=== PATIENT | male | born 1950 | race Caucasian/White ===

== ENCOUNTER → 2018-11-08 14:08 | Outpatient (CLI) | payer MEDICARE, SELFPAY ==
--- NOTE | 2018-11-08 14:14 | XR_ITS ---
XR foot wt bearing LT 3V HISTORY: The dorsal foot pain ITS.REASON: pain ORDERING PHYSICIAN: Sarah López DPM PATIENT AGE: 67 years COMPARISON: None FINDINGS: No fracture or dislocation. No lytic or blastic change. There is normal mineralization.. Minimal osteoarthritic changes are present at the first metatarsophalangeal joint. There is a small calcaneal spur. The distal phalanx of the great toe has a somewhat pointed appearance. This is of questionable clinical significance. IMPRESSION: Mild osteoarthritis of the first metatarsophalangeal joint
--- NOTE | 2018-11-08 14:14 | XR_ITS ---
XR foot wt bearing RT 3V HISTORY: Dorsal foot pain ITS.REASON: pain ORDERING PHYSICIAN: Sarah López DPM PATIENT AGE: 67 years COMPARISON: None FINDINGS: No fracture or dislocation. No lytic or blastic change. There is normal mineralization.. Minimal osteoarthritic changes involving the first metatarsophalangeal joint. There is some minimal hypertrophy along the dorsal aspect of the cuneiforms. IMPRESSION: Minimal osteoarthritis of the first metatarsal phalangeal joint
== END ==
PROVIDERS: PCP Family Medicine; Visit Provider Podiatrist
DX: M79.671 Pain in right foot (principal); M79.672 Pain in left foot
CPT/HCPCS: 73630

== ENCOUNTER → 2021-03-29 10:30 | Outpatient (CLI) | payer MEDICARE, SELFPAY ==
[2021-03-29 12:36] LABS: Coronavirus 19 IgG Antibody Positive (Negative); Coronavirus 19 IgM Antibody Negative (Negative)
== END ==
PROVIDERS: Visit Provider Internal Medicine Gastroenterology
DX: Z01.812 Encounter for preprocedural laboratory examination (principal); Z20.822 Contact with and (suspected) exposure to COVID-19; Z12.11 Encounter for screening for malignant neoplasm of colon
CPT/HCPCS: 36415; 86328

== ENCOUNTER 2021-04-01 06:50 | Day surgery (SDC) | payer MEDICARE, SELFPAY ==
[2021-03-28 10:24] VITALS: BMI 35.2
[2021-04-01 07:17] VITALS: BP 142/81; PULSE 84; RESP 18; TEMP 36.3; O2SAT 98
[2021-04-01 07:19] LABS: POC Glucose,Bedside 102 (70-110)
--- NOTE | 2021-04-01 09:27 | P.PCN_ITS ---
[facility] Procedure Note Procedure Note:: Colonoscopy Procedure Report: Colonoscopy with cold snare polypectomy and Endo Clip placement Endoscopist: Sebastian Rivero II, MD Referring physician: Akira Fajardo MD Date of Procedure: April 01, 2021 Equipment: Olympus 190 variable stiffness pediatric colonoscope Sedation: MAC sedation Indication: Mr. Rodriguez is a 70-year-old gentleman who is here for screening/surveillance colonoscopy. The patient did have a colonoscopy 15 years ago (Dr. Alfonzo Rivera) because of some bleeding. The patient reports no abdominal pain, weight loss, change in his bowel habits or rectal bleeding. He reports no family history of colon cancer. Procedure: Prior to the procedure, a history and physical exam was performed, and patient's medications and allergies were reviewed. The risks, benefits and alternatives of the sedation and procedure were discussed with the patient. All questions were answered and informed consent was obtained. The patient was brought to the procedure room. Patient identification and proposed procedure were verified by the physician and the nurse. The patient was placed in a left lateral decubitus position and the scope was passed under direct vision. Throughout the procedure, the patient's blood pressure, pulse, and oxygen saturations were monitored continuously. The colonoscopy was accomplished without difficulty. The patient tolerated the procedure well. Findings: On digital rectal examination there was normal rectal tone. There were no external hemorrhoids. The prostate was 2-3+, smooth, soft, symmetric without nodules. The colonoscope was introduced through the anal canal to the rectum and advanced to the cecum. The ileocecal valve and appendiceal orifice were identified. The scope was advanced a short distance into the ileum which appeared grossly normal. The scope was then withdrawn into the colon. There were a total of 8 colon polyps (ascending x2 (5 and 12 mm), transverse x1 (7 mm), descending x1 (9 mm), sigmoid x1 (10 mm), rectosigmoid x2 (3 and 5 mm) and rectal x1 (11 mm)) that were identified (despite poor prep) and removed via cold snare polypectomy. The 2 largest polyps had some minor heme so 2 endoclips were placed (1 on each polypectomy site) with complete hemostasis. There were scattered diverticuli throughout the colon but more predominantly in the descending and sigmoid colon (LEFT colon). The rectum itself was normal. Upon retroflexion within the rectum there were grade 2-3 internal hemorrhoids. The preparation was fair to poor throughout with [place] Preparation Score of 5-6 out of 9. The cecal time was 15 minutes. Impression: 1. Colonic polyps x8 2. Extensive pandiverticulosis 3. Grade 2-3 internal hemorrhoids Plan: I will follow up the polyp pathology and recommend repeat colonoscopy again in 1-2 years based upon the polyp histology. I would encourage bulking fiber supplementation on a long-term daily maintenance basis.
[2021-04-01 09:31] VITALS: BP 127/85; PULSE 75; RESP 12; TEMP 36.3; O2SAT 92
[2021-04-01 09:41] VITALS: BP 123/84; PULSE 73; RESP 16; O2SAT 92
[2021-04-01 09:51] VITALS: BP 151/97; PULSE 81; RESP 16; O2SAT 96
[2021-04-01 10:01] VITALS: BP 141/96; PULSE 78; RESP 16; TEMP 36.3; O2SAT 98
[2021-04-01 10:19] VITALS: O2SAT 98
--- NOTE | 2021-04-01 17:02 | HMH.ANESCL ---
[facility] Anesthesia Checklist - Patient Identification Patient Identification: Arm Band - Structural Data Admitted From: Home Planned Operative Procedure/s: Colonoscopy Consent for Planned Operative Procedure(s) Verified: Yes Verified Documents: Surgical Consent, History and Physical - NPO Status Verified Time NPO: 00:00 - Airway Assessment C-Spine Mobility Assessed: Yes TMJ Mobility Assessed: Yes Dentition: Good Dentition - Neurological Assessment Level of Consciousness: Awake, Alert - Anesthesia Plan Anesthesia Risk discussed: Yes Anesthesia Plan: Verified ASA Class: III Anesthesia Type: MAC [facility] History Medical History: Reports:: Cancer (skin ca), Diabetes Mellitus Type 2, Gastroesophageal Reflux Disease(GERD), Hyperlipidemia, Hypertension Denies:: Diabetes Mellitus Type 1, Internal Pacemaker, MRSA, Seizures *Have you ever received a pneumonia vaccine?: Yes (2009) *Have you received a flu vaccine this season?: No Other Medical History: Reports: Arthritis Anesthesia experience/problems:: None Laterality Cases: Left: Arthroscopy Knee, Total Hip Replacement Other Surgeries: Yes: No Previous Surgery, Cancer Surgery, Cardiac Catheterization, Colonoscopy, Coronary Stent, Hernia Repair. No: Pacemaker Amputation: No Fractures: No - *Social History Last grade of school completed: GED Smoking Status: Never smoker Alcohol Intake: current Alcohol Intake Frequency:: a few times a month Substance Use Type: denies use *Occupational Status:: retired Housing: house Household Members: family *Travel in the last 8 weeks: None Family Hx:: Diabetes, Stroke, Hyperlipidemia, Hypertension
== END 2021-04-01 10:08 | disposition home or self-care (01) ==
LOC: OUTP 06:53
PROVIDERS: PCP Family Medicine; Visit Provider Internal Medicine Gastroenterology
PROC: 0DJD8ZZ Inspection of Lower Intestinal Tract, Via Natural or Artificial Opening Endoscopic (ICD-10-PCS; CPT 45378; principal; 2021-04-01 09:00)
DX: Z12.11 Encounter for screening for malignant neoplasm of colon (principal); K63.5 Polyp of colon; K62.1 Rectal polyp; K57.30 Diverticulosis of large intestine without perforation or abscess without bleeding; K64.1 Second degree hemorrhoids; Z85.828 Personal history of other malignant neoplasm of skin; E11.9 Type 2 diabetes mellitus without complications; K21.9 Gastro-esophageal reflux disease without esophagitis; E78.5 Hyperlipidemia, unspecified; I10 Essential (primary) hypertension; M19.90 Unspecified osteoarthritis, unspecified site; Z82.3 Family history of stroke
CPT/HCPCS: 45385; 82962; 88305

== ENCOUNTER → 2021-06-08 17:11 | Outpatient (CLI) | payer MEDICARE, SELFPAY | PROVIDERS: PCP Family Medicine; Visit Provider Ophthalmology | DX: Z01.812 Encounter for preprocedural laboratory examination (principal); Z20.822 Contact with and (suspected) exposure to COVID-19 | CPT/HCPCS: U0003 ==

== ENCOUNTER 2021-06-11 07:06 | Day surgery (SDC) | payer MEDICARE, MEDICAID, SELFPAY ==
[2021-06-04 15:38] VITALS: BMI 34.8
[2021-06-11 07:20] VITALS: BP 113/75; PULSE 76; RESP 18; TEMP 36.3; O2SAT 94
[2021-06-11 08:38] VITALS: BP 131/78; PULSE 69; RESP 18; O2SAT 96
[2021-06-11 08:43] VITALS: BP 130/75; PULSE 66; RESP 18; O2SAT 98
[2021-06-11 08:48] VITALS: BP 127/75; PULSE 67; RESP 16; O2SAT 99
[2021-06-11 08:53] VITALS: BP 131/80; PULSE 65; RESP 16; O2SAT 99
[2021-06-11 08:58] VITALS: BP 123/76; PULSE 73; RESP 16; TEMP 36.6; O2SAT 97
[2021-06-12 08:50] LABS: POC Glucose,Bedside 81 (70-110)
== END 2021-06-11 09:10 | disposition home or self-care (01) ==
LOC: OR 07:07
PROVIDERS: PCP Family Medicine; Visit Provider Ophthalmology
DX: H25.811 Combined forms of age-related cataract, right eye (principal); E11.9 Type 2 diabetes mellitus without complications; Z79.4 Long term (current) use of insulin; Z79.899 Other long term (current) drug therapy
CPT/HCPCS: 66984; 82962; V2632

== ENCOUNTER → 2021-06-24 08:46 | Outpatient (CLI) | payer MEDICARE, MEDICAID, SELFPAY | PROVIDERS: Visit Provider Ophthalmology | DX: Z01.812 Encounter for preprocedural laboratory examination (principal); Z11.52 Encounter for screening for COVID-19 | CPT/HCPCS: U0003 ==

== ENCOUNTER 2021-06-25 07:28 | Day surgery (SDC) | payer MEDICARE, MEDICAID, SELFPAY ==
[2021-06-18 13:24] VITALS: BMI 35.4
[2021-06-25 08:10] VITALS: BP 140/75; PULSE 73; RESP 18; TEMP 36.1; O2SAT 96
[2021-06-25 09:09] VITALS: BP 137/91; PULSE 70; RESP 18; O2SAT 97
[2021-06-25 09:14] VITALS: BP 151/90; PULSE 72; RESP 18; O2SAT 96
[2021-06-25 09:19] VITALS: BP 148/87; PULSE 68; RESP 18; O2SAT 98
[2021-06-25 09:24] VITALS: BP 152/86; PULSE 69; RESP 18; O2SAT 98
[2021-06-25 09:25] VITALS: BP 127/80; PULSE 72; RESP 16; TEMP 36.1; O2SAT 98
[2021-06-26 07:10] LABS: POC Glucose,Bedside 122 (70-110)
== END 2021-06-25 09:37 | disposition home or self-care (01) ==
LOC: OR 07:31
PROVIDERS: PCP Family Medicine; Visit Provider Ophthalmology
DX: H25.813 Combined forms of age-related cataract, bilateral (principal); H02.834 Dermatochalasis of left upper eyelid; H02.831 Dermatochalasis of right upper eyelid; E11.9 Type 2 diabetes mellitus without complications; M19.90 Unspecified osteoarthritis, unspecified site
CPT/HCPCS: 66984; 82962; V2632

== ENCOUNTER → 2021-09-03 08:55 | Outpatient (CLI) | payer MEDICARE, MEDICAID, SELFPAY ==
--- NOTE | 2021-09-03 08:59 | XR_ITS ---
PROCEDURE: XR KNEE RT 4V CLINICAL INDICATION: right knee pain COMPARISON: No exams were available for comparison FINDINGS: No fracture or dislocation. No lytic or blastic change. There is normal mineralization. Severe osteoarthritic changes are present involving all 3 compartments worse at the medial compartment with prominent subchondral cystic changes. Osteophytes are noted. There is approximately 7 mm lateral translation of the tibia. Generalized vascular calcification noted. Other findings:None. IMPRESSION: Severe osteoarthritis worse at the medial compartment with prominent subchondral cystic changes at the medial compartment Dictated by: Tl Alexis MD 09/03/2021 17:22 Tl Alexis MD in [place] 09/03/2021 17:22
== END ==
PROVIDERS: PCP Family Medicine; Visit Provider Orthopaedic Surgery
DX: M25.561 Pain in right knee (principal)
CPT/HCPCS: 73564

== ENCOUNTER 2021-10-03 08:27 | Day surgery (SDC) | payer MEDICARE, MEDICAID, SELFPAY ==
[2021-10-03] VITALS (12 sets, daily range): BP systolic 94–129; BP diastolic 63–80; PULSE 58–85; RESP 19–20; TEMP 36.6–36.8; O2SAT 91–100; BMI 237.8
--- NOTE | 2021-10-03 07:02 | IR_ITS ---
APPROVED REPORT Patient Location: Outpatient [facility] Firefighter: LUPE Obrien RT (R) PROCEDURES Left heart catheterization Left ventriculogram Selective coronary angiogram Stent deployment to the mid LAD INDICATION Abnormal Myoview, Coronary artery disease, Preoperative evaluation SCAI INDICATION Clinical history: This is a gentleman being evaluated preoperatively for total knee replacement. There was an unusual lesion in the mid LAD which effectively acted as if it were a proximal LAD lesion simply based on the size of the LAD itself. Initially I felt this was probably a thrombus producing at least an 80% stenosis. With this gentleman going for knee replacement he would have to be off anticoagulation which would increase the likelihood of this thrombus expanding and possibly creating a serious ischemic event perioperatively. Because patient would have to be off anticoagulation I felt this should be revascularized. Of interest when the stent was delivered there was actual significant difficulty in getting the stent past this lesion thereby making me think it was probably a calcified old ruptured plaque or possible dissection. Nevertheless I believe it was the appropriate therapeutic to revascularize this large caliber LAD. Excellent angiographic results were obtained and I feel the patient will have better short and long-term perioperative chances of being off anticoagulation in the future. Informed consent was obtained prior to the procedure. COMPLICATIONS None Estimated Blood Loss: less than 10ml TECHNIQUE One percent lidocaine was used to anesthetize the right groin. The right femoral artery was accessed via the Seldinger technique. A 4-[place] sheath was placed in the right femoral artery. The JL-4 and JR-4 catheter was also used to perform left heart catheterization left ventriculogram and selective coronary angiogram. At the end the diagnostic angiogram therapeutic heparin was administered giving a therapeutic ACT and the 4 [place] sheath was exchanged for a 6 [place] sheath. An EBU 3.75 guide catheter was placed in the left main artery and a Choice PT extra support wire was placed in the distal LAD. 3.5 x 15 mm resolute Rincon stent was deployed at 20 joslyn producing excellent angiographic results. At the end of the procedure MIRZA-3 flow was present before and after the procedure. At the end of the procedure the apparatus was removed the groin was reprepped gloves were changed sheath was removed and hemostasis was achieved using Perclose device patient was transferred to the postop putting in stable condition total contrast was 25 cc ANGIOGRAPHIC RESULTS The left main artery Normal The left anterior descending artery Has proximal 10 to 20% stenoses followed by a mid vessel stenosis/thrombus creating at least an 80% intraluminal stenosis. The distal LAD then has 80 and distal 90% stenoses. The circumflex artery Is a nondominant vessel with proximal 20 and 30% stenosis followed by mid vessel stent which is widely patent with minimal in-stent restenosis supplying 2 moderate-sized obtuse marginal arteries The right coronary artery Is a dominant vessel and has proximal and mid vessel 30% stenoses. There appears to be a vascular ectatic area in the distal segment creating angela current accompanied by MIRZA III flow. Unlike the LAD, this distasl RCA lucency does change depending on the flow dynamics thereby further suggesting this is most likely an angela current The RUIZ ventriculogram reveals Preserved at 60% The left ventricular end-diastolic pressure 10 mmHg IMPRESSION Dual antiplatelet therapy for at least 6 months coronary disease as described above with successful stenting of
[2021-10-03 09:20] LABS: Coronavirus 19, PCR Not Detected (NotDetected); Influenza A, PCR Not Detected (NotDetected); Influenza B, PCR Not Detected (NotDetected)
[2021-10-03 09:25] LABS: Basophils % 0.3 % (0.1-2.0); Eosinophils # 0.2 K/mm3 (0.0-0.4); Eosinophils % 3.1 % (0.1-12.0); Hematocrit 40.5 % (42.0-52.0); Hemoglobin 12.7 g/dL (14.1-18.0); Lymphocytes # 1.4 K/mm3 (0.7-4.5); Lymphocytes % 21.4 % (10-50); Mean Corpuscular HGB Conc 31.4 g/dL (31.8-35.4); Mean Corpuscular Hemoglobin 31.1 pg (27.0-31.2); Mean Corpuscular Volume 99.2 fl (80-94); Mean Platelet Volume 8.2 fl (7.4-10.4); Monocytes # 0.4 K/mm3 (0.1-1.0); Monocytes % 6.3 % (1.7-9.3); Neutrophils # 4.6 K/mm3 (1.8-7.8); Platelet Count 151 K/mm3 (142-424); Red Blood Count 4.08 M/mm3 (4.60-6.20); Red Cell Distribution Width 14.7 % (11.5-17.5); White Blood Count 6.6 K/mm3 (4.8-10.8)
[2021-10-03 09:41] LABS: Anion Gap 18.2 mEq/L (5-15); Blood Urea Nitrogen 51 mg/dl (9-20); Carbon Dioxide 23 mmol/L (22.0-30.0); Chloride 105 mmol/L (98-107); Creatinine Clearance Estimated -11 mL/min (50-200); Estimated Glomerular Filt Rate 28 ml/min (>60); GFR (African American) 34 ML/MIN (>60); Glucose 67 mg/dl (74-100); Potassium 4.2 mmoL/L (3.5-5.1); Sodium 142 mmol/L (136-145)
[2021-10-03 12:15] LABS: CATHL Activated Clotting Time 359 SEC (74-125)
--- NOTE | 2021-10-03 14:57 | HMH.PHACLD ---
Sterling Rodriguez has received discharge medication counseling on the following medications: PATIENT IS BEING STARTED ON BRILINTA 90 MG BID AND ASPIRIN 81 MG DAILY. PATIENT IS CURRENTLY TAKING LISINOPRIL 20 MG DAILY AND ROSUVASTATIN 10 MG HS. NOT WANTING TO START BETA MAKENZIE AT THIS TIME.
== END 2021-10-03 15:02 | disposition home or self-care (01) ==
LOC: CATHLAB 08:28
PROVIDERS: PCP Family Medicine; Visit Provider Internal Medicine
DX: I25.10 Atherosclerotic heart disease of native coronary artery without angina pectoris (principal); E11.22 Type 2 diabetes mellitus with diabetic chronic kidney disease; I12.9 Hypertensive chronic kidney disease with stage 1 through stage 4 chronic kidney disease, or unspecified chronic kidney disease; N18.9 Chronic kidney disease, unspecified; E78.5 Hyperlipidemia, unspecified; T82.855A Stenosis of coronary artery stent, initial encounter; Y83.1 Surgical operation with implant of artificial internal device as the cause of abnormal reaction of the patient, or of later complication, without mention of misadventure at the time of the procedure
CPT/HCPCS: 80048; 85025; 85347; 92928; 93458; 99152; C1725; C1760; C1769; C1874; C1894; C9600; C9803; J1644; Q9967; U0003; U0005

== ENCOUNTER 2021-10-14 13:56 | Outpatient (RCR) | payer MEDICARE, MEDICAID, SELFPAY | END 2021-10-14 23:59 | disposition home or self-care (01) | LOC: PT 13:56 | PROVIDERS: Visit Provider Internal Medicine | DX: I25.10 Atherosclerotic heart disease of native coronary artery without angina pectoris (principal); Z95.5 Presence of coronary angioplasty implant and graft ==

== ENCOUNTER → 2022-05-06 11:25 | Outpatient (CLI) | payer MEDICARE, MEDICAID, SELFPAY ==
--- NOTE | 2022-05-06 11:31 | XR_ITS ---
FINAL REPORT CLINICAL HISTORY: Pt stated that his right knee has been going out and having lack of mobility since September 2021. Pt is having surgery May 2022 on the right knee. COMPARISON: September 03, 2021 FINDINGS: RIGHT KNEE: 4 views of the right knee obtained. There is no acute fracture or dislocation. There is severe degenerative change, worst in the medial compartment. There is a subchondral cyst. There is a small joint effusion. There are moderate vascular calcifications noted. There is no soft tissue abnormality. IMPRESSION: Overall stable from the prior exam with no acute abnormality. Reviewed, Interpreted and Dictated by Dandre Mahajan III, MD Transcribed by Linda Davis Authenticated and [facility]
== END ==
PROVIDERS: PCP Family Medicine; Visit Provider Orthopaedic Surgery
DX: M25.561 Pain in right knee (principal)
CPT/HCPCS: 73564

== ENCOUNTER → 2022-05-28 08:40 | Outpatient (CLI) | payer MEDICARE, MEDICAID, SELFPAY ==
--- NOTE | 2022-05-28 08:46 | XR_ITS ---
FINAL REPORT CLINICAL HISTORY: pre op for knee surgery smoker, controlled htn FINDINGS: Two views of the chest were obtained. The heart size and pulmonary vascularity are within normal limits. The mediastinum is normal. No acute pulmonary abnormality is identified. There is no pneumothorax. There are postoperative changes in the lower cervical spine. IMPRESSION: No active cardiopulmonary disease. Reviewed, Interpreted and Dictated by Dandre Mahajan III, MD Transcribed by Akilah Irby Authenticated and [facility]
--- NOTE | 2022-05-28 09:23 | ECG_ITS ---
APPROVED REPORT Exam: Resting ECG HR:75 bpm ECG Measurements Heart Rate 75 AXES MO 165 P 35 QRSd 104 QRS -3 QT 402 T 14 QTc 430 Conclusion SINUS RHYTHM LOW QRS VOLTAGE IN PRECORDIAL LEADS [QRS DEFLECTION < 1.0 mV IN CHEST LEADS] POSSIBLE ANTERIOR MYOCARDIAL INFARCTION , PROBABLY OLD [30 ms Q WAVE IN V3/V4, OR R < 0.2 mV IN V4] BORDERLINE ECG UNCONFIRMED REPORT Electronically signed by : Arthur Whitt MD 05/28/2022 17:27:00
[2022-05-28 09:36] LABS: Basophils % 0.5 % (0.1-2.0); Eosinophils # 0.2 K/mm3 (0.0-0.4); Eosinophils % 4.4 % (0.1-12.0); Hematocrit 38.7 % (42.0-52.0); Hemoglobin 12.4 g/dL (14.1-18.0); Lymphocytes # 1.1 K/mm3 (0.7-4.5); Mean Corpuscular HGB Conc 32.1 g/dL (31.8-35.4); Mean Corpuscular Hemoglobin 30.7 pg (27.0-31.2); Mean Corpuscular Volume 95.8 fl (80-94); Mean Platelet Volume 8.3 fl (7.4-10.4); Monocytes # 0.3 K/mm3 (0.1-1.0); Monocytes % 6.8 % (1.7-9.3); Neutrophils # 3.4 K/mm3 (1.8-7.8); Neutrophils % 67.3 % (37.0-80.0); Platelet Count 150 K/mm3 (142-424); Red Blood Count 4.04 M/mm3 (4.60-6.20); Red Cell Distribution Width 14.6 % (11.5-17.5)
[2022-05-28 09:51] LABS: Alanine Aminotransferase 24 U/L (12-78); Albumin/Globulin Ratio 1.9 (1.1-1.8); Alkaline Phosphatase 87 U/L (38-126); Anion Gap 15.2 mEq/L (5-15); Aspartate Amino Transferase 34 U/L (17-59); Blood Urea Nitrogen 58 mg/dl (9-20); Carbon Dioxide 27 mmol/L (22.0-30.0); Chloride 100 mmol/L (98-107); Estimated Glomerular Filt Rate 30 ml/min (>60); GFR (African American) 36 ML/MIN (>60); Globulin 2.1 g/dL (1.3-3.2); Glucose 178 mg/dl (74-100); Potassium 4.2 mmoL/L (3.5-5.1); Sodium 138 mmol/L (136-145); Total Protein,Serum 6.1 g/dl (6.3-8.2)
[2022-05-28 09:53] LABS: Bilirubin,Total < 0.1 mg/dl (0.2-1.3)
== END ==
PROVIDERS: PCP Family Medicine; Visit Provider Orthopaedic Surgery
DX: M25.562 Pain in left knee (principal); M10.9 Gout, unspecified
CPT/HCPCS: 36415; 71046; 80053; 85025; 93005

== ENCOUNTER → 2022-06-02 08:58 | Outpatient (CLI) | payer MEDICARE, MEDICAID, SELFPAY | PROVIDERS: PCP Family Medicine; Visit Provider Orthopaedic Surgery | DX: M25.562 Pain in left knee (principal); Z01.812 Encounter for preprocedural laboratory examination; Z20.822 Contact with and (suspected) exposure to COVID-19 | CPT/HCPCS: 36415; 86850; C9803; U0003; U0005 ==

== ENCOUNTER 2022-06-04 13:47 | Observation (INO) | payer MEDICARE, MEDICAID, SELFPAY ==
--- NOTE | 2022-05-22 12:02 | SW/DCPLANNER ---
Addendum entered by Amber Hyde 05/27/22 12:14: This patient did return my phone call today 05/27/22. Patient stated that he does have some assistance at home but stated he is unsure of a safe discharge plan. I informed this patient that PT/OT will evaluate this patient after surgery and then I will visit patient. I explained to patient that recommendation could be: home with home health or placement. I also discussed facilities with patient that are in network with his insurance: [facility], [facility], [facility] or [facility]. I will follow up with this patient the day of his procedure. Original Note: I have attempted to contact this patient regarding discharge plans after upcoming TKR on 06/04/22. Patient did not answer/VM left to return phone call.
[2022-05-29 10:53] VITALS: BMI 34.0
[2022-06-04] VITALS (24 sets, daily range): BP systolic 94–127; BP diastolic 52–72; PULSE 64–85; RESP 14–20; TEMP 33.9–43; O2SAT 91–97
[2022-06-04 07:06] LABS: POC Glucose,Bedside 76 (70-110)
--- NOTE | 2022-06-04 07:27 | P.PN_ITS ---
[facility] Anesthesia Checklist - Patient Identification Patient Identification: Arm Band - Structural Data Admitted From: Home Planned Operative Procedure/s: Right Total Knee Arthroplasty Consent for Planned Operative Procedure(s) Verified: Yes Verified Documents: Surgical Consent, History and Physical - NPO Status Verified Time NPO: 00:00 - Additional verifications Anesthesia Reactions: No Hx Blood Transfusions: No Blood Transfusion Reaction: No - Airway Assessment C-Spine Mobility Assessed: Yes (mp2) TMJ Mobility Assessed: Yes Dentition: Edentulous - Neurological Assessment Level of Consciousness: Awake, Alert - Anesthesia Plan Anesthesia Risk discussed: Yes Anesthesia Plan: Verified ASA Class: III Anesthesia Type: MAC w/Spinal [facility] History I have reviewed the patient's past medical history: Yes Medical History: Reports:: Cancer (SKIN CANCER), Coronary Artery Disease, Diabetes Mellitus Type 2, Gastroesophageal Reflux Disease(GERD), Hyperlipidemia, Hypertension Denies:: Diabetes Mellitus Type 1, Internal Pacemaker, MRSA, Seizures *Have you ever received a pneumonia vaccine?: No *Have you received a flu vaccine this season?: No Other Medical History: Reports: Arthritis. Denies: Blood Transfusion Reaction Anesthesia experience/problems:: nac Laterality Cases: Left: Arthroscopy Knee, Total Hip Replacement, Bilateral: Cataract Other Surgeries: Yes: Cancer Surgery, Cardiac Catheterization, Colonoscopy, Coronary Stent, Hernia Repair. No: Pacemaker Amputation: No Fractures: No - *Social History Last grade of school completed: GED Smoking Status: Former smoker Tobacco Type: cigars #Yrs smoked (if former smoker): 4 Smoking End Date: 2004 Alcohol Intake: former Alcohol Intake Frequency:: a few times a week Substance Use Type: denies use *Occupational Status:: retired, disabled Housing: house Household Members: family *Travel in the last 8 weeks: None Family Hx:: Diabetes
[2022-06-04 07:37] LABS: Hemoglobin A1C 6.4 % (4.0-6.0)
--- NOTE | 2022-06-04 12:47 | XR_ITS ---
FINAL REPORT CLINICAL HISTORY: surgery COMPARISON: 05/06/2022 FINDINGS: RIGHT KNEE Three views were obtained. There is no acute fracture or dislocation. There are postoperative changes from arthroplasty without evidence of complication. Soft tissue air is identified. Note is made of vascular calcification. IMPRESSION: Postsurgical changes without evidence of complication. Reviewed, Interpreted and Dictated by Dandre Mahajan III, MD Transcribed by Pricilla Gonzales Authenticated and . [facility]
--- NOTE | 2022-06-04 12:51 | P.PN_ITS ---
[facility] Anesthesia Record Part I Intake, IV Amount: 1,400 Estimated blood loss (mL): 50 Urine output (mL): 400 Blood Pressure: 94/55 SaO2: 95 Pulse Rate: 75 Respiratory Rate: 14 Temperature: 97.6 F Patient is:: Drowsy Stable to PACU at:: 12:43
[2022-06-04 12:53] LABS: Coronavirus 19, PCR Not Detected (NotDetected); Influenza A, PCR Not Detected (NotDetected); Influenza B, PCR Not Detected (NotDetected)
--- NOTE | 2022-06-04 13:05 | HMH.OPNOTE ---
Date of procedure: 06/04/22 Pre-op Diagnosis:: Advanced degenerative arthritis, right knee Post-op Diagnosis:: Same Procedure performed:: Uncemented total knee arthroplasty, right knee Surgeon:: Cruz Lopez MD Molasses Coloring Operator(s):: Xena Vee PA-C MOP MAKER:: Other (Bradley Chakraborty) Anesthesia: spinal Estimated blood loss (mL): 50 Clinical Note:: Patient is a 71-year-old male with end-stage tricompartmental osteoarthritis and severe [id number] changes over the medial compartment with a progressive varus deformity and flexion contracture of the right knee presented with unremitting severe pain not relieved by conservative management. The arthritic process and pain are advanced to the point that it is becoming a hazard for the patient with risk of falling and injuring himself.? A total knee arthroplasty is indicated to relieve the pain, improve function, reduce the risk of falls and improve quality of life.? He has history of hypertension, hyperlipidemia, gout, diabetes mellitus, GERD and arthritis.? Please refer to my office note for full details. Operative findings:: As noted on the preoperative evaluation, the knee joint was stiff and has a fixed flexion of 10? with 10 degrees of fixed varus deformity.? As seen on the x-rays, there is advanced tricompartmental degenerative arthritis with the medial compartment showing marked degenerative changes with osteophyte formation, subchondral cysts and sclerosis. Multiple subchondral cysts noted over the medial tibial plateau and medial femoral condyle. The menisci and cruciate ligaments are markedly degenerate.? There is extensive osteophyte formation over all 3 compartments.? Bone quality is good. Operative note:: On the day of the surgery the patient and his daughter were met in the preoperative area. I have again reviewed the clinical and x-ray findings and discussed the diagnosis, natural history and management options including both nonsurgical and surgical.? Patient has end-stage degenerative arthritis of the right knee and has failed to respond satisfactorily to appropriate conservative management in the past and has opted for a total knee arthroplasty.? The right knee joint is stiff and painful, and is limiting his mobility, ADLs and quality of life.? Also, the knee gives out and patient is at risk of falls resulting in fractures.? I have again discussed the details of the procedure, risks and benefits and alternatives in detail. The complications discussed include but are not limited to infection, injury to nerves and blood vessels including injury to popliteal artery, injury to tendons and ligaments, DVT and PE, fat embolism, intraoperative fracture, limb length inequality, patella fracture, patellofemoral instability, patellar clunk syndrome, quadriceps and patellar tendon rupture, implant failure, component loosening, periprosthetic femur and tibia fractures, stiffness/arthrofibrosis, limp, incomplete relief of pain, incomplete functional recovery, likely need for further surgery in future including revision and anesthetic complications including heart attack, stroke and even .? We also discussed about the likely need for blood transfusion and transfusion reactions. We discussed how any of these events can be devastating. We have discussed nonsurgical alternatives as well. Patient understands and wishes to proceed with a right total knee arthroplasty as planned and I believe that he is fully informed as to the risks, benefits, and alternatives including nonsurgical alternatives. We also discussed the postoperative course including the rehab and physical therapy required.? A physical examination was performed and documented.? Patient understood the risks, agreed to proceed with surgery and no guarantees or assurances were given or implied. The limb was appropriately marked and initialed by me. The patient was then brought to the operating room and a spinal anesthesia was administered by the control operator.?
[2022-06-04 13:13] LABS: POC Glucose,Bedside 97 (70-110)
--- NOTE | 2022-06-04 13:56 | HMH.PHAINT ---
MEDICATION RECONCILIATION COMPLETED ON PATIENT USING EXTERNAL FILL HISTORY FROM PHARMACY. -RUFINO VEGA, SANCHEZD
--- NOTE | 2022-06-04 14:00 | PC.NURSE ---
Addendum entered by Keaton Zamora RN 06/04/22 16:02: LATE ENTRY ON PREVIOUS NOTE FOR 1400 Original Note: PT HYPOTHERMIC UPON ARRIVAL TO FLOOR. ERIC OCHOA APPLIED
--- NOTE | 2022-06-04 14:20 | HMH.PHAVTE ---
[facility] Pharmacy VTE Monitoring - Patient Demographics Admission date: 06/04/22 Report Date: 06/04/22 Time: 14:20 Allergies/Adverse Reactions: Patient Allergies No Known Allergies Allergy (Verified 06/04/22 06:39) Height: 1.75 m Weight: 104.326 kg - Prophylaxis VTE Prophylaxis Ordered?: Yes Types of VTE Prophylaxis: IPCS Thigh High, Pharmacological Location of Applied Device: Bilateral Lower Extremeties Pharmacologic Type: Other (XARELTO)
[2022-06-04 15:14] LABS: Microscopic,Cath URINE MICROSCOPIC (MICROSCOPIC)
[2022-06-04 15:28] LABS: Appearance,Urine/Cath CLEAR (Clear); Bilirubin,Cath Negative (Negative); Blood, Urine/Cath Negative (Negative); Color,Urine/Cath YELLOW (Yellow); Glucose,Urine/Cath (UA) Negative (Negative); Ketones,Urine/Cath Negative (Negative); Leukocyte Esterase,Cath Negative (Negative); Nitrate,Cath Negative (Negative); Protein,Urine/Cath Negative (Negative); Specific Gravity, Urine/Cath 1.015 (1.005-1.030); Urobilinogen,Cath 0.2 EU/dl (0.2)
--- NOTE | 2022-06-04 15:28 | HMH.ORTHPN ---
Subjective Date: 06/04/22 Time: 15:15 Principal diagnosis: Status post uncemented total knee arthroplasty, right knee Interval history: Patient is status post right total knee arthroplasty earlier today. Patient is lying down on the bed. He says the spinal anesthesia/adductor canal block is wearing off and reporting some knee pain. Not complaining of any nausea or vomiting. No history of any cough, chest pain, shortness of breath or palpitations. PN: Obj Ex Vital signs: Temp Pulse Resp BP Pulse Ox 93.2 F L 64 16 100/58 L 94 L 06/04/22 15:24 06/04/22 14:00 06/04/22 14:00 06/04/22 14:00 06/04/22 14:00 Narrative: Laboratory Results - last 24 hr 06/04/22 06:55: POC Glucose 76 06/04/22 06:56: Hemoglobin A1c 6.4 H 06/04/22 08:40: Urine Color Yellow, Urine Appearance Clear, Urine pH 6.0, Ur Specific [place] 1.015, Urine Protein Negative, Urine Glucose (UA) Negative, Urine Ketones Negative, Urine Blood Negative, Urine Nitrate Negative, Urine Bilirubin Negative, Urine Urobilinogen 0.2, Ur Leukocyte Esterase Negative 06/04/22 12:46: SARS-CoV-2 (PCR) Not detected, Influenza A Untype (PCR) Not detected, Influenza Type B (PCR) Not detected 06/04/22 13:06: POC Glucose 97 Exam: General appearance: Drowsy but arousable and speaks in full sentences Cardiovascular: regular rate & rhythm, normal peripheral pulses Respiratory: No respiratory distress noted, speaks in full sentences ABD: soft and non tender On examination of the lower extremities the limb lengths are equal. On examination of the right knee the dressings are clean, dry and intact. Leg compartments are soft. Distal pulses are 1+. Capillary refill is brisk. There is numbness over her right foot and ankle. He is actively moving the ankle, foot and the toes. Postoperative check x-ray reviewed along with radiologist report. The x-rays show right total knee arthroplasty in satisfactory alignment. No complications noted. - Urinary Catheter Management Condom Cath placed during this visit: no Urethral indwelling: Yes Progress Note: A&P Assessment and Plan for All Diagnoses:: I have reviewed the clinical and operative findings and procedure performed with the patient and his daughter. We have given a copy of the postoperative check x-ray to the patient. Advised him to avoid placing pillow behind the knee; use knee immobilizer when weightbearing and walking until he regains full quadriceps control and is able to actively straight leg raise. Continue DVT prophylaxis and as needed pain medication. Care management consult regarding discharge planning. Patient is keen to go to a [facility] facility.
--- NOTE | 2022-06-04 15:57 | CARE MANAGER ---
Addendum entered by Amber Hyde 06/05/22 13:35: This patient has been approved for [facility] today per Lynette. [facility] does require a COVID swab prior to admission. Addendum entered by Amber Hyde 06/05/22 11:26: Lynette ramirez/ [facility] stated that she can accept this patient pending precert. I have updated patient's family and HCF. Addendum entered by Amber Hyde 06/05/22 09:31: Patient information has also [facility] to [facility] Original Note: Met with patient and daughter at bedside to discuss discharge planning. Patient lives with his daughter, but she works and feels he may need a SNF at discharge. Patient has been to [place] in the past, but is agreeable to any facility in [place]. Zaira at was notified of referral, and referral has been faxed. We will need to fax PT/OT evals in the AM.
--- NOTE | 2022-06-04 16:02 | PC.NURSE ---
1530- SECOND MISBAH OCHOA APPLIED FOR HYPOTHERMIA
--- NOTE | 2022-06-04 16:15 | PC.NURSE ---
1615-WARMED FLUIDS PROVIDED BY SCROLL MACHINE OPERATOR PER MD GONZALEZ.
[2022-06-04 16:43] LABS: Squamous Epithelial Ur./Cath Occasional #/hpf (0-5)
--- NOTE | 2022-06-04 17:45 | PC.NURSE ---
SHIFT SUMMARY. PT IS AOX4, ANSWERS QUESTIONS APPROPRIATELY. WAS ABLE TO EAT SUPPER TRAY AND TOLERATED WELL. LUNA CATH TO BEDSIDE DRAIN. HE HAS BEEN HYPOTHERMIC SINCE ARRIVING TO FLOOR. POLAR PACK REMOVED, BEAR HUGGER AND WARM FLUIDS IN PLACE PER DR GONZALEZ. PT DENIES N/V/D. HE IS NOT SHIVERING OR COMPLAINING OF BEING COLD. CAP REFILL BRISK <3 SECONDS X4 ECTREMITIES. SENSATION AND MOVEMENT INTACT TO DISTAL EXTREMITIES X4.
--- NOTE | 2022-06-04 18:22 | PC.NURSE ---
UPDATED DR GONZALEZ ON PATIENT STATUS. RECTAL TEMPERATURES HAVE IMPROVED TO 96.9. DR GONZALEZ RECOMMENDED TO CONTINUE WARM FLUIDS AND ACTIVE PT WARMING WITH MISBAH OCHOA
--- NOTE | 2022-06-04 19:10 | PC.NURSE ---
98.9 RECTAL TEMP AT THIS TIME. BEAR PAWS REMOVED. WARMED FLUIDS STOPPED.
[2022-06-05] VITALS: BP 115/71; PULSE 94; RESP 16; TEMP 36.6; O2SAT 93
[2022-06-05 00:58] LABS: POC Glucose,Bedside 135 (70-110)
--- NOTE | 2022-06-05 03:40 | PC.NURSE ---
pt rounded on throughout the night. Pt was just rounded on and said he was in pain and requested pain medication. The nurse was notified. The pt expressed no other needs at this time.
--- NOTE | 2022-06-05 04:00 | PC.NURSE ---
pt restless through the night, medicated for pain x 4; pt rates pain 8-9 at operative site, dressing left knee op site CDI; cryo cuff in use, + pedal pulses and cap refill <3 sec; pt a+o x4; post op vitals stable, no acute distress noted, pt has leg up on pillow for comfort; lungs CTA; no other issues or concerns noted at this time.
[2022-06-05 04:25] VITALS: BP 149/78; PULSE 101; RESP 16; TEMP 37.1; O2SAT 88
[2022-06-05 04:38] VITALS: BMI 35.4
[2022-06-05 06:58] LABS: Basophils % 0.2 % (0.1-2.0); Eosinophils % 0.3 % (0.1-12.0); Hematocrit 32.9 % (42.0-52.0); Hemoglobin 11.2 g/dL (14.1-18.0); Lymphocytes # 0.7 K/mm3 (0.7-4.5); Lymphocytes % 8.1 % (10-50); Mean Corpuscular HGB Conc 34.1 g/dL (31.8-35.4); Mean Corpuscular Volume 93.8 fl (80-94); Mean Platelet Volume 8.5 fl (7.4-10.4); Monocytes # 0.6 K/mm3 (0.1-1.0); Monocytes % 7.7 % (1.7-9.3); Neutrophils # 6.9 K/mm3 (1.8-7.8); Neutrophils % 83.7 % (37.0-80.0); Platelet Count 117 K/mm3 (142-424); Red Blood Count 3.51 M/mm3 (4.60-6.20); Red Cell Distribution Width 14.7 % (11.5-17.5); White Blood Count 8.3 K/mm3 (4.8-10.8)
[2022-06-05 07:29] LABS: Anion Gap 13.7 mEq/L (5-15); Blood Urea Nitrogen 53 mg/dl (9-20); Calcium 8.4 mg/dl (8.4-10.2); Carbon Dioxide 27 mmol/L (22.0-30.0); Chloride 101 mmol/L (98-107); Creatinine Clearance Estimated 46 mL/min (50-200); Estimated Glomerular Filt Rate 28 ml/min (>60); GFR (African American) 34 ML/MIN (>60); Glucose 139 mg/dl (74-100); Potassium 4.7 mmoL/L (3.5-5.1); Sodium 137 mmol/L (136-145)
[2022-06-05 08:00] VITALS: BP 120/96; PULSE 103; RESP 16; TEMP 36.7; O2SAT 95; O2SAT 97
--- NOTE | 2022-06-05 11:00 | HMH.OTEV ---
OT Inpatient Evaluation Rehab OT IP Evaluation Start: 06/04/22 13:53 Freq: ONCE Status: Complete Protocol: Document 06/05/22 10:17 JEREMIAH (Rec: 06/05/22 10:23 JEREMIAH [id number]) Rehab OT IP Assessment Subjective History 71 year old male referred to skilled IP OT services for Uncemented total knee arthroplasty, right knee Patient is a 71-year-old male with end-stage tricompartmental osteoarthritis and severe bone -on-bone changes over the medial compartment with a progressive varus deformity and flexion contracture of the right knee presented with unremitting severe pain not relieved by conservative management. The arthritic process and pain are advanced to the point that it is becoming a hazard for the patient with risk of falling and injuring himself.? A total knee arthroplasty is indicated to relieve the pain, improve function, reduce the risk of falls and improve quality of life.? He has history of hypertension, hyperlipidemia, gout, diabetes mellitus, GERD and arthritis. ? Please refer to my office note for full details. Patient lives in [facility] with daughter in 2 story home with no ANNA. Patient has all living aspects on the 1st floor and does not need to use the stairs. Patient used a cane to ambulate within home and outside of home prior to surgery. Patient was independent with ADLs and fx'l mobility prior to surgery. Patient has been instructed to wear brace during OOB tasks at this time. Subjective I can try to get up. Instructed Patient on prop
--- NOTE | 2022-06-05 11:17 | HMH.PTEV ---
Physical Therapy Evaluation Rehab PT IP Evaluation Start: 06/04/22 13:53 Freq: ONCE Status: Active Protocol: Document 06/05/22 11:15 PHORNE (Rec: 06/05/22 11:17 PHORNE [id number]) Subjective/History History History 71 yowm adm to [facility] for R TKA. He reports no difficulty with mobility prior to adm. Subjective Subjective He reports increased pain in his R LE, but did not rate at this time. Rehab PT IP Eval Objective Appearance Patient Behavior Appropriate Patient Orientation Person,Place,Time Difficulty following instructions none Speech Pattern Clear Ambulation Patient Able to Ambulate Yes Ambulation Observation IP General Gait Pattern Observation Antalgic Gait Ambulation Distance (feet) 5 Ambulation Assistive Device Rolling Walker Ambulation Ability Minimal x 1 (25% assist) Balance Ability to Arise Able, uses arms to help Sitting Balance Steady, safe Standing Balance Steady, wide stance Dynamic Sitting Balance Ability Good Dynamic Standing Balance Ability Fair Transfers Bed Transfer Ability Minimal x 1 (25% assist) Chair Transfer Ability Minimal x 1 (25% assist) Sit to Stand Bed Transfer Ability Minimal x 1 (25% assist) Sit to Stand Chair Transfer Ability Minimal x 1 (25% assist) Rehab PT IP prob,goals,plan Problems Date of Evaluation: 06/05/22 PT IP Problems Bed Mobility,Transfers,Gait Rehab Potential Rehab Potential Good Equipment Needs Assistive Devices Rolling / Wheeled Walker Plan PT Intervention Plan Bed Mobility,Transfers,Gait, Self care,Therapeutic Exercise PT Plan Frequency BID Duration LOS Discharge Goals Bed Transfer Ability Contact Guard/Hand Hold Sit to Stand Chair Transfer Ability Contact Guard/Hand Hold Ambulation Assistive Device Rolling Walker Ambulation Distance (feet) 25 Discharge Plan PT Discharge Plan Pt is currently most appropriate for rehab placement once medically stable. G -code Required No Eval Complexity Eval Charge Codes 95056 - Moderate Complexity PHYSICIAN CERTIFICATION: I certify the specified therapy services for Sterling Rodriguez are required, authorized, and reviewed every 30 days.
[2022-06-05 11:52] VITALS: BMI 35.4
[2022-06-05 12:00] VITALS: BP 121/56; PULSE 93; RESP 16; TEMP 36.5; O2SAT 93
--- NOTE | 2022-06-05 12:32 | P.PN_ITS ---
[facility] Anesthesia Record Part II Discharge Time: 13:43 Destination: Surgical Day Care (OP Surgery) PACU nurse assessment reviewed?: Yes Patient Condition:: Good Anesthesia Complications:: None Swallowing reflex intact?: Yes Cyanosis?: No Blood Pressure: 96/56 Pulse Rate: 70 Temperature: 97.7 F Mental Status: Alert & Oriented Pain level:: 0 Nausea and/or vomitting:: None Intake, IV Amount: 0
[2022-06-05 12:33] VITALS: BP 96/56; PULSE 70; TEMP 36.5
[2022-06-05 13:57] LABS: Coronavirus 19, PCR Not Detected (NotDetected); Influenza A, PCR Not Detected (NotDetected); Influenza B, PCR Not Detected (NotDetected)
--- NOTE | 2022-06-05 14:11 | HMH.HPDC ---
General - General Admission date:: 06/04/22 Discharge date: 06/05/22 *Admission Date: 06/04/22 *Chief complaint: s/p right total knee arthroplasty *History of present illness: Patient is a 71-year-old male admitted to the inpatient service for observation following an uncomplicated right primary total knee arthroplasty. He has had chronic right knee pain for many years and is known to have advanced degenerative arthritis of the right knee. He reports that his right knee pain has gradually worsened over the last few years, no history of any injury. At rest he rates his pain a 7 out of 10 and with activity, and a 10 out of 10 at its worst. He localizes pain to all around the knee with more severe pain over the medial aspect. He reports that walking, standing for prolonged periods, and bending his knee aggravates his pain. He also reports occasional radiation of the pain from his right knee down to his foot/ankle. He is has tried extensive conservative management including rest, ice, activity modification, elevation, and prior intra-articular steroid injections with no significant benefit. More recently he also underwent a series of 5 Supartz injections to his right knee in August 2020 with some symptomatic improvement that lasted only 4-5 months. He complains of marked stiffness in his right knee and states that his main concern is gradual limitation of his range of motion. He reports frequent feelings of crepitation in his right knee and associated swelling. He reports he cannot walk more than a couple 100 yards without stopping to rest. He also reports occasional sensation of the knee giving out on him, but has not had any falls. He states that his knee pain, stiffness, and instability are limiting his activities, mobility, and adversely impacting his activities of daily living. He denies any history of hip pain, back pain, or distal tingling/numbness. He had a left total hip arthroplasty performed by Dr. Ibanez about 8 years ago with a revision procedure approximately 2 years later and states that he has been doing well in regards to his left hip since that time. He also reports an open meniscus surgery on his left knee approximately 40 years ago. He denies any history of surgery or significant injuries to the right knee. At baseline he ambulates with the use of a cane. He is a non-smoker and is retired. His past medical history is significant for hypertension, gout, and diabetes. [facility] History Medical History: Reports:: Cancer (SKIN CANCER), Coronary Artery Disease, Diabetes Mellitus Type 2, Gastroesophageal Reflux Disease(GERD), Hyperlipidemia, Hypertension Denies:: Diabetes Mellitus Type 1, Internal Pacemaker, MRSA, Seizures *Have you ever received a pneumonia vaccine?: Yes *Have you received a flu vaccine this season?: Yes Other Medical History: Reports: Arthritis. Denies: Blood Transfusion Reaction Anesthesia experience/problems:: nac Laterality Cases: Left: Arthroscopy Knee, Total Hip Replacement, Bilateral: Cataract Other Surgeries: Yes: No Previous Surgery, Cancer Surgery, Cardiac Catheterization, Colonoscopy, Coronary Stent, Hernia Repair. No: Pacemaker Amputation: No Fractures: No - *Social History Last grade of school completed: GED Smoking Status: Former smoker Tobacco Type: cigars #Yrs smoked (if former smoker): 4 Smoking End Date: 2004 Alcohol Intake: former Alcohol Intake Frequency:: a few times a week Substance Use Type: denies use *Occupational Status:: retired, disabled Housing: house Household Members: family *Travel in the last 8 weeks: None Family Hx:: Diabetes Review of Systems - Review of Systems Review of systems:: pertinent systems reviewed and negative unless documented below - Constitutional Denies anorexia, Denies body ache(s), Denies chills, Denies fatigue, Denies fever(s), Denies headache(s) - Eyes Denies change in vision - ENT Denies poor balance, Denies difficulty swallowing, Denies nasal
--- NOTE | 2022-06-06 14:03 | CARE MANAGER ---
Contacted patient related to hospital discharge. Patient states he is doing ok and he has done therapy today. He is taking pain medication as needed and denies any questions or concerns at this time. MELISSA Gallardo
== END 2022-06-05 16:21 ==
LOC: 2ND 06-05 01:17
PROVIDERS: Physician Assistant Surgical; Admitting Provider Orthopaedic Surgery; PCP Family Medicine; Visit Provider Orthopaedic Surgery
PROC: (CPT 27447; principal; 2022-06-04 07:30)
DX: M17.11 Unilateral primary osteoarthritis, right knee (principal); I25.10 Atherosclerotic heart disease of native coronary artery without angina pectoris; I10 Essential (primary) hypertension; Z95.5 Presence of coronary angioplasty implant and graft; E78.5 Hyperlipidemia, unspecified; Z79.4 Long term (current) use of insulin; Z79.01 Long term (current) use of anticoagulants; Z79.899 Other long term (current) drug therapy; Z20.822 Contact with and (suspected) exposure to COVID-19
CPT/HCPCS: 27447; G0378; 73562; 80048; 81001; 82962; 83036; 85025; 96374; 97116; 97162; 97165; 97530; C1776; C9803; J2405; J2704; U0003; U0005

== ENCOUNTER → 2022-06-11 10:28 | Outpatient (CLI) | payer MEDICARE, MEDICAID, SELFPAY ==
[2022-06-11 10:48] LABS: Basophils % 0.2 % (0.1-2.0); Eosinophils # 0.2 K/mm3 (0.0-0.4); Eosinophils % 2.8 % (0.1-12.0); Hematocrit 31.9 % (42.0-52.0); Hemoglobin 9.8 g/dL (14.1-18.0); Lymphocytes # 0.7 K/mm3 (0.7-4.5); Lymphocytes % 10.1 % (10-50); Mean Corpuscular HGB Conc 30.7 g/dL (31.8-35.4); Mean Corpuscular Hemoglobin 30.6 pg (27.0-31.2); Mean Corpuscular Volume 99.8 fl (80-94); Mean Platelet Volume 9.9 fl (7.4-10.4); Monocytes # 0.5 K/mm3 (0.1-1.0); Monocytes % 7.3 % (1.7-9.3); Neutrophils # 5.2 K/mm3 (1.8-7.8); Neutrophils % 79.6 % (37.0-80.0); Platelet Count 266 K/mm3 (142-424); Red Cell Distribution Width 15.3 % (11.5-17.5); White Blood Count 6.5 K/mm3 (4.8-10.8)
[2022-06-11 10:52] LABS: Chloride 99 mmol/L (98-107); Sodium 136 mmol/L (136-145)
[2022-06-11 10:53] LABS: Potassium 4.4 mmoL/L (3.5-5.1)
[2022-06-11 10:55] LABS: Alanine Aminotransferase 55 U/L (12-78); Albumin Level 3.8 g/dl (3.5-5.0); Albumin/Globulin Ratio 1.2 (1.1-1.8); Alkaline Phosphatase 123 U/L (38-126); Anion Gap 12.4 mEq/L (5-15); Aspartate Amino Transferase 60 U/L (17-59); Bilirubin,Total 0.8 mg/dl (0.2-1.3); Blood Urea Nitrogen 59 mg/dl (9-20); Calcium 9.2 mg/dl (8.4-10.2); Carbon Dioxide 29 mmol/L (22.0-30.0); Estimated Glomerular Filt Rate 26 ml/min (>60); GFR (African American) 31 ML/MIN (>60); Globulin 3.1 g/dL (1.3-3.2); Glucose 169 mg/dl (74-100); Lactic Acid 0.8 mmol/L (0.7-2.1); Total Protein,Serum 6.9 g/dl (6.3-8.2)
[2022-06-11 11:01] LABS: C-Reactive Protein 226.6 mg/L (0-4)
[2022-06-11 11:15] LABS: Erythrocyte Sedimentation Rate > 140 mm/hr (0-20)
== END ==
PROVIDERS: PCP Family Medicine; Visit Provider Orthopaedic Surgery
DX: M10.9 Gout, unspecified (principal); Z96.651 Presence of right artificial knee joint; M25.561 Pain in right knee
CPT/HCPCS: 36415; 80053; 83605; 85025; 85651; 86140

== ENCOUNTER → 2022-06-19 10:00 | Outpatient (CLI) | payer MEDICARE, MEDICAID, SELFPAY ==
--- NOTE | 2022-06-19 10:04 | XR_ITS ---
FINAL REPORT CLINICAL HISTORY: s/p Rt TKA F/U COMPARISON: 06/04/2022 FINDINGS: RIGHT KNEE Four views of the right knee reveal postoperative changes from knee arthroplasty. There is no evidence of fracture or dislocation. Alignment is normal. There is a large joint effusion, worse. There are vascular calcifications. IMPRESSION: Postoperative change as described. Large joint effusion, worse Reviewed, Interpreted and Dictated by Dandre Mahajan III, MD Transcribed by Akilah Irby Authenticated and [facility]
[2022-06-19 10:46] LABS: Basophils % 0.5 % (0.1-2.0); Eosinophils # 0.2 K/mm3 (0.0-0.4); Eosinophils % 2.8 % (0.1-12.0); Hematocrit 28.9 % (42.0-52.0); Hemoglobin 9.3 g/dL (14.1-18.0); Lymphocytes # 0.9 K/mm3 (0.7-4.5); Lymphocytes % 11.1 % (10-50); Mean Corpuscular HGB Conc 32.1 g/dL (31.8-35.4); Mean Corpuscular Hemoglobin 30.6 pg (27.0-31.2); Mean Corpuscular Volume 95.3 fl (80-94); Mean Platelet Volume 8.5 fl (7.4-10.4); Monocytes # 0.5 K/mm3 (0.1-1.0); Monocytes % 5.5 % (1.7-9.3); Neutrophils # 6.8 K/mm3 (1.8-7.8); Neutrophils % 80.1 % (37.0-80.0); Platelet Count 472 K/mm3 (142-424); Red Blood Count 3.03 M/mm3 (4.60-6.20); Red Cell Distribution Width 14.4 % (11.5-17.5); White Blood Count 8.4 K/mm3 (4.8-10.8)
[2022-06-19 11:14] LABS: C-Reactive Protein 83.8 mg/L (0-4)
[2022-06-19 11:23] LABS: Erythrocyte Sedimentation Rate > 140 mm/hr (0-20)
== END ==
PROVIDERS: PCP Family Medicine; Visit Provider Orthopaedic Surgery
DX: Z96.651 Presence of right artificial knee joint (principal); M10.9 Gout, unspecified; M25.561 Pain in right knee
CPT/HCPCS: 36415; 73562; 85025; 85651; 86140

== ENCOUNTER → 2022-06-24 09:37 | Outpatient (CLI) | payer MEDICARE, MEDICAID, SELFPAY ==
[2022-06-24 10:15] LABS: Basophils % 0.4 % (0.1-2.0); Eosinophils # 0.2 K/mm3 (0.0-0.4); Hematocrit 31.6 % (42.0-52.0); Hemoglobin 10.1 g/dL (14.1-18.0); Lymphocytes # 1.1 K/mm3 (0.7-4.5); Lymphocytes % 14.3 % (10-50); Mean Corpuscular HGB Conc 31.9 g/dL (31.8-35.4); Mean Corpuscular Hemoglobin 30.4 pg (27.0-31.2); Mean Corpuscular Volume 95.5 fl (80-94); Mean Platelet Volume 8.4 fl (7.4-10.4); Monocytes # 0.4 K/mm3 (0.1-1.0); Neutrophils # 5.6 K/mm3 (1.8-7.8); Neutrophils % 76.3 % (37.0-80.0); Platelet Count 373 K/mm3 (142-424); Red Blood Count 3.31 M/mm3 (4.60-6.20); Red Cell Distribution Width 14.1 % (11.5-17.5); White Blood Count 7.3 K/mm3 (4.8-10.8)
[2022-06-24 10:40] LABS: Erythrocyte Sedimentation Rate 92 mm/hr (0-20)
[2022-06-24 11:21] LABS: C-Reactive Protein 44.4 mg/L (0-4)
[2022-06-26 01:07] LABS: Anti-Cyclic Citrullinated Pept 7 units (0-19)
== END ==
PROVIDERS: PCP Family Medicine; Visit Provider Orthopaedic Surgery
DX: Z96.651 Presence of right artificial knee joint (principal); M10.9 Gout, unspecified
CPT/HCPCS: 36415; 85025; 85651; 86140; 86200

== ENCOUNTER → 2022-07-15 09:25 | Outpatient (CLI) | payer MEDICARE, MEDICAID, SELFPAY ==
--- NOTE | 2022-07-15 09:38 | XR_ITS ---
FINAL REPORT CLINICAL HISTORY: s/p rt TKA COMPARISON: 06/19/2022 FINDINGS: Right knee Three views were obtained. There is no acute fracture or dislocation. There are postoperative changes from knee arthroplasty. Vascular calcification is identified. Moderate joint effusion is significantly improved. IMPRESSION: Postsurgical changes from knee arthroplasty with significantly improved joint effusion. Reviewed, Interpreted and Dictated by Dandre Mahajan III, MD Transcribed by Pricilla Gonzales Authenticated and [facility]
[2022-07-15 09:56] LABS: Basophils % 0.4 % (0.1-2.0); Eosinophils # 0.3 K/mm3 (0.0-0.4); Eosinophils % 3.5 % (0.1-12.0); Hemoglobin 11.2 g/dL (14.1-18.0); Lymphocytes # 1.3 K/mm3 (0.7-4.5); Lymphocytes % 16.9 % (10-50); Mean Corpuscular HGB Conc 29.4 g/dL (31.8-35.4); Mean Corpuscular Hemoglobin 30.4 pg (27.0-31.2); Mean Corpuscular Volume 103.4 fl (80-94); Monocytes # 0.4 K/mm3 (0.1-1.0); Neutrophils # 5.8 K/mm3 (1.8-7.8); Neutrophils % 74.3 % (37.0-80.0); Platelet Count 230 K/mm3 (142-424); Red Blood Count 3.67 M/mm3 (4.60-6.20); Red Cell Distribution Width 16.1 % (11.5-17.5); White Blood Count 7.8 K/mm3 (4.8-10.8)
[2022-07-15 10:25] LABS: C-Reactive Protein 9.2 mg/L (0-4)
[2022-07-15 10:39] LABS: Erythrocyte Sedimentation Rate 37 mm/hr (0-20)
== END ==
PROVIDERS: PCP Family Medicine; Visit Provider Orthopaedic Surgery
DX: Z96.651 Presence of right artificial knee joint (principal); M10.9 Gout, unspecified; M25.561 Pain in right knee
CPT/HCPCS: 36415; 73562; 85025; 85651; 86140

== ENCOUNTER → 2022-08-19 09:07 | Outpatient (CLI) | payer MEDICARE, MEDICAID, SELFPAY ==
--- NOTE | 2022-08-19 09:11 | XR_ITS ---
FINAL REPORT CLINICAL HISTORY: R TKA COMPARISON: 07/15/2022 FINDINGS: Right knee Three views were obtained. There is no acute fracture or dislocation. The patient is status post total knee arthroplasty. There is cystic degenerative change in the medial tibial plateau, similar previous. There is a moderate joint effusion. There is soft tissue swelling anterior to the patella. IMPRESSION: Postsurgical changes. Moderate joint effusion and soft tissue swelling. Reviewed, Interpreted and Dictated by Chuckie Zepeda MD Transcribed by Pricilla Gonzales Authenticated and [facility]
[2022-08-19 09:40] LABS: Basophils # 0.1 K/mm3 (0-0.2); Basophils % 0.8 % (0.1-2.0); Eosinophils # 0.4 K/mm3 (0.0-0.4); Eosinophils % 5.5 % (0.1-12.0); Hematocrit 38.5 % (42.0-52.0); Hemoglobin 12.4 g/dL (14.1-18.0); Lymphocytes # 1.2 K/mm3 (0.7-4.5); Lymphocytes % 17.9 % (10-50); Mean Corpuscular HGB Conc 32.1 g/dL (31.8-35.4); Mean Corpuscular Hemoglobin 31.1 pg (27.0-31.2); Mean Corpuscular Volume 96.8 fl (80-94); Mean Platelet Volume 9.6 fl (7.4-10.4); Monocytes # 0.4 K/mm3 (0.1-1.0); Monocytes % 5.4 % (1.7-9.3); Neutrophils # 4.9 K/mm3 (1.8-7.8); Neutrophils % 70.5 % (37.0-80.0); Platelet Count 184 K/mm3 (142-424); Red Blood Count 3.98 M/mm3 (4.60-6.20); Red Cell Distribution Width 16.2 % (11.5-17.5); White Blood Count 6.9 K/mm3 (4.8-10.8)
[2022-08-19 10:11] LABS: Erythrocyte Sedimentation Rate 22 mm/hr (0-20)
[2022-08-19 11:30] LABS: C-Reactive Protein 7.4 mg/L (0-4)
== END ==
PROVIDERS: PCP Family Medicine; Visit Provider Physician Assistant Surgical
DX: Z96.651 Presence of right artificial knee joint (principal); M25.561 Pain in right knee
CPT/HCPCS: 36415; 73562; 85025; 85651; 86140

== ENCOUNTER → 2022-09-30 07:58 | Outpatient (CLI) | payer MEDICARE, MEDICAID, SELFPAY ==
--- NOTE | 2022-09-30 08:02 | XR_ITS ---
FINAL REPORT CLINICAL HISTORY: rt total knee COMPARISON: 08/19/2022 FINDINGS: Right knee Three views were obtained. There is no acute fracture or dislocation. There are postoperative changes from knee arthroplasty. There is no evidence of complication. Large joint effusion is identified, similar to previous. There is anterior soft tissue swelling. There is moderate vascular calcification. IMPRESSION: No significant change. Reviewed, Interpreted and Dictated by Dandre Mahajan III, MD Transcribed by Pricilla Gonzales Authenticated and [facility]
[2022-09-30 08:56] LABS: Basophils % 0.7 % (0.1-2.0); Eosinophils # 0.3 K/mm3 (0.0-0.4); Eosinophils % 4.5 % (0.1-12.0); Hematocrit 39.2 % (42.0-52.0); Hemoglobin 12.6 g/dL (14.1-18.0); Lymphocytes # 1.2 K/mm3 (0.7-4.5); Mean Corpuscular Hemoglobin 30.3 pg (27.0-31.2); Mean Corpuscular Volume 94.5 fl (80-94); Mean Platelet Volume 10.1 fl (7.4-10.4); Monocytes # 0.3 K/mm3 (0.1-1.0); Monocytes % 4.8 % (1.7-9.3); Neutrophils # 4.6 K/mm3 (1.8-7.8); Neutrophils % 71.1 % (37.0-80.0); Platelet Count 177 K/mm3 (142-424); Red Blood Count 4.15 M/mm3 (4.60-6.20); Red Cell Distribution Width 15.6 % (11.5-17.5); White Blood Count 6.4 K/mm3 (4.8-10.8)
[2022-09-30 11:00] LABS: Erythrocyte Sedimentation Rate 17 mm/hr (0-20)
[2022-09-30 11:07] LABS: C-Reactive Protein 6.4 mg/L (0-4)
== END ==
PROVIDERS: PCP Family Medicine; Visit Provider Physician Assistant Surgical
DX: Z96.651 Presence of right artificial knee joint (principal); L60.3 Nail dystrophy; M25.561 Pain in right knee
CPT/HCPCS: 36415; 73562; 85025; 85651; 86140

== ENCOUNTER → 2022-11-13 08:06 | Outpatient (CLI) | payer MEDICARE, MEDICAID, SELFPAY ==
--- NOTE | 2022-11-13 08:10 | XR_ITS ---
FINAL REPORT CLINICAL HISTORY: s/p rt TKA COMPARISON: 09/30/2022 FINDINGS: RIGHT KNEE 3 views of the right knee were obtained. There are postoperative changes from knee arthroplasty. There is no acute fracture or dislocation. There is a moderate joint effusion. There is soft tissue swelling. There are moderate vascular calcifications. IMPRESSION: Postoperative change from knee arthroplasty. Soft tissue swelling and a moderate joint effusion. Reviewed, Interpreted and Dictated by Dandre Mahajan III, MD Transcribed by Akilah Irby Authenticated and [facility]
[2022-11-13 09:31] LABS: Basophils % 0.6 % (0.1-2.0); Eosinophils # 0.3 K/mm3 (0.0-0.4); Eosinophils % 5.3 % (0.1-12.0); Hematocrit 37.9 % (42.0-52.0); Hemoglobin 12.1 g/dL (14.1-18.0); Lymphocytes # 1.3 K/mm3 (0.7-4.5); Lymphocytes % 24.2 % (10-50); Mean Corpuscular HGB Conc 31.9 g/dL (31.8-35.4); Mean Corpuscular Hemoglobin 30.1 pg (27.0-31.2); Mean Corpuscular Volume 94.2 fl (80-94); Mean Platelet Volume 9.2 fl (7.4-10.4); Monocytes # 0.4 K/mm3 (0.1-1.0); Monocytes % 6.7 % (1.7-9.3); Neutrophils # 3.3 K/mm3 (1.8-7.8); Neutrophils % 63.3 % (37.0-80.0); Platelet Count 162 K/mm3 (142-424); Red Blood Count 4.02 M/mm3 (4.60-6.20); Red Cell Distribution Width 15.9 % (11.5-17.5); White Blood Count 5.2 K/mm3 (4.8-10.8)
[2022-11-13 10:18] LABS: C-Reactive Protein 2.4 mg/L (0-4)
[2022-11-13 11:13] LABS: Erythrocyte Sedimentation Rate 17 mm/hr (0-20)
== END ==
PROVIDERS: PCP Family Medicine; Visit Provider Physician Assistant Surgical
DX: Z96.651 Presence of right artificial knee joint (principal); L60.3 Nail dystrophy; M25.561 Pain in right knee
CPT/HCPCS: 36415; 73562; 85025; 85651; 86140

== ENCOUNTER → 2023-01-08 08:32 | Outpatient (CLI) | payer MEDICARE, MEDICAID, SELFPAY ==
--- NOTE | 2023-01-08 08:39 | XR_ITS ---
FINAL REPORT CLINICAL HISTORY: s/p rt knee replacement COMPARISON: 11/13/2022 FINDINGS: Right knee Three views were obtained. There is no acute fracture or dislocation. The patient is status post total knee arthroplasty. There is mild to moderate vascular calcification. IMPRESSION: Status post total knee arthroplasty. Reviewed, Interpreted and Dictated by Chuckie Zepeda MD Transcribed by Pricilla Gonzales Authenticated and [facility]
[2023-01-08 09:51] LABS: Basophils # 0.1 K/mm3 (0-0.2); Basophils % 0.9 % (0.1-2.0); Eosinophils # 0.2 K/mm3 (0.0-0.4); Eosinophils % 4.2 % (0.1-12.0); Hematocrit 39.7 % (42.0-52.0); Hemoglobin 12.6 g/dL (14.1-18.0); Lymphocytes # 1.3 K/mm3 (0.7-4.5); Lymphocytes % 21.7 % (10-50); Mean Corpuscular HGB Conc 31.6 g/dL (31.8-35.4); Mean Corpuscular Hemoglobin 30.2 pg (27.0-31.2); Mean Corpuscular Volume 95.5 fl (80-94); Mean Platelet Volume 8.6 fl (7.4-10.4); Monocytes # 0.3 K/mm3 (0.1-1.0); Monocytes % 5.1 % (1.7-9.3); Neutrophils # 3.9 K/mm3 (1.8-7.8); Neutrophils % 68.2 % (37.0-80.0); Platelet Count 158 K/mm3 (142-424); Red Blood Count 4.16 M/mm3 (4.60-6.20); Red Cell Distribution Width 16.1 % (11.5-17.5); White Blood Count 5.8 K/mm3 (4.8-10.8)
[2023-01-08 10:31] LABS: Erythrocyte Sedimentation Rate 16 mm/hr (0-20)
[2023-01-08 10:56] LABS: C-Reactive Protein 1.6 mg/L (0-4)
== END ==
LOC: LAB 08:34
PROVIDERS: PCP Family Medicine; Visit Provider Physician Assistant Surgical
DX: Z96.651 Presence of right artificial knee joint (principal); L60.3 Nail dystrophy; M25.561 Pain in right knee
CPT/HCPCS: 36415; 73562; 85025; 85651; 86140

== ENCOUNTER → 2023-03-12 12:49 | Outpatient (CLI) | payer MEDICARE, MEDICAID, SELFPAY ==
--- NOTE | 2023-03-12 12:54 | XR_ITS ---
FINAL REPORT CLINICAL HISTORY: s/p knee replacement COMPARISON: 01/08/2023 FINDINGS: RIGHT KNEE Three views of the right knee reveal no evidence of fracture or dislocation. There are postoperative changes from knee arthroplasty. The bony alignment is normal. There is no evidence of joint effusion. No localized soft tissue abnormality is identified. There are vascular calcifications. IMPRESSION: Postoperative changes with no acute bony abnormality. Reviewed, Interpreted and Dictated by Dandre Mahajan III, MD Transcribed by Akilah Irby Authenticated and [facility]
== END ==
PROVIDERS: PCP Family Medicine; Visit Provider Physician Assistant Surgical
DX: Z96.651 Presence of right artificial knee joint (principal); M25.561 Pain in right knee
CPT/HCPCS: 73562

== ENCOUNTER 2023-03-27 17:19 | Inpatient (IN) | payer MEDICARE, MEDICAID, SELFPAY ==
[2023-03-27] VITALS (29 sets, daily range): BP systolic 118–212; BP diastolic 71–111; PULSE 62–88; RESP 11–20; TEMP 36.8–36.9; O2SAT 94–98; BMI 330.8; BMI 34.6
--- NOTE | 2023-03-27 17:19 | ECG_ITS ---
APPROVED REPORT Exam: Resting ECG HR:62 bpm ECG Measurements Heart Rate 62 AXES MI 169 P 33 QRSd 113 QRS -19 QT 428 T 51 QTc 433 Conclusion SINUS RHYTHM MODERATE INTRAVENTRICULAR CONDUCTION DELAY [110+ ms QRS DURATION] BORDERLINE ECG UNCONFIRMED REPORT Electronically signed by : Arthur Whitt MD 03/28/2023 15:30:37
--- NOTE | 2023-03-27 17:28 | CT_ITS ---
PROCEDURE INFORMATION: Exam: CTA Chest With Contrast Exam date and time: 03/27/2023 6:14 PM Age: 72 years old Clinical indication: Pain; Chest pressure; Additional info: Chest pain radiating to back TECHNIQUE: Imaging protocol: Computed tomographic angiography of the chest with contrast. 3D rendering (Not supervised by radiologist): MIP and/or 3D reconstructed images were created by the technologist. Radiation optimization: All CT scans at this facility use at least one of these dose optimization techniques: automated exposure control; mA and/or kV adjustment per patient size (includes targeted exams where dose is matched to clinical indication); or iterative reconstruction. Contrast material: ISOVUE; Contrast volume: 100 ml; Contrast route: INTRAVENOUS (IV); REPORTING DATA: Count of CT and Cardiac NM exams in prior 12 months: This patient has received 0 known CTs and 0 known cardiac nuclear medicine studies in the 12 months prior to the current study. COMPARISON: CR XR CHEST 2V 05/28/2022 8:48 AM FINDINGS: Pulmonary arteries: No findings of pulmonary emboli. Aorta: Tortuous aorta, multiple calcified atherosclerotic plaques. No thoracic aortic aneurysm. No findings of aortic dissection in the chest. Lungs: Calcified left pulmonary granulomas. Slight dependent atelectasis in the posterior lower lungs. No focal consolidation. No suspicious mass. Pleural spaces: Fatty thickening of the pleura. No pleural effusion. No pneumothorax. Heart: Mild cardiomegaly. Small pericardial effusion. Extensive coronary artery calcifications. Heart RV/LV ratio: RV/LV ratio approximate 0.8, within normal limits. There is no reflux of contrast into the IVC and hepatic veins to suggest acute right heart strain. Lymph nodes: No significantly enlarged lymph nodes by short axis criteria. There are small calcified left hilar and mediastinal nodes. Bones/joints: Mild chronic appearing wedge compression deformities of T5, and T8 through T11 vertebral bodies. No acute appearing fracture or high-grade listhesis, as visualized. Multilevel degenerative disc disease and spondylosis. Nayy-oh-qzrhhyjg spinal stenosis at T10-T11. No severe spinal stenosis, as visualized. Multilevel lower thoracic foraminal stenoses. There are no soft tissue masses or fluid collections. Soft tissues: Minimal gynecomastia. IMPRESSION: 1. Tortuous aorta with mild atherosclerotic plaques; no aortic aneurysm or findings of dissection. 2. No pulmonary emboli. 3. Cardiomegaly, prominent coronary artery calcifications, small pericardial effusion. 4. Chronic granulomatous changes, mild pulmonary atelectasis. No consolidation or acute findings. 5. Spinal degenerative changes with chronic compression deformities, prominent multilevel degenerative disc disease and spondylosis as detailed above. 6. Additional nonemergency and chronic findings as above.
--- NOTE | 2023-03-27 17:30 | HMH.EDGENADL ---
Discharge Plan Disposition Patient Disposition: Admitted As Inpatient Condition: Serious Chief Complaint: Chest Pain Prescriptions Prescriptions: No Action allopurinol 300 mg tablet 300 mg PO DAILY Label Comments: TAKE 1 TABLET BY MOUTH ONCE DAILY gabapentin 300 mg capsule 300 mg PO TID 30 Days rosuvastatin 10 mg tablet 10 mg PO HS 60 Days lisinopril 20 mg tablet 20 mg PO BID 90 Days Qty: 180 doxazosin 2 mg tablet 2 mg PO DAILY 90 Days Qty: 90 diltiazem HCl 90 mg capsule,extended release 12 hr 90 mg PO DAILY pioglitazone 45 mg tablet 45 mg PO DAILY (DME) pen needle, diabetic [Droplet Pen Needle] 32 gauge x /32 needle See Rx Instructions .ROUTE .MEDSUPPLY Qty: 50 Rx Instructions: As directed pantoprazole 40 MG tablet,delayed release (DR/EC) 40 mg PO HS furosemide 20 MG tablet 20 mg PO BID repaglinide 1 mg tablet 1 mg PO TID clopidogrel 75 MG tablet 75 mg PO DAILY ketorolac 5 ML drops 1 drp OP BID prednisolone acetate 5 ML bottle 1 drp OP BID cholecalciferol (vitamin D3) 1,000 UNIT capsule 1,000 unit PO DAILY sqjldnjg-tsj-LH-lycopen-lutein 1 EACH tablet 1 each PO DAILY insulin glargine 100 UNIT/ML insulin pen 15 units SQ HS glipizide 10 MG tablet 10 mg PO BID hydrocodone-acetaminophen 1 TAB tablet 1 - 2 tab PO Q4HP PRN (Reason: Moderate To Severe Pain) Qty: 60 0RF docusate sodium 100 MG capsule 100 mg PO BIDP PRN (Reason: Constipation) Qty: 20 0RF rivaroxaban 10 MG tablet 10 mg PO QPMWITHMEAL Qty: 14 0RF Discharge ED Provider: José Miguel Larios General Adult HPI General Chief complaint: Chest Pain Stated complaint: chest pain Time Seen by Provider: 03/27/23 17:30 Mode of Arrival: Ambulatory Source of Information: Patient Limitations: No Limitations Description of Symptoms (Recalled from ER Triage Doc. by RN): Presents via POV d/t midsternal chest pain described as a heaviness with intermittent radiation to back. Hx of cardiac stent x 2; declines Asa daily, HTN. Denies alleviating/worsening factors. States the pain started while sitting at home in a chair approx. 1 hr eyeletter. History of Present Illness HPI narrative: Patient is a 72-year-old male with past medical history of coronary artery disease status post stenting, hypertension, insulin-dependent diabetes who presents emergency department for evaluation of chest pain. Onset was acute, 1 hour prior to arrival, severe in intensity radiating through to his back with associated shortness of breath. Patient denies fever, cough, worsening swelling of his lower extremities. No other acute complaints at this time. Patient has been compliant with his medications. Related Data Home Medications Medication Instructions Recorded Confirmed gabapentin 300 mg capsule 300 mg PO TID Pain 30 days 11/08/18 03/17/23 rosuvastatin 10 mg tablet 10 mg PO HS Cholesterol 60 days 11/08/18 03/17/23 doxazosin 2 mg tablet 2 mg PO DAILY PROSTATE 90 days #90 02/01/19 03/17/23 tabs lisinopril 20 mg tablet 20 mg PO BID Hypertension 90 days 02/01/19 03/17/23 #180 tabs allopurinol 300 mg tablet 300 mg PO DAILY gout 02/08/20 03/17/23 furosemide 20 mg tablet 20 mg PO BID Fluid 03/28/21 03/17/23 pantoprazole 40 mg tablet,delayed 40 mg PO HS GERD 03/28/21 03/17/23 release diltiazem HCl 90 mg 90 mg PO DAILY heart rate 08/07/21 03/17/23 capsule,extended release 12 hr pioglitazone 45 mg tablet 45 mg PO DAILY Diabetes 02/13/22 03/17/23 repaglinide 1 mg tablet 1 mg PO TID Diabetes 02/13/22 03/17/23 cholecalciferol (vitamin D3) 25 1,000 unit PO DAILY Supplement 06/04/22 03/17/23 mcg (1,000 unit) capsule clopidogrel 75 mg tablet 75 mg PO DAILY Blood thinner 06/04/22 03/17/23 glipizide 10 mg tablet 10 mg PO BID Diabetes 06/04/22 03/17/23 insulin glargine 100 unit/mL (3 15 units SQ HS Diabetes 06/04/22 03/17/23 mL) subcutaneous pen ket
--- NOTE | 2023-03-27 17:31 | XR_ITS ---
PROCEDURE INFORMATION: Exam: XR Chest Exam date and time: 03/27/2023 6:22 PM Age: 72 years old Clinical indication: Pain; Chest pressure; Additional info: Chest pain TECHNIQUE: Imaging protocol: Radiologic exam of the chest. Views: 1 view. Portable AP exam 6:22 p.m. COMPARISON: CT ANGIO CHEST 03/27/2023 6:14 PM FINDINGS: Tubes, catheters and devices: Overlying vehicle monitor technician electrodes. Lungs: Hypoventilation, slightly low lung volumes. Slight infrahilar bronchovascular crowding/interstitial prominence. No focal consolidation. Pulmonary vessels do not appear congested. No acute pulmonary findings. Pleural spaces: Unremarkable. No significant pleural effusion. No pneumothorax. Heart/Mediastinum: Cardiac silhouette appears mildly enlarged. Bones/joints: Metallic fusion hardware in the lower cervical spine.There are spinal degenerative changes, with multilevel disc narrrowing and spondylosis. IMPRESSION: No acute findings or significant change compared with 03/27/2023.
[2023-03-27 17:39] LABS: Chloride 99 mmol/L (98-107); Potassium 3.8 mmoL/L (3.5-5.1); Sodium 136 mmol/L (136-145)
[2023-03-27 17:42] LABS: Anion Gap 8.8 mEq/L (5-15); Blood Urea Nitrogen 30 mg/dl (9-20); Calcium 8.7 mg/dl (8.4-10.2); Carbon Dioxide 32 mmol/L (22.0-30.0); Creatinine Clearance Estimated 38 mL/min (50-200); Estimated Glomerular Filt Rate 37 ml/min (>60); GFR (African American) 45 ML/MIN (>60); Glucose 186 mg/dl (74-100)
[2023-03-27 17:43] LABS: Basophils % 0.5 % (0.1-2.0); Eosinophils # 0.3 K/mm3 (0.0-0.4); Eosinophils % 4.4 % (0.1-12.0); Hematocrit 39.2 % (42.0-52.0); Hemoglobin 12.4 g/dL (14.1-18.0); Lymphocytes # 1.5 K/mm3 (0.7-4.5); Lymphocytes % 27.6 % (10-50); Mean Corpuscular HGB Conc 31.8 g/dL (31.8-35.4); Mean Corpuscular Hemoglobin 30.5 pg (27.0-31.2); Mean Platelet Volume 8.6 fl (7.4-10.4); Monocytes # 0.3 K/mm3 (0.1-1.0); Monocytes % 5.9 % (1.7-9.3); Neutrophils # 3.4 K/mm3 (1.8-7.8); Neutrophils % 61.6 % (37.0-80.0); Platelet Count 156 K/mm3 (142-424); Red Blood Count 4.08 M/mm3 (4.60-6.20); Red Cell Distribution Width 14.4 % (11.5-17.5); White Blood Count 5.6 K/mm3 (4.8-10.8)
[2023-03-27 17:56] LABS: Troponin I < 0.01 ng/ml (0.00-0.034)
--- NOTE | 2023-03-27 17:58 | PC.NURSE ---
Nitro x 2 administered; 01/09 with BP 118/72. Labetalol MD jonathan notified.
[2023-03-27 18:07] LABS: VBG Base Excess 1.2 mmol/L (-2.4-2.3); VBG HCO3 26.9 mmol/L (23-30); VBG Oxygen Saturation 80.9 % (50-70); VBG PCO2 50.6 mmol/L (35-51); VBG PH 7.34 mmol/L (7.31-7.41); VBG PO2 46.4 mmol/L (28-40); VBG Total CO2 28.5 mmol/L (23-27)
--- NOTE | 2023-03-27 18:07 | PC.NURSE ---
Per Dr. Larios, aware of current GFR and okay to go to CTA without pre-bolus.
[2023-03-27 18:40] LABS: Coronavirus 19, PCR Not Detected (NotDetected); Influenza A, PCR Not Detected (NotDetected); Influenza B, PCR Not Detected (NotDetected)
--- NOTE | 2023-03-27 19:20 | PC.NURSE ---
Rounded on pt. No needs or complaints voiced. Call light within reach.
--- NOTE | 2023-03-27 19:30 | PC.NURSE ---
Placed new PIV to R forearm (18g). Began nitro gtt @ 5mcg/min (1.5ml) per new IV site. Pt tolerated well.
--- NOTE | 2023-03-27 19:36 | PC.NURSE ---
on phone with hospitalist
--- NOTE | 2023-03-27 19:38 | PC.NURSE ---
Patient admitted to [address] Step down to service of Dr. Holman with dx of chest pain.
--- NOTE | 2023-03-27 19:45 | PC.NURSE ---
Increased Nitro gtt to 10 mcg/min (3ml/hr). d/t SBP > 160. @1945
--- NOTE | 2023-03-27 20:22 | PC.NURSE ---
@ 2018 attempted to call report, no answer. Will call again
--- NOTE | 2023-03-27 20:26 | PC.NURSE ---
Gave report to Amrita TORRES
[2023-03-27 20:27] LABS: NT Pro Brain Natriuretic Pep. 117 pg/mL (0-125)
--- NOTE | 2023-03-27 20:33 | PC.NURSE ---
Pt used called light to ask for urinal. Urinal provided. No other needs voiced. Call light remains within reach.
--- NOTE | 2023-03-27 20:35 | PC.NURSE ---
MD @ bedside to review ct scan results with daughter and pt
--- NOTE | 2023-03-27 21:04 | EXP.HP ---
History of Present Illness *Admission Date: 03/27/23 *Reason for visit:: chest pain *History of present illness: This is a 72-year-old male with a past medical history of CAD status post coronary artery stent, DM who presents emergency department today with complaints of chest pain. He reports he was sitting in a chair and developed sudden onset of jaw pain that radiated into his left arm and into his chest. He does have a history of cardiac stenting approximately [address] Santos. He reports his pain was severe in nature, 9 out of 10 on the pain scale. He reports at the time of the onset of his pain he took his blood pressure and had systolic in the 190s. He reports controlled blood pressure with his medications with systolic typically in the 120s. He denies any diaphoresis, syncope, palpitations with the chest pain. Emergency department work-up significant for hypertensive emergency with systolic in the 200s upon arrival to the emergency department. Laboratory evaluation unremarkable, EKG without ischemia. He received 2 doses of sublingual nitro in the emergency department with subsequent reduction in blood pressure and pain. Given patient's continued hypertension in the emergency department, was placed on a nitro drip for blood pressure control. Cardiology was consulted and recommends observation overnight. He is admitted to hospital service for further evaluation and management. [facility] Disclaimer: The information contained in this section may have been updated after the patient was seen, as this information can be updated by other users. Medical History (Updated 03/27/23 @ 23:25 by Alivia Cameron RN) Arthritis CAD (coronary artery disease) Diabetes mellitus Gout Hypertension Neuropathy Surgical History (Updated 03/27/23 @ 23:25 by Alivia Cameron RN) History of knee replacement, total Stented coronary artery Family History (Updated 03/27/23 @ 22:29 by Alivia Cameron RN) Leukemia Stroke Social History (Updated 03/27/23 @ 22:30 by Alivia Cameron RN) Smoking Status: Never smoker second hand exposure: No alcohol intake: former substance use type: denies use current occupational status: retired and disabled Travel in the last 8 weeks: None household members: family housing: house current occupational exposures/hazards: No caffeine: No Review of Systems Review of Systems Review of systems:: pertinent systems reviewed and negative unless documented below *Cardiovascular Cardiovascular: Reports as per HPI Meds Home Medications and Allergies Home Medications Medication Instructions Recorded Confirmed Type gabapentin 300 mg capsule 300 mg PO TID Pain 30 days 11/08/18 03/17/23 History rosuvastatin 10 mg tablet 10 mg PO HS Cholesterol 60 days 11/08/18 03/17/23 History doxazosin 2 mg tablet 2 mg PO DAILY PROSTATE 90 days #90 02/01/19 03/17/23 History tabs lisinopril 20 mg tablet 20 mg PO BID Hypertension 90 days 02/01/19 03/17/23 History #180 tabs allopurinol 300 mg tablet 300 mg PO DAILY gout 02/08/20 03/17/23 History furosemide 20 mg tablet 20 mg PO BID Fluid 03/28/21 03/17/23 History pantoprazole 40 mg tablet,delayed 40 mg PO HS GERD 03/28/21 03/17/23 History release diltiazem HCl 90 mg 90 mg PO DAILY heart rate 08/07/21 03/17/23 History capsule,extended release 12 hr pioglitazone 45 mg tablet 45 mg PO DAILY Diabetes 02/13/22 03/17/23 History repaglinide 1 mg tablet 1 mg PO TID Diabetes 02/13/22 03/17/23 History cholecalciferol (vitamin D3) 25 1,000 unit PO DAILY Supplement 06/04/22 03/17/23 History mcg (1,000 unit) capsule clopidogrel 75 mg tablet 75 mg PO DAILY Blood thinner 06/04/22 03/17/23 History glipizide 10 mg tablet 10 mg PO BID Diabetes 06/04/22 03/17/23 History insulin glargine 100 unit/mL (3 15 units SQ HS Diabetes 06/04/22 03/17/23 History mL) subcutaneous pen ketorolac 0.5 % eye drops 1 drp ophthalmic (eye) BID 06/04/22 04
--- NOTE | 2023-03-27 21:17 | PC.NURSE ---
pt admitted to 218 from ER, pt on nitro drip at 10mcg/min, daughter left for night but gave this RN phone number ([phone])
[2023-03-27 21:30] LABS: Troponin I < 0.01 ng/ml (0.00-0.034)
--- NOTE | 2023-03-27 22:00 | PC.NURSE ---
2200-bp 133/71, decreased nitro drip to 5mcg/min, pt rated chest pain 4/10 at this time
--- NOTE | 2023-03-27 22:08 | PC.NURSE ---
Patient arrived to floor via stretcher at 2047
[2023-03-28] VITALS (29 sets, daily range): BP systolic 100–153; BP diastolic 57–90; PULSE 72–97; RESP 16–24; TEMP 36.3–37.9; O2SAT 91–97; BMI 34.6
[2023-03-28 00:02] LABS: Troponin I < 0.01 ng/ml (0.00-0.034)
[2023-03-28 06:44] LABS: POC Glucose,Bedside 124 (70-110)
[2023-03-28 06:44] LABS: POC Glucose,Bedside 152 (70-110)
[2023-03-28 08:39] LABS: Basophils % 0.1 % (0.1-2.0); Eosinophils # 0.1 K/mm3 (0.0-0.4); Eosinophils % 1.6 % (0.1-12.0); Hematocrit 36.6 % (42.0-52.0); Hemoglobin 11.6 g/dL (14.1-18.0); Lymphocytes # 1.1 K/mm3 (0.7-4.5); Lymphocytes % 14.8 % (10-50); Mean Corpuscular HGB Conc 31.7 g/dL (31.8-35.4); Mean Corpuscular Hemoglobin 30.5 pg (27.0-31.2); Mean Corpuscular Volume 96.4 fl (80-94); Mean Platelet Volume 8.5 fl (7.4-10.4); Monocytes # 0.7 K/mm3 (0.1-1.0); Monocytes % 8.7 % (1.7-9.3); Neutrophils # 5.6 K/mm3 (1.8-7.8); Neutrophils % 74.9 % (37.0-80.0); Platelet Count 154 K/mm3 (142-424); Red Cell Distribution Width 14.5 % (11.5-17.5); White Blood Count 7.5 K/mm3 (4.8-10.8)
[2023-03-28 08:41] LABS: Cholesterol 91 mg/dl (140-200); Triglycerides 102 mg/dl (30-150); VLDL Cholesterol 20 mg/dL (0-40)
--- NOTE | 2023-03-28 08:41 | PC.NURSE ---
0836- BP 138/82. PT RATING CHEST PAIN 5/10 INCREASED NITRO GTT TO 10 MCG.
[2023-03-28 08:42] LABS: Chol/HDL Ratio 2.5 (1-3.5); HDL Cholesterol 36 mg/dl (40-60)
--- NOTE | 2023-03-28 08:42 | EXP.ACUTE.PN ---
Subjective *Date: 03/28/23 *Time: 09:41 Interval history: Still having chest pain this morning. Blood pressure improved on nitro drip. Stable on room air. No nausea or vomiting. Remains NPO. Medical Exam Vital signs and Labs for Last 24 Hours: Vital Signs Temp Pulse Pulse Resp BP BP Pulse Ox 03/28/23 08:00 76 18 122/83 92 L 03/28/23 08:00 98.9 F 03/28/23 07:45 95 03/28/23 06:00 86 19 123/64 94 L 03/28/23 04:00 97 H 03/28/23 04:00 97.3 F L 83 20 120/66 93 L 03/28/23 02:59 93 L 03/28/23 02:00 95 H 23 137/81 93 L 03/27/23 21:30 94 L 03/28/23 00:00 93 H 03/28/23 00:00 98.7 F 95 H 24 141/90 H 92 L 03/27/23 22:00 88 17 133/71 95 03/27/23 21:32 87 03/27/23 21:00 84 18 141/85 H 96 03/27/23 20:40 80 20 175/107 H 96 03/27/23 20:35 76 18 178/100 H 96 03/27/23 20:30 82 14 160/111 H 97 03/27/23 20:35 98.5 F 85 19 170/100 H 03/27/23 20:20 80 17 159/98 H 96 03/27/23 20:15 77 18 154/94 H 97 03/27/23 20:10 79 19 139/92 H 03/27/23 20:05 76 19 150/92 H 95 03/27/23 20:00 77 20 145/94 H 95 03/27/23 19:56 76 18 140/91 H 95 03/27/23 19:48 78 13 151/98 H 96 03/27/23 19:30 72 18 171/100 H 96 03/27/23 19:15 74 18 159/97 H 96 03/27/23 19:00 64 18 163/95 H 95 03/27/23 18:27 73 16 159/93 H 95 03/27/23 18:22 76 159/103 H 96 03/27/23 18:01 70 138/87 94 L 03/27/23 17:51 72 118/72 95 03/27/23 17:47 118/72 03/27/23 17:42 159/97 H 03/27/23 17:41 160/103 H 03/27/23 17:36 181/107 H 03/27/23 17:45 68 18 159/97 H 96 03/27/23 17:44 76 18 160/103 H 95 03/27/23 17:40 191/107 H 03/27/23 17:22 98.2 F 62 11 L 212/108 H 97 Intake and Output 03/27/23 03/28/23 03/28/23 23:59 07:59 15:59 Intake Total 1.750 / 81.750 80 / 80 Output Total 750 / 750 Balance 1.750 / 81.750 -670 / -670 Intake: Intake, Oral Amount 80 / 80 Intake, Total IV Amount 1.750 / 1.750 Output: Output, Urine Amount 750 / 750 Other: Weight 106.095 kg 106.1 kg Patient Weight 03/28/23 23:59 Weight 106.1 kg Laboratory Results - last 24 hr 03/27/23 17:28: WBC 5.6, RBC 4.08 L, Hgb 12.4 L, Hct 39.2 L, MCV 96.0 H, MCH 30.5, MCHC 31.8, RDW 14.4, Plt Count 156, MPV 8.6, Neut % (Auto) 61.6, Lymph % (Auto) 27.6, [place] % (Auto) 5.9, Eos % (Auto) 4.4, Baso % (Auto) 0.5, Neut # (Auto) 3.4, Lymph # (Auto) 1.5, [place] # (Auto) 0.3, Eos # (Auto) 0.3, Baso # (Auto) 0.0 03/27/23 17:28: Sodium 136, Potassium 3.8, Chloride 99, Carbon Dioxide 32 H, Anion Gap 8.8, BUN 30 H, Creatinine 1.80 H, Estimated Creat Clear 38, Estimated GFR 37 L, Est GFR ( Amer) 45 L, Glucose 186 H, Calcium 8.7, Troponin I < 0.01 03/27/23 17:28: NT-Pro-B Natriuret Pep 117 03/27/23 17:57: VBG pH 7.34, VBG pCO2 50.6, VBG pO2 46.4 H, VBG HCO3 26.9, VBG Total CO2 28.5 H, VBG O2 Saturation 80.9 H, VBG Base Excess 1.2 03/27/23 18:32: SARS-CoV-2 (PCR) Not detected, Influenza A Untype (PCR) Not detected, Influenza Type B (PCR) Not detected 03/27/23 20:58: Troponin I < 0.01 03/27/23 22:02: POC Glucose 152 H 03/27/23 22:15: Troponin I < 0.01 03/28/23 06:35: POC Glucose 124 H I & O for Labs for Last 24 Hours: Intake & Output 03/25/23 03/26/23 03/27/23 03/28/23 23:59 23:59 23:59 23:59 Intake Total 1.750 / 81.750 80 / 80 Output Total 750 / 750 Balance 1.750 / 81.750 -670 / -670 Weight 106.095 kg 106.1 kg Constitutional: Present no acute distress, obese and chronically ill appearing Head: Present atraumatic and normocephalic ENT: Present normal exam Respiratory: Present CTA bilaterally and normal respiratory effort; Absent rhonchi, wheezes or crackles Cardiac: Present Reg Rate and Rhythm Comment:: Minimal tenderness to palpation of lower chest, not consistent with chest pain he is repo
[2023-03-28 08:52] LABS: Direct LDL Cholesterol 36.94 mg/dL (100-129)
[2023-03-28 08:59] LABS: Free T4 (Free Thyroxine) 1.12 ng/dl (0.78-2.19)
--- NOTE | 2023-03-28 09:22 | PC.NURSE ---
0915 Dr Brown called and requested the cath team for heart cath at 1030. 0917 Jesse Quarles returned call 09 Darrell Tan returned call 09 A Js returned call
[2023-03-28 09:40] LABS: Hemoglobin A1C 7.1 % (4.0-6.0)
--- NOTE | 2023-03-28 10:00 | IR_ITS ---
APPROVED REPORT Patient Location: Inpatient [facility] Insulation Board: [place] RT (R) PROCEDURES Right femoral artery cannulation Left heart catheterization with left ventriculogram Conscious sedation FFR to left circumflex artery INDICATION 72 years old patient with past medical history of hypertension, dyslipidemia, diabetes, coronary artery disease and coronary stent insertion presented to the ER with chest pain and hypertensive urgency., Being treated with a nitro drip., Negative troponin, Being treated for unstable angina, Recommend a left heart cath to check patency of stent and coronary anatomy. Informed consent was obtained prior to the procedure. COMPLICATIONS None Estimated Blood Loss: Less than 10 ML TECHNIQUE One percent lidocaine was used to anesthetize the right groin. The right femoral artery was accessed via the Seldinger technique. A 5-Ukrainian sheath was placed in the right femoral artery. The JL-4 and JR-4 catheter was also used to perform left heart catheterization and selective coronary angiogram. Pigtail catheter were used to perform left ventriculogram. Patient was found to have 40% stenosis in the proximal circumflex artery. I decided to perform FFR to proximal circumflex artery to assess physiologically significant lesion. 5 Ukrainian sheath was removed a 6 Ukrainian sheath was inserted. EBU 3.75 guide was advanced and left main artery was engaged Patient was given heparin as per standard protocol I advanced a run-through wire through the lesion and tip of the wire was then distal OM 3 branch. FFR was performed as per standard technique. FFR value was 0.98 which is normal. At the end of the procedure minx device was deployed in the right common femoral artery successfully. The patient was transferred to the post-op holding area in stable condition. ANGIOGRAPHIC RESULTS The left main artery Normal The left anterior descending artery Has proximal 10 to 20% stenosis followed by a mid vessel stent which is patent. The distal LAD then has 80 and distal 90%. No change from previous cath in 2020. The circumflex artery has proximal 40% stenosis. Mid vessel stent which is widely patent with minimal in-stent restenosis supplying 2 moderate-sized obtuse marginal arteries The right coronary artery Is a dominant vessel and has proximal and mid vessel 30% stenoses. The RUIZ ventriculogram reveals Preserved at 55-60% The left ventricular end-diastolic pressure 20 mmHg IMPRESSION Coronary disease as described above. FFR to circumflex artery is normal. LAD culprit lesion is not physiologically significant. Patent stents in LAD artery and circumflex artery. LAD has 80 to 90% stenosis. Diffuse disease. Distal LAD is a small vessel. No change from last cath in 2020. PLAN 1. Routine post cath care 2. Optimize antianginal medications 3. Continue aspirin, statin and P2Y12 inhibitor 4. Recommend strict sugar, cholesterol and blood pressure control 5. Recommend diet and lifestyle modification Electronically signed by : Leo Do, 03/28/2023 11:40:10
--- NOTE | 2023-03-28 10:18 | PC.NURSE ---
pt transported to [facility] via wheelchair.
--- NOTE | 2023-03-28 10:20 | PC.NURSE ---
PT TO [facility] AT THIS TIME.
--- NOTE | 2023-03-28 12:02 | EXP.CARD.CON ---
History of Present Illness History of Present Illness Consult date: 03/28/23 Requesting physician: Sterling Holman Consult reason: chest pain Chief complaint: Chest pain History of present illness: 72-year-old male with a past medical history of coronary artery disease, status post PCI to LAD artery and circumflex artery, diabetes, hypertension, dyslipidemia and tobacco user presented to emergency room with chest pain. He reports he was sitting in a chair and developed sudden onset of jaw pain that radiated into his left arm and into his chest.? 9/10 on severity He reports at the time of the onset of his pain he took his blood pressure and had systolic in the 190s.? In emergency room his blood pressure was in 200s. EKG did not show any ischemia and troponin was negative. CTA of the chest was done to rule out thoracic aortic dissection. Patient was started on nitro drip. I was consulted for possible unstable angina management. [facility] Disclaimer: The information contained in this section may have been updated after the patient was seen, as this information can be updated by other users. Medical History (Updated 03/28/23 @ 12:13 by Leo Do MD) Arthritis CAD (coronary artery disease) Coronary artery disease Diabetes mellitus Dyslipidemia Gout Hypertension Neuropathy Surgical History (Updated 03/28/23 @ 09:45 by Sterling Holman MD) History of knee replacement, total Stented coronary artery Family History (Updated 03/27/23 @ 22:29 by Alivia Cameron RN) Other Leukemia Stroke Social History (Updated 03/27/23 @ 22:30 by Alivia Cameron RN) Smoking Status: Never smoker second hand exposure: No alcohol intake: former substance use type: denies use current occupational status: retired and disabled Travel in the last 8 weeks: None household members: family housing: house current occupational exposures/hazards: No caffeine: No Review of Systems Review of Systems Review of systems:: pertinent systems reviewed and negative unless documented below *Cardiovascular Cardiovascular: Reports as per HPI Exam Data for Last 24 hours Vital signs and Labs for Last 24 Hours: Temp Pulse Resp BP Pulse Ox 98.9 F 78 16 120/71 96 03/28/23 08:00 03/28/23 11:57 03/28/23 11:57 03/28/23 11:57 03/28/23 11:57 Laboratory Results - last 24 hr 03/27/23 17:28: WBC 5.6, RBC 4.08 L, Hgb 12.4 L, Hct 39.2 L, MCV 96.0 H, MCH 30.5, MCHC 31.8, RDW 14.4, Plt Count 156, MPV 8.6, Neut % (Auto) 61.6, Lymph % (Auto) 27.6, [place] % (Auto) 5.9, Eos % (Auto) 4.4, Baso % (Auto) 0.5, Neut # (Auto) 3.4, Lymph # (Auto) 1.5, [place] # (Auto) 0.3, Eos # (Auto) 0.3, Baso # (Auto) 0.0 03/27/23 17:28: Sodium 136, Potassium 3.8, Chloride 99, Carbon Dioxide 32 H, Anion Gap 8.8, BUN 30 H, Creatinine 1.80 H, Estimated Creat Clear 38, Estimated GFR 37 L, Est GFR ( Amer) 45 L, Glucose 186 H, Calcium 8.7, Troponin I < 0.01 03/27/23 17:28: NT-Pro-B Natriuret Pep 117 03/27/23 17:57: VBG pH 7.34, VBG pCO2 50.6, VBG pO2 46.4 H, VBG HCO3 26.9, VBG Total CO2 28.5 H, VBG O2 Saturation 80.9 H, VBG Base Excess 1.2 03/27/23 18:32: SARS-CoV-2 (PCR) Not detected, Influenza A Untype (PCR) Not detected, Influenza Type B (PCR) Not detected 03/27/23 20:58: Troponin I < 0.01 03/27/23 22:02: POC Glucose 152 H 03/27/23 22:15: Troponin I < 0.01 03/28/23 06:35: POC Glucose 124 H 03/28/23 07:51: WBC 7.5 D, RBC 3.80 L, Hgb 11.6 L, Hct 36.6 L, MCV 96.4 H, MCH 30.5, MCHC 31.7 L, RDW 14.5, Plt Count 154, MPV 8.5, Neut % (Auto) 74.9, Lymph % (Auto) 14.8, [place] % (Auto) 8.7, Eos % (Auto) 1.6, Baso % (Auto) 0.1, Neut # (Auto) 5.6, Lymph # (Auto) 1.1, [place] # (Auto) 0.7, Eos # (Auto) 0.1, Baso # (Auto) 0.0 03/28/23 07:51: Hemoglobin A1c 7.1 H 03/28/23 07:51: Triglycerides 102, Cholesterol 91 L, LDL Cholesterol Direct 36.94 L, VLDL Cholesterol 20, HDL Cholesterol 36 L, Cholesterol/HDL Ratio 2.5 03/28/23 07:51: Free T4 1.12 I & O for Last 24 hours:
[2023-03-28 13:03] LABS: CATHL Activated Clotting Time 222 SEC (74-125)
--- NOTE | 2023-03-28 13:48 | PC.NURSE ---
ATTEMPTED TO UPDATE PT MED REC. HE IS NOT SURE WHAT MEDICATIONS HE TAKES. FAMILY IS LOOKING FOR MED LIST FROM HOME
--- NOTE | 2023-03-28 17:21 | PC.NURSE ---
courtesy tech round: pt islying in bed with call light in reach.
[2023-03-28 20:42] LABS: POC Glucose,Bedside 229 (70-110)
[2023-03-29] VITALS (11 sets, daily range): BP systolic 93–130; BP diastolic 38–80; PULSE 62–106; RESP 18–24; TEMP 36.7–37.3; O2SAT 91–96; BMI 35.6
[2023-03-29 01:25] LABS: POC Glucose,Bedside 117 (70-110)
[2023-03-29 01:25] LABS: POC Glucose,Bedside 121 (70-110)
--- NOTE | 2023-03-29 04:47 | XR_ITS ---
PROCEDURE INFORMATION: Exam: XR Chest Exam date and time: 03/29/2023 5:42 AM Age: 72 years old Clinical indication: Fever TECHNIQUE: Imaging protocol: Radiologic exam of the chest. Views: 1 view. COMPARISON: CR XR CHEST PORTABLE 03/27/2023 6:22 PM FINDINGS: Lungs: Unremarkable. No consolidation. Pleural spaces: Unremarkable. No pleural effusion. No pneumothorax. Heart/Mediastinum: Unremarkable. No cardiomegaly. Bones/joints: Unremarkable. IMPRESSION: No acute findings.
--- NOTE | 2023-03-29 04:55 | ECG_ITS ---
APPROVED REPORT Exam: Resting ECG HR:89 bpm ECG Measurements Heart Rate 89 AXES VT 165 P 28 QRSd 105 QRS -26 QT 372 T 53 QTc 419 Conclusion SINUS RHYTHM WITH FREQUENT SUPRAVENTRICULAR PREMATURE COMPLEXES BORDERLINE LEFT AXIS DEVIATION [QRS AXIS < -20] MINIMAL VOLTAGE CRITERIA FOR LVH, CONSIDER NORMAL VARIANT [MEETS CRITERIA IN ONE OF: R(aVL), S(V1), R(V5), R(V5/V6)+S(V1)] NONSPECIFIC T-WAVE ABNORMALITY ABNORMAL RHYTHM ECG UNCONFIRMED REPORT Electronically signed by : Arthur Whitt MD 03/29/2023 13:31:30
[2023-03-29 05:23] LABS: POC Glucose,Bedside 129 (70-110)
--- NOTE | 2023-03-29 05:25 | PC.NURSE ---
Pt noted to have an irregular heart rhythm on tele with a HR 95-140, pt also had A 3 beat run of vtach. On assessment, pt is asymptomatic, sitting up in bed, only c/o a slight ZAMORA. Hospitalist notified. States she will order a STAT EKG, 2mg magnesium sulfate, a chest xray, and wants lab to come draw scheduled am labs early. Lab notified. States they will send someone up to collect. EKG performed- NSR with frequent PACs.
[2023-03-29 05:30] LABS: Chloride 100 mmol/L (98-107); Potassium 3.2 mmoL/L (3.5-5.1); Sodium 136 mmol/L (136-145)
[2023-03-29 05:32] LABS: Basophils % 0.1 % (0.1-2.0); Eosinophils # 0.2 K/mm3 (0.0-0.4); Eosinophils % 2.3 % (0.1-12.0); Hemoglobin 11.8 g/dL (14.1-18.0); Lymphocytes # 1.1 K/mm3 (0.7-4.5); Lymphocytes % 16.4 % (10-50); Mean Corpuscular HGB Conc 33.7 g/dL (31.8-35.4); Mean Corpuscular Hemoglobin 31.4 pg (27.0-31.2); Mean Corpuscular Volume 93.4 fl (80-94); Mean Platelet Volume 8.3 fl (7.4-10.4); Monocytes # 0.5 K/mm3 (0.1-1.0); Monocytes % 6.9 % (1.7-9.3); Neutrophils % 74.3 % (37.0-80.0); Platelet Count 119 K/mm3 (142-424); Red Blood Count 3.74 M/mm3 (4.60-6.20); Red Cell Distribution Width 14.7 % (11.5-17.5); White Blood Count 6.7 K/mm3 (4.8-10.8)
[2023-03-29 05:33] LABS: Alanine Aminotransferase 25 U/L (12-78); Albumin Level 3.8 g/dl (3.5-5.0); Albumin/Globulin Ratio 1.6 (1.1-1.8); Alkaline Phosphatase 99 U/L (38-126); Anion Gap 11.2 mEq/L (5-15); Aspartate Amino Transferase 31 U/L (17-59); Bilirubin,Total 0.9 mg/dl (0.2-1.3); Blood Urea Nitrogen 33 mg/dl (9-20); Calcium 8.6 mg/dl (8.4-10.2); Carbon Dioxide 28 mmol/L (22.0-30.0); Creatinine Clearance Estimated 55 mL/min (50-200); Estimated Glomerular Filt Rate 35 ml/min (>60); GFR (African American) 42 ML/MIN (>60); Globulin 2.4 g/dL (1.3-3.2); Glucose 137 mg/dl (74-100); Magnesium 1.7 mg/dl (1.6-2.3); Total Protein,Serum 6.2 g/dl (6.3-8.2)
[2023-03-29 05:46] LABS: NT Pro Brain Natriuretic Pep. 418 pg/mL (0-125)
--- NOTE | 2023-03-29 07:44 | EXP.DC.SUM ---
General Admission date:: 03/27/23 Discharge date: 03/29/23 HPI HPI HPI: This is a 72-year-old male with a past medical history of CAD status post coronary artery stent, DM who presents emergency department today with complaints of chest pain. He reports he was sitting in a chair and developed sudden onset of jaw pain that radiated into his left arm and into his chest. He does have a history of cardiac stenting approximately [address] Santos. He reports his pain was severe in nature, 9 out of 10 on the pain scale. He reports at the time of the onset of his pain he took his blood pressure and had systolic in the 190s. He reports controlled blood pressure with his medications with systolic typically in the 120s. He denies any diaphoresis, syncope, palpitations with the chest pain. Emergency department work-up significant for hypertensive emergency with systolic in the 200s upon arrival to the emergency department. Laboratory evaluation unremarkable, EKG without ischemia. He received 2 doses of sublingual nitro in the emergency department with subsequent reduction in blood pressure and pain. Given patient's continued hypertension in the emergency department, was placed on a nitro drip for blood pressure control. Cardiology was consulted and recommends observation overnight. He is admitted to hospital service for further evaluation and management. Exam Data for Last 24 hours Vital signs and Labs for Last 24 Hours: Temp Pulse Resp BP Pulse Ox 98.0 F 91 H 24 95/64 L 94 L 03/29/23 04:00 03/29/23 06:00 03/29/23 06:00 03/29/23 06:00 03/29/23 06:00 Laboratory Results - last 24 hr 03/28/23 07:51: WBC 7.5 D, RBC 3.80 L, Hgb 11.6 L, Hct 36.6 L, MCV 96.4 H, MCH 30.5, MCHC 31.7 L, RDW 14.5, Plt Count 154, MPV 8.5, Neut % (Auto) 74.9, Lymph % (Auto) 14.8, [place] % (Auto) 8.7, Eos % (Auto) 1.6, Baso % (Auto) 0.1, Neut # (Auto) 5.6, Lymph # (Auto) 1.1, [place] # (Auto) 0.7, Eos # (Auto) 0.1, Baso # (Auto) 0.0 03/28/23 07:51: Hemoglobin A1c 7.1 H 03/28/23 07:51: Triglycerides 102, Cholesterol 91 L, LDL Cholesterol Direct 36.94 L, VLDL Cholesterol 20, HDL Cholesterol 36 L, Cholesterol/HDL Ratio 2.5 03/28/23 07:51: Free T4 1.12 03/28/23 11:00: Activated Clotting Time 222 H* 03/28/23 11:50: POC Glucose 121 H 03/28/23 16:16: POC Glucose 117 H 03/28/23 20:28: POC Glucose 229 H 03/29/23 05:07: POC Glucose 129 H 03/29/23 05:14: WBC 6.7, RBC 3.74 L, Hgb 11.8 L, Hct 35.0 L, MCV 93.4, MCH 31.4 H, MCHC 33.7, RDW 14.7, Plt Count 119 L, MPV 8.3, Neut % (Auto) 74.3, Lymph % (Auto) 16.4, [place] % (Auto) 6.9, Eos % (Auto) 2.3, Baso % (Auto) 0.1, Neut # (Auto) 5.0, Lymph # (Auto) 1.1, [place] # (Auto) 0.5, Eos # (Auto) 0.2, Baso # (Auto) 0.0 03/29/23 05:14: Sodium 136, Potassium 3.2 L, Chloride 100, Carbon Dioxide 28, Anion Gap 11.2, BUN 33 H, Creatinine 1.90 H, Estimated Creat Clear 55, Estimated GFR 35 L, Est GFR ( Amer) 42 L, Glucose 137 H, Calcium 8.6, Magnesium 1.7, Total Bilirubin 0.9, AST 31, ALT 25, Alkaline Phosphatase 99, Total Protein 6.2 L, Albumin 3.8, Globulin 2.4, Albumin/Globulin Ratio 1.6 03/29/23 05:14: NT-Pro-B Natriuret Pep 418 H I & O for Last 24 hours: Intake & Output 03/26/23 03/27/23 03/28/23 03/29/23 23:59 23:59 23:59 23:59 Intake Total 1.750 / 81.750 320 / 320 Output Total 1000 / 1000 425 / 425 Balance 1.750 / 81.750 -680 / -680 -425 / -425 Weight 106.095 kg 106.1 kg 109 kg Results Data Completed and Pending Labs on day of discharge: Labs from last 24 hours 03/29/23 03/29/23 03/29/23 05:14 05:14 05:14 WBC 6.7 RBC 3.74 L Hgb 11.8 L Hct 35.0 L MCV 93.4 MCH 31.4 H MCHC 33.7 RDW 14.7 Plt Count 119 L MPV 8.3 Neut % (Auto) 74.3 Lymph % (Auto) 16.4 [place] % (Auto) 6.9 Eos % (Auto) 2.3 Baso % (Auto) 0.1 Neut # (Auto) 5.0 Lymph # (Auto) 1.1 [place] # (Auto) 0.5 Eos # (Auto) 0.2 Baso # (Auto) 0.0 Activated Clotting Time Sodium 136
--- NOTE | 2023-03-29 08:25 | ECG_ITS ---
APPROVED REPORT Exam: Resting ECG HR:89 bpm ECG Measurements Heart Rate 89 AXES QRSd 108 QRS -20 QT 364 T 42 QTc 411 Conclusion ATRIAL FIBRILLATION MODERATE INTRAVENTRICULAR CONDUCTION DELAY [105+ ms QRS DURATION, 80+ ms Q/S IN V1/V2, NO Q AND 60+ ms R IN I/aVL/V5/V6] NONSPECIFIC T-WAVE ABNORMALITY ABNORMAL ECG UNCONFIRMED REPORT Electronically signed by : Arthur Whitt MD 03/29/2023 13:30:56
--- NOTE | 2023-03-29 12:40 | HMH.PHAINT1 ---
Pharmacy Intervention Comments: MEDICATION RECONCILIATION COMPLETE USING EXTERNAL PHARMACY FILL HISTORY AND PODIATRY OFFICE VISIT. DIPIKA JUAREZ RN HAD RECONCILED LIST WITH LIST PROVIDED BY FAMILY MEMBERS AND I VERIFIED WITH HIM.
--- NOTE | 2023-03-29 13:23 | EXP.ACUTE.PN ---
Subjective *Date: 03/29/23 *Time: 13:23 Interval history: Patient feeling better this morning. Does not feel any fluttering or abnormal heartbeat. No chest pain today. Stable on room air. Tolerated breakfast. No nausea or vomiting. Medical Exam Vital signs and Labs for Last 24 Hours: Vital Signs Temp Pulse Pulse Resp BP Pulse Ox 03/29/23 12:00 83 03/29/23 12:00 98.3 F 62 18 120/55 L 96 03/29/23 08:00 90 03/29/23 08:00 98.0 F 03/29/23 07:42 93 L 03/29/23 04:00 96 03/29/23 06:00 91 H 24 95/64 L 94 L 03/29/23 04:48 106 H 20 115/66 91 L 03/29/23 04:00 98.0 F 95 H 19 93/38 L 92 L 03/29/23 04:00 80 03/29/23 00:00 70 03/29/23 02:00 78 22 95/62 L 93 L 03/29/23 00:00 98.1 F 74 18 97/65 L 96 03/28/23 20:00 90 03/28/23 22:00 92 H 19 101/57 L 91 L 03/28/23 20:00 100.2 F H 78 23 148/75 H 94 L 03/28/23 19:36 94 L 03/28/23 18:50 88 20 100/73 L 94 L 03/28/23 17:50 87 18 134/77 93 L 03/28/23 16:50 96 H 18 148/77 H 94 L 03/28/23 16:50 96 H 18 148/77 H 94 L 03/28/23 16:00 95 03/28/23 15:50 79 16 128/66 95 03/28/23 16:00 86 03/28/23 14:50 73 18 123/65 95 03/28/23 14:20 72 18 105/65 L 96 03/28/23 13:50 85 18 120/80 97 03/28/23 15:33 99.8 F H Intake and Output 03/28/23 03/29/23 03/29/23 23:59 07:59 15:59 Intake Total 240 / 320 960 / 960 Output Total 250 / 1000 425 / 675 250 / 675 Balance -680 -425 / 285 710 / 285 Intake: Intake, Oral Amount 240 / 320 960 / 960 Output: Output, Urine Amount 250 / 1000 425 / 675 250 / 675 Other: Number of Unmeasured Voids 1 Weight 109 kg Patient Weight 03/29/23 23:59 Weight 109 kg Laboratory Results - last 24 hr 03/28/23 11:50: POC Glucose 121 H 03/28/23 16:16: POC Glucose 117 H 03/28/23 20:28: POC Glucose 229 H 03/29/23 05:07: POC Glucose 129 H 03/29/23 05:14: WBC 6.7, RBC 3.74 L, Hgb 11.8 L, Hct 35.0 L, MCV 93.4, MCH 31.4 H, MCHC 33.7, RDW 14.7, Plt Count 119 L, MPV 8.3, Neut % (Auto) 74.3, Lymph % (Auto) 16.4, [place] % (Auto) 6.9, Eos % (Auto) 2.3, Baso % (Auto) 0.1, Neut # (Auto) 5.0, Lymph # (Auto) 1.1, [place] # (Auto) 0.5, Eos # (Auto) 0.2, Baso # (Auto) 0.0 03/29/23 05:14: Sodium 136, Potassium 3.2 L, Chloride 100, Carbon Dioxide 28, Anion Gap 11.2, BUN 33 H, Creatinine 1.90 H, Estimated Creat Clear 55, Estimated GFR 35 L, Est GFR ( Amer) 42 L, Glucose 137 H, Calcium 8.6, Magnesium 1.7, Total Bilirubin 0.9, AST 31, ALT 25, Alkaline Phosphatase 99, Total Protein 6.2 L, Albumin 3.8, Globulin 2.4, Albumin/Globulin Ratio 1.6 03/29/23 05:14: NT-Pro-B Natriuret Pep 418 H I & O for Labs for Last 24 Hours: Intake & Output 03/26/23 03/27/23 03/28/23 03/29/23 23:59 23:59 23:59 23:59 Intake Total 1.750 / 81.750 320 / 320 960 / 960 Output Total 1000 / 1000 675 / 675 Balance 1.750 / 81.750 -680 / -680 285 / 285 Weight 106.095 kg 106.1 kg 109 kg Constitutional: Present no acute distress, obese and chronically ill appearing Head: Present atraumatic and normocephalic ENT: Present normal exam Respiratory: Present CTA bilaterally and normal respiratory effort; Absent rhonchi, wheezes or crackles Comment:: Irregular irregular GI: Present soft and normal bowel sounds; Absent distention or tenderness Extremities: Present normal inspection and full ROM Skin: Present intact; Absent erythema Neuro: Present Grossly Intact, alert, awake, oriented x 3 and moves all extremities Assessment and Plan *Assessment and plan (1) Afib: Status: Acute Category: Medical Code(s): I48.91 - Unspecified atrial fibrillation (2) Hypertensive urgency: Status: Resolved Category: Medical Code(s): I16.0 - Hypertensive urgency (3) Chest pain: Status: Acute Category: Medical Code(s): R07.9 - Chest pain, unspecified (4) History of he
--- NOTE | 2023-03-29 18:52 | PC.NURSE ---
PT WAS STARTED ON METOPROLOL THIS SHIFT FOR APPARENT AFIB ON TELE. SINCE ADMIN OF PO METOPROLOL PT HAS BEEN IN NSR WITH HR 70-80. HE IS NOT REQUIRING O2 SUPPORT. BRUISING NOTED TO FEMORAL CATH SITE. PT HAS REMAINED NORMOTENSIVE THROUGHOUT SHIFT.
--- NOTE | 2023-03-29 21:10 | PC.NURSE ---
Report given to Juan Aguirre to assume pt care at this time.
[2023-03-29 21:46] LABS: POC Glucose,Bedside 201 (70-110)
[2023-03-30] VITALS: BP 111/53; PULSE 60; PULSE 64; RESP 18; TEMP 36.7; O2SAT 96
[2023-03-30 04:00] VITALS: BP 129/85; PULSE 70; PULSE 82; RESP 16; TEMP 36.8; O2SAT 95; BMI 35.3
[2023-03-30 05:32] LABS: POC Glucose,Bedside 165 (70-110)
[2023-03-30 06:52] LABS: Basophils % 0.1 % (0.1-2.0); Eosinophils # 0.4 K/mm3 (0.0-0.4); Eosinophils % 5.2 % (0.1-12.0); Hematocrit 36.3 % (42.0-52.0); Hemoglobin 11.5 g/dL (14.1-18.0); Lymphocytes # 1.1 K/mm3 (0.7-4.5); Lymphocytes % 14.5 % (10-50); Mean Corpuscular HGB Conc 31.6 g/dL (31.8-35.4); Mean Corpuscular Hemoglobin 30.2 pg (27.0-31.2); Mean Corpuscular Volume 95.6 fl (80-94); Mean Platelet Volume 8.6 fl (7.4-10.4); Monocytes # 0.4 K/mm3 (0.1-1.0); Monocytes % 5.8 % (1.7-9.3); Neutrophils # 5.7 K/mm3 (1.8-7.8); Neutrophils % 74.3 % (37.0-80.0); Platelet Count 148 K/mm3 (142-424); Red Cell Distribution Width 14.5 % (11.5-17.5); White Blood Count 7.6 K/mm3 (4.8-10.8)
[2023-03-30 07:04] LABS: Alanine Aminotransferase 22 U/L (12-78); Albumin Level 3.6 g/dl (3.5-5.0); Albumin/Globulin Ratio 1.4 (1.1-1.8); Alkaline Phosphatase 97 U/L (38-126); Anion Gap 15.7 mEq/L (5-15); Aspartate Amino Transferase 30 U/L (17-59); Bilirubin,Total 0.9 mg/dl (0.2-1.3); Blood Urea Nitrogen 41 mg/dl (9-20); Calcium 8.5 mg/dl (8.4-10.2); Carbon Dioxide 27 mmol/L (22.0-30.0); Chloride 96 mmol/L (98-107); Creatinine Clearance Estimated 49 mL/min (50-200); Estimated Glomerular Filt Rate 31 ml/min (>60); GFR (African American) 38 ML/MIN (>60); Globulin 2.6 g/dL (1.3-3.2); Glucose 149 mg/dl (74-100); Potassium 3.7 mmoL/L (3.5-5.1); Sodium 135 mmol/L (136-145); Total Protein,Serum 6.2 g/dl (6.3-8.2)
[2023-03-30 08:00] VITALS: BP 128/56; PULSE 70; PULSE 81; RESP 18; TEMP 36.9; O2SAT 95
--- NOTE | 2023-03-30 09:17 | EXP.DC.SUM ---
General Admission date:: 03/27/23 Discharge date: 03/30/23 HPI HPI HPI: This is a 72-year-old male with a past medical history of CAD status post coronary artery stent, DM who presents emergency department today with complaints of chest pain.? He reports he was sitting in a chair and developed sudden onset of jaw pain that radiated into his left arm and into his chest.? He does have a history of cardiac stenting approximately [address] He reports his pain was severe in nature, 9 out of 10 on the pain scale.? He reports at the time of the onset of his pain he took his blood pressure and had systolic in the 190s.? He reports controlled blood pressure with his medications with systolic typically in the 120s.? He denies any diaphoresis, syncope, palpitations with the chest pain. Emergency department work-up significant for hypertensive emergency with systolic in the 200s upon arrival to the emergency department.? Laboratory evaluation unremarkable, EKG without ischemia.? He received 2 doses of sublingual nitro in the emergency department with subsequent reduction in blood pressure and pain.? Given patient's continued hypertension in the emergency department, was placed on a nitro drip for blood pressure control.? Cardiology was consulted and recommends observation overnight.? He is admitted to hospital service for further evaluation and management. Hospital Course Hospital Course Hospital Course: The patient was admitted to the telemetry unit with cardiology consultation. He underwent left heart catheterization on March 28 identifying nonobstructive and noninterventional disease. It is recommended that he continue with his dual antiplatelet therapy and statin therapy. His EF on left heart cath was 55%. His laboratory studies and inflammatory markers were trended and identified a stable creatinine and CBC. His blood pressure medications were augmented with improved blood pressure readings. The patient identified improvement and inquired about discharge home. We recommended compliance with medications and routine blood pressure monitoring at home. He plans to follow-up with his PCP and service dispatcher as scheduled. I spent 35 minutes in [id number] time with the patient and nursing staff concerning the discharge process. We discussed the admitting diagnoses and hospital course. We discussed identified improvement and the patient's desire to be discharged. We reviewed inpatient studies and imaging. The patient voiced understanding on the importance of follow-up with his primary care provider and specialist(s). The patient plans to be compliant with the medication regimen prescribed and follow-up appointments. He understands that he can return to the emergency department with any sudden changes or concerns. Exam Data for Last 24 hours Vital signs and Labs for Last 24 Hours: Temp Pulse Resp BP Pulse Ox 98.4 F 81 18 128/56 L 95 03/30/23 08:00 03/30/23 08:00 03/30/23 08:00 03/30/23 08:00 03/30/23 08:00 Laboratory Results - last 24 hr 03/29/23 20:13: POC Glucose 201 H 03/30/23 05:25: POC Glucose 165 H 03/30/23 05:46: Sodium 135 L, Potassium 3.7, Chloride 96 L, Carbon Dioxide 27, Anion Gap 15.7 H, BUN 41 H, Creatinine 2.10 H, Estimated Creat Clear 49, Estimated GFR 31 L, Est GFR ( Amer) 38 L, Glucose 149 H, Calcium 8.5, Total Bilirubin 0.9, AST 30, ALT 22, Alkaline Phosphatase 97, Total Protein 6.2 L, Albumin 3.6, Globulin 2.6, Albumin/Globulin Ratio 1.4 03/30/23 05:46: WBC 7.6, RBC 3.80 L, Hgb 11.5 L, Hct 36.3 L, MCV 95.6 H, MCH 30.2, MCHC 31.6 L, RDW 14.5, Plt Count 148, MPV 8.6, Neut % (Auto) 74.3, Lymph % (Auto) 14.5, [place] % (Auto) 5.8, Eos % (Auto) 5.2, Baso % (Auto) 0.1, Neut # (Auto) 5.7, Lymph # (Auto) 1.1, [place] # (Auto) 0.4, Eos # (Auto) 0.4, Baso # (Auto) 0.0 I & O for Last 24 hours: Intake & Output 03/27/23 03/28/23 03/29/23 03/30/23 23:59 23:59 23:59 23:59 Intake Total 1.750 / 81.750 320 / 320
--- NOTE | 2023-03-30 09:34 | EXP.CARD.PN ---
Subjective Subjective Date: 03/30/23 Time: 09:00 Principal diagnosis: angina, CAD Interval history: This is a 72-year-old gentleman who presented to the hospital with complaints of chest pain radiating to his jaw and left arm. He states that this was a severe 9 out of 10 pain. His blood pressure was elevated in the 190s systolic at the onset of his symptoms. The patient came to the emergency department and his systolic blood pressure was in the 200s. He had no EKG changes and his troponin was negative. He was started on a nitroglycerin drip and underwent left cardiac catheterization for unstable angina. The patient was found to have patent coronary artery disease with a 80 to 90% distal LAD disease that was unchanged from cath in 2020. FFR to the circumflex was normal and the LAD culprit lesion was not physiologically significant. No percutaneous intervention was performed. This morning he denies any chest pain or pressure. He denies any shortness of breath or edema. He denies any fever, chills, nausea, vomiting, diarrhea, PND, or orthopnea. Exam Data for Last 24 hours Vital signs and Labs for Last 24 Hours: Temp Pulse Resp BP Pulse Ox 98.4 F 81 18 128/56 L 95 03/30/23 08:00 03/30/23 08:00 03/30/23 08:00 03/30/23 08:00 03/30/23 08:00 Laboratory Results - last 24 hr 03/29/23 20:13: POC Glucose 201 H 03/30/23 05:25: POC Glucose 165 H 03/30/23 05:46: Sodium 135 L, Potassium 3.7, Chloride 96 L, Carbon Dioxide 27, Anion Gap 15.7 H, BUN 41 H, Creatinine 2.10 H, Estimated Creat Clear 49, Estimated GFR 31 L, Est GFR ( Amer) 38 L, Glucose 149 H, Calcium 8.5, Total Bilirubin 0.9, AST 30, ALT 22, Alkaline Phosphatase 97, Total Protein 6.2 L, Albumin 3.6, Globulin 2.6, Albumin/Globulin Ratio 1.4 03/30/23 05:46: WBC 7.6, RBC 3.80 L, Hgb 11.5 L, Hct 36.3 L, MCV 95.6 H, MCH 30.2, MCHC 31.6 L, RDW 14.5, Plt Count 148, MPV 8.6, Neut % (Auto) 74.3, Lymph % (Auto) 14.5, Gregory % (Auto) 5.8, Eos % (Auto) 5.2, Baso % (Auto) 0.1, Neut # (Auto) 5.7, Lymph # (Auto) 1.1, Gregory # (Auto) 0.4, Eos # (Auto) 0.4, Baso # (Auto) 0.0 I & O for Last 24 hours: Intake & Output 03/27/23 03/28/23 03/29/23 03/30/23 23:59 23:59 23:59 23:59 Intake Total 1.750 / 81.750 320 / 320 1440 / 1440 360 / 360 Output Total 1000 / 1000 1175 / 1375 700 / 700 Balance 1.750 / 81.750 -680 / -680 265 / 65 -340 / -340 Weight 233 lb 14.4 oz 233 lb 14.567 oz 240 lb 4.862 oz 238 lb 5.115 oz Constitutional Constitutional: no acute distress and obese *Routine HEENT Exam Head: Present normocephalic and atraumatic ENT: Present mucous membranes moist *Routine Neck Exam Neck: Present supple, full ROM and normal carotid upstroke; Absent JVD, carotid bruit or lymphadenopathy *Routine Respiratory Exam Respiratory: Present CTA bilaterally, normal respiratory effort, able to speak in complete sentences and symmetric chest movement *Routine Cardiovascular Exam Cardiovascular: Present RRR, Normal S1 and Normal S2; Absent murmur or gallop *Routine Abdominal Exam Abdominal: Present soft and normoactive bowel sounds; Absent tenderness, distended or organomegaly *Routine Extremities Exam Extremities: Present full ROM, pulses intact and normal capillary refill; Absent cyanosis, clubbing or edema *Routine Skin Exam Skin: Present intact and warm; Absent erythema *Routine Neurological Exam Neurological: Present alert, oriented X3 and CN II-XII intact; Absent sensory deficit or motor deficit Routine Psychiatric Exam Psychiatric: Present normal affect Progress Note: A&P Assessment and plan (1) Hypertensive urgency: Status: Resolved (2) History of heart artery stent: Problem details: Dr. Santos placed 1 heart stent September 2021 Status: Chronic (3) Diabetes mellitus: Status: Chronic (4) Obesity (BMI 30.0-34.9): Status: Chronic (5) Dyslipidemia: Status: Chronic (6) Coronary artery disease: Problem details: S/p stent to LAD artery Sta
--- NOTE | 2023-03-30 11:04 | HMH.PHAINT1 ---
Pharmacy Intervention Comments: SPOKE WITH PATIENT ABOUT DISCHARGE MEDIATIONS. PATIENT INDICATED HE HAS NOT BEEN TAKING HIS PLAVIX OR DOXAZOSIN SINCE HIS KNEE SURGERY LAST YEAR IN MAY. DISCUSSED WITH SHAWNA ABERNATHY. PATIENT NEEDS TO CONTINUE BOTH OF THESE MEDICATIONS AT THIS TIME. I DISCUSSED THIS WITH PATIENT.
[2023-03-31 08:41] LABS: POC Glucose,Bedside 236 (70-110)
[2023-03-31 08:41] LABS: POC Glucose,Bedside 207 (70-110)
--- NOTE | 2023-03-31 13:37 | CARE MANAGER ---
Spoke with patient for post-discharge phone interview, no issues noted.
== END 2023-03-30 11:30 | disposition home or self-care (01) | DRG 287 ==
LOC: ER 19:01 → 2ND 19:40
PROVIDERS: Internal Medicine Interventional Cardiology; Nurse Practitioner Acute Care; Admitting Provider Internal Medicine Adolescent Medicine; Emergency Provider Emergency Medicine; PCP Family Medicine; Visit Provider Internal Medicine Adolescent Medicine
PROC: 4A023N7 Measurement of Cardiac Sampling and Pressure, Left Heart, Percutaneous Approach (ICD-10-PCS; principal; 2023-03-28 09:50)
DX: I16.0 Hypertensive urgency (principal); I25.110 Atherosclerotic heart disease of native coronary artery with unstable angina pectoris; Z95.5 Presence of coronary angioplasty implant and graft; F17.210 Nicotine dependence, cigarettes, uncomplicated; I10 Essential (primary) hypertension; E78.5 Hyperlipidemia, unspecified; E11.40 Type 2 diabetes mellitus with diabetic neuropathy, unspecified; Z79.4 Long term (current) use of insulin; I48.91 Unspecified atrial fibrillation; Z68.35 Body mass index [BMI] 35.0-35.9, adult; I25.10 Atherosclerotic heart disease of native coronary artery without angina pectoris
CPT/HCPCS: 36415; 71045; 71275; 80048; 80053; 80061; 82803; 82962; 83036; 83735; 83880; 84439; 84484; 85025; 85347; 93005; 93306; 93458; 93571; 99152; 99153; 99291; C1725; C1769; C1894; C9803; J0153; J1644; J3475; Q9967; U0003; U0005

== ENCOUNTER 2023-04-01 11:42 | Observation (INO) | payer MEDICARE, MEDICAID, SELFPAY ==
[2023-04-01] VITALS (20 sets, daily range): BP systolic 87–106; BP diastolic 52–67; PULSE 60–94; RESP 11–18; TEMP 36.5–36.9; O2SAT 91–99; BMI 36.6; BMI 34.8
--- NOTE | 2023-04-01 11:45 | ECG_ITS ---
APPROVED REPORT Exam: Resting ECG HR:64 bpm ECG Measurements Heart Rate 64 AXES MD 181 P 28 QRSd 90 QRS -23 QT 413 T 27 QTc 422 Conclusion SINUS RHYTHM BORDERLINE LEFT AXIS DEVIATION [QRS AXIS < -20] LOW QRS VOLTAGE IN PRECORDIAL LEADS [QRS DEFLECTION < 1.0 mV IN CHEST LEADS] BORDERLINE ECG UNCONFIRMED REPORT Electronically signed by : Arthur Whitt MD 04/01/2023 21:17:09
--- NOTE | 2023-04-01 11:48 | XR_ITS ---
FINAL REPORT CLINICAL HISTORY: Shortness of breath COMPARISON: 03/29/2023 FINDINGS: The heart size is normal. The mediastinum is normal. Lungs are mildly underinflated. There is no focal infiltrate or edema. There are no pleural effusions. There is no pneumothorax. There is cervical fusion hardware bridging the lower cervical spine. IMPRESSION: No acute cardiopulmonary process Reviewed, Interpreted and Dictated by Chuckie Zepeda MD Transcribed by Linda Davis Authenticated and . [facility]
[2023-04-01 12:03] LABS: Basophils % 0.2 % (0.1-2.0); Eosinophils # 0.3 K/mm3 (0.0-0.4); Eosinophils % 4.8 % (0.1-12.0); Hematocrit 37.5 % (42.0-52.0); Lymphocytes # 1.2 K/mm3 (0.7-4.5); Lymphocytes % 16.7 % (10-50); Mean Corpuscular Hemoglobin 31.4 pg (27.0-31.2); Mean Corpuscular Volume 98.4 fl (80-94); Mean Platelet Volume 8.9 fl (7.4-10.4); Monocytes # 0.4 K/mm3 (0.1-1.0); Monocytes % 5.2 % (1.7-9.3); Neutrophils # 5.2 K/mm3 (1.8-7.8); Neutrophils % 73.1 % (37.0-80.0); Platelet Count 179 K/mm3 (142-424); Red Blood Count 3.81 M/mm3 (4.60-6.20); Red Cell Distribution Width 14.1 % (11.5-17.5); White Blood Count 7.1 K/mm3 (4.8-10.8)
[2023-04-01 12:11] LABS: Chloride 93 mmol/L (98-107); Potassium 4.1 mmoL/L (3.5-5.1); Sodium 134 mmol/L (136-145)
[2023-04-01 12:14] LABS: Alanine Aminotransferase 24 U/L (12-78); Albumin Level 3.9 g/dl (3.5-5.0); Albumin/Globulin Ratio 1.4 (1.1-1.8); Alkaline Phosphatase 102 U/L (38-126); Anion Gap 18.1 mEq/L (5-15); Aspartate Amino Transferase 29 U/L (17-59); Blood Urea Nitrogen 51 mg/dl (9-20); Calcium 8.4 mg/dl (8.4-10.2); Carbon Dioxide 27 mmol/L (22.0-30.0); Creatinine Clearance Estimated 44 mL/min (50-200); Estimated Glomerular Filt Rate 27 ml/min (>60); GFR (African American) 32 ML/MIN (>60); Globulin 2.8 g/dL (1.3-3.2); Glucose 241 mg/dl (74-100); Total Protein,Serum 6.7 g/dl (6.3-8.2)
[2023-04-01 12:15] LABS: Magnesium 1.9 mg/dl (1.6-2.3)
[2023-04-01 12:20] LABS: D-Dimer 2.14 ug/mL (0.0-0.5)
[2023-04-01 12:26] LABS: NT Pro Brain Natriuretic Pep. 148 pg/mL (0-125)
[2023-04-01 12:28] LABS: Troponin I 0.06 ng/ml (0.00-0.034)
--- NOTE | 2023-04-01 12:34 | HMH.EDGENADL ---
Discharge Plan Disposition Patient Disposition: Admitted As Inpatient Chief Complaint: Weakness Clinical Impressions Clinical Impression: Acute kidney injury, Hypotension Discharge ED Provider: Diony Hinkle General Adult HPI General Chief complaint: Weakness Stated complaint: Weakness Time Seen by Provider: 04/01/23 12:00 Mode of Arrival: EMS Source of Information: Patient Limitations: No Limitations Description of Symptoms (Recalled from ER Triage Doc. by RN): pt comes in via ems for hypotension. [facility] for paleness and weakness noted from staff at center. pt reports no other symptoms except weakness and tiredness. History of Present Illness HPI narrative: 72-year-old male history of hyperlipidemia hypertension atrial fibrillation coronary disease presents with hypotension. He had heart cath on a few days ago was discharged yesterday had distal LAD occlusion that was nonsustainable. Was at [facility] today and felt dizzy and appeared [facility] arrived and had blood pressure 70 systolic given IV fluids up to 80-90 systolic. At this time he denies chest pain headache numbness weakness or tingling arms or legs. He says he thinks he has been eating and drinking okay. No bleeding per rectum reported. Related Data Home Medications Medication Instructions Recorded Confirmed allopurinol 300 mg tablet 300 mg PO DAILY Gout 04/01/23 04/01/23 carvedilol 6.25 mg tablet 6.25 mg PO DAILY Heart rhythm 04/01/23 04/01/23 furosemide 20 mg tablet 20 mg PO DAILY Fluid 04/01/23 04/01/23 gabapentin 300 mg capsule 300 mg PO HS Pain 04/01/23 04/01/23 insulin glargine 100 unit/mL (3 25 unit SQ BID Diabetes 04/01/23 04/01/23 mL) subcutaneous pen (Lantus Solostar U-100 Insulin) isosorbide mononitrate 30 mg 30 mg PO DAILY CAD 04/01/23 04/01/23 tablet,extended release 24 hr lisinopril 20 mg tablet 20 mg PO DAILY High blood pressure 04/01/23 04/01/23 metoprolol tartrate 50 mg tablet 50 mg PO BID Heart rhythm 04/01/23 04/01/23 pioglitazone 45 mg tablet 45 mg PO DAILY Diabetes 04/01/23 04/01/23 rosuvastatin 10 mg tablet 10 mg PO DAILY Cholesterol 05/03/23 05/03/23 Allergies Allergy/AdvReac Type Severity Reaction Status Date / Time No Known Allergies Allergy Verified 03/17/23 13:24 [facility] Disclaimer: The information contained in this section may have been updated after the patient was seen, as this information can be updated by other users. Medical History (Updated 04/01/23 @ 14:23 by Diony Hinkle MD) Arthritis CAD (coronary artery disease) Coronary artery disease Diabetes mellitus Dyslipidemia Gout Hyperlipidemia Hypertension Hypertension Neuropathy Surgical History (Updated 03/28/23 @ 09:45 by Sterling Holman MD) History of knee replacement, total Stented coronary artery Family History (Updated 03/27/23 @ 22:29 by Alivia Cameron RN) Other Leukemia Stroke Social History (Updated 03/27/23 @ 22:30 by Alivia Cameron, MELISSA) Smoking Status: Former smoker pack-years: 4 second hand exposure: No alcohol intake: former substance use type: denies use current occupational status: retired and disabled Travel in the last 8 weeks: None household members: family housing: house current occupational exposures/hazards: No caffeine: No ROS Obtained: Yes All systems reviewed & no additional complaints except as documented Constitutional Constitutional: Denies fatigue and Denies headache(s) Eyes Eyes: Denies eye pain ENT Ears, Nose, Mouth, and Throat: Denies headache(s) Cardiovascular Cardiovascular: Denies diaphoresis and Denies dyspnea Respiratory Respiratory: Denies dyspnea and Denies wheezing Gastrointestinal Gastrointestingal: Denies coffee ground emesis Genitourinary Male Genitourinary: Denies flank pain Musculoskeletal Musculoskeletal: Denies joint stiffness Integumentary/Breasts Skin/Breast: Denies dry skin Neurologic Neurologic: Les
[2023-04-01 12:47] LABS: Thyroid Stimulating Hormone 1.44 uIU/mL (0.465-4.68)
--- NOTE | 2023-04-01 13:00 | PC.NURSE ---
Lunch tray ordered for patient
[2023-04-01 13:01] LABS: Coronavirus 19, PCR Not Detected (NotDetected); Influenza A, PCR Not Detected (NotDetected); Influenza B, PCR Not Detected (NotDetected)
--- NOTE | 2023-04-01 14:09 | PC.NURSE ---
DR KOVACS AGREES TO ADMISSION
--- NOTE | 2023-04-01 14:10 | PC.NURSE ---
CARE MANAGEMENT NOTIFIED OF ADMISSION
--- NOTE | 2023-04-01 14:29 | PC.NURSE ---
Report to MELISSA Steele
--- NOTE | 2023-04-01 14:42 | HMH.PHAINT1 ---
Pharmacy Intervention Comments: MEDICATION RECONCILIATION COMPLETED ON PATIENT USING EXTERNAL FILL HISTORY FROM PHARMACY AND DISCHARGE SUMMARY FROM PREVIOUS ADMISSION. -RUFINO VEGA, SANCHEZD
--- NOTE | 2023-04-01 14:57 | PC.NURSE ---
arrived by stretcher to floor from ED
[2023-04-01 15:29] LABS: Troponin I 0.04 ng/ml (0.00-0.034)
[2023-04-01 15:52] LABS: POC Glucose,Bedside 310 (70-110)
[2023-04-01 16:50] LABS: Microscopic, Urine URINE MICROSCOPIC (MICROSCOPIC)
[2023-04-01 16:51] LABS: Appearance,Urine CLEAR (Clear); Bilirubin,Urine Negative (Negative); Blood, Urine Negative (Negative); Color,Urine YELLOW (Yellow); Glucose,Urine (UA) TRACE (Negative); Ketones,Urine Negative (Negative); Leukocyte Esterase,Urine Negative (Negative); Nitrate,Urine Negative (Negative); Protein,Urine TRACE (Negative); Urobilinogen,Urine 0.2 EU/dl (0.2)
--- NOTE | 2023-04-01 17:06 | EXP.HP ---
History of Present Illness *Admission Date: 04/01/23 *Reason for visit:: hypotension, dizzy *History of present illness: Mr. Rodriguez is a pleasant 72-year-old male who was recently admitted for chest pain. Underwent heart cath this weekend. Medications were changed as no stents were placed. Here he presented to the ER today due to symptoms of dizziness and weakness. Found to be frankly hypotensive. Started on IV fluids. Additionally labs showed mild JON and detectable troponin. ER consulted medicine for admission and further management. Given patient's symptoms, hypotension, JON, admitted for observation. Case discussed with cardiology, so they would follow along if patient is admitted. After arriving to the floor. Patient states he has not been having chest pain or shortness of breath. This morning however he just felt dizzy after taking his medications. Went about his day is normal and went to [facility]. Upon arrival they told him he looked very pale. EMS was called and brought him to the ER for further evaluation. [facility] Disclaimer: The information contained in this section may have been updated after the patient was seen, as this information can be updated by other users. Medical History Arthritis CAD (coronary artery disease) Coronary artery disease Diabetes mellitus Dyslipidemia Gout Hx of fracture of left hip Hyperlipidemia Hypertension Neuropathy Surgical History Hx of hernia repair Hx of right knee surgery Stented coronary artery Family History Leukemia Stroke Social History Smoking Status: Current some day smoker tobacco type: cigars second hand exposure: No alcohol intake: former substance use type: denies use current occupational status: retired and disabled Travel in the last 8 weeks: None household members: family housing: house current occupational exposures/hazards: No caffeine: No Review of Systems Review of Systems Review of systems (narrative): 14 point review of systems performed, pertinent positives and negatives as per HPI Constitutional Constitutional: Denies headache(s) ENT Ears, Nose, Mouth, and Throat: Denies headache(s) *Neurologic Neurologic: Denies headache(s) Meds Home Medications and Allergies Home Medications Medication Instructions Recorded Confirmed Type allopurinol 300 mg tablet 300 mg PO DAILY Gout 04/01/23 04/01/23 History cholecalciferol (vitamin D3) 25 25 mcg PO DAILY Supplement 04/01/23 04/01/23 History mcg (1,000 unit) tablet clopidogrel 75 mg tablet 75 mg PO DAILY PLATELET INHIBITOR 04/01/23 04/01/23 History doxazosin 2 mg tablet 2 mg PO HS Hypertension 04/01/23 04/01/23 History furosemide 20 mg tablet 20 mg PO BID Fluid 04/01/23 04/01/23 History gabapentin 300 mg capsule 300 mg PO TID Pain 04/01/23 04/01/23 History insulin glargine 100 unit/mL (3 25 unit SQ HS Diabetes 04/01/23 04/01/23 History mL) subcutaneous pen (Lantus Solostar U-100 Insulin) isosorbide mononitrate 30 mg 30 mg PO DAILY Hypertension 04/01/23 04/01/23 History tablet,extended release 24 hr lisinopril 20 mg tablet 20 mg PO BID High blood pressure 04/01/23 04/01/23 History metoprolol tartrate 50 mg tablet 50 mg PO BID Heart rhythm 04/01/23 04/01/23 History pantoprazole 40 mg tablet,delayed 40 mg PO DAILY Acid reflux 04/01/23 04/01/23 History release rosuvastatin 10 mg tablet 10 mg PO DAILY Cholesterol 04/01/23 04/01/23 History New Prescriptions to Start Prescriptions: Allergies Allergy/AdvReac Type Severity Reaction Status Date / Time No Known Allergies Allergy Verified 03/17/23 13:24 Exam Data for Last 24 hours Vital signs and Labs for Last 24 Hours: Temp Pulse Resp BP Pulse Ox 97.7 F 69 18 100/65 L 99 0
[2023-04-01 17:07] LABS: Squamous Epithelial Cell,Urine Occasional #/hpf (0-5); WBC,Urine Occasional #/hpf (0-3)
[2023-04-01 18:27] LABS: Troponin I 0.04 ng/ml (0.00-0.034)
[2023-04-01 21:47] LABS: POC Glucose,Bedside 163 (70-110)
[2023-04-02] VITALS (7 sets, daily range): BP systolic 95–135; BP diastolic 55–74; PULSE 66–76; RESP 16–18; TEMP 36.7–36.9; O2SAT 93–99; BMI 35.4; BMI 35.1
--- NOTE | 2023-04-02 04:41 | PC.NURSE ---
No acute changes noted. VS stable and patient remains on room air. VS stable and patient rested well during shift.
[2023-04-02 06:30] LABS: Chloride 95 mmol/L (98-107); Sodium 136 mmol/L (136-145)
[2023-04-02 06:34] LABS: POC Glucose,Bedside 88 (70-110)
[2023-04-02 06:34] LABS: Blood Urea Nitrogen 53 mg/dl (9-20); Calcium 8.4 mg/dl (8.4-10.2); Carbon Dioxide 28 mmol/L (22.0-30.0); Creatinine Clearance Estimated 44 mL/min (50-200); Estimated Glomerular Filt Rate 28 ml/min (>60); GFR (African American) 34 ML/MIN (>60); Glucose 85 mg/dl (74-100)
--- NOTE | 2023-04-02 09:40 | EXP.CARD.CON ---
History of Present Illness History of Present Illness Consult date: 04/02/23 Requesting physician: Sterling Holman Consult reason: known to you Chief complaint: weakness, dizziness History of present illness: This is a 72-year-old white gentleman who presented to the hospital with complaints of weakness and dizziness. He had recently been admitted to the hospital over the weekend for chest pain. He underwent cardiac catheterization which showed patent coronary artery disease and no percutaneous intervention was required. The patient was discharged from the hospital on Thursday. The patient was discharged home and yesterday he went to his [facility] [employer] [place] that he normally goes to. He states that he was feeling very weak, fatigued and dizzy all day. He just really did not feel well. The workers at the [facility] stated that the patient looked very pale. EMS was called and he was brought to to the emergency department for hypotension. The patient denies any chest pain or pressure. He denies any shortness of breath or edema. He denies any fever, chills, nausea, vomiting, diarrhea, PND or orthopnea. The patient was found to be hypotensive in the emergency department. He was started on IV fluids and admitted to the hospital for his hypotension. The patient does have an acute kidney injury with an elevation in his creatinine to 2.4 from his baseline of 1.8 and he did have a slight elevation in his troponin at 0.06 which trended down to 0.04. Of note, the patient does have his medications at bedside. His bag has both the metoprolol and carvedilol in the year and when question on whether or not he was taking both of these medications he reported that if they were both in the bag then he was taking them at the same time which is most likely what caused his hypotension. [facility] Disclaimer: The information contained in this section may have been updated after the patient was seen, as this information can be updated by other users. Medical History (Updated 04/02/23 @ 09:45 by Daniela Bose APRN) Arthritis CAD (coronary artery disease) Coronary artery disease Diabetes mellitus Dyslipidemia Gout Hx of fracture of left hip Hyperlipidemia Hypertension Hypotension Neuropathy Surgical History Hx of hernia repair Hx of right knee surgery Stented coronary artery Family History Leukemia Stroke Social History Smoking Status: Current some day smoker tobacco type: cigars second hand exposure: No alcohol intake: former substance use type: denies use current occupational status: retired and disabled Travel in the last 8 weeks: None household members: family housing: house current occupational exposures/hazards: No caffeine: No Review of Systems Review of Systems Review of systems:: pertinent systems reviewed and negative unless documented below Constitutional Constitutional: Reports fatigue, Denies headache(s), Reports lethargy and Reports weakness Eyes Eyes: Reports system reviewed and no additional complaints, except as documented ENT Ears, Nose, Mouth, and Throat: Reports system reviewed and no additional complaints, except as documented, Reports dizziness and Denies headache(s) *Cardiovascular Cardiovascular: Reports system reviewed and no additional complaints, except as documented, Denies chest pain and Denies dyspnea *Respiratory Respiratory: Reports system reviewed and no additional complaints, except as documented and Denies dyspnea *Gastrointestinal Gastrointestinal: Reports system reviewed and no additional complaints, except as documented *Genitourinary Genitourinary: Reports system reviewed and no additional complaints, except as documented *Musculoskeletal Musculoskeletal: Reports system reviewed and no additional complaints, except as doc
[2023-04-02 11:54] LABS: POC Glucose,Bedside 152 (70-110)
--- NOTE | 2023-04-02 16:20 | EXP.DC.SUM ---
General Admission date:: 04/01/23 Discharge date: 04/02/23 HPI HPI HPI: Mr. Rodriguez is a pleasant 72-year-old male who was recently admitted for chest pain. Underwent heart cath this weekend. Medications were changed as no stents were placed. Here he presented to the ER today due to symptoms of dizziness and weakness. Found to be frankly hypotensive. Started on IV fluids. Additionally labs showed mild JON and detectable troponin. ER consulted medicine for admission and further management. Given patient's symptoms, hypotension, JON, admitted for observation. Case discussed with cardiology, so they would follow along if patient is admitted. After arriving to the floor. Patient states he has not been having chest pain or shortness of breath. This morning however he just felt dizzy after taking his medications. Went about his day is normal and went to [place]. Upon arrival they told him he looked very pale. EMS was called and brought him to the ER for further evaluation. Hospital Course Hospital Course Hospital Course: This is a 72-year-old male admitted to the hospital service for hypotension.? Recently admitted just a few days ago for hypertensive urgency and chest pain.? Discussed case with ER physician, given persistent hypotension after fluids, JON, patient's living situation, requested admission for observation.? Medicine agreed and decided to admit for further management and serial labs.? Problems addressed as follows: Hypotension CAD Patient was hypotensive on admission. Had no further chest pain however. Blood pressure meds held. Strong concern that he doubled up on his carvedilol and metoprolol based on meds patient brought in in his report. Resume metoprolol on day of discharge at half dose of 25 mg twice daily. Tolerated well with improvement in blood pressure and stable heart rate control. Blood pressure improved 135/74 by time of discharge. Stable to discharge home with close follow-up with cardiology on Thursday. We will repeat labs prior to appointment. At this time we are holding his lisinopril, Imdur, diuretics. Continuing only half dose metoprolol. Instructed to call cardiology clinic tomorrow if blood pressure elevated. Recommended checking blood pressure 2-3 times daily, daughter states he has a cuff at home. If over the weekend his blood pressure is high with systolics above 140 or low with systolics below 100, he is to call [facility] and speak to the hospitalist for further instruction. Patient clinically feeling better. JON Creatinine elevated on admission at 2.4, marginal improvement with fluids. Anticipate normalization with improvement in blood pressure and rehydration orally. Will need repeat labs prior to follow-up with cardiology on Thursday to evaluate for normalization of kidney function. DM Continue home insulin regimen. No signs of hypoglycemia during admission. Stable for discharge with close follow-up with cardiology on Thursday. Adjustments made to medications. Spent 40 minutes in discharge counseling and direct care with patient. Exam Data for Last 24 hours Vital signs and Labs for Last 24 Hours: Temp Pulse Resp BP Pulse Ox 98.0 F 68 18 135/74 99 04/02/23 15:52 04/02/23 15:52 04/02/23 15:52 04/02/23 15:52 04/02/23 15:52 Laboratory Results - last 24 hr 04/01/23 16:45: Urine Color Yellow, Urine Appearance Clear, Urine pH 6.0, Ur Specific [place] 1.010, Urine Protein Trace, Urine Glucose (UA) Trace, Urine Ketones Negative, Urine Blood Negative, Urine Nitrate Negative, Urine Bilirubin Negative, Urine Urobilinogen 0.2, Ur Leukocyte Esterase Negative, Urine RBC None, Urine WBC Occasional, Ur Squamous Epith Cells Occasional, Urine Bacteria None 04/01/23 17:55: Troponin I 0.04 H 04/01/23 21:36: POC Glucose 163 H 04/02/23 05:40: Sodium 136, Potassium 4.0, Chloride 95 L, Carbon Dioxide 28, Anion Gap 17.0 H, BUN 53 H, Creatinine 2.30 H, Estimated Cr
--- NOTE | 2023-04-02 18:03 | PC.NURSE ---
d/c instruction and teaching given, pt waiting for Dr. Holman to come in and speak with him regarding medications.
--- NOTE | 2023-04-03 11:20 | CARE MANAGER ---
Called and spoke with Courtney Michael, who stated that he is doing well. He was aware of medication changes made at discharge, and of his f/u appt with Dr. Santos. No questions or concerns voiced at time of call.
== END 2023-04-02 18:24 | disposition home or self-care (01) ==
LOC: ER 11:49 → 2ND 14:23
PROVIDERS: Admitting Provider Internal Medicine Adolescent Medicine; Emergency Provider Emergency Medicine; PCP Family Medicine; Visit Provider Internal Medicine Adolescent Medicine
DX: T46.4X5A Adverse effect of angiotensin-converting-enzyme inhibitors, initial encounter; I95.2 Hypotension due to drugs; T46.3X5A Adverse effect of coronary vasodilators, initial encounter; N17.9 Acute kidney failure, unspecified; E11.9 Type 2 diabetes mellitus without complications; I25.110 Atherosclerotic heart disease of native coronary artery with unstable angina pectoris; I48.91 Unspecified atrial fibrillation; I10 Essential (primary) hypertension; F17.290 Nicotine dependence, other tobacco product, uncomplicated; Z79.4 Long term (current) use of insulin; Z79.02 Long term (current) use of antithrombotics/antiplatelets; Z79.899 Other long term (current) drug therapy; Z95.5 Presence of coronary angioplasty implant and graft; Z68.35 Body mass index [BMI] 35.0-35.9, adult; Z20.822 Contact with and (suspected) exposure to COVID-19
CPT/HCPCS: G0378; 36415; 71045; 80048; 80053; 81001; 82962; 83735; 83880; 84443; 84484; 85025; 85378; 93005; 99285; C9803; U0003; U0005

== ENCOUNTER → 2023-04-06 12:15 | Outpatient (CLI) | payer MEDICARE, MEDICAID, SELFPAY ==
[2023-04-06 13:08] LABS: Basophils % 0.6 % (0.1-2.0); Eosinophils # 0.4 K/mm3 (0.0-0.4); Eosinophils % 6.4 % (0.1-12.0); Hematocrit 36.4 % (42.0-52.0); Hemoglobin 11.6 g/dL (14.1-18.0); Lymphocytes # 1.4 K/mm3 (0.7-4.5); Mean Corpuscular HGB Conc 31.9 g/dL (31.8-35.4); Mean Corpuscular Hemoglobin 30.6 pg (27.0-31.2); Mean Corpuscular Volume 95.8 fl (80-94); Mean Platelet Volume 8.2 fl (7.4-10.4); Monocytes # 0.3 K/mm3 (0.1-1.0); Monocytes % 5.4 % (1.7-9.3); Neutrophils % 64.7 % (37.0-80.0); Platelet Count 212 K/mm3 (142-424); Red Blood Count 3.79 M/mm3 (4.60-6.20); Red Cell Distribution Width 14.2 % (11.5-17.5); White Blood Count 6.2 K/mm3 (4.8-10.8)
[2023-04-06 13:17] LABS: Alanine Aminotransferase 20 U/L (12-78); Albumin Level 3.6 g/dl (3.5-5.0); Albumin/Globulin Ratio 1.6 (1.1-1.8); Alkaline Phosphatase 103 U/L (38-126); Anion Gap 15.9 mEq/L (5-15); Aspartate Amino Transferase 27 U/L (17-59); Bilirubin,Total 0.5 mg/dl (0.2-1.3); Blood Urea Nitrogen 44 mg/dl (9-20); Calcium 8.6 mg/dl (8.4-10.2); Carbon Dioxide 27 mmol/L (22.0-30.0); Chloride 99 mmol/L (98-107); Estimated Glomerular Filt Rate 37 ml/min (>60); GFR (African American) 45 ML/MIN (>60); Globulin 2.3 g/dL (1.3-3.2); Glucose 171 mg/dl (74-100); Potassium 4.9 mmoL/L (3.5-5.1); Sodium 137 mmol/L (136-145); Total Protein,Serum 5.9 g/dl (6.3-8.2)
== END ==
PROVIDERS: PCP Family Medicine; Visit Provider Internal Medicine Adolescent Medicine
DX: N17.9 Acute kidney failure, unspecified (principal)
CPT/HCPCS: 36415; 80053; 85025

== ENCOUNTER → 2023-04-09 08:41 | Outpatient (CLI) | payer MEDICARE, MEDICAID, SELFPAY ==
--- NOTE | 2023-04-09 08:50 | NM_ITS ---
FINAL REPORT CLINICAL HISTORY: right knee pain ever since knee surgery from last april 2022 9:30 am 25.8 mci tc MDP injected into lt ant recent knee xray was done 03/12/2023 FINDINGS: THREE-PHASE BONE SCAN OF THE BILATERAL KNEES Existing relevant imaging studies: Right knee radiograph dated 03/12/2023 TECHNIQUE: The patient was injected with 25.8 mCi of technetium 99-[id number]. Images were obtained in 3 phases. FINDINGS: Blood flow imaging shows increased flow to the right lower extremity, greatest surrounding the knee. Blood pool imaging is abnormal with increased soft tissue uptake surrounding the right knee. Delayed imaging shows mild increased activity of the tibial bone hardware interface. This could be normal reactive uptake but given abnormal activity on the initial 2 phases, hardware Infection would be another consideration. Abnormal uptake is seen in the left knee involving the medial tibial plateau and patellofemoral joint compatible with degenerative change. IMPRESSION: Positive 3 phase bone scan for abnormal activity involving the right knee. Infectious process is not excluded. Reviewed, Interpreted and Dictated by Jaylen Reece MD Transcribed by Joyce Simons Authenticated and [facility]
== END ==
PROVIDERS: PCP Family Medicine; Visit Provider Orthopaedic Surgery
DX: M25.561 Pain in right knee (principal)
CPT/HCPCS: 78315

== ENCOUNTER → 2023-07-07 14:34 | Outpatient (CLI) | payer MEDICARE, MEDICAID, SELFPAY ==
[2023-07-07 14:53] LABS: MANUAL DIFFERENTIAL MANUAL DIFFERENTIAL (MANUAL DIFF)
[2023-07-07 15:54] LABS: Basophils % 0.3 % (0.1-2.0); Eosinophils # 0.3 K/mm3 (0.0-0.4); Eosinophils % 4.8 % (0.1-12.0); Lymphocytes # 1.4 K/mm3 (0.7-4.5); Lymphocytes % 23.7 % (10-50); Mean Corpuscular HGB Conc 31.5 g/dL (31.8-35.4); Mean Corpuscular Hemoglobin 30.3 pg (27.0-31.2); Mean Platelet Volume 8.8 fl (7.4-10.4); Monocytes # 0.4 K/mm3 (0.1-1.0); Monocytes % 5.9 % (1.7-9.3); Neutrophils # 3.9 K/mm3 (1.8-7.8); Neutrophils % 65.3 % (37.0-80.0); Platelet Count 128 K/mm3 (142-424); Red Blood Count 3.96 M/mm3 (4.60-6.20); Red Cell Distribution Width 15.3 % (11.5-17.5)
[2023-07-07 16:47] LABS: Alanine Aminotransferase 29 U/L (12-78); Alkaline Phosphatase 95 U/L (38-126); Anion Gap 14.3 mEq/L (5-15); Aspartate Amino Transferase 38 U/L (17-59); Bilirubin,Indirect 0.3 mg/dL (0.0-0.9); Bilirubin,Total 0.3 mg/dl (0.2-1.3); Bilirubin,Unconjugated 0.4 mg/dL (0.0-1.1); Blood Urea Nitrogen 51 mg/dl (9-20); Calcium 8.6 mg/dl (8.4-10.2); Carbon Dioxide 29 mmol/L (22.0-30.0); Chloride 103 mmol/L (98-107); Cholesterol 95 mg/dl (140-200); Estimated Glomerular Filt Rate 27 ml/min (>60); GFR (African American) 32 ML/MIN (>60); Glucose 118 mg/dl (74-100); HDL Cholesterol 32 mg/dl (40-60); Potassium 4.3 mmoL/L (3.5-5.1); Sodium 142 mmol/L (136-145); Total Protein,Serum 6.2 g/dl (6.3-8.2); Triglycerides 150 mg/dl (30-150); VLDL Cholesterol 30 mg/dL (0-40)
[2023-07-07 17:04] LABS: Direct LDL Cholesterol 34.15 mg/dL (100-129)
[2023-07-07 21:01] LABS: Eosinophils % 3 % (0-3); Lymphocytes % 30 % (10-50); Monocytes % 2 % (2-9); Neutrophils % 65 % (42-76); Platelet Estimate Slight Decrease; RBC Morphology Normal; Total Cells Counted 100
== END ==
PROVIDERS: PCP Family Medicine; Visit Provider Internal Medicine
DX: E66.9 Obesity, unspecified (principal); E78.5 Hyperlipidemia, unspecified; F17.200 Nicotine dependence, unspecified, uncomplicated; I10 Essential (primary) hypertension; N17.9 Acute kidney failure, unspecified; R06.00 Dyspnea, unspecified; I25.10 Atherosclerotic heart disease of native coronary artery without angina pectoris; D64.9 Anemia, unspecified; Z68.38 Body mass index [BMI] 38.0-38.9, adult
CPT/HCPCS: 36415; 80048; 80061; 80076; 85007; 85014; 85018; 85048; 85049

== ENCOUNTER 2023-07-08 09:00 | Outpatient (RCR) | payer MEDICARE, MEDICAID, SELFPAY | END 2023-07-22 16:40 | disposition home or self-care (01) | LOC: PT 09:00 | PROVIDERS: PCP Family Medicine; Visit Provider Orthopaedic Surgery | DX: M21.861 Other specified acquired deformities of right lower leg (principal); Z98.890 Other specified postprocedural states | CPT/HCPCS: 97110; 97112; 97163; 97164; 97530 ==

== ENCOUNTER → 2023-10-07 13:34 | Outpatient (CLI) | payer MEDICARE, MEDICAID, SELFPAY ==
[2023-10-07 14:27] LABS: Basophils % 0.2 % (0.1-2.0); Eosinophils # 0.2 K/mm3 (0.0-0.4); Hematocrit 38.6 % (42.0-52.0); Hemoglobin 12.7 g/dL (14.1-18.0); Lymphocytes # 1.5 K/mm3 (0.7-4.5); Mean Corpuscular HGB Conc 32.9 g/dL (31.8-35.4); Mean Corpuscular Hemoglobin 31.4 pg (27.0-31.2); Mean Corpuscular Volume 95.3 fl (80-94); Mean Platelet Volume 8.5 fl (7.4-10.4); Monocytes # 0.4 K/mm3 (0.1-1.0); Monocytes % 5.4 % (1.7-9.3); Neutrophils # 4.6 K/mm3 (1.8-7.8); Neutrophils % 69.5 % (37.0-80.0); Platelet Count 146 K/mm3 (142-424); Red Blood Count 4.05 M/mm3 (4.60-6.20); Red Cell Distribution Width 14.4 % (11.5-17.5); White Blood Count 6.7 K/mm3 (4.8-10.8)
[2023-10-07 14:39] LABS: Alanine Aminotransferase 25 U/L (12-78); Albumin Level 3.9 g/dl (3.5-5.0); Alkaline Phosphatase 95 U/L (38-126); Anion Gap 12.3 mEq/L (5-15); Aspartate Amino Transferase 37 U/L (17-59); Bilirubin,Direct 0.1 mg/dl (0.0-0.4); Bilirubin,Indirect 0.1 mg/dL (0.0-0.9); Bilirubin,Total 0.2 mg/dl (0.2-1.3); Bilirubin,Unconjugated 0.1 mg/dL (0.0-1.1); Blood Urea Nitrogen 38 mg/dl (9-20); Calcium 8.8 mg/dl (8.4-10.2); Carbon Dioxide 26 mmol/L (22.0-30.0); Chloride 102 mmol/L (98-107); Chol/HDL Ratio 3.2 (1-3.5); Cholesterol 114 mg/dl (140-200); Estimated Glomerular Filt Rate 33 ml/min (>60); GFR (African American) 40 ML/MIN (>60); Glucose 179 mg/dl (74-100); HDL Cholesterol 36 mg/dl (40-60); Magnesium 1.7 mg/dl (1.6-2.3); Potassium 4.3 mmoL/L (3.5-5.1); Sodium 136 mmol/L (136-145); Total Protein,Serum 6.2 g/dl (6.3-8.2); Triglycerides 215 mg/dl (30-150); VLDL Cholesterol 43 mg/dL (0-40)
[2023-10-07 14:50] LABS: Direct LDL Cholesterol 44.46 mg/dL (100-129)
[2023-10-07 14:55] LABS: Free T4 (Free Thyroxine) 1.07 ng/dl (0.78-2.19)
[2023-10-07 15:10] LABS: Thyroid Stimulating Hormone 1.75 uIU/mL (0.465-4.68)
== END ==
PROVIDERS: PCP Family Medicine; Visit Provider Internal Medicine
DX: I25.10 Atherosclerotic heart disease of native coronary artery without angina pectoris (principal); I11.9 Hypertensive heart disease without heart failure; E78.5 Hyperlipidemia, unspecified; R06.00 Dyspnea, unspecified; F17.200 Nicotine dependence, unspecified, uncomplicated; E66.9 Obesity, unspecified; Z68.37 Body mass index [BMI] 37.0-37.9, adult
CPT/HCPCS: 36415; 80048; 80061; 80076; 83735; 84439; 84443; 85025

== ENCOUNTER 2024-01-07 13:20 | Outpatient (CLI) | payer MEDICARE, MEDICAID, SELFPAY ==
[2024-01-07 14:25] LABS: Basophils % 0.2 % (0.1-2.0); Eosinophils # 0.2 K/mm3 (0.0-0.4); Hematocrit 39.6 % (42.0-52.0); Hemoglobin 12.8 g/dL (14.1-18.0); Lymphocytes # 1.5 K/mm3 (0.7-4.5); Mean Corpuscular HGB Conc 32.2 g/dL (31.8-35.4); Mean Corpuscular Hemoglobin 30.6 pg (27.0-31.2); Mean Corpuscular Volume 95.1 fl (80-94); Mean Platelet Volume 7.7 fl (7.4-10.4); Monocytes # 0.4 K/mm3 (0.1-1.0); Monocytes % 6.2 % (1.7-9.3); Neutrophils # 4.3 K/mm3 (1.8-7.8); Neutrophils % 67.7 % (37.0-80.0); Platelet Count 141 K/mm3 (142-424); Red Blood Count 4.17 M/mm3 (4.60-6.20); Red Cell Distribution Width 15.7 % (11.5-17.5); White Blood Count 6.4 K/mm3 (4.8-10.8)
[2024-01-07 14:57] LABS: Alanine Aminotransferase 24 U/L (12-78); Albumin Level 4.2 g/dl (3.5-5.0); Alkaline Phosphatase 93 U/L (38-126); Anion Gap 11.3 mEq/L (5-15); Aspartate Amino Transferase 37 U/L (17-59); Bilirubin,Direct 0.1 mg/dl (0.0-0.4); Bilirubin,Indirect 0.3 mg/dL (0.0-0.9); Bilirubin,Total 0.4 mg/dl (0.2-1.3); Bilirubin,Unconjugated 0.3 mg/dL (0.0-1.1); Blood Urea Nitrogen 44 mg/dl (9-20); Calcium 9.2 mg/dl (8.4-10.2); Carbon Dioxide 32 mmol/L (22.0-30.0); Chloride 101 mmol/L (98-107); Chol/HDL Ratio 3.3 (1-3.5); Cholesterol 120 mg/dl (140-200); Estimated Glomerular Filt Rate 33 ml/min (>60); GFR (African American) 40 ML/MIN (>60); Glucose 124 mg/dl (74-100); HDL Cholesterol 36 mg/dl (40-60); Potassium 4.3 mmoL/L (3.5-5.1); Sodium 140 mmol/L (136-145); Total Protein,Serum 6.5 g/dl (6.3-8.2); Triglycerides 161 mg/dl (30-150); VLDL Cholesterol 32 mg/dL (0-40)
[2024-01-07 15:08] LABS: Direct LDL Cholesterol 40.56 mg/dL (100-129)
[2024-01-07 15:14] LABS: Free T4 (Free Thyroxine) 1.05 ng/dl (0.78-2.19)
== END 2024-01-07 23:59 ==
LOC: LAB 13:22
PROVIDERS: PCP Family Medicine; Visit Provider Internal Medicine
DX: E11.9 Type 2 diabetes mellitus without complications (principal); I11.9 Hypertensive heart disease without heart failure; I25.10 Atherosclerotic heart disease of native coronary artery without angina pectoris; E78.5 Hyperlipidemia, unspecified; N17.9 Acute kidney failure, unspecified; R06.00 Dyspnea, unspecified; E66.9 Obesity, unspecified; Z68.38 Body mass index [BMI] 38.0-38.9, adult; Z79.4 Long term (current) use of insulin; Z79.84 Long term (current) use of oral hypoglycemic drugs; F17.290 Nicotine dependence, other tobacco product, uncomplicated
CPT/HCPCS: 36415; 80048; 80061; 80076; 84439; 84443; 85025

== ENCOUNTER 2024-05-30 09:36 | Outpatient (CLI) | payer MEDICARE, MEDICAID, SELFPAY | END 2024-05-30 23:59 | disposition home or self-care (01) | LOC: LAB.DROPOF 05-31 09:36 | PROVIDERS: PCP Nurse Practitioner; Visit Provider Nurse Practitioner | DX: L60.0 Ingrowing nail (principal) | CPT/HCPCS: 87070; 87077; 87186; 87205 ==

== ENCOUNTER 2025-02-27 07:41 | Observation (INO) | payer MEDICARE, SELFPAY ==
[2025-02-27] VITALS (8 sets, daily range): BP systolic 133–169; BP diastolic 84–98; PULSE 60–84; RESP 12–20; TEMP 36.6–36.9; O2SAT 92–99; BMI 33.6; BMI 34.9; BMI 33.2
--- NOTE | 2025-02-27 07:45 | PC.NURSE ---
DR ROBLES AT BEDSIDE
--- NOTE | 2025-02-27 07:55 | ECG_ITS ---
APPROVED REPORT Exam: Resting ECG HR:70 bpm ECG Measurements Heart Rate 70 AXES AK 182 P 40 QRSd 86 QRS -16 QT 418 T 60 QTc 438 Conclusion Sinus rhythm Electronically signed by : BASSAM ROBLES, 02/27/2025 13:39:13
--- NOTE | 2025-02-27 08:10 | XR_ITS ---
FINAL REPORT CLINICAL HISTORY: epigastric/RUQ pain COMPARISON: 04/01/2023 FINDINGS: CHEST PORTABLE: A single portable view of the chest was obtained. No acute pulmonary opacity is present. There is no evidence of effusion or pneumothorax. Mediastinum is unremarkable. Heart size is normal. IMPRESSION: No acute abnormality. Reviewed, Interpreted and Dictated by Jaylen Reece MD Transcribed by Hayley Jackson Authenticated and [facility]
[2025-02-27] MEDS: ASPIRIN 81MG CHEWABLE TABLET 324 MG PO (08:13)
--- NOTE | 2025-02-27 08:15 | HMH.EDGENADL ---
Discharge Plan Disposition Patient Disposition: Admitted Chief Complaint: Abdominal Pain Clinical Impressions Clinical Impression: Acute cholecystitis, JON (acute kidney injury) Discharge ED Provider: Jesus Lainez General Adult HPI General Chief complaint: Abdominal Pain Stated complaint: Abd/lower back pain Time Seen by Provider: 02/27/25 07:47 Mode of Arrival: Ambulatory Source of Information: Patient Description of Symptoms (Recalled from ER Triage Doc. by RN): pt has been having right sided abd pain that radiates into back off and on for the last 6 weeks, has seen pcp about it and was suppose to have a ultrasound but has not heard from scheduling, pt currently denies any n/v/d and no fever History of Present Illness HPI narrative: Please note that above description of symptoms, in this electronic medical record under categorization of recalled from ER triage doctor by RN are reflective of an initial nursing assessment, however, is not reflective of my full history and physical exam that was personally taken and clarified. Consequentially, this preceding description of symptoms, which may include the patient's categorized chief complaint in the EMR, do not reflect my personal clinical impression, and the ultimate description of history of present illness and patient stated complaints should be deferred to this section of the note. Unless stated otherwise or congruent with this section of the note, additional signs, symptoms, or incongruence should be interpreted as inaccurate with my clinical impression. Related Data Home Medications ?Medication ?Instructions ?Recorded ?Confirmed allopurinol 300 mg tablet 300 mg PO DAILY Gout 04/01/23 02/27/25 gabapentin 300 mg capsule 300 mg PO TID Pain 04/01/23 02/27/25 furosemide 20 mg tablet 20 mg PO DAILY Fluid 04/06/23 02/27/25 pioglitazone 45 mg tablet 45 mg PO DAILY 07/07/23 02/27/25 insulin glargine 100 unit/mL (3 30 unit SQ HS Diabetes 01/07/24 02/27/25 mL) subcutaneous pen (Lantus Solostar U-100 Insulin) Previous Rx's ?Medication ?Instructions ?Recorded rosuvastatin 10 mg tablet 10 mg PO DAILY Cholesterol #90 tabs 04/06/23 clopidogrel 75 mg tablet 75 mg PO DAILY PLATELET INHIBITOR 04/21/24 #90 tabs pantoprazole 40 mg tablet,delayed 40 mg PO DAILY Acid reflux #90 tabs 05/04/24 release mupirocin 2 % topical ointment 1 applic topical BID infection 10 05/30/24 days #15 grams carvedilol 3.125 mg tablet 3.125 mg PO BID #180 tabs 09/19/24 semaglutide 2 mg/dose (8 mg/3 mL) 2 mg (0.75 mL) SQ WEEKLY 30 days 10/20/24 subcutaneous pen injector #3.75 mL Allergies Allergy/AdvReac Type Severity Reaction Status Date / Time No Known Allergies Allergy Verified 02/27/25 08:11 [facility] Disclaimer: The information contained in this section may have been updated after the patient was seen, as this information can be updated by other users. Medical History Hypotension JON (acute kidney injury) Dyspnea Hx of fracture of left hip Hyperlipidemia Hypertension Dyslipidemia Coronary artery disease Hx of stent to LAD artery Status post stent to circumflex artery Multiple risk factors for coronary artery disease Patient continues to use tobacco I am concerned about new coronary lesion or in-stent restenosis. CAD (coronary artery disease) Neuropathy Arthritis Gout Diabetes mellitus Surgical History Hx of right knee surgery Hx of hernia repair Stented coronary artery Status post total right knee replacement Family History Other Leukemia Stroke Social History Smoking Status: Current every day smoker tobacco type: cigars second hand exposure: No alcohol intake: former substance use type: denies use current occupational status: retired and disabled Travel in the last 8 weeks: None household members: family housing: house current occupational exposures/hazards: No caffeine: No Have you lived/traveled outside [place] in past 30 days?: No Contact w/someone who lives/traveled outside US past 30 days?: No Exposure to someone with infectious disease in past 14 days?: No Do you have a fever (greater than 100.4 F or 38 C)?: No Have you tested positive for COVID-19: No Exposed to someone with COVID-19 in past 14 days?: No Do you have a sore throat?: No Do you have a cough?: No Do you have any weakness?: No Do you have any diarrhea?: No Are you experiencing any unusual bleeding?: No Do you have any muscle aches/pain?: No Do you have any abdominal pain?: No Are you experiencing loss of taste or smell?: No Other Medical History Have you received the Flu Vaccine for this season: No Have you received the Pneumonia Vaccine: No ROS Obtained: Yes All systems reviewed & no additional complaints except as documented Physical Exam General General appearance: alert, in no apparent distress and obese Head Head exam: atraumatic and normocephalic Eye Eye exam: Present normal appearance, PERRL and EOMI Neck Neck exam: Present normal inspection, full ROM and trachea midline Respiratory Respiratory exam: Present normal lung sounds bilaterally; Absent respiratory distress, wheezes, stridor, accessory muscle use or prolonged expiratory phase Cardiovascular Cardiovascular exam: Present regular rate, normal rhythm and other (Pulses equal symmetric in upper and lower extremities) Abdominal Exam Abdominal exam: Present soft and tenderness; Absent distention, guarding, rebound, rigidity or pulsatile mass Abdominal tenderness: Present RUQ and epigastrium Extremities Exam Extremities exam: Absent edema Neurological Exam Neurological exam: Present alert, oriented X3 and CN II-XII intact; Absent motor sensory deficit Skin Skin exam: Present warm and dry; Absent diaphoresis or erythema Medical Decision Making Medical Records Medical records reviewed: Yes I reviewed the patient's medical records. Screening: Per USPSTF and CDC recommendations, given the prevalence of disease in our region, it is our hospital?s policy to screen for HIV and viral Hepatitis for all patients aged 18 and over and those with ongoing risk factors. Compa Inquiry Pt receiving controlled substance: No Compa was queried for this patient: No Vital Signs: 02/27/25 07:57 02/27/25 08:00 02/27/25 08:01 Temperature 98.1 F Temperature Source Oral Pulse Rate 70 Pulse Rate [Left Radial] 69 Respiratory Rate 13 13 20 Blood Pressure 161/88 H 133/84 Blood Pressure [Right Arm] 161/88 H Blood Pressure Mean [Right Arm] 112 02 Sat by Pulse Oximetry 95 95 Oxygen Delivery Method Room Air 02/27/25 08:30 02/27/25 10:58 Temperature 98.5 F Temperature Source Pulse Rate 63 62 Pulse Rate [Left Radial] Respiratory Rate 17 18 Blood Pressure 143/85 H 153/92 H Blood Pressure [Right Arm] Blood Pressure Mean [Right Arm] 02 Sat by Pulse Oximetry 92 L Oxygen Delivery Method Room Air Lab Data Lab Results 02/27/25 07:45: Urine Color Yellow, Urine Appearance Clear, Urine pH 7.0, Ur Specific [place] 1.020, Urine Protein Trace, Urine Glucose (UA) Negative, Urine Ketones Negative, Urine Blood Trace-i, Urine Nitrate Negative, Urine Bilirubin Negative, Urine Urobilinogen 0.2, Ur Leukocyte Esterase Negative, Urine RBC 3-5, Urine WBC Occasional, Ur Squamous Epith Cells None, Urine Bacteria None 02/27/25 07:55: WBC 5.4, RBC 4.25 L, Hgb 13.3 L, Hct 39.9 L, MCV 93.9, MCH 31.3 H, MCHC 33.3, RDW 14.4, Plt Count 133 L, MPV 10.6 H, Neut % (Auto) 69.5, Lymph % (Auto) 18.4, [place] % (Auto) 7.8, Eos % (Auto) 3.7, Baso % (Auto) 0.4, Neut # (Auto) 3.7, Lymph # (Auto) 1.0, [place] # (Auto) 0.4, Eos # (Auto) 0.2, Baso # (Auto) 0.0, PT 10.9, INR 0.97, APTT 29.0, Sodium 140, Potassium 4.2, Chloride 102, Carbon Dioxide 29, Anion Gap 13.2, BUN 27 H, Creatinine 2.30 H, Estimated Creat Clear 42, Estimated GFR 28 L, Est GFR ( Amer) 34 L, Glucose 65 L, Calcium 9.1, Magnesium 1.8, Total Bilirubin 0.5, AST 42, ALT 22, Alkaline Phosphatase 100, Troponin I < 0.01, Total Protein 7.0, Albumin 4.5, Globulin 2.5, Albumin/Globulin Ratio 1.8, Triglycerides 121, Cholesterol 102 L, LDL Cholesterol Direct < 30.00 L, VLDL Cholesterol 24, HDL Cholesterol 48, Cholesterol/HDL Ratio 2.1, Lipase 329 H 02/27/25 07:55 02/27/25 07:55 Orders (Tests/Meds): ED MEDICATIONS Generic Name Dose Route Start Last Admin Trade Name Freq PRN Reason Stop Dose Admin Sodium Chloride 10 ml 02/27/25 09:50 02/27/25 09:54 Sodium Chloride 0.9% 10ml Syr (Rad Only) IV 03/29/25 09:49 10 ml NEEDED PRN Administration Maintain IV Site Discontinued Medications Generic Name Dose Route Start Last Admin Trade Name Carlos PRN Reason Stop Dose Admin Aspirin 324 mg 02/27/25 08:10 02/27/25 08:13 Aspirin 81mg Chewable Tablet PO 02/27/25 08:11 324 mg ONCE ONE Administration Iopamidol 75 ml 02/27/25 09:50 02/27/25 09:52 Iopamidol-370 (76%);100ml Bottle IV 02/27/25 09:51 50 ml ONCE ONE Administration ORDERS Category Date Time Status CT abdomen pelvis w con Stat Cat Scan 02/27/25 09:33 Completed POCUS Point of Care (ER Only) Stat Exams 02/27/25 08:10 Completed XR chest portable Stat Exams 02/27/25 08:10 Completed Complete Blood Count Auto Diff Stat Lab 02/27/25 07:55 Completed Comprehensive Metabolic Panel Stat Lab 02/27/25 07:55 Completed Lipase Stat Lab 02/27/25 07:55 Completed Lipid Panel Stat Lab 02/27/25 07:55 Completed Magnesium Stat Lab 02/27/25 07:55 Completed PT INR [Prothrombin Time INR] Stat Lab 02/27/25 07:55 Completed PTT [Activated Partial Thrombo Time] Stat Lab 02/27/25 07:55 Completed Troponin I Q3H Lab 02/27/25 11:06 Received Troponin I Q3H Lab 02/27/25 14:15 Ordered Troponin I Stat Lab 02/27/25 07:55 Completed UA [Urinalysis and Microscopic] Stat Lab 02/27/25 07:45 Completed Medical Decision Narrative: 74-year-old male presenting with 6 months of epigastric pain. States that he followed with his family doctor regarding this visit to the emergency department and has had workup. States that he had a pancreatic infection, but does not remember much more than that. Patient states that it is currently mild, epigastric and when it flares up it radiates around his right upper quadrant to his back. No neurologic deficits, chest pain, nausea, vomiting, diaphoresis, syncope, shortness of breath, fevers or chills, or any other concerns. Patient does not drink alcohol. No abdominal surgeries.. It should be noted that patient has hypertension, hyperlipidemia, diabetes, CAD status post stenting, which is currently not at goal and complicates care. History was obtained via conversation with patient and family. On arrival, patient hemodynamically stable, alert, oriented x4, appropriate, GCS 15, moving all extremities spontaneously, pupils equal and reactive to light. Full physical exam performed and significant for well-appearing male no acute distress. Right upper quadrant and epigastric pain that seems to be mild to moderate in intensity with deep palpation. No overlying skin changes or outward signs of abnormality. Cardiac exam without murmurs gallops or rubs, lungs clear bilaterally anterior and posteriorly. Differential includes PUD, gastritis, enteritis, gastroenteritis, pancreatitis, SBO, colitis, diverticulitis, nephrolithiasis, UTI, cholecystitis, choledocholithiasis, appendicitis, torsion, hepatitis, aortic pathology, mesenteric ischemia among others. Patient placed on continuous cardiac monitoring and continuous pulse ox with initial blood pressure 161/88, heart rate 69, saturation 95% on room air. Independent interpretation of EKG shows sinus rhythm 70 bpm. [place] interval 182, QRS 86, QTc 438. Leftward axis. No acute ischemic change. Patient was given 324 mg aspirin for symptomatic management and correction of underlying abnormalities. Workup independently interpreted and significant for nonactionable CBC with normal white count. Coags normal. Patient's chemistry with JON on CKD creatinine 2.3 up from baseline. Patient's troponin negative, LFTs normal. Lipase mildly elevated, concerned that this is downtrending. Bedside [id number] ultrasound was performed, patient has cholelithiasis with distention of gallbladder, but no other secondary signs of cholecystitis. Gallbladder wall upper limit of normal, width and length also upper limits of normal. Patient's common bile duct is age-adjusted upper limit of normal. On independent interpretation of imaging, no acute intra-abdominal abnormality on CT otherwise. See radiology read for full review of final results. On reevaluation, patient resting comfortably in bed without acute complaint. Given patient presentation, workup, history, this most likely represents symptomatic cholelithiasis and potential gallstone pancreatitis in the recent weeks. Because measurements are upper limit of normal, I contacted the hospitalist and interactive discussion was had, patient is to certainly have surgery consult, but gastroenterology consult also reasonable. Antibiotics were considered, but not deemed necessary because patient has no white count no systemic signs or symptoms. Because patient high risk for clinical decompensation, deemed appropriate for inpatient admission. Results were relayed to patient who voiced understanding and patient was agreeable to inpatient admission and management. Patient was admitted to the hospital for further definitive management. Dependency Case Manager disclaimer Much of this encounter note is an electronic automotive parts counter person spoken language to printed text. Electronic automotive parts counter person of the spoken language may permit errors. Although I have reviewed the note, some errors may still exist. Procedures Limited Ultrasound Indication:: Limited RUQ ultrasound Indication: Abdominal pain vomiting Identified structures: -Gallbladder -Gallbladder wall -Common bile duct -Liver Findings: Sonographic Hill sign: Present Gallstones: Present Sludge: Absent Pericholecystic fluid: Absent Maximal GB wall thickness (mm) (normal is </= 3mm): Normal Common bile duct width (mm) (normal is </= 6mm): Abnormal, but age-adjusted normal Gallbladder width (cm) (normal is < 4cm): Abnormal Gallbladder length (cm) (normal is < 10cm): Normal Impression: Distended gallbladder with cholelithiasis, sonographic Hill sign. Symptomatic cholelithiasis versus early cholecystitis Images were saved to permanent archive The study was technically adequate CPT 33053-98 This study was performed by me, and I personally interpreted all images/videos. Based on my clinical judgement, these images were adequate and did not necessitate further imaging. Critical Care Critical Care Time Critical Care Time: No
[2025-02-27 08:16] LABS: Basophils % 0.4 % (0.1-2.0); Eosinophils # 0.2 K/mm3 (0.0-0.4); Eosinophils % 3.7 % (0.1-12.0); Hematocrit 39.9 % (42.0-52.0); Hemoglobin 13.3 g/dL (14.1-18.0); Lymphocytes % 18.4 % (10-50); Mean Corpuscular HGB Conc 33.3 g/dL (31.8-35.4); Mean Corpuscular Hemoglobin 31.3 pg (27.0-31.2); Mean Corpuscular Volume 93.9 fl (80-94); Mean Platelet Volume 10.6 fl (7.4-10.4); Monocytes # 0.4 K/mm3 (0.1-1.0); Monocytes % 7.8 % (1.7-9.3); Neutrophils # 3.7 K/mm3 (1.8-7.8); Neutrophils % 69.5 % (37.0-80.0); Platelet Count 133 K/mm3 (142-424); Red Blood Count 4.25 M/mm3 (4.60-6.20); Red Cell Distribution Width 14.4 % (11.5-17.5); White Blood Count 5.4 K/mm3 (4.8-10.8)
[2025-02-27 08:21] LABS: Microscopic, Urine URINE MICROSCOPIC (MICROSCOPIC)
[2025-02-27 08:23] LABS: Albumin Level 4.5 g/dl (3.5-5.0); Chloride 102 mmol/L (98-107); Potassium 4.2 mmoL/L (3.5-5.1); Sodium 140 mmol/L (136-145)
[2025-02-27 08:25] LABS: Appearance,Urine CLEAR (Clear); Bilirubin,Urine Negative (Negative); Blood, Urine TRACE-I (Negative); Color,Urine YELLOW (Yellow); Glucose,Urine (UA) Negative (Negative); Ketones,Urine Negative (Negative); Leukocyte Esterase,Urine Negative (Negative); Nitrate,Urine Negative (Negative); Protein,Urine TRACE (Negative); Urobilinogen,Urine 0.2 EU/dl (0.2)
[2025-02-27 08:25] LABS: Cholesterol 102 mg/dl (140-200); Lipase 329 U/L (23-300); Magnesium 1.8 mg/dl (1.6-2.3); Triglycerides 121 mg/dl (30-150); VLDL Cholesterol 24 mg/dL (0-40)
[2025-02-27 08:26] LABS: Alanine Aminotransferase 22 U/L (12-78); Albumin/Globulin Ratio 1.8 (1.1-1.8); Alkaline Phosphatase 100 U/L (38-126); Anion Gap 13.2 mEq/L (5-15); Aspartate Amino Transferase 42 U/L (17-59); Bilirubin,Total 0.5 mg/dl (0.2-1.3); Blood Urea Nitrogen 27 mg/dl (9-20); Calcium 9.1 mg/dl (8.4-10.2); Carbon Dioxide 29 mmol/L (22.0-30.0); Chol/HDL Ratio 2.1 (1-3.5); Creatinine Clearance Estimated 42 mL/min (50-200); Estimated Glomerular Filt Rate 28 ml/min (>60); GFR (African American) 34 ML/MIN (>60); Globulin 2.5 g/dL (1.3-3.2); Glucose 65 mg/dl (74-100); HDL Cholesterol 48 mg/dl (40-60)
[2025-02-27 08:27] LABS: INR 0.97 (0.9-1.1); Prothrombin Time 10.9 seconds (10.1-12.5)
[2025-02-27 08:36] LABS: WBC,Urine Occasional #/hpf (0-3)
[2025-02-27 08:39] LABS: Direct LDL Cholesterol < 30.00 mg/dL (100-129)
[2025-02-27 08:40] LABS: Troponin I < 0.01 ng/ml (0.00-0.034)
--- NOTE | 2025-02-27 09:33 | CT_ITS ---
FINAL REPORT TECHNIQUE: IV contrast enhanced exam This study was performed with techniques to keep radiation doses as low as reasonably achievable, (ALARA). Individualized dose reduction techniques using automated exposure control or adjustment of mA and/or kV according to the patient's size were employed. CLINICAL HISTORY: ruq pain, dilated CBD, GB on US COMPARISON: None FINDINGS: CT ABDOMEN AND PELVIS WITH CONTRAST Abdomen: Lung bases are clear. The gallbladder is mildly distended with small stones. No adjacent inflammatory changes or gallbladder wall thickening are identified. No biliary ductal dilatation is present. Liver has an unremarkable CT appearance. The spleen, pancreas and adrenal glands are unremarkable. There is a hyperdense nodule in the posterior lower pole of the right kidney, measuring 6 mm, which is too small to characterize. No bowel obstruction or fluid collection is seen. No free air is identified. Pelvis: The appendix is normal. Pelvic bowel loops are unremarkable. There are postoperative changes of bilateral inguinal hernia repair. There is a small fluid collection in the right inguinal region, that may represent a chronic seroma or hematoma, which measures 55 x 18 mm. Mild enlargement of the prostate is present. IMPRESSION: Cholelithiasis with mild distention of the gallbladder. Mild acute cholecystitis is not excluded. No biliary ductal dilatation is identified. No evidence of bowel obstruction. Chronic appearing fluid collection right inguinal region, likely a chronic postoperative seroma. Reviewed, Interpreted and Dictated by Jaylen Reece MD Transcribed by Hayley Jackson Authenticated and [facility] [place]
--- NOTE | 2025-02-27 09:37 | HMH.ITSTN ---
I spoke with nurse Josh, She relayed to me that Dr. Lainez said we could continue with contrast with creatine was 2.3 and GFR was 28.
[2025-02-27] MEDS: IOPAMIDOL-370 (76%);100ML BOTTLE 75 ML IV (09:52)
[2025-02-27] MEDS: SODIUM CHLORIDE 0.9% 10ML SYR (RAD ONLY) 10 ML IV (09:54)
--- NOTE | 2025-02-27 10:40 | PC.NURSE ---
hourly patient completed, pt denies any needs at this time and is resting awaiting ct scnar esults, call fields at patient side
--- NOTE | 2025-02-27 10:56 | PC.NURSE ---
BRANCH STORE MANAGER NOTIFIED OF ADMISSION
--- NOTE | 2025-02-27 10:58 | PC.NURSE ---
spoke with patient daughter and advised that patient is to be admitted
--- NOTE | 2025-02-27 11:06 | PC.NURSE ---
called report to David TORRES on 2nd floor and answered all questions
--- NOTE | 2025-02-27 11:27 | US_ITS ---
FINAL REPORT CLINICAL HISTORY: cholecystitis FINDINGS: Sonographic images of the right upper quadrant were obtained. Gallstones are present. There is no gallbladder wall thickening or significant gallbladder distention. There is no biliary ductal dilatation. No free fluid. IMPRESSION: Cholelithiasis without acute gallbladder disease. Reviewed, Interpreted and Dictated by Jaylen Reece MD Transcribed by Germania Jonas Authenticated and [facility]
[2025-02-27 11:44] LABS: Troponin I < 0.01 ng/ml (0.00-0.034)
--- NOTE | 2025-02-27 12:04 | HMH.PHAINT1 ---
Pharmacy Intervention Comments: MEDICATION RECONCILIATION COMPLETED ON PATIENT USING EXTERNAL FILL HISTORY FROM PHARMACY AND LIST FROM CARDIOLOGY OFFICE. -RUFINO VEGA, SANCHEZD
--- NOTE | 2025-02-27 13:08 | P.HP_ITS ---
History of Present Illness *Admission Date: 02/27/25 *Reason for visit:: Abdominal pain *History of present illness: Sterling Rodriguez is a 74-year-old male with a medical history significant for CAD with stents, hypertension, type 2 diabetes, CKD who presents with 5-week onset of intermittent upper abdominal pain. He states it began in the left upper quadrant/epigastric region and has apparently progressed to his right upper quadrant and around to his back. He states the symptoms are episodic and self resolved. However, over the past week these episodes have been more frequent especially today when he woke from sleep with pain. Denies fever/chills, recent alcohol use, medication changes, constipation/diarrhea, chest pain, shortness of breath. Workup in the ED significant for lipase 329, CT abdomen pelvis showing cholelithiasis with mild distention of the gallbladder. Case discussed with ED provider and decision was made to admit patient for suspected acute cholecystitis. [facility] Disclaimer: The information contained in this section may have been updated after the patient was seen, as this information can be updated by other users. Medical History (Updated 02/27/25 @ 15:13 by Daniela Bose APRN) Chronic Kidney Disease Pre-operative cardiovascular examination History of left heart catheterization Sleep apnea COPD (chronic obstructive pulmonary disease) JON (acute kidney injury) Dyspnea Hypotension Hx of fracture of left hip Hyperlipidemia Hypertension Dyslipidemia Coronary artery disease CAD (coronary artery disease) Neuropathy Arthritis Gout Diabetes mellitus Surgical History (Updated 02/27/25 @ 12:13 by Ching Ontiveros RN) H/O right heart catheterization Hx of right knee surgery Hx of hernia repair Stented coronary artery Status post total right knee replacement Family History Other Leukemia Stroke Social History (Updated 02/27/25 @ 12:13 by Ching Ontiveros RN) Smoking Status: Current every day smoker tobacco type: cigars second hand exposure: No alcohol intake: former substance use type: denies use current occupational status: retired and disabled Travel in the last 8 weeks: None household members: family housing: house current occupational exposures/hazards: No caffeine: No Have you lived/traveled outside [place] in past 30 days?: No Contact w/someone who lives/traveled outside US past 30 days?: No Exposure to someone with infectious disease in past 14 days?: No Do you have a fever (greater than 100.4 F or 38 C)?: No Have you tested positive for COVID-19: No Exposed to someone with COVID-19 in past 14 days?: No Do you have a sore throat?: No Do you have a cough?: No Do you have any weakness?: No Do you have any diarrhea?: No Are you experiencing any unusual bleeding?: No Do you have any muscle aches/pain?: No Do you have any abdominal pain?: No Are you experiencing loss of taste or smell?: No Other Medical History Have you received the Flu Vaccine for this season: No Have you received the Pneumonia Vaccine: Yes Meds Home Medications and Allergies Home Medications ?Medication ?Instructions ?Recorded ?Confirmed ?Type allopurinol 300 mg tablet 300 mg PO DAILY 04/01/23 02/27/25 History gabapentin 300 mg capsule 300 mg PO TID 04/01/23 02/27/25 History furosemide 20 mg tablet 20 mg PO DAILY 04/06/23 02/27/25 History pioglitazone 45 mg tablet 45 mg PO DAILY 07/07/23 02/27/25 History insulin glargine 100 unit/mL (3 30 unit SQ HS 01/07/24 02/27/25 History mL) subcutaneous pen (Lantus Solostar U-100 Insulin) carvedilol 3.125 mg tablet 3.125 mg PO BID #180 tabs 09/19/24 02/27/25 Rx clopidogrel 75 mg tablet 75 mg PO DAILY 02/27/25 02/27/25 History pantoprazole 40 mg tablet,delayed 40 mg PO DAILY 02/27/25 02/27/25 History release rosuvastatin 10 mg tablet 10 mg PO DAILY 02/27/25 02/27/25 History semaglutide 2 mg/dose (8 mg/3 mL) 2 mg SQ WEEKLY 02/27/25 02/27/25 History subcutaneous pen injector (Ozempic) New Prescriptions to Start Prescriptions: Allergies Allergy/AdvReac Type Severity Reaction Status Date / Time No Known Allergies Allergy Verified 02/27/25 08:11 Exam Data for Last 24 hours Vital signs and Labs for Last 24 Hours: Temp Pulse Resp BP Pulse Ox O2 Del Method 98.5 F 60 12 169/94 H 97 Room Air 02/27/25 10:58 02/27/25 12:11 02/27/25 12:11 02/27/25 12:11 02/27/25 12:11 02/27/25 12:11 Laboratory Results - last 24 hr 02/27/25 07:45: Urine Color Yellow, Urine Appearance Clear, Urine pH 7.0, Ur Specific [place] 1.020, Urine Protein Trace, Urine Glucose (UA) Negative, Urine Ketones Negative, Urine Blood Trace-i, Urine Nitrate Negative, Urine Bilirubin Negative, Urine Urobilinogen 0.2, Ur Leukocyte Esterase Negative, Urine RBC 3-5, Urine WBC Occasional, Ur Squamous Epith Cells None, Urine Bacteria None 02/27/25 07:55: WBC 5.4, RBC 4.25 L, Hgb 13.3 L, Hct 39.9 L, MCV 93.9, MCH 31.3 H, MCHC 33.3, RDW 14.4, Plt Count 133 L, MPV 10.6 H, Neut % (Auto) 69.5, Lymph % (Auto) 18.4, [place] % (Auto) 7.8, Eos % (Auto) 3.7, Baso % (Auto) 0.4, Neut # (Auto) 3.7, Lymph # (Auto) 1.0, [place] # (Auto) 0.4, Eos # (Auto) 0.2, Baso # (Auto) 0.0, PT 10.9, INR 0.97, APTT 29.0, Sodium 140, Potassium 4.2, Chloride 102, Carbon Dioxide 29, Anion Gap 13.2, BUN 27 H, Creatinine 2.30 H, Estimated Creat Clear 42, Estimated GFR 28 L, Est GFR ( Amer) 34 L, Glucose 65 L, Calcium 9.1, Magnesium 1.8, Total Bilirubin 0.5, AST 42, ALT 22, Alkaline Phosphatase 100, Troponin I < 0.01, Total Protein 7.0, Albumin 4.5, Globulin 2.5, Albumin/Globulin Ratio 1.8, Triglycerides 121, Cholesterol 102 L, LDL Cholesterol Direct < 30.00 L, VLDL Cholesterol 24, HDL Cholesterol 48, Cholesterol/HDL Ratio 2.1, Lipase 329 H 02/27/25 11:06: Troponin I < 0.01 I & O for Last 24 hours: Intake & Output 02/24/25 02/25/25 02/26/25 02/27/25 23:59 23:59 23:59 23:59 Output Total 0 / 0 Balance 0 / 0 Weight 99.507 kg Constitutional Constitutional: no acute distress *Routine HEENT Exam Head: Present normocephalic Eye: Present EOMI and PERRL ENT: Present mucous membranes moist *Routine Neck Exam Neck: Present supple; Absent lymphadenopathy *Routine Respiratory Exam Respiratory: Present CTA bilaterally *Routine Cardiovascular Exam Cardiovascular: Present RRR *Routine Abdominal Exam Abdominal: Present soft, normoactive bowel sounds and tenderness Comments: Mild tenderness to palpation in the epigastric, right upper quadrant regions without peritoneal signs. *Routine Rectal Exam Rectal:: deferred *Routine Genitalia Exam Genitalia:: deferred *Routine Extremities Exam Extremities: Absent cyanosis, clubbing or edema *Routine Skin Exam Skin: Present warm; Absent rash *Routine Neurological Exam Neurological: Present alert and oriented X3 Assessment and Plan *Assessment and plan (1) Cholelithiasis: Status: Acute Qualifiers: Cholelithiasis location: gallbladder Cholecystitis presence: with c holecystitis Cholecystitis acuity: acute Biliary obstruction: without biliary obstruction Qualified Code(s): K80.00 - Calculus of gallbladder with acute cholecystitis without obstruction Category: Medical Code(s): K80.20 - Calculus of gallbladder without cholecystitis without obstruction Plan Sterling Rodriguez is a 74-year-old male with a medical history significant for CAD with stents, hypertension, type 2 diabetes, CKD who presents with 5-week onset of intermittent upper abdominal pain. He states it began in the left upper quadrant/epigastric region and has apparently progressed to his right upper quadrant and around to his back. He states the symptoms are episodic and self resolved. However, over the past week these episodes have been more frequent especially today when he woke from sleep with pain. Denies fever/chills, recent alcohol use, medication changes, constipation/diarrhea, chest pain, shortness of breath. Workup in the ED significant for lipase 329, CT abdomen pelvis showing cholelithiasis with mild distention of the gallbladder. Case discussed with ED provider and decision was made to admit patient for suspected acute cholecystitis. #Abdominal pain #Pancreatitis ? Presented with progressive 5-week onset of intermittent upper abdominal pains. ? Lipase 392, however normal LFTs. Given minimally elevated lipase, may be resolving pancreatitis versus very mild pancreatitis. With normal LFTs, low suspicion for gallstone pancreatitis. ? RUQ ultrasound shows cholelithiasis without acute gallbladder disease. ? General Surgery consulted, no plans for inpatient cholecystectomy given no evidence for acute cholecystitis. Recommend outpatient cholecystectomy after cardiology preoperative risk assessment. ? Spoke with Dr. Rivero who recommended MRCP. No plans for ERCP at this time given normal LFTs. ? Low-fat diet for now, n.p.o. at midnight for MRCP. #CAD with stents #Hypertension ? Continue home carvedilol, Plavix, rosuvastatin. #Type 2 diabetes ? ACHS glucose checks, LDSSI. ? Continue home gabapentin. #CKD stage IV ?Stable. Creatinine 2.3. GFR 28. #History of gout ? Continue home allopurinol. Full code DVT prophylaxis: Hold anticoagulation in case procedure is needed tomorrow.
--- NOTE | 2025-02-27 13:39 | EXP.SURG.CON ---
History of Present Illness *Admission Date: 02/27/25 *Reason for visit:: Cholecystitis on CT *History of present illness: Patient is a 74-year-old male from [place] with history of diabetes, chronic renal insufficiency, tobacco abuse, dyslipidemia, coronary artery disease with previous stenting on Plavix. He is on weekly Ozempic. Over the past 5 or 6 weeks he has had several episodes of symptoms potentially consistent with biliary colic. This is characterized by acute onset of epigastric pain radiating around to the bilateral upper quadrants and into the back. His primary care provider is Edmond Fajardo in [facility]. Patient states that he has been told he may have a pancreatic infection in the past. He presented to the emergency department with mild epigastric pain with occasional radiation to the right upper quadrant and into his back with onset early this morning. Evaluation in the emergency department revealed mild tenderness to deep palpation in the right upper quadrant. Laboratory evaluation revealed normal white blood cell count and normal liver function test. He has elevated creatinine. Lipase is 329 which is above normal limit of 300. Bedside [id number] ultrasound revealed cholelithiasis. He had a CT scan which revealed cholelithiasis with mild distention of the gallbladder. He was admitted for inpatient management and surgical consultation. After admission he underwent dedicated gallbladder ultrasound which reveals cholelithiasis without acute gallbladder disease. [facility] Disclaimer: The information contained in this section may have been updated after the patient was seen, as this information can be updated by other users. Medical History (Updated 02/27/25 @ 14:15 by Dandre Montano MD) History of left heart catheterization Sleep apnea COPD (chronic obstructive pulmonary disease) JON (acute kidney injury) Dyspnea Hypotension Hx of fracture of left hip Hyperlipidemia Hypertension Dyslipidemia Coronary artery disease CAD (coronary artery disease) Neuropathy Arthritis Gout Diabetes mellitus Surgical History (Updated 02/27/25 @ 12:13 by Ching Ontiveros RN) H/O right heart catheterization Hx of right knee surgery Hx of hernia repair Stented coronary artery Status post total right knee replacement Family History Other Leukemia Stroke Social History (Updated 02/27/25 @ 12:13 by Ching Ontiveros RN) Smoking Status: Current every day smoker tobacco type: cigars second hand exposure: No alcohol intake: former substance use type: denies use current occupational status: retired and disabled Travel in the last 8 weeks: None household members: family housing: house current occupational exposures/hazards: No caffeine: No Have you lived/traveled outside US in past 30 days?: No Contact w/someone who lives/traveled outside US past 30 days?: No Exposure to someone with infectious disease in past 14 days?: No Do you have a fever (greater than 100.4 F or 38 C)?: No Have you tested positive for COVID-19: No Exposed to someone with COVID-19 in past 14 days?: No Do you have a sore throat?: No Do you have a cough?: No Do you have any weakness?: No Do you have any diarrhea?: No Are you experiencing any unusual bleeding?: No Do you have any muscle aches/pain?: No Do you have any abdominal pain?: No Are you experiencing loss of taste or smell?: No Meds Home Medications and Allergies Home Medications ?Medication ?Instructions ?Recorded ?Confirmed ?Type allopurinol 300 mg tablet 300 mg PO DAILY 04/01/23 02/27/25 History gabapentin 300 mg capsule 300 mg PO TID 04/01/23 02/27/25 History furosemide 20 mg tablet 20 mg PO DAILY 04/06/23 02/27/25 History pioglitazone 45 mg tablet 45 mg PO DAILY 07/07/23 02/27/25 History insulin glargine 100 unit/mL (3 30 unit SQ HS 01/07/24 02/27/25 History mL) subcutaneous pen (Lantus Solostar U-100 Insulin) carvedilol 3.125 mg tablet 3.125 mg PO BID #180 tabs 09/19/24 02/27/25 Rx clopidogrel 75 mg tablet 75 mg PO DAILY 02/27/25 02/27/25 History pantoprazole 40 mg tablet,delayed 40 mg PO DAILY 02/27/25 02/27/25 History release rosuvastatin 10 mg tablet 10 mg PO DAILY 02/27/25 02/27/25 History semaglutide 2 mg/dose (8 mg/3 mL) 2 mg SQ WEEKLY 02/27/25 02/27/25 History subcutaneous pen injector (Ozempic) New Prescriptions to Start Prescriptions: Allergies Allergy/AdvReac Type Severity Reaction Status Date / Time No Known Allergies Allergy Verified 02/27/25 08:11 Exam (Inpt) Vital signs and Labs for Last 24 Hours: Temp Pulse Resp BP Pulse Ox O2 Del Method 98.5 F 60 12 169/94 H 97 Room Air 02/27/25 10:58 02/27/25 12:11 02/27/25 12:11 02/27/25 12:11 02/27/25 12:11 02/27/25 12:11 Laboratory Results - last 24 hr 02/27/25 07:45: Urine Color Yellow, Urine Appearance Clear, Urine pH 7.0, Ur Specific [place] 1.020, Urine Protein Trace, Urine Glucose (UA) Negative, Urine Ketones Negative, Urine Blood Trace-i, Urine Nitrate Negative, Urine Bilirubin Negative, Urine Urobilinogen 0.2, Ur Leukocyte Esterase Negative, Urine RBC 3-5, Urine WBC Occasional, Ur Squamous Epith Cells None, Urine Bacteria None 02/27/25 07:55: WBC 5.4, RBC 4.25 L, Hgb 13.3 L, Hct 39.9 L, MCV 93.9, MCH 31.3 H, MCHC 33.3, RDW 14.4, Plt Count 133 L, MPV 10.6 H, Neut % (Auto) 69.5, Lymph % (Auto) 18.4, [place] % (Auto) 7.8, Eos % (Auto) 3.7, Baso % (Auto) 0.4, Neut # (Auto) 3.7, Lymph # (Auto) 1.0, [place] # (Auto) 0.4, Eos # (Auto) 0.2, Baso # (Auto) 0.0, PT 10.9, INR 0.97, APTT 29.0, Sodium 140, Potassium 4.2, Chloride 102, Carbon Dioxide 29, Anion Gap 13.2, BUN 27 H, Creatinine 2.30 H, Estimated Creat Clear 42, Estimated GFR 28 L, Est GFR ( Amer) 34 L, Glucose 65 L, Calcium 9.1, Magnesium 1.8, Total Bilirubin 0.5, AST 42, ALT 22, Alkaline Phosphatase 100, Troponin I < 0.01, Total Protein 7.0, Albumin 4.5, Globulin 2.5, Albumin/Globulin Ratio 1.8, Triglycerides 121, Cholesterol 102 L, LDL Cholesterol Direct < 30.00 L, VLDL Cholesterol 24, HDL Cholesterol 48, Cholesterol/HDL Ratio 2.1, Lipase 329 H 02/27/25 11:06: Troponin I < 0.01 I & O for Labs for Last 24 Hours: Intake & Output 02/25/25 02/26/25 02/27/25 02/28/25 11:59 11:59 11:59 11:59 Output Total 0 / 0 0 / 0 Balance 0 / 0 0 / 0 Weight 230 lb 219 lb 6 oz Constitutional: no acute distress GI: Present soft; Absent tenderness Results Labs 02/27/25 07:55 02/27/25 07:55 Labs: Laboratory Results - last 24 hr 02/27/25 07:45: Urine Color Yellow, Urine Appearance Clear, Urine pH 7.0, Ur Specific [place] 1.020, Urine Protein Trace, Urine Glucose (UA) Negative, Urine Ketones Negative, Urine Blood Trace-i, Urine Nitrate Negative, Urine Bilirubin Negative, Urine Urobilinogen 0.2, Ur Leukocyte Esterase Negative, Urine RBC 3-5, Urine WBC Occasional, Ur Squamous Epith Cells None, Urine Bacteria None 02/27/25 07:55: WBC 5.4, RBC 4.25 L, Hgb 13.3 L, Hct 39.9 L, MCV 93.9, MCH 31.3 H, MCHC 33.3, RDW 14.4, Plt Count 133 L, MPV 10.6 H, Neut % (Auto) 69.5, Lymph % (Auto) 18.4, [place] % (Auto) 7.8, Eos % (Auto) 3.7, Baso % (Auto) 0.4, Neut # (Auto) 3.7, Lymph # (Auto) 1.0, [place] # (Auto) 0.4, Eos # (Auto) 0.2, Baso # (Auto) 0.0, PT 10.9, INR 0.97, APTT 29.0, Sodium 140, Potassium 4.2, Chloride 102, Carbon Dioxide 29, Anion Gap 13.2, BUN 27 H, Creatinine 2.30 H, Estimated Creat Clear 42, Estimated GFR 28 L, Est GFR ( Amer) 34 L, Glucose 65 L, Calcium 9.1, Magnesium 1.8, Total Bilirubin 0.5, AST 42, ALT 22, Alkaline Phosphatase 100, Troponin I < 0.01, Total Protein 7.0, Albumin 4.5, Globulin 2.5, Albumin/Globulin Ratio 1.8, Triglycerides 121, Cholesterol 102 L, LDL Cholesterol Direct < 30.00 L, VLDL Cholesterol 24, HDL Cholesterol 48, Cholesterol/HDL Ratio 2.1, Lipase 329 H 02/27/25 11:06: Troponin I < 0.01 Assessment and Plan *Assessment and plan (1) Cholelithiasis: Status: Acute Category: Medical Code(s): K80.20 - Calculus of gallbladder without cholecystitis without obstruction Plan No indications at this time for emergent cholecystectomy. Does not appear to have acute cholecystitis. Recommend outpatient cardiology risk assessment and recommendations for anticoagulant. Would be ideal if the patient was off his Plavix for 7 days and Ozempic for 2 weeks prior to surgery.
[2025-02-27] MEDS: LACTATED RINGERS 1000ML 1,000 ML 75 ML IV (14:07)
--- NOTE | 2025-02-27 14:27 | CA_ITS ---
APPROVED REPORT EXAM: Comprehensive 2D, Doppler, and color-flow Echocardiogram Test Department Helper: Lubna Gomez RVT Ht: 5 ft 8 in Wt: 219lbs BSA: 2.12 BP: 169/94 mmHg Indications: PRE-OP,CAD,COPD,DM,HTN,HLD,EX SMOKER 2D Dimensions LA Volume 32.40 mL LA Volume Index 15.21 mL/m2 (M/F) 16-34 M-Mode Dimensions RVDd 3.72 cm (0.9-2.6) LA Diam 3.54 cm (1.9-4.0) LVDd 5.46 cm (3.5-5.7) LVDs 4.01 cm (3.5-5.7) IVSd 0.82 cm (0.6-1.1) PWd 0.82 cm (0.6-1.1) EF (Teich) 51.40% FS 26.60% EDV (Teich) 145.00 mL TAPSE 1.96 (<1.7) ESV (Teich) 70.40 mL LV Diastology E Decel Time 227 (160-240 msec) E/A Ratio 0.6 Aortic Valve GAIL Index 1.68 cm2/m2 AoV Peak Mihir. 112.0 (50-130 cm/s) AI PHT 872.00 ms AO Peak GR. 5.00 mmHg AO Mean GR. 3.10 (<5 mmHg) AO VTI 27.6 (18-25 cm) GAIL (VTI) 3.66 (2.5-4.5 cm2) Mitral Valve MV E Max Mihir. 60.0 (40-130 cm/s) MV A Velocity 105.0 (40-130 cm/s) E/A Ratio 0.57 MV PHT 66.0 ms Pulmonary Valve PV Peak Velocity 78.0 (50-150 cm/s) Tricuspid Valve TR P. Velocity 243.00 cm/s RAP Estimate 10.00 mmHg RVSP 33.60 mmHg Left Ventricle The left ventricle is normal size. The left ventricular systolic function is low normal. LVEF is 50%. There is normal left ventricular wall thickness. There is normal LV segmental wall motion. The left ventricular diastolic function is normal. Right Ventricle Right ventricle is mildly dilated. The right ventricular systolic function is normal. Atria The left atrium is mildly dilated. Right atrium is mildly dilated. There is no Doppler evidence of interatrial shunt. Aortic Valve Aortic valve is mildly thickened. There is no aortic valvular stenosis. Mild aortic regurgitation. Mitral Valve The mitral valve is normal in structure. Mild mitral regurgitation. Tricuspid Valve Tricuspid valve is grossly normal in structure and function. Trace tricuspid regurgitation. There is insufficient TR jet to estimate RVSP. Pulmonic Valve The pulmonary valve is normal in structure. Trace pulmonic regurgitation. Great Vessels The aortic root is normal in size. IVC is normal in size and collapses >50% with inspiration. Pericardium There is no pericardial effusion. Other Information Study Quality: Technically Difficult Conclusion Technically difficult study due to poor acoustic windows. Low normal LV systolic function (LVEF 50%). Mild RV dilation with normal RV function. Biatrial dilation. Mild AI, mild MR. Electronically signed by : Fabienne Oliva MD 02/27/2025 22:49:27
[2025-02-27 14:57] LABS: Troponin I < 0.01 ng/ml (0.00-0.034)
--- NOTE | 2025-02-27 15:07 | P.CONCA_ITS ---
History of Present Illness History of Present Illness Consult date: 02/27/25 Requesting physician: Keaton Martin Consult reason: known to you Chief complaint: abd pain History of present illness: This is a 74 and white gentleman who presented to the emergency department with abdominal pain. The patient has a past medical history of coronary artery disease, hypertension and hyperlipidemia as well as diabetes. The patient states that he started having bilateral upper abdominal pain approximately 4 to 5 weeks ago. He states that this was a sharp cramping sensation in the upper quadrants. He states this started over the weekend and made an appointment to go see his primary care provider that following Thursday but his symptoms resolved so he did not go to the appointment. He states that he has been having this pain intermittently since that time. He did go see his primary care provider who was going to set him up to have an ultrasound but he has not heard anything from scheduling. He decided to come to the emergency department because the pain kept persisting. He denies any associated nausea, vomiting, diarrhea or constipation. He denies any chest pain or pressure. He denies any shortness of breath or edema. He denies any fever, chills, nausea, vomiting, diarrhea, PND orthopnea. Prior to having this upper abdominal pain he was in his usual state of health and able to do everything that he wants to do. Imaging in the emergency department shows cholelithiasis with questionable cholecystitis. [facility] Disclaimer: The information contained in this section may have been updated after the patient was seen, as this information can be updated by other users. Medical History (Updated 02/27/25 @ 15:13 by Daniela Bose APRN) Chronic Kidney Disease Pre-operative cardiovascular examination History of left heart catheterization Sleep apnea COPD (chronic obstructive pulmonary disease) JON (acute kidney injury) Dyspnea Hypotension Hx of fracture of left hip Hyperlipidemia Hypertension Dyslipidemia Coronary artery disease CAD (coronary artery disease) Neuropathy Arthritis Gout Diabetes mellitus Surgical History (Updated 02/27/25 @ 12:13 by Ching Ontiveros RN) H/O right heart catheterization Hx of right knee surgery Hx of hernia repair Stented coronary artery Status post total right knee replacement Family History Other Leukemia Stroke Social History (Updated 02/27/25 @ 12:13 by Ching Ontiveros RN) Smoking Status: Current every day smoker tobacco type: cigars second hand exposure: No alcohol intake: former substance use type: denies use current occupational status: retired and disabled Travel in the last 8 weeks: None household members: family housing: house current occupational exposures/hazards: No caffeine: No Have you lived/traveled outside [place] in past 30 days?: No Contact w/someone who lives/traveled outside [place] past 30 days?: No Exposure to someone with infectious disease in past 14 days?: No Do you have a fever (greater than 100.4 F or 38 C)?: No Have you tested positive for COVID-19: No Exposed to someone with COVID-19 in past 14 days?: No Do you have a sore throat?: No Do you have a cough?: No Do you have any weakness?: No Do you have any diarrhea?: No Are you experiencing any unusual bleeding?: No Do you have any muscle aches/pain?: No Do you have any abdominal pain?: No Are you experiencing loss of taste or smell?: No Review of Systems Review of Systems Review of systems:: pertinent systems reviewed and negative unless documented below Constitutional Constitutional: Reports system reviewed and no additional complaints, except as documented Eyes Eyes: Reports system reviewed and no additional complaints, except as documented ENT Ears, Nose, Mouth, and Throat: Reports system reviewed and no additional complaints, except as documented *Cardiovascular Cardiovascular: Reports system reviewed and no additional complaints, except as documented, Denies chest pain and Denies dyspnea *Respiratory Respiratory: Reports system reviewed and no additional complaints, except as documented and Denies dyspnea *Gastrointestinal Gastrointestinal: Reports system reviewed and no additional complaints, except as documented, Reports abdominal pain (Bilateral upper quadrants), Denies nausea and Denies vomiting *Genitourinary Genitourinary: Reports system reviewed and no additional complaints, except as documented *Musculoskeletal Musculoskeletal: Reports system reviewed and no additional complaints, except as documented Integumentary/Breasts Skin/Breast: Reports system reviewed and no additional complaints, except as documented *Neurologic Neurologic: Reports system reviewed and no additional complaints, except as documented Psychiatric Psychiatric: Reports system reviewed and no additional complaints, except as documented Endocrine Endocrine: Reports system reviewed and no additional complaints, except as documented Hematologic/Lymphatic Hematologic/Lymphatic: Reports system reviewed and no additional complaints, except as documented Allergic/Immunologic Allergic/Immunologic: Reports system reviewed and no additional complaints, except as documented Exam Data for Last 24 hours Vital signs and Labs for Last 24 Hours: Temp Pulse Resp BP Pulse Ox O2 Del Method 98.5 F 60 12 169/94 H 97 Room Air 02/27/25 10:58 02/27/25 12:11 02/27/25 12:11 02/27/25 12:11 02/27/25 12:11 02/27/25 13:00 Laboratory Results - last 24 hr 02/27/25 07:45: Urine Color Yellow, Urine Appearance Clear, Urine pH 7.0, Ur Specific [place] 1.020, Urine Protein Trace, Urine Glucose (UA) Negative, Urine Ketones Negative, Urine Blood Trace-i, Urine Nitrate Negative, Urine Bilirubin Negative, Urine Urobilinogen 0.2, Ur Leukocyte Esterase Negative, Urine RBC 3-5, Urine WBC Occasional, Ur Squamous Epith Cells None, Urine Bacteria None 02/27/25 07:55: WBC 5.4, RBC 4.25 L, Hgb 13.3 L, Hct 39.9 L, MCV 93.9, MCH 31.3 H, MCHC 33.3, RDW 14.4, Plt Count 133 L, MPV 10.6 H, Neut % (Auto) 69.5, Lymph % (Auto) 18.4, [place] % (Auto) 7.8, Eos % (Auto) 3.7, Baso % (Auto) 0.4, Neut # (Auto) 3.7, Lymph # (Auto) 1.0, [place] # (Auto) 0.4, Eos # (Auto) 0.2, Baso # (Auto) 0.0, PT 10.9, INR 0.97, APTT 29.0, Sodium 140, Potassium 4.2, Chloride 102, Carbon Dioxide 29, Anion Gap 13.2, BUN 27 H, Creatinine 2.30 H, Estimated Creat Clear 42, Estimated GFR 28 L, Est GFR ( Amer) 34 L, Glucose 65 L, Calcium 9.1, Magnesium 1.8, Total Bilirubin 0.5, AST 42, ALT 22, Alkaline Phosph atase 100, Troponin I < 0.01, Total Protein 7.0, Albumin 4.5, Globulin 2.5, Albumin/Globulin Ratio 1.8, Triglycerides 121, Cholesterol 102 L, LDL Cholesterol Direct < 30.00 L, VLDL Cholesterol 24, HDL Cholesterol 48, Cholesterol/HDL Ratio 2.1, Lipase 329 H 02/27/25 11:06: Troponin I < 0.01 02/27/25 14:15: Troponin I < 0.01 I & O for Last 24 hours: Intake & Output 02/24/25 02/25/25 02/26/25 02/27/25 23:59 23:59 23:59 23:59 Output Total 0 / 0 Balance 0 / 0 Weight 219 lb 6 oz Meds Home Medications and Allergies Home Medications ?Medication ?Instructions ?Recorded ?Confirmed ?Type allopurinol 300 mg tablet 300 mg PO DAILY 04/01/23 02/27/25 History gabapentin 300 mg capsule 300 mg PO TID 04/01/23 02/27/25 History furosemide 20 mg tablet 20 mg PO DAILY 04/06/23 02/27/25 History pioglitazone 45 mg tablet 45 mg PO DAILY 07/07/23 02/27/25 History insulin glargine 100 unit/mL (3 30 unit SQ HS 01/07/24 02/27/25 History mL) subcutaneous pen (Lantus Solostar U-100 Insulin) carvedilol 3.125 mg tablet 3.125 mg PO BID #180 tabs 09/19/24 02/27/25 Rx clopidogrel 75 mg tablet 75 mg PO DAILY 02/27/25 02/27/25 History pantoprazole 40 mg tablet,delayed 40 mg PO DAILY 02/27/25 02/27/25 History release rosuvastatin 10 mg tablet 10 mg PO DAILY 02/27/25 02/27/25 History semaglutide 2 mg/dose (8 mg/3 mL) 2 mg SQ WEEKLY 02/27/25 02/27/25 History subcutaneous pen injector (Ozempic) New Prescriptions to Start Prescriptions: Allergies Allergy/AdvReac Type Severity Reaction Status Date / Time No Known Allergies Allergy Verified 02/27/25 08:11 Assessment and Plan *Assessment and plan (1) Pre-operative cardiovascular examination: Status: Acute Category: Medical Code(s): Z01.810 - Encounter for preprocedural cardiovascular examination (2) Cholelithiasis: Status: Acute Qualifiers: Cholelithiasis location: gallbladder Cholecystitis presence: with cholecystitis Cholecystitis acuity: acute Biliary obstruction: without biliary obstruction Qualified Code(s): K80.00 - Calculus of gallbladder with acute cholecystitis without obstruction Category: Medical Code(s): K80.20 - Calculus of gallbladder without cholecystitis without obstruction (3) Acute cholecystitis: Status: Acute Category: Medical Code(s): K81.0 - Acute cholecystitis (4) Coronary artery disease: Problem Comment: Hx of stent to LAD artery Status post stent to circumflex artery Multiple risk factors for coronary artery disease Patient continues to use tobacco I am concerned about new coronary lesion or in-stent restenosis. Status: Acute Qualifiers: Coronary Disease-Associated Artery/Lesion type: [place] artery [place] vs. transplanted heart: [place] heart Associated angina: with unstable angina Qualified Code(s): I25.110 - Atherosclerotic heart disease of [place] coronary artery with unstable angina pectoris Category: Medical Code(s): I25.10 - Atherosclerotic heart disease of [place] coronary artery without angina pectoris (5) Hypertension: Status: Acute Qualifiers: Hypertension type: unspecified Qualified Code(s): I10 - Essential (primary) hypertension Category: Medical Code(s): I10 - Essential (primary) hypertension (6) Hyperlipidemia: Status: Acute Qualifiers: Hyperlipidemia type: mixed hyperlipidemia Qualified Code(s): E78.2 - Mixed hyperlipidemia Category: Medical Code(s): E78.5 - Hyperlipidemia, unspecified (7) Diabetes mellitus: Status: Chronic Qualifiers: Diabetes mellitus type: type 2 Diabetes mellitus 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 insulin use: with correction use Diabetes mellitus complication status: without complication Qualified Code(s): E11.9 - Type 2 diabetes mellitus without complications; Z79.4 - MCC (current) use of insulin Category: Medical Code(s): E11.9 - Type 2 diabetes mellitus without complications (8) Chronic Kidney Disease: Status: Acute Qualifiers: Chronic kidney disease stage: stage 3 (moderate) Chronic kidney disease stage 3 subtype: unspecified whether 3a or 3b Qualified Code(s): N18.30 - Chronic kidney disease, stage 3 unspecified Category: Medical Code(s): N18.9 - Chronic kidney disease, unspecified Plan Plan: 1. The patient presented to the emergency department with bilateral upper quadrant pain. He was found to have cholelithiasis with questionable acute cholecystitis. Surgery has been consulted. Will defer. They have requested cardiology consult in case he requires surgery. 2. The patient denies any chest pain or pressure. He ruled out for an MS. No plans for invasive left cardiac catheterization at this time. 3. His coronary artery disease is likely stable. His Plavix is currently being held in case he does have to proceed with surgery. If no surgery is recommended during this hospitalization please restart Plavix 75 mg p.o. daily as well as aspirin 81 mg daily. 4. His blood pressure is well-controlled. Continue carvedilol and Lasix. 5. His LDL goal is less than 55. His LDL is less than 30. Continue Crestor. 6. The patient does have chronic kidney disease. His creatinine is 2.3 and essentially stable. 7. The patient is diabetic. He needs aggressive control of his diabetes. Will defer this to the hospitalist. 8. Will obtain an echocardiogram to evaluate his LV function for preop cardiovascular risk stratification. 9. Further recommendations were made pending the patient's response to treatment and the results of his echocardiogram today. Thank you for the opportunity to help participate in the care of this patient. All recommendations and orders are per Dr. Oliva.
[2025-02-27] MEDS: FUROSEMIDE 20MG TABLET 20 MG PO (15:43)
[2025-02-27 15:56] LABS: POC Glucose,Bedside 68 (70-110)
--- NOTE | 2025-02-27 18:02 | PC.NURSE ---
Pt is A&O x4. Denies any discomfort at this time. He has tolerated evening meal. Pt diuresing well. Voiding per urinal. 875 ml output total. Call light within reach.
--- NOTE | 2025-02-27 18:34 | P.CONS_ITS ---
History of Present Illness *Admission Date: 02/27/25 *History of present illness: Sterling Rodriguez is a 74-year-old male with a medical history significant for CAD with stents, hypertension, type 2 diabetes, CKD who presents with 5-week onset of intermittent upper abdominal pain. He states it began in the left upper quadrant/epigastric region and has apparently progressed to his right upper quadrant and around to his back. He states the symptoms are episodic and self resolved. However, over the past week these episodes have been more frequent especially today when he woke from sleep with pain. Denies fever/chills, recent alcohol use, medication changes, constipation/diarrhea, chest pain, shortness of breath. Workup in the ED significant for lipase 329, CT abdomen pelvis showing cholelithiasis with mild distention of the gallbladder. Case discussed with ED provider and decision was made to admit patient for suspected acute cholecystitis. Per admission H&P _ This is a 74-year-old male who reports development of abdominal pain across his upper abdomen and down his right side started about 4-5 weeks ago. The symptoms were significant and lasted for 2 days initially. He was not eating or drinking much for the 2 days. By the time Thursday came, symptoms had resolved and so he did not follow-up with his primary care. The next time it happened symptoms were less severe but he was told he may have a pancreatic infection by his primary care after lab work. He is unsure of what that meant. The patient reports that every couple weeks this episode of abdominal pain across his upper abdomen in the epigastric area and down his right side recurs. He does note that he has had got a lot of bloating belching and gassiness. He is lactose intolerant and does not drink milk but he does eat ice cream occasionally and cottage cheese regularly. He has noted that when he is able to belch a lot he gets relief of the abdominal discomfort. He is mildly anemic with an hemoglobin of 13.3. He does have chronic kidney disease. Liver enzymes were normal with a bilirubin 0.5, AST of 42, ALT of 22 and an alk phos of 100. Lipase was mildly elevated at 321 (0-300). CT showed unremarkable pancreas. He was seen by general surgery noted to have cholelithiasis but no signs of acute cholecystitis on gallbladder ultrasound. The patient is on Ozempic but his last dosage elevation was 4-5 months ago. He reports a daily bowel movement and feeling of full evacuation. He denies constipation or diarrhea. He is moderately distended with gas bloat on exam. He does have some mild right sided abdominal discomfort but a negative Hill sign. He is awaiting MRCP. [facility] Disclaimer: The information contained in this section may have been updated after the patient was seen, as this information can be updated by other users. Medical History (Updated 02/27/25 @ 18:35 by Christa Wilson APRN) Chronic Kidney Disease Pre-operative cardiovascular examination History of left heart catheterization Sleep apnea COPD (chronic obstructive pulmonary disease) JON (acute kidney injury) Dyspnea Hypotension Hx of fracture of left hip Hyperlipidemia Hypertension Dyslipidemia Coronary artery disease CAD (coronary artery disease) Neuropathy Arthritis Gout Diabetes mellitus Surgical History (Updated 02/27/25 @ 12:13 by Ching Ontiveros RN) H/O right heart catheterization Hx of right knee surgery Hx of hernia repair Stented coronary artery Status post total right knee replacement Family History Other Leukemia Stroke Social History (Updated 02/27/25 @ 12:13 by Ching Ontiveros RN) Smoking Status: Current every day smoker tobacco type: cigars second hand exposure: No alcohol intake: former substance use type: denies use current occupational status: retired and disabled Travel in the last 8 weeks: None household members: family housing: house current occupational exposures/hazards: No caffeine: No Have you lived/traveled outside [place] in past 30 days?: No Contact w/someone who lives/traveled outside [place] past 30 days?: No Exposure to someone with infectious disease in past 14 days?: No Do you have a fever (greater than 100.4 F or 38 C)?: No Have you tested positive for COVID-19: No Exposed to someone with COVID-19 in past 14 days?: No Do you have a sore throat?: No Do you have a cough?: No Do you have any weakness?: No Do you have any diarrhea?: No Are you experiencing any unusual bleeding?: No Do you have any muscle aches/pain?: No Do you have any abdominal pain?: No Are you experiencing loss of taste or smell?: No Review of Systems Constitutional Constitutional: Reports system reviewed and no additional complaints, except as documented Eyes Eyes: Reports system reviewed and no additional complaints, except as documented *Cardiovascular Cardiovascular: Reports system reviewed and no additional complaints, except as documented *Respiratory Respiratory: Reports system reviewed and no additional complaints, except as documented *Gastrointestinal Gastrointestinal: Reports abdominal pain, Reports belching, Reports bloating and Reports excessive flatus *Genitourinary Genitourinary: Reports system reviewed and no additional complaints, except as documented *Musculoskeletal Musculoskeletal: Reports system reviewed and no additional complaints, except as documented *Neurologic Neurologic: Reports system reviewed and no additional complaints, except as documented Meds Home Medications and Allergies Home Medications ?Medication ?Instructions ?Recorded ?Confirmed ?Type allopurinol 300 mg tablet 300 mg PO DAILY 04/01/23 02/27/25 History gabapentin 300 mg capsule 300 mg PO TID 04/01/23 02/27/25 History furosemide 20 mg tablet 20 mg PO DAILY 04/06/23 02/27/25 History pioglitazone 45 mg tablet 45 mg PO DAILY 07/07/23 02/27/25 History insulin glargine 100 unit/mL (3 30 unit SQ HS 01/07/24 02/27/25 History mL) subcutaneous pen (Lantus Solostar U-100 Insulin) carvedilol 3.125 mg tablet 3.125 mg PO BID #180 tabs 09/19/24 02/27/25 Rx clopidogrel 75 mg tablet 75 mg PO DAILY 02/27/25 02/27/25 History pantoprazole 40 mg tablet,delayed 40 mg PO DAILY 02/27/25 02/27/25 History release rosuvastatin 10 mg tablet 10 mg PO DAILY 02/27/25 02/27/25 History semaglutide 2 mg/dose (8 mg/3 mL) 2 mg SQ WEEKLY 02/27/25 02/27/25 History subcutaneous pen injector (Ozempic) New Prescriptions to Start Prescriptions: Allergies Allergy/AdvReac Type Severity Reaction Status Date / Time No Known Allergies Allergy Verified 02/27/25 08:11 Exam (Inpt) Vital signs and Labs for Last 24 Hours: Temp Pulse Resp BP Pulse Ox O2 Del Method 98 F 67 16 148/98 H 98 Room Air 02/27/25 16:00 02/27/25 16:00 02/27/25 16:00 02/27/25 16:00 02/27/25 16:00 02/27/25 17:00 Laboratory Results - last 24 hr 02/27/25 07:45: Urine Color Yellow, Urine Appearance Clear, Urine pH 7.0, Ur Specific [place] 1.020, Urine Protein Trace, Urine Glucose (UA) Negative, Urine Ketones Negative, Urine Blood Trace-i, Urine Nitrate Negative, Urine Bilirubin Negative, Urine Urobilinogen 0.2, Ur Leukocyte Esterase Negative, Urine RBC 3-5, Urine WBC Occasional, Ur Squamous Epith Cells None, Urine Bacteria None 02/27/25 07:55: WBC 5.4, RBC 4.25 L, Hgb 13.3 L, Hct 39.9 L, MCV 93.9, MCH 31.3 H, MCHC 33.3, RDW 14.4, Plt Count 133 L, MPV 10.6 H, Neut % (Auto) 69.5, Lymph % (Auto) 18.4, [place] % (Auto) 7.8, Eos % (Auto) 3.7, Baso % (Auto) 0.4, Neut # (Auto) 3.7, Lymph # (Auto) 1.0, [place] # (Auto) 0.4, Eos # (Auto) 0.2, Baso # (Auto) 0.0, PT 10.9, INR 0.97, APTT 29.0, Sodium 140, Potassium 4.2, Chloride 102, Carbon Dioxide 29, Anion Gap 13.2, BUN 27 H, Creatinine 2.30 H, Estimated Creat Clear 42, Estimated GFR 28 L, Est GFR ( Amer) 34 L, Glucose 65 L, Calcium 9.1, Magnesium 1.8, Total Bilirubin 0.5, AST 42, ALT 22, Alkaline Phosphatase 100, Troponin I < 0.01, Total Protein 7.0, Albumin 4.5, Globulin 2.5, Albumin/Globulin Ratio 1.8, Triglycerides 121, Cholesterol 102 L, LDL Cholesterol Direct < 30.00 L, VLDL Cholesterol 24, HDL Cholesterol 48, Cholesterol/HDL Ratio 2.1, Lipase 329 H 02/27/25 11:06: Troponin I < 0.01 02/27/25 14:15: Troponin I < 0.01 02/27/25 15:48: POC Glucose 68 L I & O for Labs for Last 24 Hours: Intake & Output 02/25/25 02/26/25 02/27/25 02/28/25 11:59 11:59 11:59 11:59 Intake Total 242 Output Total 0 875 Balance 0 -633 Weight 104.326 kg 99.507 kg Constitutional: no acute distress Head: Present normocephalic and atraumatic Respiratory: Present CTA bilaterally Cardiac: Present Reg Rate and Rhythm GI: Present distention (Moderately distended with gas/bloat) and tenderness (Mild TTP right middle quadrant) Comments:: Negative Hill sign Results Labs 02/27/25 07:55 02/27/25 07:55 Labs: Laboratory Results - last 24 hr 02/27/25 07:45: Urine Color Yellow, Urine Appearance Clear, Urine pH 7.0, Ur Specific [place] 1.020, Urine Protein Trace, Urine Glucose (UA) Negative, Urine Ketones Negative, Urine Blood Trace-i, Urine Nitrate Negative, Urine Bilirubin Negative, Urine Urobilinogen 0.2, Ur Leukocyte Esterase Negative, Urine RBC 3-5, Urine WBC Occasional, Ur Squamous Epith Cells None, Urine Bacteria None 02/27/25 07:55: WBC 5.4, RBC 4.25 L, Hgb 13.3 L, Hct 39.9 L, MCV 93.9, MCH 31.3 H, MCHC 33.3, RDW 14.4, Plt Count 133 L, MPV 10.6 H, Neut % (Auto) 69.5, Lymph % (Auto) 18.4, [place] % (Auto) 7.8, Eos % (Auto) 3.7, Baso % (Auto) 0.4, Neut # (Auto) 3.7, Lymph # (Auto) 1.0, [place] # (Auto) 0.4, Eos # (Auto) 0.2, Baso # (Auto) 0.0, PT 10.9, INR 0.97, APTT 29.0, Sodium 140, Potassium 4.2, Chloride 102, Carbon Dioxide 29, Anion Gap 13.2, BUN 27 H, Creatinine 2.30 H, Estimated Creat Clear 42, Estimated GFR 28 L, Est GFR ( Amer) 34 L, Glucose 65 L, Calcium 9.1, Magnesium 1.8, Total Bilirubin 0.5, AST 42, ALT 22, Alkaline Phosphatase 100, Troponin I < 0.01, Total Protein 7.0, Albumin 4.5, Globulin 2.5, Albumin/Globulin Ratio 1.8, Triglycerides 121, Cholesterol 102 L, LDL Cholesterol Direct < 30.00 L, VLDL Cholesterol 24, HDL Cholesterol 48, Cholesterol/HDL Ratio 2.1, Lipase 329 H 02/27/25 11:06: Troponin I < 0.01 02/27/25 14:15: Troponin I < 0.01 02/27/25 15:48: POC Glucose 68 L Assessment and Plan *Assessment and plan (1) Cholelithiasis: Status: Acute Qualifiers: Cholelithiasis location: gallbladder Cholecystitis presence: with cholecystitis Cholecystitis acuity: acute Biliary obstruction: without biliary obstruction Qualified Code(s): K80.00 - Calculus of gallbladder with acute cholecystitis without obstruction Category: Medical Code(s): K80.20 - Calculus of gallbladder without cholecystitis without obstruction (2) Epigastric pain: Status: Acute Category: Medical Code(s): R10.13 - Epigastric pain (3) Bloating: Status: Acute Category: Medical Code(s): R14.0 - Abdominal distension (gaseous) (4) Anemia: Status: Acute Category: Medical Code(s): D64.9 - Anemia, unspecified (5) Elevated lipase: Status: Acute Category: Medical Code(s): R74.8 - Abnormal levels of other serum enzymes Plan 1. Cholelithiasis/epigastric pain/bloating/anemia/elevated lipase Very mildly elevated lipase at 329. No signs of pancreatitis on CT scan. Not in acute pancreatitis episode by definition but unsure if he may have had more significantly elevated lipase when epigastric pain started initially. Patient reports that his pain across his upper abdomen and down his right side that is colicky in nature. He has been on Ozempic for a year but last dosage change was about 3 to 4 months ago. No NSAIDs or alcohol but he is mildly anemic with a hemoglobin of 13.3 (also has chronic kidney disease). Lots of bloating belching and gassiness and does get some improvement of symptoms when he is able to belch a lot. Gallbladder ultrasound shows some cholelithiasis but no acute cholecystitis. I believe he is awaiting MRCP to evaluate. Liver enzymes are normal. Given his symptoms keep recurring for over a month at this point. I would like to get patient scheduled for EGD depending on MRCP results. In the interim, patient is moderately distended with gas bloat on exam and I recommend complete elimination of dairy and sodas given that gas may be exacerbating symptoms.
[2025-02-27] MEDS: CARVEDILOL 3.125MG TABLET 3.125 MG PO (20:24)
[2025-02-27] MEDS: ATORVASTATIN 20MG TABLET 20 MG PO (20:24)
[2025-02-27 20:42] LABS: POC Glucose,Bedside 104 (70-110)
[2025-02-28] MEDS: LACTATED RINGERS 1000ML 1,000 ML 75 ML IV ×2 (02:46→16:31)
[2025-02-28 04:00] VITALS: BP 139/92; PULSE 75; RESP 16; TEMP 36.6; O2SAT 96; BMI 33.0
[2025-02-28 06:06] LABS: Basophils % 0.4 % (0.1-2.0); Eosinophils # 0.2 K/mm3 (0.0-0.4); Hematocrit 37.4 % (42.0-52.0); Hemoglobin 12.4 g/dL (14.1-18.0); Lymphocytes % 21.5 % (10-50); Mean Corpuscular HGB Conc 33.2 g/dL (31.8-35.4); Mean Corpuscular Hemoglobin 30.9 pg (27.0-31.2); Mean Corpuscular Volume 93.3 fl (80-94); Mean Platelet Volume 10.2 fl (7.4-10.4); Monocytes # 0.5 K/mm3 (0.1-1.0); Monocytes % 9.8 % (1.7-9.3); Neutrophils # 2.9 K/mm3 (1.8-7.8); Neutrophils % 63.3 % (37.0-80.0); Platelet Count 116 K/mm3 (142-424); Red Blood Count 4.01 M/mm3 (4.60-6.20); Red Cell Distribution Width 14.4 % (11.5-17.5); White Blood Count 4.6 K/mm3 (4.8-10.8)
[2025-02-28 06:30] LABS: Albumin Level 3.9 g/dl (3.5-5.0); Chloride 103 mmol/L (98-107); Sodium 138 mmol/L (136-145)
[2025-02-28 06:31] LABS: Potassium 3.7 mmoL/L (3.5-5.1)
[2025-02-28 06:33] LABS: Albumin/Globulin Ratio 1.9 (1.1-1.8); Anion Gap 7.7 mEq/L (5-15); Blood Urea Nitrogen 24 mg/dl (9-20); Carbon Dioxide 31 mmol/L (22.0-30.0); Creatinine Clearance Estimated 46 mL/min (50-200); Estimated Glomerular Filt Rate 33 ml/min (>60); GFR (African American) 40 ML/MIN (>60); Globulin 2.1 g/dL (1.3-3.2)
[2025-02-28 06:34] LABS: Alanine Aminotransferase 16 U/L (12-78); Alkaline Phosphatase 98 U/L (38-126); Aspartate Amino Transferase 32 U/L (17-59); Bilirubin,Total 0.7 mg/dl (0.2-1.3); Calcium 8.6 mg/dl (8.4-10.2); Glucose 86 mg/dl (74-100); Magnesium 1.8 mg/dl (1.6-2.3)
[2025-02-28] MEDS: ACETAMINOPHEN 325MG TAB 650 MG PO ×2 (06:47→21:11)
--- NOTE | 2025-02-28 06:53 | PC.NURSE ---
Alert and oriented. NPO since midnight for MRCP. Headache one time, treated per jan. IV fluids. No complaints of pain. Abdomen nontender. Call light in reach.
--- NOTE | 2025-02-28 07:00 | MR_ITS ---
FINAL REPORT TECHNIQUE: Multiplanar, sequential MRI images of the abdomen were performed. Heavy T2-weighted MRCP sequences were also performed. 3-D reconstruction images were also performed. CLINICAL HISTORY: elevated lipase, cholelithasis, abdominal pain COMPARISON: 02/27/2025 FINDINGS: There is cholelithiasis without significant gallbladder distention. Gallbladder measures up to 3 cm in short axis. There is no biliary or pancreatic ductal dilatation. There is no evidence of choledocholithiasis. 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 Remaining solid abdominal organs are unremarkable. IMPRESSION: Uncomplicated cholelithiasis. No evidence of biliary ductal dilatation or choledocholithiasis. Reviewed, Interpreted and Dictated by Jaylen Reece MD Transcribed by Germania Jonas Authenticated and [facility]
[2025-02-28 07:03] LABS: POC Glucose,Bedside 79 (70-110)
--- NOTE | 2025-02-28 07:40 | P.PN_ITS ---
Subjective *Date: 02/28/25 *Time: 07:40 Interval history: Mr. Rodriguez doing well this morning with no complaints of abdominal pain. He is returning from his [facility]. Exam Data for Last 24 hours Vital signs and Labs for Last 24 Hours: Temp Pulse Resp BP Pulse Ox O2 Del Method 97.9 F 75 16 139/92 H 96 Room Air 02/28/25 04:00 02/28/25 04:00 02/28/25 04:00 02/28/25 04:00 02/28/25 04:00 02/28/25 06:50 Laboratory Results - last 24 hr 02/27/25 07:45: Urine Color Yellow, Urine Appearance Clear, Urine pH 7.0, Ur Specific [place] 1.020, Urine Protein Trace, Urine Glucose (UA) Negative, Urine Ketones Negative, Urine Blood Trace-i, Urine Nitrate Negative, Urine Bilirubin Negative, Urine Urobilinogen 0.2, Ur Leukocyte Esterase Negative, Urine RBC 3-5, Urine WBC Occasional, Ur Squamous Epith Cells None, Urine Bacteria None 02/27/25 07:55: WBC 5.4, RBC 4.25 L, Hgb 13.3 L, Hct 39.9 L, MCV 93.9, MCH 31.3 H, MCHC 33.3, RDW 14.4, Plt Count 133 L, MPV 10.6 H, Neut % (Auto) 69.5, Lymph % (Auto) 18.4, [place] % (Auto) 7.8, Eos % (Auto) 3.7, Baso % (Auto) 0.4, Neut # (Auto) 3.7, Lymph # (Auto) 1.0, [place] # (Auto) 0.4, Eos # (Auto) 0.2, Baso # (Auto) 0.0, PT 10.9, INR 0.97, APTT 29.0, Sodium 140, Potassium 4.2, Chloride 102, Carbon Dioxide 29, Anion Gap 13.2, BUN 27 H, Creatinine 2.30 H, Estimated Creat Clear 42, Estimated GFR 28 L, Est GFR ( Amer) 34 L, Glucose 65 L, Calcium 9.1, Magnesium 1.8, Total Bilirubin 0.5, AST 42, ALT 22, Alkaline Phosphatase 100, Troponin I < 0.01, Total Protein 7.0, Albumin 4.5, Globulin 2.5, Albumin/Globulin Ratio 1.8, Triglycerides 121, Cholesterol 102 L, LDL Cholesterol Direct < 30.00 L, VLDL Cholesterol 24, HDL Cholesterol 48, Cholesterol/HDL Ratio 2.1, Lipase 329 H 02/27/25 11:06: Troponin I < 0.01 02/27/25 14:15: Troponin I < 0.01 02/27/25 15:48: POC Glucose 68 L 02/27/25 20:23: POC Glucose 104 02/28/25 05:53: WBC 4.6 L, RBC 4.01 L, Hgb 12.4 L, Hct 37.4 L, MCV 93.3, MCH 30.9, MCHC 33.2, RDW 14.4, Plt Count 116 L, MPV 10.2, Neut % (Auto) 63.3, Lymph % (Auto) 21.5, [place] % (Auto) 9.8 H, Eos % (Auto) 5.0, Baso % (Auto) 0.4, Neut # (Auto) 2.9, Lymph # (Auto) 1.0, [place] # (Auto) 0.5, Eos # (Auto) 0.2, Baso # (Auto) 0.0, Sodium 138, Potassium 3.7, Chloride 103, Carbon Dioxide 31 H, Anion Gap 7.7, BUN 24 H, Creatinine 2.00 H, Estimated Creat Clear 46, Estimated GFR 33 L, Est GFR ( Amer) 40 L, Glucose 86 D, Calcium 8.6, Magnesium 1.8, Total Bilirubin 0.7, AST 32, ALT 16 D, Alkaline Phosphatase 98, Total Protein 6.0 L, Albumin 3.9 D, Globulin 2.1, Albumin/Globulin Ratio 1.9 H 02/28/25 06:36: POC Glucose 79 I & O for Last 24 hours: Intake & Output 02/25/25 02/26/25 02/27/25 02/28/25 23:59 23:59 23:59 23:59 Intake Total 362 / 362 Output Total 1200 / 1500 575 / 575 Balance -838 / -1138 -575 / -575 Weight 219 lb 6 oz 218 lb 6.4 oz *Routine Abdominal Exam Abdominal: Present soft and normoactive bowel sounds Comments: Normoactive bowel sounds, soft, very mild tenderness in the upper abdomen/right upper quadrant, no Hill sign Assessment and Plan *Assessment and plan (1) Epigastric pain: Status: Acute Category: Medical Code(s): R10.13 - Epigastric pain (2) Bloating: Status: Acute Category: Medical Code(s): R14.0 - Abdominal distension (gaseous) (3) Elevated lipase: Status: Acute Category: Medical Code(s): R74.8 - Abnormal levels of other serum enzymes Plan 1. Acute abdominal pain resolving. I do still feel that this represents symptomatic gallstones even though there is no evidence of cholecystitis. I would recommend elective cholecystectomy. I will check MRCP today. Elevated lipase level does not meet criteria for pancreatitis. Most likely etiology of elevation is microlithiasis/cholelithiasis. MRCP to rule out any ductal variants or chronic pancreatitis. Would advance diet as tolerated.
[2025-02-28 08:00] VITALS: BP 131/79; PULSE 67; RESP 18; TEMP 36.8; O2SAT 96
--- NOTE | 2025-02-28 08:19 | EXP.SURG.PN ---
Subjective Narrative: Patient states that he feels better. Seen by gastroenterology. Underwent MRCP. No evidence of choledocholithiasis or biliary dilatation. Patient was also seen by cardiology. He has undergone echocardiogram. This is a technically difficult study due to poor acoustic windows. He has a low normal left ventricular systolic function of approximately 50%. There is mild RV dilatation and biatrial dilatation. He has mild AI and mild MR. Exam Data for Last 24 hours Vital signs and Labs for Last 24 Hours: Temp Pulse Resp BP Pulse Ox O2 Del Method 97.9 F 75 16 139/92 H 96 Room Air 02/28/25 04:00 02/28/25 04:00 02/28/25 04:00 02/28/25 04:00 02/28/25 04:00 02/28/25 08:00 Laboratory Results - last 24 hr 02/27/25 07:45: Urine Color Yellow, Urine Appearance Clear, Urine pH 7.0, Ur Specific [place] 1.020, Urine Protein Trace, Urine Glucose (UA) Negative, Urine Ketones Negative, Urine Blood Trace-i, Urine Nitrate Negative, Urine Bilirubin Negative, Urine Urobilinogen 0.2, Ur Leukocyte Esterase Negative, Urine RBC 3-5, Urine WBC Occasional, Ur Squamous Epith Cells None, Urine Bacteria None 02/27/25 07:55: PT 10.9, INR 0.97, APTT 29.0, Sodium 140, Potassium 4.2, Chloride 102, Carbon Dioxide 29, Anion Gap 13.2, BUN 27 H, Creatinine 2.30 H, Estimated Creat Clear 42, Estimated GFR 28 L, Est GFR ( Amer) 34 L, Glucose 65 L, Calcium 9.1, Magnesium 1.8, Total Bilirubin 0.5, AST 42, ALT 22, Alkaline Phosphatase 100, Troponin I < 0.01, Total Protein 7.0, Albumin 4.5, Globulin 2.5, Albumin/Globulin Ratio 1.8, Triglycerides 121, Cholesterol 102 L, LDL Cholesterol Direct < 30.00 L, VLDL Cholesterol 24, HDL Cholesterol 48, Cholesterol/HDL Ratio 2.1, Lipase 329 H 02/27/25 11:06: Troponin I < 0.01 02/27/25 14:15: Troponin I < 0.01 02/27/25 15:48: POC Glucose 68 L 02/27/25 20:23: POC Glucose 104 02/28/25 05:53: WBC 4.6 L, RBC 4.01 L, Hgb 12.4 L, Hct 37.4 L, MCV 93.3, MCH 30.9, MCHC 33.2, RDW 14.4, Plt Count 116 L, MPV 10.2, Neut % (Auto) 63.3, Lymph % (Auto) 21.5, [place] % (Auto) 9.8 H, Eos % (Auto) 5.0, Baso % (Auto) 0.4, Neut # (Auto) 2.9, Lymph # (Auto) 1.0, [place] # (Auto) 0.5, Eos # (Auto) 0.2, Baso # (Auto) 0.0, Sodium 138, Potassium 3.7, Chloride 103, Carbon Dioxide 31 H, Anion Gap 7.7, BUN 24 H, Creatinine 2.00 H, Estimated Creat Clear 46, Estimated GFR 33 L, Est GFR ( Amer) 40 L, Glucose 86 D, Calcium 8.6, Magnesium 1.8, Total Bilirubin 0.7, AST 32, ALT 16 D, Alkaline Phosphatase 98, Total Protein 6.0 L, Albumin 3.9 D, Globulin 2.1, Albumin/Globulin Ratio 1.9 H 02/28/25 06:36: POC Glucose 79 I & O for Last 24 hours: Intake & Output 02/25/25 02/26/25 02/27/25 02/28/25 11:59 11:59 11:59 11:59 Intake Total 362 / 362 Output Total 0 / 0 1775 / 1775 Balance 0 / 0 -1413 / -1413 Weight 230 lb 218 lb 6.4 oz *Routine Abdominal Exam Abdominal: Present soft Progress Note: A&P Assessment and plan (1) Epigastric pain: Status: Acute (2) Bloating: Status: Acute (3) Elevated lipase: Status: Acute Assessment and Plan Assessment and Plan for All Diagnoses:: Patient has no evidence of acute cholecystitis. No evidence of choledocholithiasis. Pancreatic enzyme elevation unlikely secondary to appreciable pancreatitis. May be having some chronic cholecystitis with biliary colic. However no indications for inpatient urgent cholecystectomy at this time. Would recommend continue with cardiology risk assessment. Some degree of his symptoms may be secondary to Ozempic. Ideally would be off Ozempic at least 2 weeks prior to consideration of cholecystectomy and off antiplatelet agents for 5 to 7 days if deemed acceptable from cardiology standpoint.
[2025-02-28] MEDS: FUROSEMIDE 20MG TABLET 20 MG PO (09:01)
[2025-02-28] MEDS: CARVEDILOL 3.125MG TABLET 3.125 MG PO ×2 (09:01→21:06)
[2025-02-28] MEDS: humaLOG 100 UNITS/ML 10ML VIAL (SSI) SUBCUT (11:13)
[2025-02-28 11:29] LABS: POC Glucose,Bedside 157 (70-110)
[2025-02-28 16:00] VITALS: BP 139/95; PULSE 69; RESP 18; TEMP 36.8; O2SAT 98
--- NOTE | 2025-02-28 17:01 | P.PN_ITS ---
Subjective *Date: 02/28/25 *Time: 17:01 Interval history: Patient states he is feeling better today. MRCP performed. Denies chest pain, nausea, vomiting. Initiated on clears. Stable on room air. Afebrile. Medical Exam Vital signs and Labs for Last 24 Hours: Vital Signs Temp Pulse Resp BP Pulse Ox O2 Del Method 02/28/25 16:00 98.2 F 69 18 139/95 H 98 Room Air 02/28/25 15:00 Room Air 02/28/25 13:00 Room Air 02/28/25 11:00 Room Air 02/28/25 09:00 Room Air 02/28/25 08:00 98.2 F 67 18 131/79 96 Room Air 02/28/25 08:00 Room Air 02/28/25 06:50 Room Air 02/28/25 05:00 Room Air 02/28/25 04:00 97.9 F 75 16 139/92 H 96 Room Air 02/28/25 03:00 Room Air 02/28/25 00:57 Room Air 02/27/25 22:47 Room Air 02/27/25 21:00 Room Air 02/27/25 20:00 Room Air 02/27/25 20:00 98.1 F 84 16 139/86 95 Room Air 02/27/25 18:35 Room Air Intake and Output 02/28/25 02/28/25 02/28/25 07:59 15:59 23:59 Intake Total 360 / 360 Output Total 575 / 1125 550 / 1125 Balance -575 / -765 -190 / -765 Intake: Intake, Oral Amount 360 / 360 Output: Output, Urine Amount 575 / 1125 550 / 1125 Other: Number of Bowel Movements 1 Weight 99.065 kg Patient Weight 02/28/25 23:59 Weight 99.065 kg Laboratory Results - last 24 hr 02/27/25 20:23: POC Glucose 104 02/28/25 05:53: WBC 4.6 L, RBC 4.01 L, Hgb 12.4 L, Hct 37.4 L, MCV 93.3, MCH 30.9, MCHC 33.2, RDW 14.4, Plt Count 116 L, MPV 10.2, Neut % (Auto) 63.3, Lymph % (Auto) 21.5, [place] % (Auto) 9.8 H, Eos % (Auto) 5.0, Baso % (Auto) 0.4, Neut # (Auto) 2.9, Lymph # (Auto) 1.0, [place] # (Auto) 0.5, Eos # (Auto) 0.2, Baso # (A uto) 0.0, Sodium 138, Potassium 3.7, Chloride 103, Carbon Dioxide 31 H, Anion Gap 7.7, BUN 24 H, Creatinine 2.00 H, Estimated Creat Clear 46, Estimated GFR 33 L, Est GFR ( Amer) 40 L, Glucose 86 D, Calcium 8.6, Magnesium 1.8, Total Bilirubin 0.7, AST 32, ALT 16 D, Alkaline Phosphatase 98, Total Protein 6.0 L, Albumin 3.9 D, Globulin 2.1, Albumin/Globulin Ratio 1.9 H 02/28/25 06:36: POC Glucose 79 02/28/25 11:09: POC Glucose 157 H I & O for Labs for Last 24 Hours: Intake & Output 02/25/25 02/26/25 02/27/25 02/28/25 23:59 23:59 23:59 23:59 Intake Total 362 / 362 360 / 360 Output Total 1200 / 1500 1125 / 1125 Balance -838 / -1138 -765 / -765 Weight 99.507 kg 99.065 kg Constitutional: Present no acute distress, obese and chronically ill appearing Head: Present atraumatic and normocephalic ENT: Present normal exam Respiratory: Present CTA bilaterally and normal respiratory effort; Absent rhonchi, wheezes or crackles Comment:: Irregular irregular GI: Present soft, tenderness (Mild left upper quadrant) and normal bowel sounds; Absent distention Extremities: Present normal inspection and full ROM Skin: Present intact; Absent erythema Neuro: Present Grossly Intact, alert, awake, oriented x 3 and moves all extremities Assessment and Plan *Assessment and plan (1) Cholelithiasis: Status: Acute Qualifiers: Cholelithiasis location: gallbladder Cholecystitis presence: with cholecystitis Cholecystitis acuity: acute Biliary obstruction: without biliary obstruction Qualified Code(s): K80.00 - Calculus of gallbladder with acute cholecystitis without obstruction Category: Medical Code(s): K80.20 - Calculus of gallbladder without cholecystitis without obstruction (2) Elevated lipase: Status: Acute Category: Medical Code(s): R74.8 - Abnormal levels of other serum enzymes (3) Anemia: Status: Acute Category: Medical Code(s): D64.9 - Anemia, unspecified (4) Epigastric pain: Status: Acute Category: Medical Code(s): R10.13 - Epigastric pain (5) Chronic Kidney Disease: Status: Acute Qualifiers: Chronic kidney disease stage: stage 3 (moderate) Chronic kidney disease stage 3 subtype: unspecified whether 3a or 3b Qualified Code(s): N18.30 - Chronic kidney disease, stage 3 unspecified Category: Medical Code(s): N18.9 - Chronic kidney disease, unspecified (6) Obesity (BMI 30.0-34.9): Status: Chronic Category: Medical Code(s): E66.811 - Obesity, class 1 (7) Diabetes mellitus: Status: Chronic Qualifiers: Diabetes mellitus type: type 2 Diabetes mellitus nursing home insulin use: with salvage determiner use Diabetes mellitus complication status: without complication Qualified Code(s): E11.9 - Type 2 diabetes mellitus without complications; 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 He states it began in the left upper quadrant/epigastric region and has apparently progressed to his right upper quadrant and around to his back. He states the symptoms are episodic and self resolved. However, over the past week these episodes have been more frequent especially today when he woke from sleep with pain. Denies fever/chills, recent alcohol use, medication changes, constipation/diarrhea, chest pain, shortness of breath. Workup in the ED significant for lipase 329, CT abdomen pelvis showing cholelithiasis with mild distention of the gallbladder. Case discussed with ED provider and decision was made to admit patient for suspected acute cholecys titis. Continues to require patient management. Anticipate discharge in the next day or 2. Problems addressed as follows: #Abdominal pain #Pancreatitis #Cholelithiasis ? Presented with progressive 5-week onset of intermittent upper abdominal pains. ? Lipase 392, however normal LFTs. Given minimally elevated lipase, may be resolving pancreatitis versus very mild pancreatitis. With normal LFTs, low suspicion for gallstone pancreatitis. ? RUQ ultrasound shows cholelithiasis without acute gallbladder disease. ? MRCP performed today, unremarkable. Will go ahead and advance diet. If tolerates clears, will advance to full by dinner. Case reviewed with GI, they recommend considering cholecystectomy due to symptoms being secondary to symptomatic gallstones. Discussed case with surgery, recommend outpatient follow-up and evaluation this patient will need to be off his Plavix for 7 days and Ozempic for 2 weeks prior to surgery. -If tolerates diet advancement, anticipate discharge tomorrow. -White count stable at 4.0, hemoglobin 12.4. #CAD with stents #Hypertension ? Continue home carvedilol, Plavix, rosuvastatin. #Type 2 diabetes ? ACHS glucose checks, LDSSI. ? Continue home gabapentin. #CKD stage IV ?Stable. Creatinine improved to 2.0, BUN 24. Repeat CBC, CMP, magnesium orde red for the morning. #History of gout ? Continue home allopurinol. Full code Advance diet.
[2025-02-28 18:42] LABS: POC Glucose,Bedside 106 (70-110)
[2025-02-28 20:17] LABS: POC Glucose,Bedside 111 (70-110)
[2025-02-28] MEDS: ATORVASTATIN 20MG TABLET 20 MG PO (21:06)
[2025-02-28 23:56] VITALS: BP 147/94; PULSE 64; RESP 14; TEMP 36.9; O2SAT 97
[2025-03-01 04:00] VITALS: BP 156/103; PULSE 70; RESP 14; TEMP 36.5; O2SAT 96
--- NOTE | 2025-03-01 04:36 | PC.NURSE ---
Pt. is alert and orientated x 4. Pt. is on room air. Pt. has had no c/o pain this shift. Pt. abd. spft, tender to RUQ and epigastric area. Pt. denies nausea, vomiting, Drinking full liquids and tolerating well. Pt. slept well this shift. no C/o's or needs. VSS, personal items and call fields in reach.
[2025-03-01] MEDS: LACTATED RINGERS 1000ML 1,000 ML 75 ML IV (05:02)
[2025-03-01 06:24] LABS: POC Glucose,Bedside 101 (70-110)
[2025-03-01 06:30] LABS: Basophils % 0.5 % (0.1-2.0); Eosinophils # 0.2 K/mm3 (0.0-0.4); Eosinophils % 5.5 % (0.1-12.0); Hematocrit 36.8 % (42.0-52.0); Hemoglobin 12.4 g/dL (14.1-18.0); Lymphocytes % 23.6 % (10-50); Mean Corpuscular HGB Conc 33.7 g/dL (31.8-35.4); Mean Corpuscular Hemoglobin 31.2 pg (27.0-31.2); Mean Corpuscular Volume 92.7 fl (80-94); Mean Platelet Volume 10.6 fl (7.4-10.4); Monocytes # 0.4 K/mm3 (0.1-1.0); Monocytes % 8.4 % (1.7-9.3); Neutrophils # 2.7 K/mm3 (1.8-7.8); Neutrophils % 61.8 % (37.0-80.0); Platelet Count 114 K/mm3 (142-424); Red Blood Count 3.97 M/mm3 (4.60-6.20); White Blood Count 4.4 K/mm3 (4.8-10.8)
[2025-03-01 06:32] LABS: Albumin Level 3.6 g/dl (3.5-5.0); Chloride 104 mmol/L (98-107); Sodium 138 mmol/L (136-145)
[2025-03-01 06:33] LABS: Potassium 3.9 mmoL/L (3.5-5.1)
[2025-03-01 06:35] LABS: Alanine Aminotransferase 16 U/L (12-78); Albumin/Globulin Ratio 1.5 (1.1-1.8); Alkaline Phosphatase 99 U/L (38-126); Anion Gap 7.9 mEq/L (5-15); Aspartate Amino Transferase 31 U/L (17-59); Bilirubin,Total 0.6 mg/dl (0.2-1.3); Blood Urea Nitrogen 22 mg/dl (9-20); Calcium 8.7 mg/dl (8.4-10.2); Carbon Dioxide 30 mmol/L (22.0-30.0); Creatinine Clearance Estimated 54 mL/min (50-200); Estimated Glomerular Filt Rate 40 ml/min (>60); GFR (African American) 48 ML/MIN (>60); Globulin 2.4 g/dL (1.3-3.2); Glucose 96 mg/dl (74-100)
[2025-03-01 06:36] LABS: Magnesium 1.9 mg/dl (1.6-2.3)
--- NOTE | 2025-03-01 07:49 | P.DS_ITS ---
General Admission date:: 02/27/25 Discharge date: 03/01/25 HPI HPI HPI: Sterling Rodriguez is a 74-year-old male with a medical history significant for CAD with stents, hypertension, type 2 diabetes, CKD who presents with 5-week onset of intermittent upper abdominal pain. He states it began in the left upper quadrant/epigastric region and has apparently progressed to his right upper quadrant and around to his back. He states the symptoms are episodic and self resolved. However, over the past week these episodes have been more frequent especially today when he woke from sleep with pain. Denies fever/chills, recent alcohol use, medication changes, constipation/diarrhea, chest pain, shortness of breath. Workup in the ED significant for lipase 329, CT abdomen pelvis showing cholelithiasis with mild distention of the gallbladder. Case discussed with ED provider and decision was made to admit patient for suspected acute cholecystitis. Per admission H&P This is a 74-year-old male who reports development of abdominal pain across his upper abdomen and down his right side started about 4-5 weeks ago. The symptoms were significant and lasted for 2 days initially. He was not eating or drinking much for the 2 days. By the time Thursday came, symptoms had resolved and so he did not follow-up with his primary care. The next time it happened symptoms were less severe but he was told he may have a pancreatic infection by his primary care after lab work. He is unsure of what that meant. The patient reports that every couple weeks this episode of abdominal pain across his upper abdomen in the epigastric area and down his right side recurs. He does note that he has had got a lot of bloating belching and gassiness. He is lactose intolerant and does not drink milk but he does eat ice cream occasionally and cottage cheese regularly. He has noted that when he is able to belch a lot he gets relief of the abdominal discomfort. He is mildly anemic with an hemoglobin of 13.3. He does have chronic kidney disease. Liver enzymes were normal with a bilirubin 0.5, AST of 42, ALT of 22 and an alk phos of 100. Lipase was mildly elevated at 321 (0-300). CT showed unremarkable pancreas. He was seen by general surgery noted to have cholelithiasis but no signs of acute cholecystitis on gallbladder ultrasound. The patient is on Ozempic but his last dosage elevation was 4-5 months ago. He reports a daily bowel movement and feeling of full evacuation. He denies constipation or diarrhea. He is moderately distended with gas bloat on exam. He does have some mild right sided abdominal discomfort but a negative Hill sign. He is awaiting MRCP. Hospital Course Hospital Course Hospital Course: Sterling Rodriguez is a 74-year-old male with a medical history significant for CAD with stents, hypertension, type 2 diabetes, CKD who presents with 5-week onset of intermittent upper abdominal pain. He states it began in the left upper quadrant/epigastric region and has apparently progressed to his right upper quadrant and around to his back. He states the symptoms are episodic and self resolved. However, over the past week these episodes have been more frequent especially today when he woke from sleep with pain. Denies fever/chills, recent alcohol use, medication changes, constipation/diarrhea, chest pain, shortness of breath. Workup in the ED significant for lipase 329, CT abdomen pelvis showing cholelithiasis with mild distention of the gallbladder. Case discussed with ED provider and decision was made to admit patient for suspected acute cholecystitis. MRCP obtained did not show obstructions. Patient able to tolerate advancement of diet. Plan for follow-up with surgery as an outpatient and further management for elective cholecystectomy. Problems addressed as follows: #Abdominal pain #Pancreatitis #Cholelithiasis ? Presented with progressive 5-week onset of intermittent upper abdominal pains. Lipase 392, however normal LFTs. Given minimally elevated lipase, may be resolving pancreatitis versus very mild pancreatitis. With normal LFTs, low suspicion for gallstone pancreatitis. RUQ ultrasound shows cholelithiasis without acute gallbladder disease. MRCP performed 02/28. Was unremarkable. Diet advanced. Case was discussed with GI and surgery. No plan for ERCP at this time. Recommend elective cholecystectomy. Patient will need to be off his Plavix for 7 days and Ozempic for 2 weeks. Ozempic held at discharge. White count normal on day of discharge of 4.4. Follow-up closely as outpatient for planning for elective cholecystectomy. #CAD with stents #Hypertension ? Continue home carvedilol, Plavix, rosuvastatin. #Type 2 diabetes ? Hold Ozempic at discharge, resume home of insulin glargine and pioglitazone. ? Continue home gabapentin. #CKD stage IV ?Stable. Creatinine improved to 1.7, BUN 22 by day of discharge. This is essentially his baseline. Needs repeat labs in 1 to 2 weeks. #History of gout ? Continue home allopurinol. Exam Data for Last 24 hours Vital signs and Labs for Last 24 Hours: Temp Pulse Resp BP Pulse Ox O2 Del Method 97.7 F 70 14 156/103 H 96 Room Air 03/01/25 04:00 03/01/25 04:00 03/01/25 04:00 03/01/25 04:00 03/01/25 04:00 03/01/25 06:46 Laboratory Results - last 24 hr 02/28/25 11:09: POC Glucose 157 H 02/28/25 16:29: POC Glucose 106 02/28/25 20:10: POC Glucose 111 H 03/01/25 05:05: WBC 4.4 L, RBC 3.97 L, Hgb 12.4 L, Hct 36.8 L, MCV 92.7, MCH 31.2, MCHC 33.7, RDW 14.0, Plt Count 114 L, MPV 10.6 H, Neut % (Auto) 61.8, Lymph % (Auto) 23.6, [place] % (Auto) 8.4, Eos % (Auto) 5.5, Baso % (Auto) 0.5, Neut # (Auto) 2.7, Lymph # (Auto) 1.0, [place] # (Auto) 0.4, Eos # (Auto) 0.2, Baso # (Auto) 0.0, Sodium 138, Potassium 3.9, Chloride 104, Carbon Dioxide 30, Anion Gap 7.9, BUN 22 H, Creatinine 1.70 H, Estimated Creat Clear 54, Estimated GFR 40 L, Est GFR ( Amer) 48 L, Glucose 96, Calcium 8.7, Magnesium 1.9, Total Bilirubin 0.6, AST 31, ALT 16, Alkaline Phosphatase 99, Total Protein 6.0 L, Albumin 3.6, Globulin 2.4, Albumin/Globulin Ratio 1.5 03/01/25 05:44: POC Glucose 101 I & O for Last 24 hours: Intake & Output 02/26/25 02/27/25 02/28/25 03/01/25 23:59 23:59 23:59 23:59 Intake Total 362 / 362 840 / 1440 600 / 600 Output Total 1200 / 1500 1675 / 1675 1600 / 1600 Balance -838 / -1138 -835 / -235 -1000 / -1000 Weight 99.507 kg 99.065 kg Constitutional Constitutional: no acute distress, obese and cooperative *Routine HEENT Exam Head: Present normocephalic Eye: Present EOMI and PERRL ENT: Present mucous membranes moist *Routine Neck Exam Neck: Present supple; Absent lymphadenopathy *Routine Respiratory Exam Respiratory: Present CTA bilaterally and normal respiratory effort *Routine Cardiovascular Exam Cardiovascular: Present RRR; Absent JVD *Routine Abdominal Exam Abdominal: Present soft, normoactive bowel sounds and tenderness (Mild left upper quadrant tenderness); Absent distended *Routine Rectal Exam Patient deferred: visual exam *Routine Exam Patient deferred: penile exam *Routine Extremities Exam Extremities: Present full ROM; Absent cyanosis, clubbing or edema *Routine Skin Exam Skin: Present warm; Absent rash *Routine Neurological Exam Neurological: Present alert, oriented X3, moving all extremities and normal speech; Absent CN II-XII intact or sensory deficit Routine Psychiatric Exam Psychiatric: Present normal affect, normal thought process, cooperative, good insight and good judgment Results Data Completed and Pending Labs on day of discharge: Labs from last 24 hours 03/01/25 03/01/25 02/28/25 05:44 05:05 20:10 WBC 4.4 L RBC 3.97 L Hgb 12.4 L Hct 36.8 L MCV 92.7 MCH 31.2 MCHC 33.7 RDW 14.0 Plt Count 114 L MPV 10.6 H Neut % (Auto) 61.8 Lymph % (Auto) 23.6 [place] % (Auto) 8.4 Eos % (Auto) 5.5 Baso % (Auto) 0.5 Neut # (Auto) 2.7 Lymph # (Auto) 1.0 [place] # (Auto) 0.4 Eos # (Auto) 0.2 Baso # (Auto) 0.0 Sodium 138 Potassium 3.9 Chloride 104 Carbon Dioxide 30 Anion Gap 7.9 BUN 22 H Creatinine 1.70 H Estimated Creat Clear 54 Estimated GFR 40 L Est GFR ( Amer) 48 L Glucose 96 POC Glucose 101 111 H Calcium 8.7 Magnesium 1.9 Total Bilirubin 0.6 AST 31 ALT 16 Alkaline Phosphatase 99 Total Protein 6.0 L Albumin 3.6 Globulin 2.4 Albumin/Globulin Ratio 1.5 02/28/25 02/28/25 16:29 11:09 WBC RBC Hgb Hct MCV MCH MCHC RDW Plt Count MPV Neut % (Auto) Lymph % (Auto) [place] % (Auto) Eos % (Auto) Baso % (Auto) Neut # (Auto) Lymph # (Auto) [place] # (Auto) Eos # (Auto) Baso # (Auto) Sodium Potassium Chloride Carbon Dioxide Anion Gap BUN Creatinine Estimated Creat Clear Estimated GFR Est GFR ( Amer) Glucose POC Glucose 106 157 H Calcium Magnesium Total Bilirubin AST ALT Alkaline Phosphatase Total Protein Albumin Globulin Albumin/Globulin Ratio DS: Diagnosis Discharge Diagnosis (1) Cholelithiasis: Status: Acute Code(s): K80.20 - Calculus of gallbladder without cholecystitis without obstruction Qualifiers: Biliary obstruction: without biliary obstruction Cholecystitis acuity: acute Cholecystitis presence: with cholecystitis Cholelithiasis location: gallbladder Qualified Code(s): K80.00 - Calculus of gallbladder with acute cholecystitis without obstruction (2) Elevated lipase: Status: Acute Code(s): R74.8 - Abnormal levels of other serum enzymes (3) Anemia: Status: Acute Code(s): D64.9 - Anemia, unspecified (4) Epigastric pain: Status: Acute Code(s): R10.13 - Epigastric pain (5) Chronic Kidney Disease: Status: Acute Code(s): N18.9 - Chronic kidney disease, unspecified Qualifiers: Chronic kidney disease stage: stage 3 (moderate) Chronic kidney disease stage 3 subtype: unspecified whether 3a or 3b Qualified Code(s): N18.30 - Chronic kidney disease, stage 3 unspecified (6) Obesity (BMI 30.0-34.9): Status: Chronic Code(s): E66.811 - Obesity, class 1 (7) Diabetes mellitus: Status: Chronic Code(s): E11.9 - Type 2 diabetes mellitus without complications Qualifiers: Diabetes mellitus complication status: without complication Diabetes mellitus director of events insulin use: with custodial use Diabetes mellitus type: type 2 Qualified Code(s): E11.9 - Type 2 diabetes mellitus without complications; 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 (8) Hypertension: Status: Acute Code(s): I10 - Essential (primary) hypertension Qualifiers: Hypertension type: unspecified Qualified Code(s): I10 - Essential (primary) hypertension Meds Home Medications and Allergies Home Medications ?Medication ?Instructions ?Recorded ?Confirmed ?Type allopurinol 300 mg tablet 300 mg PO DAILY 04/01/23 02/27/25 History gabapentin 300 mg capsule 300 mg PO TID 04/01/23 02/27/25 History furosemide 20 mg tablet 20 mg PO DAILY 04/06/23 02/27/25 History pioglitazone 45 mg tablet 45 mg PO DAILY 07/07/23 02/27/25 History insulin glargine 100 unit/mL (3 30 unit SQ HS 01/07/24 02/27/25 History mL) subcutaneous pen (Lantus Solostar U-100 Insulin) carvedilol 3.125 mg tablet 3.125 mg PO BID #180 tabs 09/19/24 02/27/25 Rx clopidogrel 75 mg tablet 75 mg PO DAILY 02/27/25 02/27/25 History pantoprazole 40 mg tablet,delayed 40 mg PO DAILY 02/27/25 02/27/25 History release rosuvastatin 10 mg tablet 10 mg PO DAILY 02/27/25 02/27/25 History semaglutide 2 mg/dose (8 mg/3 mL) 2 mg SQ WEEKLY 02/27/25 02/27/25 History subcutaneous pen injector (Ozempic) New Prescriptions to Start Prescriptions: Allergies Allergy/AdvReac Type Severity Reaction Status Date / Time No Known Allergies Allergy Verified 02/27/25 08:11 Discharge Plan Disposition Patient Disposition: Home, Self-Care Condition: Fair Follow up Plan Follow up with: Dandre Montano MD [Staff Physician] - 03/09/25 10:30 am Akira Fajardo [Primary Care Provider] - 03/08/25 10:00 am Prescriptions/Medication Reconciliation: Continued carvedilol 3.125 mg tablet 3.125 mg PO BID Qty: 180 3RF furosemide 20 mg tablet 20 mg PO DAILY pioglitazone 45 mg tablet 45 mg PO DAILY gabapentin 300 mg capsule 300 mg PO TID allopurinol 300 mg tablet 300 mg PO DAILY insulin glargine [Lantus Solostar U-100 Insulin] 100 unit/mL (3 mL) insulin pen 30 unit SQ HS clopidogrel 75 mg tablet 75 mg PO DAILY rosuvastatin 10 mg tablet 10 mg PO DAILY pantoprazole 40 mg tablet,delayed release (DR/EC) 40 mg PO DAILY Held Ozempic 2 mg/dose (8 mg/3 mL) pen injector 2 mg SQ WEEKLY Hold Instructions: pending surgery eval and cholecystectomy Problem Reconciliation Problems Reviewed?: Yes Patient Discharge Instructions ACTIVITY: Continue current activity DIET: advance to your usual diet and low fat, low cholesterol Patient Instructions: DI for Gallstones, DI for Acute Kidney Injury Print Language: Faroese Providers Primary Care Provider: Akira Fajardo Admit Provider: Keaton Martin Attending Provider: Keaton Martin
[2025-03-01 08:00] VITALS: BP 140/93; PULSE 80; RESP 17; TEMP 36.6; O2SAT 95
[2025-03-01] MEDS: CARVEDILOL 3.125MG TABLET 3.125 MG PO (09:44)
[2025-03-01] MEDS: FUROSEMIDE 20MG TABLET 20 MG PO (09:44)
--- NOTE | 2025-03-02 10:16 | SW/DCPLANNER ---
Spoke with patient on the phone. Patient stated that he is doing well. Patient stated that he is aware of his upcoming appointments. Patient stated that he has no concerns or questions at this time. Patient stated that he was not prescribed any new medicine. Eliane Munroe
== END 2025-03-01 11:25 | disposition home or self-care (01) ==
LOC: ER 08:06 → 2ND 11:00
PROVIDERS: Admitting Provider Student in an Organized Health Care Education/Training Program; Emergency Provider Emergency Medicine; PCP Family Medicine; Visit Provider Student in an Organized Health Care Education/Training Program
DX: K85.10 Biliary acute pancreatitis without necrosis or infection (principal); R14.0 Abdominal distension (gaseous); E11.22 Type 2 diabetes mellitus with diabetic chronic kidney disease; I12.9 Hypertensive chronic kidney disease with stage 1 through stage 4 chronic kidney disease, or unspecified chronic kidney disease; N18.4 Chronic kidney disease, stage 4 (severe); I25.10 Atherosclerotic heart disease of native coronary artery without angina pectoris; J44.9 Chronic obstructive pulmonary disease, unspecified; R10.84 Generalized abdominal pain; F17.290 Nicotine dependence, other tobacco product, uncomplicated; E11.40 Type 2 diabetes mellitus with diabetic neuropathy, unspecified; D64.9 Anemia, unspecified; Z79.85 Long-term (current) use of injectable non-insulin antidiabetic drugs; Z79.84 Long term (current) use of oral hypoglycemic drugs; Z95.5 Presence of coronary angioplasty implant and graft; Z79.4 Long term (current) use of insulin; Z86.2 Personal history of diseases of the blood and blood-forming organs and certain disorders involving the immune mechanism; Z80.6 Family history of leukemia; Z82.3 Family history of stroke; Z79.02 Long term (current) use of antithrombotics/antiplatelets; E66.9 Obesity, unspecified; Z68.33 Body mass index [BMI] 33.0-33.9, adult
CPT/HCPCS: 36415; 71045; 74177; 74181; 76376; 76705; 80053; 80061; 81001; 82962; 83690; 83735; 84484; 85025; 85610; 85730; 93005; 93306; 99285; G0378; J7120; Q9967

== ENCOUNTER 2025-03-09 07:57 | Emergency (ER) | payer MEDICARE, SELFPAY ==
[2025-03-09] VITALS (8 sets, daily range): BP systolic 143–180; BP diastolic 75–102; PULSE 58–88; RESP 12–20; TEMP 36.8–36.9; O2SAT 90–100; BMI 34.0
--- NOTE | 2025-03-09 08:09 | CT_ITS ---
FINAL REPORT TECHNIQUE: IV contrast enhanced exam. Coronal and sagittal reconstructions obtained and reviewed. This study was performed with techniques to keep radiation doses as low as reasonably achievable, (ALARA). Individualized dose reduction techniques using automated exposure control or adjustment of mA and/or kV according to the patient''s size were employed. CLINICAL HISTORY: cholelithiasis, RUQ pain to back COMPARISON: 02/27/2025 FINDINGS: Abdomen: No acute density is seen within the lung bases. The gallbladder is distended with possible small gallstones. There is no gallbladder wall thickening. No biliary ductal dilatation. Solid abdominal organs are unremarkable. No bowel obstruction is present. There is no free air. No fluid collection is seen. There is no adenopathy. Pelvis: No evidence of appendicitis. Surgical changes are noted in the bilateral inguinal regions, presumed to be from hernia repair. Fluid collection along the right inguinal hernia repair site is improved, probably related to chronic seroma/hematoma. No bowel wall thickening is present. There is moderate prostate enlargement. No pelvic mass is seen. IMPRESSION: No evidence of bowel obstruction. Distended gallbladder with possible small gallstones. Acute cholecystitis not excluded. Reviewed, Interpreted and Dictated by Jaylen Reece MD Transcribed by Linda Davis Authenticated and [facility]
--- NOTE | 2025-03-09 08:09 | ECG_ITS ---
APPROVED REPORT Exam: Resting ECG HR:56 bpm ECG Measurements Heart Rate 56 AXES VA 192 P 40 QRSd 92 QRS -14 QT 468 T 5 QTc 460 Conclusion SINUS BRADYCARDIA LOW QRS VOLTAGE IN PRECORDIAL LEADS [QRS DEFLECTION < 1.0 mV IN CHEST LEADS] MINIMAL VOLTAGE CRITERIA FOR LVH, CONSIDER NORMAL VARIANT [MEETS CRITERIA IN ONE OF: R(aVL), S(V1), R(V5), R(V5/V6)+S(V1)] POSSIBLE ANTERIOR MYOCARDIAL INFARCTION , PROBABLY OLD [30 ms Q WAVE IN V3/V4, OR R < 0.2 mV IN V4] BORDERLINE ECG UNCONFIRMED REPORT Electronically signed by : YAIR HERBERT, 03/13/2025 06:58:37
[2025-03-09 08:10] LABS: Microscopic, Urine URINE MICROSCOPIC (MICROSCOPIC)
--- NOTE | 2025-03-09 08:10 | [facility].EDGENADL ---
Discharge Plan Disposition Patient Disposition: Home, Self-Care Prescriptions Prescriptions: No Action carvedilol 3.125 mg tablet 3.125 mg PO BID Qty: 180 3RF furosemide 20 mg tablet 20 mg PO DAILY pioglitazone 45 mg tablet 45 mg PO DAILY gabapentin 300 mg capsule 300 mg PO TID allopurinol 300 mg tablet 300 mg PO DAILY insulin glargine [Lantus Solostar U-100 Insulin] 100 unit/mL (3 mL) insulin pen 30 unit SQ HS Ozempic 2 mg/dose (8 mg/3 mL) pen injector 2 mg SQ WEEKLY clopidogrel 75 mg tablet 75 mg PO DAILY rosuvastatin 10 mg tablet 10 mg PO DAILY pantoprazole 40 mg tablet,delayed release (DR/EC) 40 mg PO DAILY lisinopril 20 mg tablet 20 mg PO DAILY tamsulosin 0.4 mg capsule 0.4 mg PO DAILY Referrals Follow up/Referrals: Dandre Montano MD [Staff Physician] - See instructions Akira Fajardo [Primary Care Provider] - See instructions Activity Restrictions/Add. Instructions Additional Instructions/Restrictions: At this time it was felt you are safe to be discharged home. If new or worsening symptoms please do not hesitate to return the emergency department. You have an appointment with cardiology for clearance on 2:45 PM this coming Thursday. Please attend this appointment and then call and schedule an appointment with Dr. Montano so you can schedule your gallbladder intervention. Clinical Impressions Clinical Impression: Biliary colic Instructions Patient Instructions: DI for Acute Abdominal Pain Print Language Print Language: Uzbek Discharge ED Provider: José Miguel Larios General Adult HPI General Chief complaint: Abdominal Pain Stated complaint: abd pain Time Seen by Provider: 03/09/25 08:00 History of Present Illness HPI narrative: Patient is a 74-year-old male with past medical history of CKD, diabetes that is insulin-dependent, hypertension, hyperlipidemia, coronary artery disease status post stenting, known cholelithiasis who presents emergency department for evaluation of abdominal pain. Onset was acute, since 10:00 last night, there is associated nonbloody vomiting. Last bowel movement 2 days ago still passing flatus. Patient has right upper quadrant pain that radiates through to his back and across his abdomen. Patient has had on and off pain over the last 7 to 8 weeks, worse with p.o. intake. Patient was recently admitted, it was ultimately determined that he did not have acute cholecystitis and right upper quadrant showed cholelithiasis without evidence of acute gallbladder disease General Surgery was consulted did not plan for inpatient cholecystectomy and recommended outpatient restratification by cardiology prior to cholecystectomy which they are working to arrange. Dr. Rivero reprimanded MRCP. MRCP was conducted on 4?1 uncomplicated cholelithiasis without evidence of biliary ductal dilatation or choledocholithiasis. Patient was subsequently discharged home and had symptom-free interval until last night. No chest pain. No other acute complaints at this time. Please note that above description of symptoms, in this electronic medical record under categorization of recalled from ER triage doctor by RN are reflective of an initial nursing assessment, however, is not reflective of my full history and physical exam that was personally taken and clarified. Consequentially, this preceding description of symptoms, which may include the patient's categorized chief complaint in the EMR, do not reflect my personal clinical impression, and the ultimate description of history of present illness and patient stated complaints should be deferred to this section of the note. Unless stated otherwise or congruent with this section of the note, additional signs, symptoms, or incongruence should be interpreted as inaccurate with my clinical impression. Related Data Home Medications ?Medication ?Instructions ?Recorded ?Confirmed allopurinol 300 mg tablet 300 mg PO DAILY 04/01/23 03/09/25 gabapentin 300 mg capsule 300 mg PO TID 04/01/23 03/09/25 furosemide 20 mg tablet 20 mg PO DAILY 04/06/23 02/27/25 pioglitazone 45 mg tablet 45 mg PO DAILY 07/07/23 03/09/25 insulin glargine 100 unit/mL (3 30 unit SQ HS 01/07/24 03/09/25 mL) subcutaneous pen (Lantus Solostar U-100 Insulin) clopidogrel 75 mg tablet 75 mg PO DAILY 02/27/25 03/09/25 pantoprazole 40 mg tablet,delayed 40 mg PO DAILY 02/27/25 03/09/25 release rosuvastatin 10 mg tablet 10 mg PO DAILY 02/27/25 03/09/25 semaglutide 2 mg/dose (8 mg/3 mL) 2 mg SQ WEEKLY 02/27/25 03/09/25 subcutaneous pen injector (Ozempic) lisinopril 20 mg tablet 20 mg PO DAILY 03/09/25 03/09/25 tamsulosin 0.4 mg capsule 0.4 mg PO DAILY 03/09/25 03/09/25 Previous Rx's ?Medication ?Instructions ?Recorded carvedilol 3.125 mg tablet 3.125 mg PO BID #180 tabs 09/19/24 Allergies Allergy/AdvReac Type Severity Reaction Status Date / Time No Known Allergies Allergy Verified 02/27/25 08:11 [facility] Disclaimer: The information contained in this section may have been updated after the patient was seen, as this information can be updated by other users. Medical History (Updated 03/09/25 @ 13:15 by José Miguel Larios MD) Chronic Kidney Disease Pre-operative cardiovascular examination History of left heart catheterization Sleep apnea COPD (chronic obstructive pulmonary disease) JON (acute kidney injury) Dyspnea Hypotension Hx of fracture of left hip Hyperlipidemia Hypertension Dyslipidemia Coronary artery disease CAD (coronary artery disease) Neuropathy Arthritis Gout Diabetes mellitus Surgical History H/O right heart catheterization Hx of right knee surgery Hx of hernia repair Stented coronary artery Status post total right knee replacement Family History Other Leukemia Stroke Social History Smoking Status: Never smoker second hand exposure: No alcohol intake: former substance use type: denies use current occupational status: retired and disabled Travel in the last 8 weeks: None household members: family housing: house current occupational exposures/hazards: No caffeine: No Other Medical History Have you received the Flu Vaccine for this season: No Have you received the Pneumonia Vaccine: No ROS Obtained: Yes Systems reviewed as appropriate & no additional complaints except as documented Physical Exam General General appearance: alert and in no apparent distress Head Head exam: atraumatic and normocephalic Eye Eye exam: Present PERRL and EOMI ENT ENT exam: Present mucous membranes moist Neck Neck exam: Present normal inspection Chest Chest inspection: Present normal inspection and symmetric chest wall rise Respiratory Respiratory exam: Present normal lung sounds bilaterally; Absent respiratory distress Cardiovascular Cardiovascular exam: Present regular rate and normal rhythm Abdominal Exam Abdominal exam: Present soft and tenderness (Mild, right upper quadrant, left upper quadrant); Absent guarding or rebound Extremities Exam Extremities exam: Present normal inspection Neurological Exam Neurological exam: Present alert Psychiatric Psychiatric exam: Present normal affect Skin Skin exam: Present warm and dry Medical Decision Making Medical Records Screening: Per USPSTF and CDC recommendations, given the prevalence of disease in our region, it is our hospital?s policy to screen for HIV and viral Hepatitis for all patients aged 18 and over and those with ongoing risk factors. Compa Inquiry Pt receiving controlled substance: No Vital Signs: 03/09/25 08:15 03/09/25 08:19 03/09/25 08:31 Temperature 98.2 F Temperature Source Oral Pulse Rate 61 61 Pulse Rate [Left Radial] 58 L Respiratory Rate 16 14 18 Blood Pressure 175/100 H 180/102 H Blood Pressure [Right Arm] 175/100 H Blood Pressure Mean 110 115 Blood Pressure Mean [Right Arm] 125 02 Sat by Pulse Oximetry 96 97 95 Oxygen Delivery Method Room Air 03/09/25 09:01 03/09/25 09:30 03/09/25 10:30 Temperature Temperature Source Pulse Rate 61 80 74 Pulse Rate [Left Radial] Respiratory Rate 13 14 14 Blood Pressure 171/87 H 161/94 H 171/95 H Blood Pressure [Right Arm] Blood Pressure Mean 110 110 121 Blood Pressure Mean [Right Arm] 02 Sat by Pulse Oximetry 93 L 90 L 100 Oxygen Delivery Method 03/09/25 11:00 Temperature Temperature Source Pulse Rate 77 Pulse Rate [Left Radial] Respiratory Rate 20 Blood Pressure 159/93 H Blood Pressure [Right Arm] Blood Pressure Mean 115 Blood Pressure Mean [Right Arm] 02 Sat by Pulse Oximetry 99 Oxygen Delivery Method Lab Data Lab Results 03/09/25 08:03: Urine Color Yellow, Urine Appearance Clear, Urine pH 7.5, Ur Specific [place]ridge 1.020, Urine Protein 2+ A, Urine Glucose (UA) Negative, Urine Ketones Negative, Urine Blood 1+ A, Urine Nitrate Negative, Urine Bilirubin Negative, Urine Urobilinogen 0.2, Ur Leukocyte Esterase Negative, Urine RBC 3-5, Urine WBC None, Ur Squamous Epith Cells None, Urine Bacteria None 03/09/25 08:15: WBC 8.6, RBC 4.20 L, Hgb 12.8 L, Hct 39.4 L, MCV 93.8, MCH 30.5, MCHC 32.5, RDW 14.5, Plt Count 149, MPV 10.1, Neut % (Auto) 86.7 H, Lymph % (Auto) 10.0, [place] % (Auto) 2.7, Eos % (Auto) 0.2, Baso % (Auto) 0.2, Neut # (Auto) 7.5, Lymph # (Auto) 0.9, [place] # (Auto) 0.2, Eos # (Auto) 0.0, Baso # (Auto) 0.0, Sodium 139, Potassium 4.4, Chloride 102, Carbon Dioxide 28, Anion Gap 13.4, BUN 30 H, Creatinine 1.80 H, Estimated Creat Clear 53, Estimated GFR 37 L, Est GFR ( Amer) 45 L, Glucose 148 H, Calcium 9.3, Total Bilirubin 0.4, AST 36, ALT 24, Alkaline Phosphatase 125, Troponin I < 0.01, Total Protein 7.4, Albumin 4.4, Globulin 3.0, Albumin/Globulin Ratio 1.5, Lipase 211 03/09/25 08:15 03/09/25 08:15 Orders (Tests/Meds): ED MEDICATIONS Discontinued Medications Generic Name Dose Route Start Last Admin Trade Name Freq PRN Reason Stop Dose Admin Lactated Ringer's 500 mls @ 999 mls/hr 03/09/25 08:10 03/09/25 08:35 Lactated Ringer's 500ml IV 03/09/25 08:40 999 mls/hr .Q31M ONE Administration Iopamidol 75 ml 03/09/25 08:54 03/09/25 08:55 Iopamidol-370 (76%);100ml Bottle IV 03/09/25 08:55 75 ml ONCE ONE Administration Ketorolac Tromethamine 15 mg 03/09/25 08:09 03/09/25 08:35 Ketorolac 30mg/Ml Vial IV 03/09/25 08:10 15 mg ONCE ONE Administration Morphine Sulfate 4 mg 03/09/25 08:09 03/09/25 08:35 Morphine 4mg/Ml Syringe IV 03/09/25 08:10 4 mg ONCE ONE Administration Ondansetron HCl 4 mg 03/09/25 08:09 03/09/25 08:35 Ondansetron 4mg/2ml Vial IV 03/09/25 08:10 4 mg ONCE ONE Administration Sodium Chloride 10 ml 03/09/25 08:54 03/09/25 08:55 Sodium Chloride 0.9% 10ml Syr (Rad Only) IV 03/09/25 08:55 10 ml ONCE ONE Administration ORDERS Category Date Time Status CT abdomen pelvis w con Stat Cat Scan 03/09/25 08:09 Completed US gallbladder Stat Exams 03/09/25 09:37 Completed CBC w/Auto Diff [Complete Blood Count Auto Diff] Stat Lab 03/09/25 08:15 Completed CMP [Comprehensive Metabolic Panel] Stat Lab 03/09/25 08:15 Completed Lipase Stat Lab 03/09/25 08:15 Completed Trop I [Troponin I] Stat Lab 03/09/25 08:15 Completed UA [Urinalysis and Microscopic] Stat Lab 03/09/25 08:03 Completed ECG Data Tracing #1: Independently interpreted by me rate is 56, rhythm is regular, axis is normal, no ST elevation in anatomical contiguous leads, QTc 460 Medical Decision Narrative: In summary patient is a 74-year-old male past medical history described above presents emergency department for evaluation of abdominal pain. Patient is hemodynamically stable nontoxic-appearing upon arrival, afebrile. I suspect that patient has symptomatic cholelithiasis however differential includes cholecystitis, atypical diverticulitis, pancreatitis, among others. Workup will be conducted with hematologic labs, urinalysis, CT imaging of the abdomen pelvis, EKG, troponin. Initial interventions include multimodal pain control gentle crystalloid resuscitation and Zofran. Initial workup reviewed by me, hematologic labs no significant leukocytosis no anemia, no JON or critical electrolyte abnormality, no troponin undetectably low. Urinalysis interpreted by me and not consistent with infection. CT imaging no evidence of bowel obstruction distended gallbladder with possible small gallstones acute cholecystitis not excluded for which we will proceed with formal ultrasound. Gallbladder ultrasound features are mildly suspicious for mild acute cholecystitis. I discussed case with Dr. Montano regarding management, gallbladder is mildly thickened, no pericholecystic fluid, he has mild tenderness. Given this no acute surgical intervention is indicated at this time and we will proceed with p.o. trial and if it is successful without significant symptoms we will expedite his cardiology perioperative risk evaluation and he will follow-up with Dr. Montano for surgical invention on an outpatient basis. Patient underwent p.o. trial with full meal and was successful. Upon repeat evaluation resting comfortably in bed. Given this patient is appropriate for discharge at this time and cardiology appointment was scheduled for this coming Thursday morning. Patient was given return precautions. Critical Care Critical Care Time Critical Care Time: No
[2025-03-09 08:24] LABS: Appearance,Urine CLEAR (Clear); Bilirubin,Urine Negative (Negative); Blood, Urine 1+ (Negative); Color,Urine YELLOW (Yellow); Glucose,Urine (UA) Negative (Negative); Ketones,Urine Negative (Negative); Leukocyte Esterase,Urine Negative (Negative); Nitrate,Urine Negative (Negative); PH,Urine 7.5 (5.0-8.5); Protein,Urine 2+ (Negative); Urobilinogen,Urine 0.2 EU/dl (0.2)
[2025-03-09 08:28] LABS: Basophils % 0.2 % (0.1-2.0); Eosinophils % 0.2 % (0.1-12.0); Hematocrit 39.4 % (42.0-52.0); Hemoglobin 12.8 g/dL (14.1-18.0); Lymphocytes # 0.9 K/mm3 (0.7-4.5); Mean Corpuscular HGB Conc 32.5 g/dL (31.8-35.4); Mean Corpuscular Hemoglobin 30.5 pg (27.0-31.2); Mean Corpuscular Volume 93.8 fl (80-94); Mean Platelet Volume 10.1 fl (7.4-10.4); Monocytes # 0.2 K/mm3 (0.1-1.0); Monocytes % 2.7 % (1.7-9.3); Neutrophils # 7.5 K/mm3 (1.8-7.8); Neutrophils % 86.7 % (37.0-80.0); Nucleated Red Blood Cells # 0 10^3/uL; Nucleated Red Blood Cells % 0 %; Platelet Count 149 K/mm3 (142-424); Red Cell Distribution Width 14.5 % (11.5-17.5); Red Cell Distribution Width-SD 50.1 fL; White Blood Count 8.6 K/mm3 (4.8-10.8)
[2025-03-09 08:30] LABS: Albumin Level 4.4 g/dl (3.5-5.0); Chloride 102 mmol/L (98-107); Potassium 4.4 mmoL/L (3.5-5.1); Sodium 139 mmol/L (136-145)
[2025-03-09 08:32] LABS: Blood Urea Nitrogen 30 mg/dl (9-20); Creatinine Clearance Estimated 53 mL/min (50-200); Estimated Glomerular Filt Rate 37 ml/min (>60); GFR (African American) 45 ML/MIN (>60)
[2025-03-09 08:33] LABS: Alanine Aminotransferase 24 U/L (12-78); Albumin/Globulin Ratio 1.5 (1.1-1.8); Alkaline Phosphatase 125 U/L (38-126); Anion Gap 13.4 mEq/L (5-15); Aspartate Amino Transferase 36 U/L (17-59); Bilirubin,Total 0.4 mg/dl (0.2-1.3); Calcium 9.3 mg/dl (8.4-10.2); Carbon Dioxide 28 mmol/L (22.0-30.0); Glucose 148 mg/dl (74-100); Lipase 211 U/L (23-300); Total Protein,Serum 7.4 g/dl (6.3-8.2)
[2025-03-09] MEDS: RINGERS SOLUTION,LACTATED 500 ML 999 ML IV (08:35)
[2025-03-09] MEDS: MORPHINE 4MG/ML SYRINGE 4 MG IV (08:35)
[2025-03-09] MEDS: KETOROLAC 30MG/ML VIAL 15 MG IV (08:35)
[2025-03-09] MEDS: ONDANSETRON 4MG/2ML VIAL 4 MG IV (08:35)
[2025-03-09 08:45] LABS: Troponin I < 0.01 ng/ml (0.00-0.034)
[2025-03-09] MEDS: SODIUM CHLORIDE 0.9% 10ML SYR (RAD ONLY) 10 ML IV (08:55)
[2025-03-09] MEDS: IOPAMIDOL-370 (76%);100ML BOTTLE 75 ML IV (08:55)
--- NOTE | 2025-03-09 09:37 | US_ITS ---
FINAL REPORT TECHNIQUE: Multiple transverse and longitudinal images CLINICAL HISTORY: RUQ pain, stones-- recent us COMPARISON: 02/27/[address] abdomen/pelvis 1 hour prior FINDINGS: Gallbladder distention is noted with short axis measuring 5 cm. There is mild gallbladder wall thickening measuring up to 4 mm. Cholelithiasis is noted. There is no evidence of biliary obstruction or fluid. Limited portions of the right liver are unremarkable. Limited portions of the right kidney are unremarkable. IMPRESSION: Features mildly suspicious for mild acute cholecystitis. Correlate with clinical presentation. Reviewed, Interpreted and Dictated by Jaylen Reece MD Transcribed by Linda Davis Authenticated and [facility]
--- NOTE | 2025-03-09 09:41 | PC.NURSE ---
called US for GB order placed by dr evans as well as called gen surgery office to let them know patient was here and would not make his 10 am appt today
--- NOTE | 2025-03-09 10:57 | PC.NURSE ---
DR JACOBSEN PAGED
--- NOTE | 2025-03-09 11:27 | PC.NURSE ---
Food Tray was ordered and pt was helped to and from the bathroom
== END 2025-03-09 13:34 | disposition home or self-care (01) ==
PROVIDERS: Emergency Provider Emergency Medicine; PCP Family Medicine
DX: R10.11 Right upper quadrant pain (principal); K80.50 Calculus of bile duct without cholangitis or cholecystitis without obstruction; E11.9 Type 2 diabetes mellitus without complications; Z79.4 Long term (current) use of insulin
CPT/HCPCS: 74177; 76705; 80053; 81001; 83690; 84484; 85025; 93005; 96374; 96375; 99285; J1885; J2270; J2405; J7120; Q9967

== ENCOUNTER 2025-03-11 19:54 | Emergency (ER) | payer MEDICARE, SELFPAY ==
[2025-03-11] VITALS (8 sets, daily range): BP systolic 135–140; BP diastolic 63–80; PULSE 61–80; RESP 15–18; TEMP 36.6–36.7; O2SAT 58–98; BMI 34.2
--- NOTE | 2025-03-11 20:07 | ECG_ITS ---
APPROVED REPORT Exam: Resting ECG HR:60 bpm ECG Measurements Heart Rate 60 AXES DE 179 P 40 QRSd 91 QRS -18 QT 438 T 43 QTc 438 Conclusion SINUS RHYTHM WITH SINUS ARRHYTHMIA LOW QRS VOLTAGE IN PRECORDIAL LEADS [QRS DEFLECTION < 1.0 mV IN CHEST LEADS] Electronically signed by : LUCIAN YING, 03/11/2025 23:27:07
--- NOTE | 2025-03-11 20:14 | ED_ITS ---
Discharge Plan Disposition Patient Disposition: Home, Self-Care Condition: Good Prescriptions Prescriptions: No Action carvedilol 3.125 mg tablet 3.125 mg PO BID Qty: 180 3RF furosemide 20 mg tablet 20 mg PO DAILY pioglitazone 45 mg tablet 45 mg PO DAILY gabapentin 300 mg capsule 300 mg PO TID allopurinol 300 mg tablet 300 mg PO DAILY insulin glargine [Lantus Solostar U-100 Insulin] 100 unit/mL (3 mL) insulin pen 30 unit SQ HS Ozempic 2 mg/dose (8 mg/3 mL) pen injector 2 mg SQ WEEKLY clopidogrel 75 mg tablet 75 mg PO DAILY rosuvastatin 10 mg tablet 10 mg PO DAILY pantoprazole 40 mg tablet,delayed release (DR/EC) 40 mg PO DAILY lisinopril 20 mg tablet 20 mg PO DAILY tamsulosin 0.4 mg capsule 0.4 mg PO DAILY Referrals Follow up/Referrals: Akira Fajardo [Primary Care Provider] - See instructions Activity Restrictions/Add. Instructions Additional Instructions/Restrictions: Low-fat low residue diet Follow-up with cardiology and surgery as scheduled If symptoms return or worsen return Clinical Impressions Clinical Impression: Acute cholecystitis Cholelithiasis Qualifiers: Cholelithiasis location: gallbladder Cholecystitis presence: with cholecystitis Cholecystitis acuity: acute Biliary obstruction: without biliary obstruction Q ualified Code(s): K80.00 - Calculus of gallbladder with acute cholecystitis without obstruction Instructions Patient Instructions: DI for Gallstones, DI for Acute Abdominal Pain Print Language Print Language: Georgian Discharge ED Provider: James Livingston General Adult HPI <Vivian Maria ([facility]), [employer] - Last Filed: 03/11/25 21:42> General Chief complaint: Abdominal Pain Stated complaint: Pain in stomach,back,chest,nausea Time Seen by Provider: 03/11/25 20:07 Mode of Arrival: Ambulatory Source of Information: Patient Description of Symptoms (Recalled from ER Triage Doc. by RN): Patient presents today with back, abdominal, flank pain on right side. Patient was just in ED for gallstones. History of Present Illness HPI narrative: 74-year-old male presents for complaints of back, abdominal, and flank pain on the right side. Patient states he has been to the ER couple times recently due to gallstones. Patient states he has an appointment Thursday with cardiology for surgery clearance and appointment for Dr. Montano on Thursday. Related Data Home Medications ?Medication ?Instructions ?Recorded ?Confirmed allopurinol 300 mg tablet 300 mg PO DAILY 04/01/23 03/09/25 gabapentin 300 mg capsule 300 mg PO TID 04/01/23 03/09/25 furosemide 20 mg tablet 20 mg PO DAILY 04/06/23 02/27/25 pioglitazone 45 mg tablet 45 mg PO DAILY 07/07/23 03/09/25 insulin glargine 100 unit/mL (3 30 unit SQ HS 01/07/24 03/09/25 mL) subcutaneous pen (Lantus Solostar U-100 Insulin) clopidogrel 75 mg tablet 75 mg PO DAILY 02/27/25 03/09/25 pantoprazole 40 mg tablet,delayed 40 mg PO DAILY 02/27/25 03/09/25 release rosuvastatin 10 mg tablet 10 mg PO DAILY 02/27/25 03/09/25 semaglutide 2 mg/dose (8 mg/3 mL) 2 mg SQ WEEKLY 02/27/25 03/09/25 subcutaneous pen injector (Ozempic) lisinopril 20 mg tablet 20 mg PO DAILY 03/09/25 03/09/25 tamsulosin 0.4 mg capsule 0.4 mg PO DAILY 03/09/25 03/09/25 Previous Rx's ?Medication ?Instructions ?Recorded carvedilol 3.125 mg tablet 3.125 mg PO BID #180 tabs 09/19/24 Allergies Allergy/AdvReac Type Severity Reaction Status Date / Time No Known Allergies Allergy Verified 02/27/25 08:11 [facility] <Vivian Maria ([facility]), [employer] - Last Filed: 03/11/25 21:42> [facility] Disclaimer: The information contained in this section may have been updated after the patient was seen, as this information can be updated by other users. Medical History , [employer]) Chronic Kidney Disease Pre-operative cardiovascular examination History of left heart catheterization Sleep apnea COPD (chronic obstructive pulmonary disease) JON (acute kidney injury) Dyspnea Hypotension Hx of fracture of left hip Hyperlipidemia Hypertension Dyslipidemia Coronary artery disease CAD (coronary artery disease) Neuropathy Arthritis Gout Diabetes mellitus Surgical History , [employer]) H/O right heart catheterization Hx of right knee surgery Hx of hernia repair Stented coronary artery Status post total right knee replacement Family History , [employer]) Leukemia Stroke Social History , [employer]) Smoking Status: Unknown if ever smoked second hand exposure: No alcohol intake: former substance use type: denies use current occupational status: retired and disabled Travel in the last 8 weeks: None household members: family housing: house current occupational exposures/hazards: No caffeine: No Have you lived/traveled outside [place] in past 30 days?: No Contact w/someone who lives/traveled outside US past 30 days?: No Exposure to someone with infectious disease in past 14 days?: No Do you have a fever (greater than 100.4 F or 38 C)?: No Have you tested positive for COVID-19: No Exposed to someone with COVID-19 in past 14 days?: No Do you have a sore throat?: No Do you have a cough?: No Do you have any weakness?: Yes Do you have any diarrhea?: No Are you experiencing any unusual bleeding?: No Do you have any muscle aches/pain?: Yes Do you have any abdominal pain?: Yes Are you experiencing loss of taste or smell?: No Other Medical History Have you received the Flu Vaccine for this season: No Have you received the Pneumonia Vaccine: No <[facility] Braxton - Last Filed: 03/11/25 21:42> ROS Obtained: Yes Systems reviewed as appropriate & no additional complaints except as documented Gastrointestinal Gastrointestingal: Reports system reviewed and no additional complaints, except as documented, as per HPI, abdominal pain and nausea Physical Exam <[facility] Bra[facility] - Last Filed: 03/11/25 21:42> General General appearance: alert and in no apparent distress Eye Eye exam: Present normal appearance and PERRL ENT ENT exam: Present normal exam Respiratory Respiratory exam: Present normal lung sounds bilaterally Cardiovascular Cardiovascular exam: Present regular rate and normal rhythm Abdominal Exam Abdominal exam: Present soft, tenderness and normal bowel sounds Abdominal tenderness: Present RUQ Neurological Exam Neurological exam: Present alert and oriented X3 Skin Skin exam: Present warm and intact Medical Decision Making <Vivian Maria ([facility]), [employer] - Last Filed: 03/11/25 21:42> Medical Records Medical records reviewed: Yes I reviewed the patient's medical records. Screening: Per USPSTF and CDC recommendations, given the prevalence of disease in our region, it is our hospital?s policy to screen for HIV and viral Hepatitis for all patients aged 18 and over and those with ongoing risk factors. Compa Inquiry Pt receiving controlled substance: No Vital Signs: 03/11/25 20:02 03/11/25 20:06 03/11/25 20:54 Temperature 98.1 F Temperature Source Oral Pulse Rate 68 80 Pulse Rate [Right Radial] 61 Respiratory Rate 18 18 16 Blood Pressure 136/63 Blood Pressure [Right Arm] 136/63 Blood Pressure Mean [Right Arm] 87 Blood Pressure Source [Right Arm] Automatic Cuff 02 Sat by Pulse Oximetry 98 95 96 Oxygen Delivery Method Room Air 03/11/25 21:00 03/11/25 21:15 03/11/25 21:30 Temperature Temperature Source Pulse Rate 80 77 Pulse Rate [Right Radial] Respiratory Rate 17 15 17 Blood Pressure 140/77 135/80 Blood Pressure [Right Arm] Blood Pressure Mean [Right Arm] Blood Pressure Source [Right Arm] 02 Sat by Pulse Oximetry 93 L 96 58 L Oxygen Delivery Method 03/11/25 21:45 03/11/25 22:01 Temperature 98 F Temperature Source Pulse Rate 78 76 Pulse Rate [Right Radial] Respiratory Rate 18 16 Blood Pressure 138/72 Blood Pressure [Right Arm] Blood Pressure Mean [Right Arm] Blood Pressure Source [Right Arm] 02 Sat by Pulse Oximetry 96 Oxygen Delivery Method Lab Data Lab results reviewed: Yes I reviewed the patient's lab results. Lab Results 03/11/25 20:09: WBC 7.9, RBC 3.84 L, Hgb 12.1 L, Hct 36.1 L, MCV 94.0, MCH 31.5 H, MCHC 33.5, RDW 14.4, Plt Count 156, MPV 10.7 H, Neut % (Auto) 73.6, Lymph % (Auto) 15.3, [place] % (Auto) 7.4, Eos % (Auto) 3.0, Baso % (Auto) 0.1, Neut # (Auto) 5.8, Lymph # (Auto) 1.2, [place] # (Auto) 0.6, Eos # (Auto) 0.2, Baso # (Auto) 0.0, Sodium 138, Potassium 5.0, Chloride 104, Carbon Dioxide 27, Anion Gap 12.0, BUN 27 H, Creatinine 1.80 H, Estimated Creat Clear 53, Estimated GFR 37 L, Est GFR ( Amer) 45 L, Glucose 101 H, Calcium 8.7, Total Bilirubin 0.9, AST 120 H D, ALT 41 D, Alkaline Phosphatase 144 H, Total Protein 6.8, Albumin 3.8, Globulin 3.0, Albumin/Globulin Ratio 1.3, Lipase 170 03/11/25 20:09 03/11/25 20:09 Orders (Tests/Meds): ED MEDICATIONS Discontinued Medications Generic Name Dose Route Start Last Admin Trade Name Freq PRN Reason Stop Dose Admin Morphine Sulfate 2 mg 03/11/25 20:13 03/11/25 20:23 Morphine 2mg/Ml Syringe IV 03/11/25 20:14 2 mg ONCE ONE Administration ORDERS Category Date Time Status POCUS Point of Care (ER Only) Stat Exams 03/11/25 20:43 Completed CBC w/Auto Diff [Complete Blood Count Auto Diff] Stat Lab 03/11/25 20:09 Completed CMP [Comprehensive Metabolic Panel] Stat Lab 03/11/25 20:09 Completed Lipase Stat Lab 03/11/25 20:09 Completed Medical Decision Narrative: In summary patient is a 74-year-old male who presents to the emergency department for evaluation of back, abdomen, and flank pain with known gallstones. Patient is hemodynamically stable upon arrival, afebrile. Right upper quadrant tender to palpate. Differential diagnosis includes cholecystitis, cholelithiasis. Initial workup will be conducted with labs, ultrasound at bedside. Initial inventions include ultrasound at bedside shows::: Morphine 2 mg IV given for pain control. Initial workup reviewed by nm labs unremarkable, ultrasound done at bedside, morphine 2 mg IV given. Upon repeat evaluation patient states pain has improved and no nausea or vomiting. Given this patient is appropriate for discharge at this time follow-up with cardiology on Thursday and surgery on Thursday. Needs low-fat low residue diet <James Livingston MD - Last Filed: 03/12/25 19:24> Vital Signs: 03/11/25 20:02 03/11/25 20:06 03/11/25 20:54 Temperature 98.1 F Temperature Source Oral Pulse Rate 68 80 Pulse Rate [Right Radial] 61 Respiratory Rate 18 18 16 Blood Pressure 136/63 Blood Pressure [Right Arm] 136/63 Blood Pressure Mean [Right Arm] 87 Blood Pressure Source [Right Arm] Automatic Cuff 02 Sat by Pulse Oximetry 98 95 96 Oxygen Delivery Method Room Air 03/11/25 21:00 03/11/25 21:15 03/11/25 21:30 Temperature Temperature Source Pulse Rate 80 77 Pulse Rate [Right Radial] Respiratory Rate 17 15 17 Blood Pressure 140/77 135/80 Blood Pressure [Right Arm] Blood Pressure Mean [Right Arm] Blood Pressure Source [Right Arm] 02 Sat by Pulse Oximetry 93 L 96 58 L Oxygen Delivery Method 03/11/25 21:45 03/11/25 22:01 Temperature 98 F Temperature Source Pulse Rate 78 76 Pulse Rate [Right Radial] Respiratory Rate 18 16 Blood Pressure 138/72 Blood Pressure [Right Arm] Blood Pressure Mean [Right Arm] Blood Pressure Source [Right Arm] 02 Sat by Pulse Oximetry 96 Oxygen Delivery Method Lab Data Lab Results 03/11/25 20:09: WBC 7.9, RBC 3.84 L, Hgb 12.1 L, Hct 36.1 L, MCV 94.0, MCH 31.5 H, MCHC 33.5, RDW 14.4, Plt Count 156, MPV 10.7 H, Neut % (Auto) 73.6, Lymph % (Auto) 15.3, [place] % (Auto) 7.4, Eos % (Auto) 3.0, Baso % (Auto) 0.1, Neut # (Auto) 5.8, Lymph # (Auto) 1.2, [place] # (Auto) 0.6, Eos # (Auto) 0.2, Baso # (Auto) 0.0, Sodium 138, Potassium 5.0, Chloride 104, Carbon Dioxide 27, Anion Gap 12.0, BUN 27 H, Creatinine 1.80 H, Estimated Creat Clear 53, Estimated GFR 37 L, Est GFR ( Amer) 45 L, Glucose 101 H, Calcium 8.7, Total Bilirubin 0.9, AST 120 H D, ALT 41 D, Alkaline Phosphatase 144 H, Total Protein 6.8, Albumin 3.8, Globulin 3.0, Albumin/Globulin Ratio 1.3, Lipase 170 Orders (Tests/Meds): ED MEDICATIONS Discontinued Medications Generic Name Dose Route Start Last Admin Trade Name Carlos PRN Reason Stop Dose Admin Morphine Sulfate 2 mg 03/11/25 20:13 03/11/25 20:23 Morphine 2mg/Ml Syringe IV 03/11/25 20:14 2 mg ONCE ONE Administration ORDERS Category Date Time Status POCUS Point of Care (ER Only) Stat Exams 03/11/25 20:43 Completed CBC w/Auto Diff [Complete Blood Count Auto Diff] Stat Lab 03/11/25 20:09 Completed CMP [Comprehensive Metabolic Panel] Stat Lab 03/11/25 20:09 Completed Lipase Stat Lab 03/11/25 20:09 Completed Medical Decision Narrative: In summary patient is a 74-year-old male who presents to the emergency department for evaluation of back, abdomen, and flank pain with known gallstones. Patient is hemodynamically stable upon arrival, afebrile. Right upper quadrant tender to palpate. Differential diagnosis includes cholecystitis, cholelithiasis. Initial workup will be conducted with labs, ultrasound at bedside. Initial inventions include ultrasound at bedside shows::: Morphine 2 mg IV given for pain control. Initial workup reviewed by me labs unremarkable, ultrasound done at bedside, morphine 2 mg IV given. Upon repeat evaluation patient states pain has improved and no nausea or vomiting. Given this patient is appropriate for discharge at this time follow-up with cardiology on Thursday and surgery on Thursday. Needs low-fat low residue diet I was consulted by the NATALIA, and we discussed the complexity of the problems being addressed.I approved the treatment and management plan for this patient?s care in the Emergency Department, thus performing a substantive portion of the medical decision making.Signed, James Livingston MD MBA Critical Care <Vivian Maria ([facility]), [employer] - Last Filed: 03/11/25 21:42> Critical Care Time Critical Care Time: No
[2025-03-11 20:22] LABS: Basophils % 0.1 % (0.1-2.0); Eosinophils # 0.2 K/mm3 (0.0-0.4); Hematocrit 36.1 % (42.0-52.0); Hemoglobin 12.1 g/dL (14.1-18.0); Lymphocytes # 1.2 K/mm3 (0.7-4.5); Lymphocytes % 15.3 % (10-50); Mean Corpuscular HGB Conc 33.5 g/dL (31.8-35.4); Mean Corpuscular Hemoglobin 31.5 pg (27.0-31.2); Mean Platelet Volume 10.7 fl (7.4-10.4); Monocytes # 0.6 K/mm3 (0.1-1.0); Monocytes % 7.4 % (1.7-9.3); Neutrophils # 5.8 K/mm3 (1.8-7.8); Neutrophils % 73.6 % (37.0-80.0); Nucleated Red Blood Cells # 0 10^3/uL; Nucleated Red Blood Cells % 0 %; Red Blood Count 3.84 M/mm3 (4.60-6.20); Red Cell Distribution Width 14.4 % (11.5-17.5); Red Cell Distribution Width-SD 50.6 fL; White Blood Count 7.9 K/mm3 (4.8-10.8)
[2025-03-11] MEDS: MORPHINE 2MG/ML SYRINGE 2 MG IV (20:23)
[2025-03-11 20:28] LABS: Platelet Count 156 K/mm3 (142-424)
[2025-03-11 20:29] LABS: Albumin Level 3.8 g/dl (3.5-5.0); Chloride 104 mmol/L (98-107); Sodium 138 mmol/L (136-145)
[2025-03-11 20:32] LABS: Alanine Aminotransferase 41 U/L (12-78); Albumin/Globulin Ratio 1.3 (1.1-1.8); Alkaline Phosphatase 144 U/L (38-126); Aspartate Amino Transferase 120 U/L (17-59); Bilirubin,Total 0.9 mg/dl (0.2-1.3); Blood Urea Nitrogen 27 mg/dl (9-20); Calcium 8.7 mg/dl (8.4-10.2); Carbon Dioxide 27 mmol/L (22.0-30.0); Creatinine Clearance Estimated 53 mL/min (50-200); Estimated Glomerular Filt Rate 37 ml/min (>60); GFR (African American) 45 ML/MIN (>60); Glucose 101 mg/dl (74-100); Lipase 170 U/L (23-300); Total Protein,Serum 6.8 g/dl (6.3-8.2)
== END 2025-03-11 22:08 | disposition home or self-care (01) ==
PROVIDERS: Nurse Practitioner Family; Emergency Provider Emergency Medicine; PCP Family Medicine
DX: K80.00 Calculus of gallbladder with acute cholecystitis without obstruction (principal); R10.11 Right upper quadrant pain; M54.6 Pain in thoracic spine; R11.0 Nausea
CPT/HCPCS: 80053; 83690; 85025; 93005; 96374; 99284; J2270

== ENCOUNTER 2025-03-14 11:29 | Inpatient (IN) | payer MEDICARE, SELFPAY ==
[2025-03-14] VITALS (8 sets, daily range): BP systolic 122–139; BP diastolic 70–85; PULSE 77–110; RESP 16–18; TEMP 37–37.8; O2SAT 91–97; BMI 33.8; BMI 31.6
--- NOTE | 2025-03-14 11:38 | ED_ITS ---
Discharge Plan Disposition Patient Disposition: Admitted Clinical Impressions Clinical Impression: Cholelithiasis Discharge ED Provider: James Livingston General Adult HPI General Chief complaint: Abdominal Pain Stated complaint: R Upper Quad Pain, Fever; Dr. Montano Time Seen by Provider: 03/14/25 11:37 History of Present Illness HPI narrative: Patient presents for evaluation of fever. He was seen in general surgery clinic for evaluation of treatment options for gallstones and noted to be febrile. He has noted decreased p.o. intake for the past 48 hours. He reports abdominal pain which has been intermittent and ongoing, mild to moderate in severity, described as dull, to be relatively well-controlled at this time. No other new or worsening symptoms. No chest pain or shortness of breath. He has not recalled any fevers or chills at home and was unaware he was febrile today. Please note that above description of symptoms, in this electronic medical record under categorization of recalled from ER triage doctor by RN are reflective of an initial nursing assessment, however, is not reflective of my full history and physical exam that was personally taken and clarified. Consequentially, this preceding description of symptoms, which may include the patient's categorized chief complaint in the EMR, do not reflect my personal clinical impression, and the ultimate description of history of present illness and patient stated complaints should be deferred to this section of the note. Unless stated otherwise or congruent with this section of the note, additional signs, symptoms, or incongruence should be interpreted as inaccurate with my clinical impression. Related Data Home Medications ?Medication ?Instructions ?Recorded ?Confirmed allopurinol 300 mg tablet 300 mg PO DAILY 04/01/23 03/14/25 gabapentin 300 mg capsule 300 mg PO TID 04/01/23 03/14/25 furosemide 20 mg tablet 20 mg PO DAILY 04/06/23 03/14/25 pioglitazone 45 mg tablet 45 mg PO DAILY 07/07/23 03/14/25 insulin glargine 100 unit/mL (3 30 unit SQ HS 01/07/24 03/14/25 mL) subcutaneous pen (Lantus Solostar U-100 Insulin) clopidogrel 75 mg tablet 75 mg PO DAILY 02/27/25 03/14/25 pantoprazole 40 mg tablet,delayed 40 mg PO DAILY 02/27/25 03/14/25 release rosuvastatin 10 mg tablet 10 mg PO DAILY 02/27/25 03/14/25 semaglutide 2 mg/dose (8 mg/3 mL) 2 mg SQ WEEKLY 02/27/25 03/14/25 subcutaneous pen injector (Ozempic) lisinopril 20 mg tablet 20 mg PO DAILY 03/09/25 03/14/25 tamsulosin 0.4 mg capsule 0.4 mg PO DAILY 03/09/25 03/14/25 pen needle, diabetic 32 gauge x #1,200 ea 03/13/25 03/14/25 (Droplet Pen Needle) Previous Rx's ?Medication ?Instructions ?Recorded carvedilol 3.125 mg tablet 3.125 mg PO BID #180 tabs 09/19/24 Allergies Allergy/AdvReac Type Severity Reaction Status Date / Time No Known Allergies Allergy Verified 03/14/25 11:06 [facility] Disclaimer: The information contained in this section may have been updated after the patient was seen, as this information can be updated by other users. Medical History Chronic Kidney Disease Pre-operative cardiovascular examination History of left heart catheterization Sleep apnea COPD (chronic obstructive pulmonary disease) JON (acute kidney injury) Dyspnea Hypotension Hx of fracture of left hip Hyperlipidemia Hypertension Dyslipidemia Coronary artery disease Hx of stent to LAD artery Status post stent to circumflex artery Multiple risk factors for coronary artery disease Patient continues to use tobacco I am concerned about new coronary lesion or in-stent restenosis. CAD (coronary artery disease) Neuropathy Arthritis Gout Diabetes mellitus Surgical History H/O right heart catheterization Hx of right knee surgery Hx of hernia repair Stented coronary artery Status post total right knee replacement Family History Other Leukemia Stroke Social History (Updated 03/14/25 @ 13:45 by Brisa Malone RN) Smoking Status: Current every day smoker tobacco type: cigars second hand exposure: No alcohol intake: former substance use type: denies use current occupational status: retired and disabled Travel in the last 8 weeks: None household members: family housing: house current occupational exposures/hazards: No caffeine: No Have you lived/traveled outside [place] in past 30 days?: No Contact w/someone who lives/traveled outside US past 30 days?: No Exposure to someone with infectious disease in past 14 days?: No Do you have a fever (greater than 100.4 F or 38 C)?: No Have you tested positive for COVID-19: No Exposed to someone with COVID-19 in past 14 days?: No Do you have a sore throat?: No Do you have a cough?: No Do you have any weakness?: No Are you experiencing any nausea/vomitting?: No Do you have any diarrhea?: No Are you experiencing any unusual bleeding?: No Do you have any muscle aches/pain?: Yes Do you have any abdominal pain?: No Are you experiencing loss of taste or smell?: No Other Medical History Have you received the Flu Vaccine for this season: No Have you received the Pneumonia Vaccine: No ROS Obtained: Yes other As per HPI Physical Exam General General appearance: alert and in no apparent distress Head Head exam: atraumatic and normocephalic Eye Eye exam: Present normal appearance Neck Neck exam: Present normal inspection Chest Chest inspection: Present normal inspection and symmetric chest wall rise Respiratory Respiratory exam: Present normal lung sounds bilaterally; Absent respiratory distress Cardiovascular Cardiovascular exam: Present regular rate and normal rhythm Abdominal Exam Abdominal exam: Present soft Neurological Exam Neurological exam: Present alert and oriented X3 Psychiatric Psychiatric exam: Present normal affect and normal mood Skin Skin exam: Present warm and dry Medical Decision Making Medical Records Medical records reviewed: Yes I reviewed the patient's medical records. Screening: Per USPSTF and CDC recommendations, given the prevalence of disease in our region, it is our hospital?s policy to screen for HIV and viral Hepatitis for all patients aged 18 and over and those with ongoing risk factors. Compa Inquiry Pt receiving controlled substance: No Vital Signs: 03/14/25 11:39 03/14/25 12:00 03/14/25 12:30 Temperature 99.3 F Temperature Source Oral Pulse Rate 81 90 Pulse Rate [Left Radial] 87 Respiratory Rate 16 Blood Pressure 123/75 128/79 Blood Pressure [Right Arm] 122/70 Blood Pressure Mean [Right Arm] 87 Blood Pressure Source Blood Pressure Source [Right Arm] Automatic Cuff Blood Pressure Position Blood Pressure Position [Right Arm] Sitting 02 Sat by Pulse Oximetry 91 L 94 L 94 L Oxygen Delivery Method Room Air Room Air Room Air 03/14/25 13:00 03/14/25 13:36 03/14/25 13:42 Temperature 99.3 F Temperature Source Oral Pulse Rate 90 77 Pulse Rate [Left Radial] Respiratory Rate 16 Blood Pressure 130/71 136/70 Blood Pressure [Right Arm] Blood Pressure Mean [Right Arm] Blood Pressure Source Automatic Cuff Blood Pressure Source [Right Arm] Blood Pressure Position Sitting Blood Pressure Position [Right Arm] 02 Sat by Pulse Oximetry 94 L Oxygen Delivery Method Room Air Room Air Room Air Lab Data Lab Results 03/14/25 11:49: WBC 12.5 H D, RBC 4.19 L, Hgb 12.8 L, Hct 37.9 L, MCV 90.5, MCH 30.5, MCHC 33.8, RDW 14.6, Plt Count 131 L, MPV 10.8 H, Neut % (Auto) 88.0 H, L ymph % (Auto) 5.0 L, [place] % (Auto) 6.0, Eos % (Auto) 0.2, Baso % (Auto) 0.2, N eut # (Auto) 11.0 H, Lymph # (Auto) 0.6 L, [place] # (Auto) 0.8, Eos # (Auto) 0.0, Baso # (Auto) 0.0, Sodium 135 L, Potassium 4.0, Chloride 98, Carbon Dioxide 25, Anion Gap 16.0 H, BUN 42 H D, Creatinine 2.70 H D, Estimated Creat Clear 34, E stimated GFR 23 L, Est GFR ( Amer) 28 L D, Glucose 166 H, Calcium 8.4, T otal Bilirubin 4.1 H, AST 236 H D, ALT 462 H*, Alkaline Phosphatase 383 H, Total Protein 7.2, Albumin 3.8, Globulin 3.4 H, Albumin/Globulin Ratio 1.1, Lipase 216 03/14/25 11:49 03/14/25 11:49 Orders (Tests/Meds): ED MEDICATIONS Generic Name Dose Route Start Last Admin Trade Name Freq PRN Reason Stop Dose Admin Acetaminophen 650 mg 03/14/25 13:24 Acetaminophen 325mg Tab PO 04/13/25 13:23 Q4HP PRN Fever or Mild Pain (1-3) Discontinued Medications Generic Name Dose Route Start Last Admin Trade Name Freq PRN Reason Stop Dose Admin Lactated Ringer's 1,000 mls @ 999 mls/hr 03/14/25 12:17 03/14/25 12:29 Lactated Ringer's 1000 Ml Bag IV 03/14/25 13:17 999 mls/hr .Q1H1M ONE Administration Piperacillin Sod/Tazobactam 100 mls @ 200 mls/hr 03/14/25 12:39 03/14/25 12:40 Sod 4.5 gm/ Sodium Chloride IV 03/14/25 13:08 200 mls/hr ONCE ONE Administration ORDERS Category Date Time Status GI consult [Consult to Gastroenterology] [CONS] Routine Cons 03/14/25 13:24 Active Surgery Consult (on-call) [Consult to On-Call Gen'l Cons 03/14/25 13:24 Ordered Surgeon] [CONS] Routine POCUS Point of Care (ER Only) Stat Exams 03/14/25 11:38 Completed CBC w/Auto Diff [Complete Blood Count Auto Diff] Stat Lab 03/14/25 11:49 Completed CMP [Comprehensive Metabolic Panel] Stat Lab 03/14/25 11:49 Completed Complete Blood Count Auto Diff AMLAB Lab 03/15/25 06:00 Ordered Comprehensive Metabolic Panel AMLAB Lab 03/15/25 06:00 Ordered Full Resp Panel w/COVID ([facility]) Routine Lab 03/14/25 11:51 Received Lipase Stat Lab 03/14/25 11:49 Completed Magnesium AMLAB Lab 03/15/25 06:00 Ordered Medical Decision Narrative: Patient with history and exam per above presenting for evaluation of fever, in the setting of cholelithiasis Diagnoses considered include cholecystitis, choledocholithiasis, acute cholangitis, among others ED workup and treatment included: ED MEDICATIONS Generic Name Dose Route Start Last Admin Trade Name Freq PRN Reason Stop Dose Admin Acetaminophen 650 mg 03/14/25 13:24 Acetaminophen 325mg Tab PO 04/13/25 13:23 Q4HP PRN Fever or Mild Pain (1-3) Discontinued Medications Generic Name Dose Route Start Last Admin Trade Name Freq PRN Reason Stop Dose Admin Lactated Ringer's 1,000 mls @ 999 mls/hr 03/14/25 12:17 03/14/25 12:29 Lactated Ringer's 1000 Ml Bag IV 03/14/25 13:17 999 mls/hr .Q1H1M ONE Administration Piperacillin Sod/Tazobactam 100 mls @ 200 mls/hr 03/14/25 12:39 03/14/25 12:40 Sod 4.5 gm/ Sodium Chloride IV 03/14/25 13:08 200 mls/hr ONCE ONE Administration ORDERS Category Date Time Status GI consult [Consult to Gastroenterology] [CONS] Routine Cons 03/14/25 13:24 Active Surgery Consult (on-call) [Consult to On-Call Gen'l Cons 03/14/25 13:24 Ordered Surgeon] [CONS] Routine POCUS Point of Care (ER Only) Stat Exams 03/14/25 11:38 Completed CBC w/Auto Diff [Complete Blood Count Auto Diff] Stat Lab 03/14/25 11:49 Completed CMP [Comprehensive Metabolic Panel] Stat Lab 03/14/25 11:49 Completed Complete Blood Count Auto Diff AML[facility] Lab 03/15/25 06:00 Ordered Comprehensive Metabolic Panel [facility] Lab 03/15/25 06:00 Ordered Full Resp Panel w/COVID ([facility]) Routine Lab 03/14/25 11:51 Received Lipase Stat Lab 03/14/25 11:49 Completed Magnesium AMLAB Lab 03/15/25 06:00 Ordered Labs were independently interpreted by me, significant for Leukocytosis, obstructive pattern to liver enzymes, T. bili 4.1 Given decreased p.o. intake, with associated suspected prerenal JON, and clinical picture now most consistent with choledocholithiasis, patient will be admitted to hospitalist service. Critical Care Critical Care Time Critical Care Time: No
[2025-03-14 11:55] LABS: Adenovirus,PCR Not Detected (NotDetected); Bordetella Pertussis Not Detected (NotDetected); Chlamydophila Pneumoniae, PCR Not Detected (NotDetected); Coronavirus 19, PCR Not Detected (NotDetected); Coronavirus 229E Not Detected (NotDetected); Coronavirus NL63 Not Detected (NotDetected); Coronavirus OC43 Not Detected (NotDetected); Coronovirus HKU1,PCR Not Detected (NotDetected); Human Metapneumovirus Not Detected (NotDetected); Influenza A, PCR Not Detected (NotDetected); Influenza AH1, 2009 Not Detected (NotDetected); Influenza AH1, PCR Not Detected (NotDetected); Influenza AH3,PCR Not Detected (NotDetected); Influenza B, PCR Not Detected (NotDetected); Mycoplasma Pneumoniae, PCR Not Detected (NotDetected); Parainfluenza 1, PCR Not Detected (NotDetected); Parainfluenza 2, PCR Not Detected (NotDetected); Parainfluenza 3, PCR Not Detected (NotDetected); Parainfluenza 4, PCR Not Detected (NotDetected); Respiratory Syncytial Virus Not Detected (NotDetected); Rhinovirus/Enterovirus Not Detected (NotDetected)
[2025-03-14 11:58] LABS: Basophils % 0.2 % (0.1-2.0); Eosinophils % 0.2 % (0.1-12.0); Hematocrit 37.9 % (42.0-52.0); Hemoglobin 12.8 g/dL (14.1-18.0); Lymphocytes # 0.6 K/mm3 (0.7-4.5); Mean Corpuscular HGB Conc 33.8 g/dL (31.8-35.4); Mean Corpuscular Hemoglobin 30.5 pg (27.0-31.2); Mean Corpuscular Volume 90.5 fl (80-94); Mean Platelet Volume 10.8 fl (7.4-10.4); Monocytes # 0.8 K/mm3 (0.1-1.0); Nucleated Red Blood Cells # 0 10^3/uL; Nucleated Red Blood Cells % 0 %; Platelet Count 131 K/mm3 (142-424); Red Blood Count 4.19 M/mm3 (4.60-6.20); Red Cell Distribution Width 14.6 % (11.5-17.5); Red Cell Distribution Width-SD 48.1 fL; White Blood Count 12.5 K/mm3 (4.8-10.8)
[2025-03-14 12:04] LABS: Albumin Level 3.8 g/dl (3.5-5.0); Chloride 98 mmol/L (98-107); Sodium 135 mmol/L (136-145)
[2025-03-14 12:07] LABS: Alanine Aminotransferase 462 U/L (12-78); Albumin/Globulin Ratio 1.1 (1.1-1.8); Alkaline Phosphatase 383 U/L (38-126); Aspartate Amino Transferase 236 U/L (17-59); Bilirubin,Total 4.1 mg/dl (0.2-1.3); Blood Urea Nitrogen 42 mg/dl (9-20); Carbon Dioxide 25 mmol/L (22.0-30.0); Creatinine Clearance Estimated 34 mL/min (50-200); Estimated Glomerular Filt Rate 23 ml/min (>60); GFR (African American) 28 ML/MIN (>60); Globulin 3.4 g/dL (1.3-3.2); Lipase 216 U/L (23-300); Total Protein,Serum 7.2 g/dl (6.3-8.2)
[2025-03-14 12:08] LABS: Calcium 8.4 mg/dl (8.4-10.2); Glucose 166 mg/dl (74-100)
[2025-03-14] MEDS: LACTATED RINGERS 1000ML 1,000 ML 999 ML IV (12:29)
[2025-03-14] MEDS: PIPERACILLIN/TAZO 4.5 GM in 0.9 % SODIUM CHLORIDE 100 ML IV (12:40)
--- NOTE | 2025-03-14 12:45 | PC.NURSE ---
1240hrs As per the MAR administered 4.5g of Zosyn at TKO rate.
--- NOTE | 2025-03-14 13:11 | PC.NURSE ---
Paged GI at this time
--- NOTE | 2025-03-14 13:26 | EXP.HP ---
History of Present Illness *Admission Date: 03/14/25 *Reason for visit:: Abdominal pain, abnormal labs *History of present illness: Mr. Rodriguez is a 74-year-old male who was recently admitted 2 weeks ago for abdominal pain. Concern at that time for early cholecystitis with cholelithiasis. MRCP was obtained that was read as normal. GI and surgery were consulted during that visit and plan was for outpatient cholecystectomy. Patient evaluated in surgery clinic today and due to feeling poorly and having fever, was referred to the ER for further workup and management. He has been having abdominal pain in his upper abdomen and down his right side for the past 6 to 7 weeks. They were intense before his last visit 2 weeks ago. Have been intermittent since. Worse with eating. Denies any vomiting. Had fever this morning. Stable on room air. Workup in the ER with elevated liver enzymes, bilirubin 4.1, AST 236, ALT 462. Lipase normal at 216. Swepn-ic-[id number] ultrasound in the ED did not show biliary dilatation. White count elevated at 12.5. Also noted to have JON with BUN of 42, creatinine of 2.7. Patient states he has not been eating or drinking very well for the past few days. Due to his worsening symptoms and concern for infection, patient was initiated on antibiotics. Medicine consulted for admission and further management. On evaluation, patient appears ill. Is nontoxic however. Stable on room air. Abdominal exam with mild to moderate symptoms, surprisingly less severe than labs suggest. Overall appears comfortable at this time. [facility] Disclaimer: The information contained in this section may have been updated after the patient was seen, as this information can be updated by other users. Medical History Chronic Kidney Disease Pre-operative cardiovascular examination History of left heart catheterization Sleep apnea COPD (chronic obstructive pulmonary disease) JON (acute kidney injury) Dyspnea Hypotension Hx of fracture of left hip Hyperlipidemia Hypertension Dyslipidemia Coronary artery disease CAD (coronary artery disease) Neuropathy Arthritis Gout Diabetes mellitus Surgical History H/O right heart catheterization Hx of right knee surgery Hx of hernia repair Stented coronary artery Status post total right knee replacement Family History Other Leukemia Stroke Social History Smoking Status: Current every day smoker tobacco type: cigars second hand exposure: No alcohol intake: former substance use type: denies use current occupational status: retired and disabled Travel in the last 8 weeks: None household members: family housing: house current occupational exposures/hazards: No caffeine: No Have you lived/traveled outside [place] in past 30 days?: No Contact w/someone who lives/traveled outside US past 30 days?: No Exposure to someone with infectious disease in past 14 days?: No Do you have a fever (greater than 100.4 F or 38 C)?: No Have you tested positive for COVID-19: No Exposed to someone with COVID-19 in past 14 days?: No Do you have a sore throat?: No Do you have a cough?: No Do you have any weakness?: No Are you experiencing any nausea/vomitting?: No Do you have any diarrhea?: No Are you experiencing any unusual bleeding?: No Do you have any muscle aches/pain?: Yes Do you have any abdominal pain?: No Are you experiencing loss of taste or smell?: No Other Medical History Have you received the Flu Vaccine for this season: No Have you received the Pneumonia Vaccine: No Review of Systems Review of Systems Review of systems (narrative): 14 point review of systems performed, pertinent positives and negatives as per HPI Meds Home Medications and Allergies Home Medications ?Medication ?Instructions ?Recorded ?Confirmed ?Type allopurinol 300 mg tablet 300 mg PO DAILY 04/01/23 03/14/25 History gabapentin 300 mg capsule 300 mg PO TID 04/01/23 03/14/25 History furosemide 20 mg tablet 20 mg PO DAILY 04/06/23 03/14/25 History pioglitazone 45 mg tablet 45 mg PO DAILY 07/07/23 03/14/25 History insulin glargine 100 unit/mL (3 30 unit SQ HS 01/07/24 03/14/25 History mL) subcutaneous pen (Lantus Solostar U-100 Insulin) carvedilol 3.125 mg tablet 3.125 mg PO BID #180 tabs 09/19/24 03/14/25 Rx clopidogrel 75 mg tablet 75 mg PO DAILY 02/27/25 03/14/25 History pantoprazole 40 mg tablet,delayed 40 mg PO DAILY 02/27/25 03/14/25 History release rosuvastatin 10 mg tablet 10 mg PO DAILY 02/27/25 03/14/25 History semaglutide 2 mg/dose (8 mg/3 mL) 2 mg SQ WEEKLY 02/27/25 03/14/25 History subcutaneous pen injector (Ozempic) lisinopril 20 mg tablet 20 mg PO DAILY 03/09/25 03/14/25 History tamsulosin 0.4 mg capsule 0.4 mg PO DAILY 03/09/25 03/14/25 History pen needle, diabetic 32 gauge x #1,200 ea 03/13/25 03/14/25 History (Droplet Pen Needle) New Prescriptions to Start Prescriptions: Allergies Allergy/AdvReac Type Severity Reaction Status Date / Time No Known Allergies Allergy Verified 03/14/25 11:06 Exam Data for Last 24 hours Vital signs and Labs for Last 24 Hours: Temp Pulse Resp BP Pulse Ox O2 Del Method 99.3 F 87 16 122/70 91 L Room Air 03/14/25 11:39 03/14/25 11:39 03/14/25 11:39 03/14/25 11:39 03/14/25 11:39 03/14/25 11:39 Laboratory Results - last 24 hr 03/14/25 11:49: WBC 12.5 H D, RBC 4.19 L, Hgb 12.8 L, Hct 37.9 L, MCV 90.5, MCH 30.5, MCHC 33.8, RDW 14.6, Plt Count 131 L, MPV 10.8 H, Neut % (Auto) 88.0 H, Lymph % (Auto) 5.0 L, [place] % (Auto) 6.0, Eos % (Auto) 0.2, Baso % (Auto) 0.2, Neut # (Auto) 11.0 H, Lymph # (Auto) 0.6 L, [place] # (Auto) 0.8, Eos # (Auto) 0.0, Baso # (Auto) 0.0, Sodium 135 L, Potassium 4.0, Chloride 98, Carbon Dioxide 25, Anion Gap 16.0 H, BUN 42 H D, Creatinine 2.70 H D, Estimated Creat Clear 34, Estimated GFR 23 L, Est GFR ( Amer) 28 L D, Glucose 166 H, Calcium 8.4, Total Bilirubin 4.1 H, AST 236 H D, ALT 462 H*, Alkaline Phosphatase 383 H, Total Protein 7.2, Albumin 3.8, Globulin 3.4 H, Albumin/Globulin Ratio 1.1, Lipase 216 I & O for Last 24 hours: Intake & Output 03/11/25 03/12/25 03/13/25 03/14/25 23:59 23:59 23:59 23:59 Weight 97.976 kg Constitutional Constitutional: mild distress, obese, chronically ill appearing and cooperative *Routine HEENT Exam Head: Present normocephalic Eye: Present EOMI and PERRL ENT: Present mucous membranes moist Comments: Slight scleral icterus *Routine Neck Exam Neck: Present supple; Absent lymphadenopathy *Routine Respiratory Exam Respiratory: Present CTA bilaterally; Absent rhonchi, wheezes or crackles *Routine Cardiovascular Exam Cardiovascular: Present RRR *Routine Abdominal Exam Abdominal: Present soft, normoactive bowel sounds and tenderness; Absent distended or rebound Comments: Mild tenderness to palpation in the epigastric, right upper quadrant regions without peritoneal signs. *Routine Rectal Exam Rectal:: deferred *Routine Genitalia Exam Genitalia:: deferred *Routine Extremities Exam Extremities: Absent cyanosis, clubbing or edema *Routine Skin Exam Skin: Present warm; Absent rash *Routine Neurological Exam Neurological: Present alert, oriented X3 and moving all extremities; Absent altered mental status Assessment and Plan *Assessment and plan (1) Choledocholithiasis with acute cholecystitis: Status: Acute Category: Medical Code(s): K80.42 - Calculus of bile duct with acute cholecystitis without obstruction (2) Anemia: Status: Acute Category: Medical Code(s): D64.9 - Anemia, unspecified (3) Epigastric pain: Status: Acute Category: Medical Code(s): R10.13 - Epigastric pain (4) Chronic Kidney Disease: Status: Acute Qualifiers: Chronic kidney disease stage: stage 3 (moderate) Chronic kidney disease stage 3 subtype: unspecified whether 3a or 3b Qualified Code(s): N18.30 - Chronic kidney disease, stage 3 unspecified Category: Medical Code(s): N18.9 - Chronic kidney disease, unspecified (5) Obesity (BMI 30.0-34.9): Status: Chronic Category: Medical Code(s): E66.811 - Obesity, class 1 (6) Diabetes mellitus: Status: Chronic Qualifiers: Diabetes mellitus complication status: without complication Diabetes mellitus math tutor insulin use: with math tutor use Diabetes mellitus type: type 2 Qualified Code(s): E11.9 - Type 2 diabetes mellitus without complications; 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 Category: Medical Code(s): E11.9 - Type 2 diabetes mellitus without complications (7) Hypertension: Status: Acute Qualifiers: Hypertension type: unspecified Qualified Code(s): I10 - Essential (primary) hypertension Category: Medical Code(s): I10 - Essential (primary) hypertension (8) Cholelithiasis: Status: Acute Category: Medical Code(s): K80.20 - Calculus of gallbladder without cholecystitis without obstruction (9) Sepsis: Status: Acute Category: Medical Code(s): A41.9 - Sepsis, unspecified organism Plan Sterling Rodriguez is a 74-year-old male with a medical history significant for CAD with stents, hypertension, type 2 diabetes, CKD who presents with worsening abdominal pain. Found to have elevation of liver enzymes. Concern of progression to acute choledocholithiasis. Discussed case with ER physician, request admission for IV antibiotics and surgical/GI consults. I agreed to admit for further care. Will continue IV antibiotics empirically for suspected infection given his elevated white count, tachycardia, source with his gallbladder. GI and surgery evaluating. Plan for ERCP in the morning. Necessitating inpatient care. Problems addressed as follows: #Abdominal pain # Choledocholithiasis -White count elevated 12.5, heart rate above 100, suspected source with gallbladder. Continue Zosyn 3.375 g every 6 hours IV. - MRCP performed 2 weeks ago, after reevaluation by GI, concern for possible narrowing at the distal CBD. Discussed case with GI, planning on ERCP in the morning. - Surgery consulted, will plan for cholecystectomy in the coming days after ERCP. Last dose of Plavix was a week ago, last dose of Ozempic was 2 weeks ago. - Clear liquid diet until midnight, n.p.o. thereafter - White count elevated at 12.5, hemoglobin 12.8. Repeat level ordered for the morning #CAD with stents #Hypertension ? Continue home carvedilol, holding plavix and statin #Type 2 diabetes ? ACHS glucose checks, LDSSI. ? Continue home gabapentin TID - A1c pending for the morning # JON on CKD stage IV ? Worsening kidney function today. BUN 42, creatinine 2.7. Baseline appears to be about 2.0. Monitor for improvement with hydration. Continue LR at 100 cc an hour. Repeat CBC, CMP, magnesium ordered for the morning. #History of gout ? Holding home allopurinol in the setting of acute illness and JON. Full code
--- NOTE | 2025-03-14 13:43 | PC.NURSE ---
Report given to MELISSA Butterfield.
--- NOTE | 2025-03-14 13:54 | PC.NURSE ---
arrived by w/c from ED
--- NOTE | 2025-03-14 14:26 | P.PN_ITS ---
Subjective *Date: 03/14/25 *Time: 16:51 Interval history: Patient returns today with interval change, abdominal pain and jaundice. I had seen him in follow-up on 02/28/2025 and had ordered MRCP. The MRCP was read as normal. Reviewed this today and there does appear to be a possible filling defect in the distal CBD with no proximal bile duct dilation. Spoke with ED physician for hospital admission and ERCP with clearance of CBD. Prior ultrasound from 03/09 does show gallbladder wall thickening suspicious for early acute cholecystitis and I had recommended elective cholecystectomy when I had seen the patient on 02/28. I think the patient was sent over from surgical clinic today because of change. He did come in previously 2 weeks ago with elevated pancreatic chemistries and probable gallstone pancreatitis. Incidentally, after discharge, did not see surgery immediately in the clinic but understandably needed to be cleared by cardiology before surgery. He did have ED visit last Thursday and was given pain medications and sent home. Exam Data for Last 24 hours Vital signs and Labs for Last 24 Hours: Temp Pulse Resp BP Pulse Ox O2 Del Method 99.7 F H 91 H 16 127/75 97 Room Air 03/14/25 14:00 03/14/25 14:00 03/14/25 14:00 03/14/25 14:00 03/14/25 14:00 03/14/25 14:04 Laboratory Results - last 24 hr 03/14/25 11:49: WBC 12.5 H D, RBC 4.19 L, Hgb 12.8 L, Hct 37.9 L, MCV 90.5, MCH 30.5, MCHC 33.8, RDW 14.6, Plt Count 131 L, MPV 10.8 H, Neut % (Auto) 88.0 H, Lymph % (Auto) 5.0 L, Swisher % (Auto) 6.0, Eos % (Auto) 0.2, Baso % (Auto) 0.2, Neut # (Auto) 11.0 H, Lymph # (Auto) 0.6 L, Swisher # (Auto) 0.8, Eos # (Auto) 0.0, Baso # (Auto) 0.0, Sodium 135 L, Potassium 4.0, Chloride 98, Carbon Dioxide 25, Anion Gap 16.0 H, BUN 42 H D, Creatinine 2.70 H D, Estimated Creat Clear 34, Estimated GFR 23 L, Est GFR ( Amer) 28 L D, Glucose 166 H, Calcium 8.4, Total Bilirubin 4.1 H, AST 236 H D, ALT 462 H*, Alkaline Phosphatase 383 H, Total Protein 7.2, Albumin 3.8, Globulin 3.4 H, Albumin/Globulin Ratio 1.1, Lipase 216 I & O for Last 24 hours: Intake & Output 03/11/25 03/12/25 03/13/25 03/14/25 23:59 23:59 23:59 23:59 Weight 214 lb 2 oz Constitutional Comments: Moderately icteric *Routine HEENT Exam Comments: Icteric sclera *Routine Abdominal Exam Abdominal: Present tenderness Comments: Tenderness in the right upper quadrant with possible early Hill sign, no rebound or guarding Assessment and Plan *Assessment and plan (1) Choledocholithiasis: Status: Acute Category: Medical Code(s): K80.50 - Calculus of bile duct without cholangitis or cholecystitis without obstruction (2) Choledocholithiasis with acute cholecystitis: Status: Acute Category: Medical Code(s): K80.42 - Calculus of bile duct with acute cholecystitis without obstruction (3) Jaundice: Status: Acute Category: Medical Code(s): R17 - Unspecified jaundice Plan 1. Gallstones with sonographic evidence of early cholecystitis (from 03/09/2025)?5 days ago and now with new onset jaundice. Recent admission with e levated pancreatic chemistries. The patient likely has choledocholithiasis and early cholecystitis. Patient will need ERCP for clearance of the CBD. Reviewing MRCP (radiology description is normal) likely shows distal CBD filling defect without CBD dilation. I do want him plugged into general surgery (Dandre Montano) at this hospital admission for cholecystectomy after clearance of CBD. The patient was here less than 2 weeks ago and had 1 interval stop in the ED last weekend with pain treated with morphine. The patient also clearly has evidence of cholecystitis by present and prior history and imaging.
[2025-03-14 15:52] LABS: POC Glucose,Bedside 142 (70-110)
[2025-03-14] MEDS: LACTATED RINGERS 1000ML 1,000 ML 100 ML IV (17:52)
[2025-03-14] MEDS: PIPERCILLIN/TAZO 3.375 GM in 0.9 % SODIUM CHLORIDE 50 ML IV (18:27)
[2025-03-14] MEDS: CARVEDILOL 3.125MG TABLET 3.125 MG PO (20:06)
[2025-03-14] MEDS: GABAPENTIN 300MG CAPSULE 300 MG PO (20:06)
[2025-03-14] MEDS: humaLOG 100 UNITS/ML 10ML VIAL (SSI) SUBCUT (20:08)
[2025-03-15] VITALS (23 sets, daily range): BP systolic 118–149; BP diastolic 60–97; PULSE 50–81; RESP 16–18; TEMP 36.4–37.1; O2SAT 93–98; BMI 32.3
[2025-03-15] MEDS: PIPERCILLIN/TAZO 3.375 GM in 0.9 % SODIUM CHLORIDE 50 ML IV ×4 (01:06→18:11)
[2025-03-15 02:14] LABS: POC Glucose,Bedside 155 (70-110)
--- NOTE | 2025-03-15 05:07 | PC.NURSE ---
Alert and oriented. No complaints from patient. Mild tenderness noted to right upper quadrant. Bowel sounds active. Ambulates to restroom with standby assist. Uses urinal. Room air. Call light in reach.
[2025-03-15 06:45] LABS: Albumin Level 3.1 g/dl (3.5-5.0); Chloride 103 mmol/L (98-107); Potassium 3.5 mmoL/L (3.5-5.1); Sodium 136 mmol/L (136-145)
[2025-03-15 06:47] LABS: Alanine Aminotransferase 290 U/L (12-78); Aspartate Amino Transferase 111 U/L (17-59); Blood Urea Nitrogen 32 mg/dl (9-20); Creatinine Clearance Estimated 38 mL/min (50-200); Estimated Glomerular Filt Rate 27 ml/min (>60); GFR (African American) 32 ML/MIN (>60)
[2025-03-15 06:48] LABS: Albumin/Globulin Ratio 1.1 (1.1-1.8); Alkaline Phosphatase 334 U/L (38-126); Anion Gap 11.5 mEq/L (5-15); Bilirubin,Total 2.9 mg/dl (0.2-1.3); Calcium 8.2 mg/dl (8.4-10.2); Carbon Dioxide 25 mmol/L (22.0-30.0); Globulin 2.9 g/dL (1.3-3.2); Glucose 137 mg/dl (74-100)
--- NOTE | 2025-03-15 06:51 | P.PCN_ITS ---
[facility] Procedure Note Date: 03/15/25 Time: 07:34 Procedure Note:: ERCP procedure Report: Endoscopic retrograde cholangiopancreatography with biliary sphincterotomy, sphincteroplasty (TTS balloon dilation) and balloon sweep extraction of stones Endoscopist: Sebastian Rivero II, MD Referring Physician: Akira Fajardo MD Date of Procedure: March 15, 2025 Equipment: Olympus 180 side viewing endoscope duodenoscope Sedation: MAC sedation Indication: Mr. Rodriguez is a 74-year-old gentleman admitted with jaundice and biliary colic. The patient was recently admitted on 02/27/2025 with upper and right-sided abdominal pain. At that time he was told that he had pancreatitis by his PCP. His symptoms resolved but the patient was admitted with symptomatic gallstones and I had recommended MRCP and elective cholecystectomy. His MRCP was read as normal by radiology. I did review this yesterday and there was a small filling defect in the distal CBD with no proximal bile duct dilation. He did have an ultrasound of the gallbladder on 03/09 showing gallbladder wall thickening suspicious for early acute cholecystitis. This past weekend he again came to the emergency department and had another bout of biliary colic with right upper quadrant abdominal pain radiating into the back. He was given pain medication and sent home again. He was sent yesterday for cardiac clearance and then to general surgery clinic. However because of his pain, he landed in the ED again. Labs at that time showed total bilirubin 4.1, ALT 462 and alkaline phosphatase 383. The patient has had some darkened urine. He does report these attacks of pain postprandially that can last 20 or 30 minutes but more recently have lasted for many hours. His lipase level was 216 yesterday. His lipase level on last admission was 329. The patient reports no fever. Blood pressure and vitals have been stable. ERCP is performed because of the choledocholithiasis and bile duct obstruction. Procedure: Prior to the procedure, a history and physical exam was performed, and patient's medications and allergies were reviewed. The risks (including pancreatitis), benefits and alternatives of the sedation and procedure were discussed with the patient. All questions were answered and informed consent was obtained. The patient was brought to the fluoroscopic radiology room. Patient identification and proposed procedure were verified by the physician and the nurse. The patient was placed in a swimmer's position between left lateral decubitus and prone position and the scope was passed under direct vision. Throughout the procedure, the patient's blood pressure, pulse, and oxygen saturations were monitored continuously. The ERCP was accomplished without difficulty. The patient tolerated the procedure well. Findings: The duodenoscope was passed directly into the upper esophagus and advanced to the second portion of the duodenum. The fluoroscopic C arm was then placed into position prior to cannulation with the duodenoscope was centered in a L-shaped position fluoroscopically in the second portion of duodenum. The entire endoscopic exam was done in conjunction with fluoroscopy. The cannula was then inserted through the duodenoscope channel and preloaded with low osmolar contrast. The esophagus, stomach and duodenum were essentially normal. The ampulla was well-visualized. The common bile duct was selectively cannulated with the cannula and guidewire on first attempt. The cholangiogram showed a mildly dilated 8 mm common bile duct with an impacted filling defect/stone in the distal CBD. The stone was approximately 6 to 7 mm. Next, a generous biliary sphincterotomy was performed with the sphincterotome. Next, the ampullary biliary orifice/sphincter was dilated to 6 mm with a TTS hydrostatic balloon (i.e. sphincteroplasty). Lastly, a 9 mm sweeping balloon was placed at the hilum. The first sweep of the biliary system yielded yellow stony debris which was fragmented. Subsequent sweeps did not yield any further stony debris. A post sweep cholangiogram was performed with the balloon inflated in the distal CBD and there were no further filling defects with normal filling of the intrahepatic biliary system. There was nonfilling of the cystic duct (suggestive of cholecystitis). The pancreatic duct was not cannulated intentionally. Impression: 1. Choledocholithiasis?6 to 7 mm impacted stone in distal CBD status post biliary extraction Plan: The biliary obstruction has been relieved with decompression of the biliary system. There was no flow of contrast into the cystic duct or gallbladder which is supportive of prior findings of cholecystitis. I would like for general surgery to see the patient for cholecystectomy presently during this hospital admission.
--- NOTE | 2025-03-15 06:56 | EXP.ANES.CKL ---
[facility] Disclaimer: The information contained in this section may have been updated after the patient was seen, as this information can be updated by other users. Medical History Chronic Kidney Disease Pre-operative cardiovascular examination History of left heart catheterization Sleep apnea COPD (chronic obstructive pulmonary disease) JON (acute kidney injury) Dyspnea Hypotension Hx of fracture of left hip Hyperlipidemia Hypertension Dyslipidemia Coronary artery disease CAD (coronary artery disease) Neuropathy Arthritis Gout Diabetes mellitus Surgical History H/O right heart catheterization Hx of right knee surgery Hx of hernia repair Stented coronary artery Status post total right knee replacement Family History Other Leukemia Stroke Social History Smoking Status: Current every day smoker tobacco type: cigars second hand exposure: No alcohol intake: former substance use type: denies use current occupational status: retired and disabled Travel in the last 8 weeks: None household members: family housing: house current occupational exposures/hazards: No caffeine: No Have you lived/traveled outside [place] in past 30 days?: No Contact w/someone who lives/traveled outside US past 30 days?: No Exposure to someone with infectious disease in past 14 days?: No Do you have a fever (greater than 100.4 F or 38 C)?: No Have you tested positive for COVID-19: No Exposed to someone with COVID-19 in past 14 days?: No Do you have a sore throat?: No Do you have a cough?: No Do you have any weakness?: No Are you experiencing any nausea/vomitting?: No Do you have any diarrhea?: No Are you experiencing any unusual bleeding?: No Do you have any muscle aches/pain?: Yes Do you have any abdominal pain?: No Are you experiencing loss of taste or smell?: No [facility] Anesthesia Checklist Patient Identification Patient Identification: Arm Band Structural Data Admitted From: Inpatient Planned Operative Procedure/s: ERCP Consent for Planned Operative Procedure(s) Verified: Yes Verified Documents: Surgical Consent and History and Physical NPO Status Verified Time NPO: 00:00 Additional verifications Anesthesia Reactions: No Hx Blood Transfusions: No Blood Transfusion Reaction: No Airway Assessment Mallampati Score:: Class II C-Spine Mobility Assessed: Yes TMJ Mobility Assessed: Yes Dentition: Edentulous Neurological Assessment Level of Consciousness: Awake, Alert and Appropriate Anesthesia Plan Anesthesia Risk discussed: Yes Anesthesia Plan: Verified ASA Class: III Anesthesia Type: General
--- NOTE | 2025-03-15 07:42 | HMH.PHAINT1 ---
Pharmacy Intervention Comments: MEDICATION RECONCILIATION COMPLETED ON PATIENT USING EXTERNAL FILL HISTORY FROM PHARMACY. -RUFINO VEGA, SANCHEZD
--- NOTE | 2025-03-15 07:50 | P.PNANES_ITS ---
[facility] Anesthesia Record Part I Anesthesia Record I Intake, IV Amount: 600 Hydration: Adequate Estimated blood loss (mL): 0 Urine output (mL): 0 Blood Pressure: 125/97 SaO2: 95 Pulse Rate: 73 Airway Patency: Patent Respiratory Rate: 18 Temperature: 97.6 F Patient is:: Awake and Stable Stable to PACU at:: 07:55
--- NOTE | 2025-03-15 07:52 | FL_ITS ---
FINAL REPORT CLINICAL HISTORY: ERCP- choledocholithiasis and bile duct obstruction. fluoro time 1.48 76.61 mgy FINDINGS: FLUOROSCOPY LESS THAN 1 HOUR HISTORY: Fluoroscopy guidance. Fluoroscopic guidance was provided for ERCP. 4 spot films were obtained. A total of 1:48 minutes of fluoroscopy time were used. Total DAP: 76.61 mGy IMPRESSION: As above. Reviewed, Interpreted and Dictated by Anita Colmenares MD Transcribed by Linda Davis Authenticated and [facility]
[2025-03-15 08:00] LABS: Basophils % 0.2 % (0.1-2.0); Lymphocytes # 0.7 K/mm3 (0.7-4.5); Monocytes # 0.9 K/mm3 (0.1-1.0); Nucleated Red Blood Cells # 0 10^3/uL; Nucleated Red Blood Cells % 0 %
[2025-03-15 08:08] LABS: Eosinophils % 0.3 % (0.1-12.0); Hematocrit 33.1 % (42.0-52.0); Lymphocytes % 6.3 % (10-50); Mean Corpuscular HGB Conc 33.2 g/dL (31.8-35.4); Mean Corpuscular Volume 90.2 fl (80-94); Mean Platelet Volume 11.2 fl (7.4-10.4); Monocytes % 7.7 % (1.7-9.3); Neutrophils # 9.5 K/mm3 (1.8-7.8); Neutrophils % 84.8 % (37.0-80.0); Platelet Count 126 K/mm3 (142-424); Red Blood Count 3.67 M/mm3 (4.60-6.20); Red Cell Distribution Width 14.7 % (11.5-17.5); Red Cell Distribution Width-SD 48.5 fL; White Blood Count 11.2 K/mm3 (4.8-10.8)
[2025-03-15 08:25] LABS: Hemoglobin A1C 5.9 % (4.0-6.0)
[2025-03-15] MEDS: GABAPENTIN 300MG CAPSULE 300 MG PO ×3 (08:32→20:34)
[2025-03-15] MEDS: CARVEDILOL 3.125MG TABLET 3.125 MG PO ×2 (08:32→20:34)
[2025-03-15 11:09] LABS: POC Glucose,Bedside 186 (70-110)
[2025-03-15] MEDS: humaLOG 100 UNITS/ML 10ML VIAL (SSI) SUBCUT ×3 (11:26→20:34)
[2025-03-15] MEDS: LACTATED RINGERS 1000ML 1,000 ML 100 ML IV (12:33)
--- NOTE | 2025-03-15 13:24 | P.PNANES_ITS ---
[facility] Anesthesia Record Part II Anesthesia Record Part II Discharge Time: 08:15 Destination: Medical Surgical Department PACU nurse assessment reviewed?: Yes Patient Condition:: Good Anesthesia Complications:: None Swallowing reflex intact?: Yes Airway Patency: Patent Cyanosis?: No Blood Pressure: 130/79 SaO2: 95 Respiratory Rate: 18 Pulse Rate: 73 Temperature: 97.6 F Mental Status: Alert & Oriented Pain level:: 0 Nausea and/or vomitting:: None Intake, IV Amount: 0 Hydration: Adequate
[2025-03-15 17:24] LABS: POC Glucose,Bedside 300 (70-110)
--- NOTE | 2025-03-15 17:51 | PC.NURSE ---
pt resting supine in bed at this time. pt had ERCP this morning and tolerated well. surgery scheduled for tomorrow to remove gallbladder. consent signed and on the chart. LR infusing @ 100ml/hr. per hospitalist, this bag is to finish and then fluids are to be discontinued. iv abx given per jan. GI and general surgery consults in place. pt has no complaints of pain at this time. pt tolerating full liquid diet well. no needs at this time. call light within reach.
--- NOTE | 2025-03-15 19:52 | EXP.ACUTE.PN ---
Subjective *Date: 03/15/25 *Time: 22:17 Interval history: Seen after ERCP this morning. Belly pain better. Denies nausea or vomiting. Stable on room air. Afebrile. Requesting something to eat. Medical Exam Vital signs and Labs for Last 24 Hours: Vital Signs Temp Pulse Pulse Resp BP BP Pulse Ox 03/15/25 18:42 03/15/25 17:00 03/15/25 16:00 98.0 F 59 L 18 147/85 H 96 03/15/25 15:00 03/15/25 15:00 60 16 149/86 H 95 03/15/25 14:00 60 18 145/80 H 97 03/15/25 13:24 18 03/15/25 13:00 03/15/25 13:00 98.1 F 59 L 18 142/84 H 95 03/15/25 12:00 98.0 F 65 18 128/84 94 L 03/15/25 11:00 98.1 F 60 18 142/86 H 94 L 03/15/25 10:58 03/15/25 10:30 98.3 F 64 18 144/87 H 94 L 03/15/25 10:00 98.0 F 61 18 142/92 H 93 L 03/15/25 09:30 98.1 F 59 L 18 125/79 96 03/15/25 09:00 98.2 F 62 18 136/84 93 L 03/15/25 09:00 03/15/25 08:45 98.1 F 65 18 138/84 93 L 03/15/25 08:30 98.7 F 68 18 121/76 96 03/15/25 08:15 97.9 F 71 18 118/60 97 03/15/25 08:15 97.6 F 73 18 130/79 95 03/15/25 08:05 97.6 F 73 18 130/79 95 03/15/25 08:00 97 03/15/25 07:55 97.6 F 68 18 120/73 94 L 03/15/25 07:50 97.6 F 73 18 125/97 H 03/15/25 07:45 97.6 F 72 18 125/97 H 93 L 03/15/25 07:15 03/15/25 05:00 03/15/25 04:00 98.3 F 81 16 122/72 93 L 04/16/25 03:00 03/15/25 01:00 03/14/25 23:00 03/14/25 21:00 03/14/25 20:00 03/14/25 19:55 98.6 F 85 17 126/72 93 L O2 Del Method 03/15/25 18:42 Room Air 03/15/25 17:00 Room Air 03/15/25 16:00 Room Air 03/15/25 15:00 Room Air 03/15/25 15:00 Room Air 03/15/25 14:00 Room Air 03/15/25 13:24 03/15/25 13:00 Room Air 03/15/25 13:00 Room Air 03/15/25 12:00 Room Air 03/15/25 11:00 Room Air 03/15/25 10:58 Room Air 03/15/25 10:30 Room Air 03/15/25 10:00 Room Air 03/15/25 09:30 Room Air 03/15/25 09:00 Room Air 03/15/25 09:00 Room Air 03/15/25 08:45 Room Air 03/15/25 08:30 Room Air 03/15/25 08:15 Room Air 03/15/25 08:15 Room Air 03/15/25 08:05 Room Air 03/15/25 08:00 Room Air 03/15/25 07:55 Room Air 03/15/25 07:50 03/15/25 07:45 Room Air 03/15/25 07:15 Mechanical Ventilation 03/15/25 05:00 Room Air 03/15/25 04:00 Room Air 03/15/25 03:00 Room Air 03/15/25 01:00 Room Air 03/14/25 23:00 Room Air 03/14/25 21:00 Room Air 03/14/25 20:00 Room Air 03/14/25 19:55 Room Air Intake and Output 03/15/25 03/15/25 03/15/25 07:59 15:59 23:59 Intake Total 600 / 2260 320 / 2260 1340 / 2260 Output Total 575 / 2300 1325 / 2300 400 / 2300 Balance 25 / -40 -1005 / -40 940 / -40 Intake: Intake, Oral Amount 270 / 810 540 / 810 Intake, Total IV Amount 600 / 1450 50 / 1450 800 / 1450 Lactated Ringers 1000ML 1,000 800 / 800 ml @ 100 mls/hr IV .Q10H [facility] Rx #:[id number] Pipercillin/Tazo 3.375 gm In 0. 50 / 50 9 % Sodium Chloride 50 ml @ 100 mls/hr IV Q6H [facility] Rx#:[id number] Output: Output, Urine Amount 575 / 2300 1325 / 2300 400 / 2300 Other: Number of Unmeasured Voids 0 0 0 Number of Bowel Movements 1 Weight 99.019 kg Patient Weight 03/15/25 23:59 Weight 99.019 kg Laboratory Results - last 24 hr 03/14/25 20:05: POC Glucose 155 H 03/15/25 05:52: WBC 11.2 H, RBC 3.67 L, Hgb 11.0 L D, Hct 33.1 L, MCV 90.2, MCH 30.0, MCHC 33.2, RDW 14.7, Plt Count 126 L, MPV 11.2 H, Neut % (Auto) 84.8 H, Lymph % (Auto) 6.3 L, [place] % (Auto) 7.7, Eos % (Auto) 0.3, Baso % (Auto) 0.2, Neut # (Auto) 9.5 H, Lymph # (Auto) 0.7, Grand # (Auto) 0.9, Eos # (Auto) 0.0, Baso # (Auto) 0.0, Sodium 136, Potassium 3.5, Chloride 103, Carbon Dioxide 25, Anion Gap 11.5, BUN 32 H, Creatinine 2.40 H, Estimated Creat Clear 38, Estimated GFR 27 L, Est GFR ( Amer) 32 L, Glucose 137 H, Hemoglobin A1c 5.9, Calcium 8.2 L, Magnesium 2.0, Total Bilirubin 2.9 H, AST 111 H D, ALT 290 H D, Alkaline Phosphatase 334 H, Total Protein 6.0 L, Albumin 3.1 L D, Globulin 2.9, Albumin/Globulin Ratio 1.1 03/15/25 11:02: POC Glucose 186 H 03/15/25 17:17: POC Glucose 300 H I & O for Labs for Last 24 Hours: Intake & Output 03/12/25 03/13/25 03/14/2503/15/25 23:59 23:59 23:59 23:59 Intake Total 410 / 410 2260 / 2260 Output Total 700 / 700 2300 / 2300 Balance -290 / -290 -40 / -40 Weight 97.125 kg 99.019 kg Constitutional: Present no acute distress, obese and chronically ill appearing Head: Present atraumatic and normocephalic ENT: Present normal exam Respiratory: Present CTA bilaterally and normal respiratory effort; Absent rhonchi, wheezes or crackles Comment:: Irregular irregular GI: Present soft, tenderness (Marginal, improved) and normal bowel sounds; Absent distention Extremities: Present normal inspection and full ROM Skin: Present intact; Absent erythema Neuro: Present Grossly Intact, alert, awake, oriented x 3 and moves all extremities Assessment and Plan *Assessment and plan (1) Choledocholithiasis with acute cholecystitis: Status: Acute Category: Medical Code(s): K80.42 - Calculus of bile duct with acute cholecystitis without obstruction (2) Anemia: Status: Acute Category: Medical Code(s): D64.9 - Anemia, unspecified (3) Epigastric pain: Status: Acute Category: Medical Code(s): R10.13 - Epigastric pain (4) Chronic Kidney Disease: Status: Acute Qualifiers: Chronic kidney disease stage: stage 3 (moderate) Chronic kidney disease stage 3 subtype: unspecified whether 3a or 3b Qualified Code(s): N18.30 - Chronic kidney disease, stage 3 unspecified Category: Medical Code(s): N18.9 - Chronic kidney disease, unspecified (5) Obesity (BMI 30.0-34.9): Status: Chronic Category: Medical Code(s): E66.811 - Obesity, class 1 (6) Diabetes mellitus: Status: Chronic Qualifiers: Diabetes mellitus complication status: without complication Diabetes mellitus 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 Diabetes mellitus type: type 2 Qualified Code(s): E11.9 - Type 2 diabetes mellitus without complications; Z79.4 - MCFP (current) use of insulin Category: Medical Code(s): E11.9 - Type 2 diabetes mellitus without complications (7) Hypertension: Status: Acute Qualifiers: Hypertension type: unspecified Qualified Code(s): I10 - Essential (primary) hypertension Category: Medical Code(s): I10 - Essential (primary) hypertension (8) Cholelithiasis: Status: Acute Category: Medical Code(s): K80.20 - Calculus of gallbladder without cholecystitis without obstruction (9) Sepsis: Status: Acute Category: Medical Code(s): A41.9 - Sepsis, unspecified organism Plan Sterling Rodriguez is a 74-year-old male with a medical history significant for CAD with stents, hypertension, type 2 diabetes, CKD who presents with worsening abdominal pain. Found to have elevation of liver enzymes. Concern of progression to acute choledocholithiasis. Discussed case with ER physician, request admission for IV antibiotics and surgical/GI consults. I agreed to admit for further care. Will continue IV antibiotics empirically for suspected infection given his elevated white count, tachycardia, source with his gallbladder. GI and surgery assisting with care. Taken for ERCP this morning. Distal CBD stone removed. Planning for cholecystectomy tomorrow morning. Continues to require inpatient management. Problems addressed as follows: #Abdominal pain # Choledocholithiasis -White count elevated down to 11.2. Afebrile. Hemoglobin 11. Liver enzymes remain elevated with bilirubin 2.9, AST 111, ALT 290, alk phos 334. Improved from admission. - Continue Zosyn 3.375 g every 6 hours IV. - Discussed case with GI, found a distal common bile duct stone. Was removed today. Good results. Discussed case with surgery, will plan for cholecystectomy in the morning. N.p.o. after midnight. Full liquids for now. - Repeat CBC, CMP, magnesium ordered for the morning #CAD with stents #Hypertension ? Continue home carvedilol, holding plavix and statin #Type 2 diabetes ? ACHS glucose checks, LDSSI. ? Continue home gabapentin TID - A1c improved to 5.9. # JON on CKD stage IV ? Improvement today with BUN 32, creatinine 2.4. Down from BUN 42, creatinine 2.7. Baseline appears to be about 2.0. Monitor for improvement with hydration. Continue LR at 100 cc an hour until 9 PM. #History of gout ? Holding home allopurinol in the setting of acute illness and JON. Full code
[2025-03-15 20:14] LABS: POC Glucose,Bedside 336 (70-110)
[2025-03-16] VITALS (19 sets, daily range): BP systolic 116–172; BP diastolic 65–96; PULSE 53–75; RESP 14–18; TEMP 36.4–38; O2SAT 92–97; BMI 32.3
[2025-03-16] MEDS: PIPERCILLIN/TAZO 3.375 GM in 0.9 % SODIUM CHLORIDE 50 ML IV ×4 (00:34→18:52)
--- NOTE | 2025-03-16 02:27 | PC.NURSE ---
Pt AOx4. Has been NPO since 0000 for surgery in the AM. Denied pain. Receiving zosyn. Respirations even and unlabored. Bed low, locked, and call light is in reach.
[2025-03-16 04:57] LABS: POC Glucose,Bedside 259 (70-110)
[2025-03-16] MEDS: humaLOG 100 UNITS/ML 10ML VIAL (SSI) SUBCUT ×3 (05:21→20:40)
--- NOTE | 2025-03-16 06:51 | P.PN_ITS ---
Subjective Patient reports: feels better Exam Data for Last 24 hours Vital signs and Labs for Last 24 Hours: Temp Pulse Resp BP Pulse Ox O2 Del Method 98.0 F 54 L 16 136/78 94 L Room Air 03/16/25 04:00 03/16/25 04:00 03/16/25 04:00 03/16/25 04:00 03/16/25 04:00 03/16/25 06:24 Laboratory Results - last 24 hr 03/15/25 05:52: WBC 11.2 H, RBC 3.67 L, Hgb 11.0 L D, Hct 33.1 L, MCV 90.2, MCH 30.0, MCHC 33.2, RDW 14.7, Plt Count 126 L, MPV 11.2 H, Neut % (Auto) 84.8 H, Lymph % (Auto) 6.3 L, [place] % (Auto) 7.7, Eos % (Auto) 0.3, Baso % (Auto) 0.2, Neut # (Auto) 9.5 H, Lymph # (Auto) 0.7, [place] # (Auto) 0.9, Eos # (Auto) 0.0, Baso # (Auto) 0.0, Hemoglobin A1c 5.9, Magnesium 2.0 03/15/25 11:02: POC Glucose 186 H 03/15/25 17:17: POC Glucose 300 H 03/15/25 19:53: POC Glucose 336 H* 03/16/25 04:50: POC Glucose 259 H I & O for Last 24 hours: Intake & Output 03/13/25 03/14/25 03/15/25 03/16/25 11:59 11:59 11:59 11:59 Intake Total 1060 / 1060 1610 / 1610 Output Total 1675 / 1875 3625 / 3625 Balance -615 / -815 -2014 / Weight 216 lb 218 lb 4.8 oz 218 lb 6.4 oz *Routine Abdominal Exam Abdominal: Present soft and tenderness Comments: Some tenderness, RUQ Progress Note: A&P Assessment and plan (1) Choledocholithiasis with acute cholecystitis: Status: Acute Assessment and plan: Tentatively plan cholecystectomy today. (2) Anemia: Status: Acute (3) Epigastric pain: Status: Acute (4) Chronic Kidney Disease: Status: Acute (5) Obesity (BMI 30.0-34.9): Status: Chronic (6) Diabetes mellitus: Status: Chronic (7) Hypertension: Status: Acute (8) Cholelithiasis: Status: Acute (9) Sepsis: Status: Acute
[2025-03-16 07:01] LABS: Basophils % 0.1 % (0.1-2.0); Hematocrit 33.5 % (42.0-52.0); Hemoglobin 11.3 g/dL (14.1-18.0); Lymphocytes # 0.7 K/mm3 (0.7-4.5); Lymphocytes % 7.1 % (10-50); Mean Corpuscular HGB Conc 33.7 g/dL (31.8-35.4); Mean Corpuscular Hemoglobin 30.2 pg (27.0-31.2); Mean Corpuscular Volume 89.6 fl (80-94); Monocytes # 0.4 K/mm3 (0.1-1.0); Monocytes % 4.3 % (1.7-9.3); Neutrophils # 8.1 K/mm3 (1.8-7.8); Neutrophils % 87.7 % (37.0-80.0); Nucleated Red Blood Cells # 0 10^3/uL; Nucleated Red Blood Cells % 0 %; Platelet Count 131 K/mm3 (142-424); Red Blood Count 3.74 M/mm3 (4.60-6.20); Red Cell Distribution Width 14.6 % (11.5-17.5); Red Cell Distribution Width-SD 48.3 fL; White Blood Count 9.2 K/mm3 (4.8-10.8)
[2025-03-16 07:26] LABS: Albumin Level 2.9 g/dl (3.5-5.0); Chloride 104 mmol/L (98-107)
[2025-03-16 07:27] LABS: Potassium 4.2 mmoL/L (3.5-5.1); Sodium 139 mmol/L (136-145)
[2025-03-16 07:29] LABS: Alanine Aminotransferase 261 U/L (12-78); Aspartate Amino Transferase 168 U/L (17-59); Blood Urea Nitrogen 25 mg/dl (9-20); Creatinine Clearance Estimated 51 mL/min (50-200); Estimated Glomerular Filt Rate 37 ml/min (>60); GFR (African American) 45 ML/MIN (>60)
[2025-03-16 07:30] LABS: Albumin/Globulin Ratio 0.9 (1.1-1.8); Alkaline Phosphatase 466 U/L (38-126); Anion Gap 12.2 mEq/L (5-15); Bilirubin,Total 3.3 mg/dl (0.2-1.3); Calcium 8.3 mg/dl (8.4-10.2); Carbon Dioxide 27 mmol/L (22.0-30.0); Globulin 3.2 g/dL (1.3-3.2); Glucose 232 mg/dl (74-100); Magnesium 2.2 mg/dl (1.6-2.3); Total Protein,Serum 6.1 g/dl (6.3-8.2)
--- NOTE | 2025-03-16 08:36 | PC.NURSE ---
pt off floor with Surgery
--- NOTE | 2025-03-16 09:00 | EXP.ANES.CKL ---
[facility] Disclaimer: The information contained in this section may have been updated after the patient was seen, as this information can be updated by other users. Medical History Chronic Kidney Disease Pre-operative cardiovascular examination History of left heart catheterization Sleep apnea COPD (chronic obstructive pulmonary disease) JON (acute kidney injury) Dyspnea Hypotension Hx of fracture of left hip Hyperlipidemia Hypertension Dyslipidemia Coronary artery disease CAD (coronary artery disease) Neuropathy Arthritis Gout Diabetes mellitus Surgical History H/O right heart catheterization Hx of right knee surgery Hx of hernia repair Stented coronary artery Status post total right knee replacement Family History Other Leukemia Stroke Social History Smoking Status: Current every day smoker tobacco type: cigars second hand exposure: No alcohol intake: former substance use type: denies use current occupational status: retired and disabled Travel in the last 8 weeks: None household members: family housing: house current occupational exposures/hazards: No caffeine: No Have you lived/traveled outside [place] in past 30 days?: No Contact w/someone who lives/traveled outside US past 30 days?: No Exposure to someone with infectious disease in past 14 days?: No Do you have a fever (greater than 100.4 F or 38 C)?: No Have you tested positive for COVID-19: No Exposed to someone with COVID-19 in past 14 days?: No Do you have a sore throat?: No Do you have a cough?: No Do you have any weakness?: No Are you experiencing any nausea/vomitting?: No Do you have any diarrhea?: No Are you experiencing any unusual bleeding?: No Do you have any muscle aches/pain?: Yes Do you have any abdominal pain?: No Are you experiencing loss of taste or smell?: No [facility] Anesthesia Checklist Patient Identification Patient Identification: Arm Band Structural Data Admitted From: Inpatient Planned Operative Procedure/s: Laparoscopic Cholecystectomy Consent for Planned Operative Procedure(s) Verified: Yes Verified Documents: Surgical Consent and History and Physical NPO Status Verified Time NPO: 00:00 Additional verifications Anesthesia Reactions: No Hx Blood Transfusions: No Blood Transfusion Reaction: No Airway Assessment Mallampati Score:: Class II C-Spine Mobility Assessed: Yes TMJ Mobility Assessed: Yes Dentition: Edentulous Neurological Assessment Level of Consciousness: Awake, Alert and Appropriate Anesthesia Plan Anesthesia Risk discussed: Yes Anesthesia Plan: Verified ASA Class: III Anesthesia Type: General
[2025-03-16] MEDS: CEFAZOLIN 1GM VIAL 2 GM (10:10)
[2025-03-16] MEDS: LIDOCAINE 1% 20ML MDV 20 ML (10:55)
[2025-03-16] MEDS: ROPIVACAINE 0.5% 30ML VIAL 150 MG (10:58)
--- NOTE | 2025-03-16 12:13 | EXP.OP.NOTE ---
Date of procedure: 03/16/25 Pre-op Diagnosis:: Acute cholecystitis Post-op Diagnosis:: Same Procedure performed:: Laparoscopic cholecystectomy Surgeon:: Dandre Montano MD Anesthesia: GETDarrell Estimated blood loss (mL): 50 Clinical Note:: Patient presents for cholecystectomy as an inpatient for acute cholecystitis with choledocholithiasis status post ERCP. He is a 74-year-old male from [place] with history of diabetes, chronic renal insufficiency, tobacco abuse, dyslipidemia, coronary artery disease with previous stenting on Plavix. He is on weekly Ozempic. Over the past couple of months he has had several episodes of symptoms potentially consistent with biliary colic. This is characterized by acute onset of epigastric pain radiating around to the bilateral upper quadrants and into the back. His primary care provider is Edmond Fajardo in [facility]. Patient states that he has been told he may have a pancreatic infection in the past. He presented to the emergency department with mild epigastric pain with occasional radiation to the right upper quadrant and into his back. At that time plan was for outpatient management and cardiology evaluation. Recommendations were for outpatient management. He presented back to the emergency department on 03/09/2025. He was able to be managed as an outpatient. He presented back to the emergency department 2 days later on 03/11/25. Symptoms included back, abdominal, and flank pain. He was able to be managed as an outpatient. He saw cardiology on 03/13/25. He was deemed a moderate operative risk. Recommendations were to hold his Plavix and possibly aspirin for 5 days prior to procedure. Patient reports feeling bad with some nausea. He presented to the office after cardiology evaluation for routine appointment on 03/14/2025. Patient appeared ill and jaundiced. He was sent to the emergency department where he was found to have evidence of probable biliary obstruction due to liver function tests with potential choledocholithiasis and potential ascending cholangitis characterized by jaundice, fevers, leukocytosis. He was admitted for inpatient management. He underwent ERCP with stone extraction by gastroenterology on 03/13/2025. There was nonfilling of the cystic duct consistent with acute cholecystitis. Plan was made for cholecystectomy during that admission. Operative findings:: He had a distended gallbladder with some thickening. There is significant scarring around the cystic duct. Operative note:: Consent was obtained patient was taken the operating room. He was positioned in supine position. General anesthesia was induced via endotracheal tube. Abdomen was prepped and draped in the standard surgical fashion. Due to the fact that he had had previous likely extensive surgery at his umbilicus for hernia repair 5 mm trocar was inserted through the left subcostal area into the peritoneal cavity under visualization. CO2 pneumoperitoneum was achieved to 15 mmHg. Laparoscopic surveillance was carried out. There were omental adhesions near his umbilical area and the concerns for possible recurrent hernia. 10 mm trocar was inserted in the epigastrium. The adhesions were then taken down from the anterior abdominal wall using a's ultrasonic harmonic alix. No clear hernia was identified to but there was significant scar tissue. Incision was made inferior to the umbilicus in the previous scar. Dissection was carried down to the fascia which was incised. Peritoneal cavity was entered. Fascial stay sutures were placed and 11 mm Simon trocar was inserted. 5 mm laparoscope was replaced with a 10 mm 0 degree laparoscope inserted through the umbilical trocar site. Patient was then positioned in reverse Trendelenburg left side down. A couple 5 mm trocars were inserted in the right upper abdomen. Omentum was obscuring the liver and this was swept inferiorly. Liver was elevated. Gallbladder was identified and found to be distended and somewhat inflamed. It was tense and unable to be grasped. Gallbladder was partially drained with the laparoscopic needle aspirator. Ultimately the gallbladder was then able to be retracted anteriorly over the dome of the liver. Infundibulum of the gallbladder was retracted anterior laterally. Visceral peritoneum was bluntly incised. Dissection was carried out. There was some significant chronic scarring around the cystic duct at the neck of the gallbladder. There was cystic artery identified and there was some oozing from this. Hemoclips were placed for temporary hemostasis. The Surgicel was used for temporary hemostasis as well. The cystic duct was dissected free. Ultimately the cystic artery required division with mary ultrasonic harmonic alix leaving the clips in place to be able to expose the cystic duct for its clip placement. The cystic duct was isolated, multiple clipped, and sharply divided. The gallbladder was then dissected free from the liver in a retrograde fashion using a's ultrasonic harmonic alix. There was some additional unavoidable spillage of bile during the dissection process and this was suctioned free. The gallbladder was ultimately dissected free from the liver and placed within an Endo Catch retrieval device. It was removed the peritoneal cavity via the umbilical trocar site which required some stretching of the fascial incision for delivery. Gallbladder fossa and perihepatic space were then irrigated and aspirated until clear. Irrigation was performed with greater than 3 L. Trocars were then removed to the CO2 pneumoperitoneum was evacuated. Fascia at the umbilicus was closed with several interrupted 0 Ethibond sutures. Local anesthetic was infiltrated in all incisions. Skin incisions were closed with 4-0 Monocryl in a subcuticular fashion. Steri-Strips and dressings were applied. Condition: stable Disposition: PACU Complications:: None immediately apparent
--- NOTE | 2025-03-16 12:23 | EXP.ANES.I ---
[facility] Anesthesia Record Part I Anesthesia Record I Intake, IV Amount: 800 Hydration: Adequate Estimated blood loss (mL): 10 Urine output (mL): 0 Blood Products used (#): none Blood Pressure: 141/79 SaO2: 93 Pulse Rate: 58 Airway Patency: Patent Respiratory Rate: 16 Temperature: 97.7 F Patient is:: Drowsy and Stable Stable to PACU at:: 12:15
[2025-03-16] MEDS: HYDROMORPHONE 2MG/ML SYRINGE 0.5 MG IV (12:35)
--- NOTE | 2025-03-16 13:04 | PC.NURSE ---
pt has returned from surgery. 5 sites to abdomen. pt resting well. denies any pain @ this time.
[2025-03-16 16:05] LABS: POC Glucose,Bedside 244 (70-110)
--- NOTE | 2025-03-16 18:32 | P.PN_ITS ---
Subjective *Date: 03/16/25 *Time: 18:32 Interval history: Having some right upper quadrant pain today. N.p.o. for surgery. Stable on room air. No nausea or vomiting. Afebrile Medical Exam Vital signs and Labs for Last 24 Hours: Vital Signs Temp Pulse Pulse Resp BP BP Pulse Ox 03/16/25 17:50 98.2 F 62 16 116/86 97 03/16/25 17:00 03/16/25 16:50 60 18 163/91 H 96 03/16/25 15:50 64 16 149/84 H 97 03/16/25 15:20 61 152/93 H 97 03/16/25 15:00 03/16/25 14:50 98.1 F 56 L 18 172/88 H 96 03/16/25 14:20 61 18 167/84 H 95 03/16/25 13:50 57 L 16 156/81 H 96 03/16/25 13:35 56 L 16 163/68 H 95 03/16/25 13:20 54 L 16 163/65 H 94 L 03/16/25 13:05 97.5 F L 57 L 14 147/80 H 92 L 03/16/25 12:45 97.7 F 56 L 16 140/87 97 03/16/25 12:35 97.7 F 56 L 16 143/96 H 95 03/16/25 12:25 97.7 F 57 L 16 144/90 H 95 03/16/25 12:24 97.7 F 58 L 16 141/79 H 03/16/25 12:15 97.7 F 59 L 16 147/91 H 94 L 03/16/25 08:00 97.5 F L 53 L 18 117/69 96 03/16/25 08:00 03/16/25 06:24 03/16/25 05:00 03/16/25 04:00 98.0 F 54 L 16 136/78 94 L 03/16/25 03:00 03/16/25 01:00 03/15/25 23:59 98.0 F 50 L 16 129/73 96 03/15/25 23:00 03/15/25 21:00 03/15/25 20:00 98.0 F 58 L 16 136/85 95 03/15/25 20:00 03/15/25 18:42 O2 Del Method 03/16/25 17:50 Room Air 03/16/25 17:00 Room Air 03/16/25 16:50 Room Air 03/16/25 15:50 Room Air 03/16/25 15:20 03/16/25 15:00 Room Air 03/16/25 14:50 Room Air 03/16/25 14:20 Room Air 03/16/25 13:50 Room Air 03/16/25 13:35 03/16/25 13:20 Room Air 03/16/25 13:05 Room Air 03/16/25 12:45 Room Air 03/16/25 12:35 Room Air 03/16/25 12:25 Room Air 03/16/25 12:24 03/16/25 12:15 Room Air 03/16/25 08:00 Room Air 03/16/25 08:00 Room Air 03/16/25 06:24 Room Air 03/16/25 05:00 Room Air 03/16/25 04:00 Room Air 03/16/25 03:00 Room Air 03/16/25 01:00 Room Air 03/15/25 23:59 Room Air 03/15/25 23:00 Room Air 03/15/25 21:00 Room Air 03/15/25 20:00 Room Air 03/15/25 20:00 Room Air 03/15/25 18:42 Room Air Intake and Output 03/16/25 03/16/25 03/16/25 07:59 15:59 23:59 Intake Total 800 / 800 Output Total 1199 325 / 1999 Balance -1200 / -1200 325 / -1200 -325 / -1200 Intake: Intake, Total IV Amount 800 / 800 Output: Output, Urine Amount 1199 325 / 1999 Other: Number of Unmeasured Voids 0 0 0 Weight 99.065 kg Patient Weight 03/16/25 23:59 Weight 99.065 kg Laboratory Results - last 24 hr 03/15/25 19:53: POC Glucose 336 H* 03/16/25 04:50: POC Glucose 259 H 03/16/25 06:33: WBC 9.2, RBC 3.74 L, Hgb 11.3 L, Hct 33.5 L, MCV 89.6, MCH 30.2, MCHC 33.7, RDW 14.6, Plt Count 131 L, MPV 11.0 H, Neut % (Auto) 87.7 H, Lymph % (Auto) 7.1 L, [place] % (Auto) 4.3, Eos % (Auto) 0.0 L, Baso % (Auto) 0.1, Neut # (Auto) 8.1 H, Lymph # (Auto) 0.7, [place] # (Auto) 0.4, Eos # (Auto) 0.0, Baso # (Auto) 0.0, Sodium 139, Potassium 4.2, Chloride 104, Carbon Dioxide 27, Anion Gap 12.2, BUN 25 H, Creatinine 1.80 H D, Estimated Creat Clear 51, Estimated GFR 37 L, Est GFR ( Amer) 45 L D, Glucose 232 H, Calcium 8.3 L, Magnesium 2.2, Total Bilirubin 3.3 H, AST 168 H D, ALT 261 H, Alkaline Phosphatase 466 H, Total Protein 6.1 L, Albumin 2.9 L, Globulin 3.2, Albumin/Globulin Ratio 0.9 L 03/16/25 15:51: POC Glucose 244 H I & O for Labs for Last 24 Hours: Intake & Output 03/13/25 03/14/25 03/15/25 03/16/25 23:59 23:59 23:59 23:59 Intake Total 410 / 410 2260 / 2260 800 / 800 Output Total 700 / 700 3400 / 3400 1999 / 1999 Balance -290 / -290 -1140 / -1140 -1200 / -1200 Weight 97.125 kg 99.019 kg 99.065 kg Constitutional: Present no acute distress, obese and chronically ill appearing Head: Present atraumatic and normocephalic ENT: Present normal exam Respiratory: Present CTA bilaterally and normal respiratory effort; Absent rhonchi, wheezes or crackles Comment:: Irregular irregular GI: Present soft, tenderness (Stable, right upper quadrant.) and normal bowel sounds; Absent distention Extremities: Present normal inspection and full ROM Skin: Present intact; Absent erythema Neuro: Present Grossly Intact, alert, awake, oriented x 3 and moves all extremities Assessment and Plan *Assessment and plan (1) Choledocholithiasis with acute cholecystitis: Status: Acute Category: Medical Code(s): K80.42 - Calculus of bile duct with acute cholecystitis without obstruction (2) Anemia: Status: Acute Category: Medical Code(s): D64.9 - Anemia, unspecified (3) Epigastric pain: Status: Acute Category: Medical Code(s): R10.13 - Epigastric pain (4) Chronic Kidney Disease: Status: Acute Qualifiers: Chronic kidney disease stage: stage 3 (moderate) Chronic kidney disease stage 3 subtype: unspecified whether 3a or 3b Qualified Code(s): N18.30 - Chronic kidney disease, stage 3 unspecified Category: Medical Code(s): N18.9 - Chronic kidney disease, unspecified (5) Obesity (BMI 30.0-34.9): Status: Chronic Category: Medical Code(s): E66.811 - Obesity, class 1 (6) Diabetes mellitus: Status: Chronic Qualifiers: Diabetes mellitus type: type 2 Diabetes mellitus intermediate card tender insulin use: with residential use Diabetes mellitus complication status: without complication Qualified Code(s): E11.9 - Type 2 diabetes mellitus without complications; Z79.4 - terminal supervisor (current) use of insulin Category: Medical Code(s): E11.9 - Type 2 diabetes mellitus without complications (7) Hypertension: Status: Acute Qualifiers: Hypertension type: unspecified Qualified Code(s): I10 - Essential (primary) hypertension Category: Medical Code(s): I10 - Essential (primary) hypertension (8) Cholelithiasis: Status: Acute Category: Medical Code(s): K80.20 - Calculus of gallbladder without cholecystitis without obstruction (9) Sepsis: Status: Acute Category: Medical Code(s): A41.9 - Sepsis, unspecified organism Plan Sterling Rodriguez is a 74-year-old male with a medical history significant for CAD with stents, hypertension, type 2 diabetes, CKD who presents with worsening abdominal pain. Found to have elevation of liver enzymes. Concern of progression to acute choledocholithiasis. Discussed case with ER physician, request admission for IV antibiotics and surgical/GI consults. I agreed to admit for further care. Will continue IV antibiotics empirically for suspected infection given his elevated white count, tachycardia, source with his gallbladder. GI and surgery assisting with care. Taken for ERCP on 03/15. Distal CBD stone removed. Taken for cholecystectomy this morning. Will monitor after procedure for pain control needs intolerance of p.o. intake. Anticipate discharge tomorrow. Problems addressed as follows: #Abdominal pain # Choledocholithiasis -White count improved at 9.2, Afebrile. Hemoglobin 10. Liver enzymes remain elevated with Bilirubin slightly elevated today at 3.3, AST 168, ALT 216, alk phos 466. - Continue Zosyn 3.375 g every 6 hours IV. -Status post ERCP yesterday. Distal CBD stone removed. -Discussed case with surgery, taken for cholecystectomy today. Appearance of acute on chronic cholecystitis. Tolerated procedure well. Recommend observing overnight and monitoring advancement of diet. - Repeat CBC, CMP, magnesium ordered for the morning #CAD with stents #Hypertension ? Continue home carvedilol, holding plavix and statin #Type 2 diabetes ? ACHS glucose checks, LDSSI. Morning glucose 232 ? Continue home gabapentin TID - A1c improved to 5.9. # JON on CKD stage IV ? Improvement today with BUN 25, creatinine 1.8. Potassium 4.2, magnesium 2.2. Discontinue IV fluids #History of gout ? Holding home allopurinol in the setting of acute illness and JON. Full code
--- NOTE | 2025-03-16 18:54 | PC.NURSE ---
reassessed pt incision sites. drainage is unchanged. pt reports passing gas. denies pain @ this time.
[2025-03-16] MEDS: GABAPENTIN 300MG CAPSULE 300 MG PO (20:36)
[2025-03-16] MEDS: CARVEDILOL 3.125MG TABLET 3.125 MG PO (20:36)
[2025-03-16 20:44] LABS: POC Glucose,Bedside 347 (70-110)
[2025-03-17] VITALS: BP 135/81; PULSE 69; RESP 18; TEMP 36.6; O2SAT 97
[2025-03-17] MEDS: PIPERCILLIN/TAZO 3.375 GM in 0.9 % SODIUM CHLORIDE 50 ML IV ×2 (01:49→06:44)
[2025-03-17 04:00] VITALS: BP 124/83; PULSE 74; RESP 18; TEMP 36.8; O2SAT 95; BMI 32.6
--- NOTE | 2025-03-17 04:59 | PC.NURSE ---
V/s, ox4. Possible D/c today. Blood glucose monitored. Lap sites monitored for drainage. Pt has been voiding without issue and tolerating liquid diet. No acute events to report, plan of care ongoing.
[2025-03-17 06:32] LABS: POC Glucose,Bedside 228 (70-110)
[2025-03-17 06:40] LABS: Basophils % 0.2 % (0.1-2.0); Hematocrit 31.7 % (42.0-52.0); Hemoglobin 10.8 g/dL (14.1-18.0); Lymphocytes % 10.4 % (10-50); Mean Corpuscular HGB Conc 34.1 g/dL (31.8-35.4); Mean Corpuscular Hemoglobin 30.3 pg (27.0-31.2); Mean Platelet Volume 11.1 fl (7.4-10.4); Monocytes # 0.5 K/mm3 (0.1-1.0); Monocytes % 5.4 % (1.7-9.3); Nucleated Red Blood Cells # 0 10^3/uL; Nucleated Red Blood Cells % 0 %; Platelet Count 162 K/mm3 (142-424); Red Blood Count 3.56 M/mm3 (4.60-6.20); Red Cell Distribution Width 14.7 % (11.5-17.5); Red Cell Distribution Width-SD 47.5 fL; White Blood Count 9.6 K/mm3 (4.8-10.8)
[2025-03-17] MEDS: humaLOG 100 UNITS/ML 10ML VIAL (SSI) SUBCUT (06:43)
--- NOTE | 2025-03-17 06:44 | P.PN_ITS ---
Subjective Narrative: Doing well. No complaints. Feels better. Exam Data for Last 24 hours Vital signs and Labs for Last 24 Hours: Temp Pulse Resp BP Pulse Ox O2 Del Method 98.2 F 74 18 124/83 95 Room Air 03/17/25 04:00 03/17/25 04:00 03/17/25 04:00 03/17/25 04:00 03/17/25 04:00 03/17/25 06:32 Laboratory Results - last 24 hr 03/16/25 06:33: WBC 9.2, RBC 3.74 L, Hgb 11.3 L, Hct 33.5 L, MCV 89.6, MCH 30.2, MCHC 33.7, RDW 14.6, Plt Count 131 L, MPV 11.0 H, Neut % (Auto) 87.7 H, Lymph % (Auto) 7.1 L, [place] % (Auto) 4.3, Eos % (Auto) 0.0 L, Baso % (Auto) 0.1, Neut # (Auto) 8.1 H, Lymph # (Auto) 0.7, [place] # (Auto) 0.4, Eos # (Auto) 0.0, Baso # (Auto) 0.0, Sodium 139, Potassium 4.2, Chloride 104, Carbon Dioxide 27, Anion Gap 12.2, BUN 25 H, Creatinine 1.80 H D, Estimated Creat Clear 51, Estimated GFR 37 L, Est GFR ( Amer) 45 L D, Glucose 232 H, Calcium 8.3 L, Magnesium 2.2, Total Bilirubin 3.3 H, AST 168 H D, ALT 261 H, Alkaline Phosphatase 466 H, Total Protein 6.1 L, Albumin 2.9 L, Globulin 3.2, Albumin/Globulin Ratio 0.9 L 03/16/25 15:51: POC Glucose 244 H 03/16/25 20:35: POC Glucose 347 H* 03/17/25 05:32: WBC 9.6, RBC 3.56 L, Hgb 10.8 L, Hct 31.7 L, MCV 89.0, MCH 30.3, MCHC 34.1, RDW 14.7, Plt Count 162, MPV 11.1 H, Neut % (Auto) 83.0 H, Lymph % (Auto) 10.4, [place] % (Auto) 5.4, Eos % (Auto) 0.0 L, Baso % (Auto) 0.2, Neut # (Auto) 8.0 H, Lymph # (Auto) 1.0, [place] # (Auto) 0.5, Eos # (Auto) 0.0, Baso # (Auto) 0.0 03/17/25 06:13: POC Glucose 228 H I & O for Last 24 hours: Intake & Output 03/14/25 03/15/25 03/16/25 03/17/25 11:59 11:59 11:59 11:59 Intake Total 1060 / 1060 1610 / 1610 1640 / 1640 Output Total 1675 / 1875 3800 / 3800 1300 / 1300 Balance -615 / -815 -2190 / -2190 340 / 340 Weight 216 lb 218 lb 4.8 oz 218 lb 6.4 oz 220 lb 5 oz *Routine Abdominal Exam Abdominal: Present soft; Absent tenderness Progress Note: A&P Assessment and plan (1) Choledocholithiasis with acute cholecystitis: Status: Acute Assessment and plan: Probable discharge today. (2) Anemia: Status: Acute (3) Epigastric pain: Status: Acute (4) Chronic Kidney Disease: Status: Acute (5) Obesity (BMI 30.0-34.9): Status: Chronic (6) Diabetes mellitus: Status: Chronic (7) Hypertension: Status: Acute (8) Cholelithiasis: Status: Acute (9) Sepsis: Status: Acute
[2025-03-17 06:46] LABS: Chloride 102 mmol/L (98-107)
[2025-03-17 06:47] LABS: Albumin Level 2.8 g/dl (3.5-5.0); Potassium 3.8 mmoL/L (3.5-5.1); Sodium 136 mmol/L (136-145)
[2025-03-17 06:49] LABS: Alanine Aminotransferase 183 U/L (12-78); Blood Urea Nitrogen 25 mg/dl (9-20); Creatinine Clearance Estimated 52 mL/min (50-200); Estimated Glomerular Filt Rate 37 ml/min (>60); GFR (African American) 45 ML/MIN (>60)
[2025-03-17 06:50] LABS: Alkaline Phosphatase 370 U/L (38-126); Anion Gap 13.8 mEq/L (5-15); Aspartate Amino Transferase 103 U/L (17-59); Bilirubin,Total 1.5 mg/dl (0.2-1.3); Carbon Dioxide 24 mmol/L (22.0-30.0); Globulin 2.8 g/dL (1.3-3.2); Glucose 245 mg/dl (74-100); Total Protein,Serum 5.6 g/dl (6.3-8.2)
--- NOTE | 2025-03-17 07:06 | P.DS_ITS ---
General Admission date:: 03/14/25 Discharge date: 03/17/25 HPI HPI HPI: Mr. Rodriguez is a 74-year-old male who was recently admitted 2 weeks ago for abdominal pain. Concern at that time for early cholecystitis with cholelithiasis. MRCP was obtained that was read as normal. GI and surgery were consulted during that visit and plan was for outpatient cholecystectomy. Patient evaluated in surgery clinic today and due to feeling poorly and having fever, was referred to the ER for further workup and management. He has been having abdominal pain in his upper abdomen and down his right side for the past 6 to 7 weeks. They were intense before his last visit 2 weeks ago. Have been intermittent since. Worse with eating. Denies any vomiting. Had fever this morning. Stable on room air. Workup in the ER with elevated liver enzymes, bilirubin 4.1, AST 236, ALT 462. Lipase normal at 216. [id number] ultrasound in the ED did not show biliary dilatation. White count elevated at 12.5. Also noted to have JON with BUN of 42, creatinine of 2.7. Patient states he has not been eating or drinking very well for the past few days. Due to his worsening symptoms and concern for infection, patient was initiated on antibiotics. Medicine consulted for admission and further management. On evaluation, patient appears ill. Is nontoxic however. Stable on room air. Abdominal exam with mild to moderate symptoms, surprisingly less severe than labs suggest. Overall appears comfortable at this time. Hospital Course Hospital Course Hospital Course: Sterling Rodriguez is a 74-year-old male with a medical history significant for CAD with stents, hypertension, type 2 diabetes, CKD who presents with worsening ab dominal pain. Found to have elevation of liver enzymes. Concern of progression to acute choledocholithiasis. Discussed case with ER physician, request admission for IV antibiotics and surgical/GI consults. I agreed to admit for further care. Will continue IV antibiotics empirically for suspected infection given his elevated white count, tachycardia, source with his gallbladder. GI and surgery assisting with care. Taken for ERCP on 03/15. Distal CBD stone removed. Taken for cholecystectomy 03/16 with removal of inflamed gallbladder. Tolerated procedure well. Monitored overnight and advance diet. Doing better by morning. Tolerating p.o. intake. No further signs of infection. Liver enzymes improving. Stable to discharge home with outpatient follow-up. Problems addressed as follows: #Abdominal pain # Choledocholithiasis - Patient presented with elevated white count and abnormal liver enzymes. Imaging obtained showing cholecystitis and with elevation in liver enzymes, concern for common bile duct stone. Had previously been admitted within the past 2 weeks with plan for outpatient intervention. MRCP at that time did not show obstruction however after discussion with GI and further review of imaging, does appear to have a filling defect in the distal common bile duct. Patient remained afebrile but had elevated liver enzymes, nausea, abdominal pain. Liver enzymes elevated as high as bilirubin 3.3, AST 168, ALT 216, alk phos 466. Showed improvement after ERCP and cholecystectomy with bilirubin 1.5, AST 103, ALT 183, alk phos 370 on morning of discharge. Was initiated on empiric antibiotics with Zosyn 3.375 g every 6 hours for empiric coverage for possible ascending cholangitis and cholecystitis. Taken for ERCP on 03/15 with removal of distal common bile duct stone. Patient was subsequently taken for surgery with general surgery on 03/16 for cholecystectomy. Feeling better after procedures. Tolerating diet. No longer having nausea or vomiting. Remained afebrile. No further indication for antibiotics, discontinued prior to discharge. Stable to discharge home and advance to regular diet. Wounds appear healthy, no active bleeding. Pathology pending on gallbladder #CAD with stents #Hypertension ? Continue home carvedilol, held Plavix and statin prior to surgery. Okay to resume after surgery #Type 2 diabetes: A1c 5.9. Hyperglycemic during admission but well-controlled on home regimen. Managed with sliding scale insulin during admission. Resume home regimen at discharge. Continue gabapentin 3 times a day for neuropathy. # JON on CKD stage IV: JON resolved with fluid resuscitation and after advancement of diet. Back to baseline on day of discharge with BUN 25, creatinine 1.8. Consistent with prerenal state due to poor p.o. intake/tolerance prior to admission #History of gout: Held allopurinol during admission, okay to resume after discharge Exam Data for Last 24 hours Vital signs and Labs for Last 24 Hours: Temp Pulse Resp BP Pulse Ox O2 Del Method 98.2 F 74 18 124/83 95 Room Air 03/17/25 04:00 03/17/25 04:00 03/17/25 04:00 03/17/25 04:00 03/17/25 04:00 03/17/25 06:32 Laboratory Results - last 24 hr 03/16/25 06:33: WBC 9.2, RBC 3.74 L, Hgb 11.3 L, Hct 33.5 L, MCV 89.6, MCH 30.2, MCHC 33.7, RDW 14.6, Plt Count 131 L, MPV 11.0 H, Neut % (Auto) 87.7 H, Lymph % (Auto) 7.1 L, [place] % (Auto) 4.3, Eos % (Auto) 0.0 L, Baso % (Auto) 0.1, Neut # (Auto) 8.1 H, Lymph # (Auto) 0.7, [place] # (Auto) 0.4, Eos # (Auto) 0.0, Baso # (Auto) 0.0, Sodium 139, Potassium 4.2, Chloride 104, Carbon Dioxide 27, Anion Gap 12.2, BUN 25 H, Creatinine 1.80 H D, Estimated Creat Clear 51, Estimated GFR 37 L, Est GFR ( Amer) 45 L D, Glucose 232 H, Calcium 8.3 L, Magnesium 2.2, Total Bilirubin 3.3 H, AST 168 H D, ALT 261 H, Alkaline Phosphatase 466 H, Total Protein 6.1 L, Albumin 2.9 L, Globulin 3.2, Albumin/Globulin Ratio 0.9 L 03/16/25 15:51: POC Glucose 244 H 03/16/25 20:35: POC Glucose 347 H* 03/17/25 05:32: WBC 9.6, RBC 3.56 L, Hgb 10.8 L, Hct 31.7 L, MCV 89.0, MCH 30.3, MCHC 34.1, RDW 14.7, Plt Count 162, MPV 11.1 H, Neut % (Auto) 83.0 H, Lymph % (Auto) 10.4, [place] % (Auto) 5.4, Eos % (Auto) 0.0 L, Baso % (Auto) 0.2, Neut # (Auto) 8.0 H, Lymph # (Auto) 1.0, [place] # (Auto) 0.5, Eos # (Auto) 0.0, Baso # (Auto) 0.0, Sodium 136, Potassium 3.8, Chloride 102, Carbon Dioxide 24, Anion Gap 13.8, BUN 25 H, Creatinine 1.80 H, Estimated Creat Clear 52, Estimated GFR 37 L, Est GFR ( Amer) 45 L, Glucose 245 H, Calcium 8.0 L, Total Bilirubin 1.5 H, AST 103 H D, ALT 183 H D, Alkaline Phosphatase 370 H, Total Protein 5.6 L , Albumin 2.8 L, Globulin 2.8, Albumin/Globulin Ratio 1.0 L 03/17/25 06:13: POC Glucose 228 H I & O for Last 24 hours: Intake & Output 03/14/25 03/15/25 03/16/25 03/17/25 23:59 23:59 23:59 23:59 Intake Total 410 / 410 2260 / 2260 1520 / 1640 120 / 120 Output Total 700 / 700 3400 / 3400 1999 / 1999 675 / 675 Balance -290 / -290 -1140 / -1140 -480 / -360 -555 / -555 Weight 97.125 kg 99.019 kg 99.065 kg 99.932 kg Constitutional Constitutional: no acute distress, obese and cooperative *Routine HEENT Exam Head: Present normocephalic Eye: Present EOMI and PERRL ENT: Present mucous membranes moist *Routine Neck Exam Neck: Present supple; Absent lymphadenopathy *Routine Respiratory Exam Respiratory: Present CTA bilaterally and normal respiratory effort *Routine Cardiovascular Exam Cardiovascular: Present RRR; Absent JVD *Routine Abdominal Exam Abdominal: Present soft, normoactive bowel sounds and tenderness (Mild in the right upper quadrant.); Absent distended Comments: Surgical incisions clean dry and intact. *Routine Rectal Exam Patient deferred: visual exam *Routine Exam Patient deferred: penile exam *Routine Extremities Exam Extremities: Present full ROM; Absent cyanosis, clubbing or edema *Routine Skin Exam Skin: Present warm; Absent rash *Routine Neurological Exam Neurological: Present alert, oriented X3, moving all extremities and normal speech; Absent CN II-XII intact or sensory deficit Routine Psychiatric Exam Psychiatric: Present normal affect, normal thought process, cooperative, good insight and good judgment Results Data Completed and Pending Labs on day of discharge: Labs from last 24 hours 03/17/25 03/17/25 03/16/25 06:13 05:32 20:35 WBC 9.6 RBC 3.56 L Hgb 10.8 L Hct 31.7 L MCV 89.0 MCH 30.3 MCHC 34.1 RDW 14.7 Plt Count 162 MPV 11.1 H Neut % (Auto) 83.0 H Lymph % (Auto) 10.4 [place] % (Auto) 5.4 Eos % (Auto) 0.0 L Baso % (Auto) 0.2 Neut # (Auto) 8.0 H Lymph # (Auto) 1.0 [place] # (Auto) 0.5 Eos # (Auto) 0.0 Baso # (Auto) 0.0 Sodium 136 Potassium 3.8 Chloride 102 Carbon Dioxide 24 Anion Gap 13.8 BUN 25 H Creatinine 1.80 H Estimated Creat Clear 52 Estimated GFR 37 L Est GFR ( Amer) 45 L Glucose 245 H POC Glucose 228 H 347 H* Calcium 8.0 L Magnesium Total Bilirubin 1.5 H AST 103 H D ALT 183 H D Alkaline Phosphatase 370 H Total Protein 5.6 L Albumin 2.8 L Globulin 2.8 Albumin/Globulin Ratio 1.0 L 03/16/25 03/16/25 15:51 06:33 WBC 9.2 RBC 3.74 L Hgb 11.3 L Hct 33.5 L MCV 89.6 MCH 30.2 MCHC 33.7 RDW 14.6 Plt Count 131 L MPV 11.0 H Neut % (Auto) 87.7 H Lymph % (Auto) 7.1 L [place] % (Auto) 4.3 Eos % (Auto) 0.0 L Baso % (Auto) 0.1 Neut # (Auto) 8.1 H Lymph # (Auto) 0.7 [place] # (Auto) 0.4 Eos # (Auto) 0.0 Baso # (Auto) 0.0 Sodium 139 Potassium 4.2 Chloride 104 Carbon Dioxide 27 Anion Gap 12.2 BUN 25 H Creatinine 1.80 H D Estimated Creat Clear 51 Estimated GFR 37 L Est GFR ( Amer) 45 L D Glucose 232 H POC Glucose 244 H Calcium 8.3 L Magnesium 2.2 Total Bilirubin 3.3 H AST 168 H D ALT 261 H Alkaline Phosphatase 466 H Total Protein 6.1 L Albumin 2.9 L Globulin 3.2 Albumin/Globulin Ratio 0.9 L DS: Diagnosis Discharge Diagnosis (1) Choledocholithiasis with acute cholecystitis: Status: Acute Code(s): K80.42 - Calculus of bile duct with acute cholecystitis without obstruction (2) Anemia: Status: Acute Code(s): D64.9 - Anemia, unspecified (3) Epigastric pain: Status: Acute Code(s): R10.13 - Epigastric pain (4) Chronic Kidney Disease: Status: Acute Code(s): N18.9 - Chronic kidney disease, unspecified Qualifiers: Chronic kidney disease stage: stage 3 (moderate) Chronic kidney disease stage 3 subtype: unspecified whether 3a or 3b Qualified Code(s): N18.30 - Chronic kidney disease, stage 3 unspecified (5) Obesity (BMI 30.0-34.9): Status: Chronic Code(s): E66.811 - Obesity, class 1 (6) Diabetes mellitus: Status: Chronic Code(s): E11.9 - Type 2 diabetes mellitus without complications Qualifiers: Diabetes mellitus complication status: without complication 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: with remote computer terminal operator use Diabetes mellitus type: type 2 Qualified Code(s): E11.9 - Type 2 diabetes mellitus without complications; Z79.4 - care home (current) use of insulin (7) Hypertension: Status: Acute Code(s): I10 - Essential (primary) hypertension Qualifiers: Hypertension type: unspecified Qualified Code(s): I10 - Essential (primary) hypertension (8) Cholelithiasis: Status: Acute Code(s): K80.20 - Calculus of gallbladder without cholecystitis without obstruction (9) Sepsis: Status: Resolved Code(s): A41.9 - Sepsis, unspecified organism Meds Home Medications and Allergies Home Medications ?Medication ?Instructions ?Recorded ?Confirmed ?Type allopurinol 300 mg tablet 300 mg PO DAILY 04/01/23 03/14/25 History gabapentin 300 mg capsule 300 mg PO TID 04/01/23 03/14/25 History pioglitazone 45 mg tablet 45 mg PO DAILY 07/07/23 03/14/25 History insulin glargine 100 unit/mL (3 30 unit SQ HS 01/07/24 03/14/25 History mL) subcutaneous pen (Lantus Solostar U-100 Insulin) carvedilol 3.125 mg tablet 3.125 mg PO BID #180 tabs 09/19/24 03/14/25 Rx clopidogrel 75 mg tablet 75 mg PO DAILY 02/27/25 03/14/25 History pantoprazole 40 mg tablet,delayed 40 mg PO DAILY 02/27/25 03/14/25 History release rosuvastatin 10 mg tablet 10 mg PO DAILY 02/27/25 03/14/25 History semaglutide 2 mg/dose (8 mg/3 mL) 2 mg SQ WEEKLY 02/27/25 03/14/25 History subcutaneous pen injector (Ozempic) lisinopril 20 mg tablet 20 mg PO DAILY 03/09/25 03/14/25 History tamsulosin 0.4 mg capsule 0.4 mg PO DAILY 03/09/25 03/14/25 History pen needle, diabetic 32 gauge x #1,200 ea 03/13/25 03/15/25 History 5/32 (Droplet Pen Needle) hydrocodone 5 mg-acetaminophen 325 1 tab PO Q6H PRN pain #9 tabs 03/17/25 Rx mg tablet New Prescriptions to Start Prescriptions: hydrocodone-acetaminophen Sterling Holman Allergies Allergy/AdvReac Type Severity Reaction Status Date / Time No Known Allergies Allergy Verified 03/14/25 11:06 Discharge Plan Disposition Patient Disposition: Home, Self-Care Condition: Fair Discharge Order Discharge Orders: Discharge Order (Routine); Ordered 03/17/25 Ordered By: Sterling Holman Follow up Plan Follow up with: Dandre Montano MD [Staff Physician] - 03/23/25 10:15 am Sebastian Rivero II, MD [Staff Physician] - 04/19/25 10:30 am Akira Fajardo [Primary Care Provider] - 03/28/25 10:00 am Prescriptions/Medication Reconciliation: New hydrocodone-acetaminophen 5-325 mg tablet 1 tab PO Q6H PRN (Reason: pain) Qty: 9 0RF Continued carvedilol 3.125 mg tablet 3.125 mg PO BID Qty: 180 3RF (DME) pen needle, diabetic [Droplet Pen Needle] 32 gauge x 5/32 needle See Rx Instructions .ROUTE .MEDSUPPLY Qty: 1200 Rx Instructions: As directed pioglitazone 45 mg tablet 45 mg PO DAILY gabapentin 300 mg capsule 300 mg PO TID allopurinol 300 mg tablet 300 mg PO DAILY insulin glargine [Lantus Solostar U-100 Insulin] 100 unit/mL (3 mL) insulin pen 30 unit SQ HS Ozempic 2 mg/dose (8 mg/3 mL) pen injector 2 mg SQ WEEKLY clopidogrel 75 mg tablet 75 mg PO DAILY rosuvastatin 10 mg tablet 10 mg PO DAILY pantoprazole 40 mg tablet,delayed release (DR/EC) 40 mg PO DAILY lisinopril 20 mg tablet 20 mg PO DAILY tamsulosin 0.4 mg capsule 0.4 mg PO DAILY Problem Reconciliation Problems Reviewed?: Yes Patient Discharge Instructions ACTIVITY: Continue current activity DIET: continue same diet and advance to your usual diet Patient Instructions: DI for Gallstones, DI for Surgical Site Infection, DI for Cholecystitis, Stop Light COPD, Stop Light Infection Print Language: Tunisian Providers Primary Care Provider: Akira Fajardo Admit Provider: Sterling Holman Attending Provider: Sterling Holman
[2025-03-17 07:11] LABS: Magnesium 2.1 mg/dl (1.6-2.3)
--- NOTE | 2025-03-17 07:17 | P.PNANES_ITS ---
[facility] [place] Anesthesia Record Part II Anesthesia Record Part II Discharge Time: 12:45 Destination: Surgical Day Care (OP Surgery) PACU nurse assessment reviewed?: Yes Patient Condition:: Good Anesthesia Complications:: None Swallowing reflex intact?: Yes Airway Patency: Patent Cyanosis?: No Blood Pressure: 140/87 SaO2: 97 Respiratory Rate: 16 Pulse Rate: 56 Temperature: 97.7 F Mental Status: Alert & Oriented Pain level:: 5 Nausea and/or vomitting:: None Intake, IV Amount: 0 Hydration: Adequate
[2025-03-17 07:18] VITALS: BP 140/87; PULSE 56; RESP 16; TEMP 36.5; O2SAT 97
[2025-03-17 08:00] VITALS: BP 109/59; PULSE 68; RESP 17; TEMP 36.9; O2SAT 95
[2025-03-17] MEDS: CARVEDILOL 3.125MG TABLET 3.125 MG PO (08:31)
[2025-03-17] MEDS: GABAPENTIN 300MG CAPSULE 300 MG PO (08:31)
[2025-03-17 14:52] LABS: POC Glucose,Bedside 192 (70-110)
--- NOTE | 2025-03-20 14:57 | SW/DCPLANNER ---
Spoke with patient on the phone. Patient stated that he is doing well just a little sore. Patient stated that he is aware of his upcoming appointments. Patient stated that he was able to get his medicine picked up. Patient stated that he has no concerns or questions at this time. Eliane Munroe
== END 2025-03-17 09:08 | disposition home or self-care (01) | DRG 418 ==
LOC: ER 11:37 → 2ND 13:30
PROVIDERS: Internal Medicine Gastroenterology; Surgery; Admitting Provider Internal Medicine Adolescent Medicine; Emergency Provider Emergency Medicine; PCP Family Medicine; Visit Provider Internal Medicine Adolescent Medicine
PROC: 0F798ZZ Dilation of Common Bile Duct, Via Natural or Artificial Opening Endoscopic (ICD-10-PCS; CPT 43260; principal; 2025-03-15 07:00)
PROC: 0FT44ZZ Resection of Gallbladder, Percutaneous Endoscopic Approach (ICD-10-PCS; CPT 47562; principal; 2025-03-16 09:30)
DX: K80.42 Calculus of bile duct with acute cholecystitis without obstruction (principal); N17.9 Acute kidney failure, unspecified; R17 Unspecified jaundice; N18.4 Chronic kidney disease, stage 4 (severe); R10.13 Epigastric pain; E66.811 Obesity, class 1; I12.9 Hypertensive chronic kidney disease with stage 1 through stage 4 chronic kidney disease, or unspecified chronic kidney disease; K80.20 Calculus of gallbladder without cholecystitis without obstruction; I25.10 Atherosclerotic heart disease of native coronary artery without angina pectoris; E11.22 Type 2 diabetes mellitus with diabetic chronic kidney disease; Z79.85 Long-term (current) use of injectable non-insulin antidiabetic drugs; Z79.899 Other long term (current) drug therapy; Z79.4 Long term (current) use of insulin; Z95.5 Presence of coronary angioplasty implant and graft; F17.290 Nicotine dependence, other tobacco product, uncomplicated; Z96.651 Presence of right artificial knee joint; Z68.32 Body mass index [BMI] 32.0-32.9, adult; M10.9 Gout, unspecified; D63.1 Anemia in chronic kidney disease
CPT/HCPCS: 36415; 74330; 80053; 82962; 83036; 83690; 83735; 85025; 87633; 99285; J3490; C1726; C1769; J1100; J1171; J2405; J2543; J3010; J7120

== ENCOUNTER 2025-09-04 08:54 | Day surgery (SDC) | payer MEDICARE, SELFPAY ==
[2025-08-29 12:59] VITALS: BMI 32.6
--- NOTE | 2025-08-31 17:44 | EXP.HP ---
History of Present Illness *Admission Date: 09/04/25 *History of present illness: Mr. Rodriguez is a 74-year-old gentleman who is here for screening/surveillance colonoscopy secondary to a personal history of adenomatous colon polyps as well as a rectal tubulovillous adenoma. His colonoscopy with me in March 2021 revealed 8 polyps (ranging in size from 3 to 12 mm) which were all adenomatous and the rectal polyp was a tubulovillous adenoma. I did recommend 2-year surveillance interval if he is not met a repeat colonoscopy since then. He reports no rectal bleeding, abdominal pain, change in his bowel habits, weight loss or family history of colon cancer.. The examination is deemed medically necessary for screening/surveillance colonoscopy. The patient has been seen, interviewed and examined prior to the procedure by both myself and the anesthesia provider. [facility] Disclaimer: The information contained in this section may have been updated after the patient was seen, as this information can be updated by other users. Medical History Chronic Kidney Disease Pre-operative cardiovascular examination History of left heart catheterization Sleep apnea COPD (chronic obstructive pulmonary disease) JON (acute kidney injury) Dyspnea Hypotension Hx of fracture of left hip Hyperlipidemia Hypertension Dyslipidemia Coronary artery disease Hx of stent to LAD artery Status post stent to circumflex artery Multiple risk factors for coronary artery disease Patient continues to use tobacco I am concerned about new coronary lesion or in-stent restenosis. CAD (coronary artery disease) Neuropathy Arthritis Gout Diabetes mellitus Surgical History History of laparoscopic cholecystectomy H/O right heart catheterization Hx of right knee surgery Hx of hernia repair Stented coronary artery Status post total right knee replacement Family History Other Leukemia Stroke Social History Smoking Status: Current every day smoker tobacco type: cigars second hand exposure: No alcohol intake: former substance use type: denies use current occupational status: retired and disabled Travel in the last 8 weeks?: None household members: family housing: house current occupational exposures/hazards: No caffeine: No Have you lived/traveled outside [place] in past 30 days?: No Contact w/someone who lives/traveled outside [place] past 30 days?: No Exposure to someone with infectious disease in past 14 days?: No Do you have a fever (greater than 100.4 F or 38 C)?: No Have you tested positive for COVID-19?: No Exposed to someone with COVID-19 in past 14 days?: No Do you have a sore throat?: No Do you have a cough?: No Do you have any weakness?: No Are you experiencing any nausea/vomitting?: No Do you have any diarrhea?: No Are you experiencing any unusual bleeding?: No Do you have any muscle aches/pain?: No Do you have any abdominal pain?: No Are you experiencing loss of taste or smell?: No Other Medical History Have you received the Flu Vaccine for this season: No Have you received the Pneumonia Vaccine: No Review of Systems Review of Systems Review of systems (narrative): Negative *Cardiovascular Comments: Negative *Gastrointestinal Comments: Negative *Genitourinary Comments: Negative *Musculoskeletal Comments: Negative *Neurologic Comments: Negative Meds Home Medications and Allergies Home Medications ?Medication ?Instructions ?Recorded ?Confirmed ?Type allopurinol 300 mg tablet 300 mg PO DAILY 04/01/23 09/04/25 History gabapentin 300 mg capsule 300 mg PO TID 04/01/23 09/04/25 History pioglitazone 45 mg tablet (Actos) 45 mg PO DAILY 07/07/23 09/04/25 History insulin glargine 100 unit/mL (3 30 unit SQ HS 01/07/24 09/04/25 History mL) subcutaneous pen (Lantus Solostar U-100 Insulin) rosuvastatin 10 mg tablet 10 mg PO DAILY 02/27/25 09/04/25 History tamsulosin 0.4 mg capsule (Flomax) 0.4 mg PO DAILY 03/09/25 09/04/25 History pen needle, diabetic 32 gauge x #1,200 ea 03/13/25 09/04/25 History (Droplet Pen Needle) semaglutide 2 mg/dose (8 mg/3 mL) See Rx Instructions .Route 03/29/25 09/04/25 Rx subcutaneous pen injector (Ozempic) .COMPLEX #9 ea pantoprazole 40 mg tablet,delayed See Rx Instructions .Route 04/04/25 09/04/25 Rx release .COMPLEX #90 tabs carvedilol 3.125 mg tablet See Rx Instructions .Route 08/01/25 09/04/25 Rx .COMPLEX #180 tabs sodium,potassium,mag sulfates 17.5 See Rx Instructions PO .COMPLEX 08/21/25 09/04/25 Rx gram-3.13 gram-1.6 gram oral soln #354 mL (Suprep Bowel Prep Kit) New Prescriptions to Start Prescriptions: Allergies Allergy/AdvReac Type Severity Reaction Status Date / Time No Known Allergies Allergy Verified 09/04/25 09:40 Exam Data for Last 24 hours I & O for Last 24 hours: Intake & Output 08/28/25 08/29/25 08/30/25 08/31/25 23:59 23:59 23:59 23:59 Weight 221 lb *Routine HEENT Exam Head: Present normocephalic Eye: Present EOMI and PERRL ENT: Present mucous membranes moist *Routine Neck Exam Neck: Present supple *Routine Respiratory Exam Respiratory: Present CTA bilaterally *Routine Cardiovascular Exam Cardiovascular: Present RRR *Routine Abdominal Exam Abdominal: Present soft and normoactive bowel sounds; Absent tenderness *Routine Rectal Exam Rectal:: deferred *Routine Genitalia Exam Genitalia:: deferred *Routine Extremities Exam Extremities: Absent cyanosis, clubbing or edema *Routine Skin Exam Skin: Present warm; Absent rash *Routine Neurological Exam Neurological: Present alert and oriented X3 Assessment and Plan *Assessment and plan (1) Personal history of adenomatous and serrated colon polyps: Status: Acute Category: Medical Code(s): Z86.0101 - Personal history of adenomatous and serrated colon polyps (2) Tubulovillous adenoma of rectum: Status: Acute Category: Medical Code(s): D12.8 - Benign neoplasm of rectum (3) Screening for colon cancer: Status: Acute Category: Medical Code(s): Z12.11 - Encounter for screening for malignant neoplasm of colon Plan A/P: 1. Personal history of adenomatous colon polyps and prior rectal tubulovillous adenoma is the preprocedural diagnosis. The patient will be anesthetized/sedated using MAC sedation. The patient has been seen and examined. Cardiac and lung assessment prior to the examination is stable. Proceed with planned screening/surveillance colonoscopy.
--- NOTE | 2025-09-04 06:46 | P.PCN_ITS ---
[facility] Procedure Note Date: 09/04/25 Time: 10:40 Procedure Note:: Colonoscopy Procedure Report: Colonoscopy with cold snare polypectomy Endoscopist: Sebastian Rivero II, MD Referring physician: Akira Fajardo MD Date of Procedure: September 04, 2025 Equipment: Olympus [id number] adult colonoscope Sedation: MAC sedation Indication: Mr. Rodriguez is a 74-year-old gentleman who is here for screening/surveillance colonoscopy secondary to a personal history of adenomatous colon polyps as well as a rectal tubulovillous adenoma. [facility] colonoscopy with [facility] in March 2021 revealed 8 polyps (ranging in size from 3 to 12 mm) which were all adenomatous and the rectal polyp was a tubulovillous adenoma. I did recommend 2-year surveillance interval if he is not had a repeat colonoscopy since then. He reports no rectal bleeding, abdominal pain, change in his bowel habits, weight loss or family history of colon cancer. The examination is deemed medically necessary for screening/surveillance colonoscopy. Procedure: Prior to the procedure, a history and physical exam was performed, and patient's medications and allergies were reviewed. The risks, benefits and alternatives of the sedation and procedure were discussed with the patient. All questions were answered and informed consent was obtained. The patient was brought to the procedure room. Patient identification and proposed procedure were verified by the physician and the nurse. The patient was placed in a left lateral decubitus position and the scope was passed under direct vision. Throughout the procedure, the patient's blood pressure, pulse, and oxygen saturations were monitored continuously. The colonoscopy was accomplished without difficulty. The patient tolerated the procedure well. Findings: On digital rectal examination there was normal rectal tone. There were no external hemorrhoids. The colonoscope was introduced through the anal canal to the rectum and advanced to the cecum. The ileocecal valve and appendiceal orifice were identified. The scope was advanced a short distance into the ileum which appeared grossly normal. The scope was then withdrawn into the colon. There were 11 colon polyps (cecum x 2 (3 and 4 mm), ascending x 2 (4 and 8 mm), descending x 6 (3, 3, 4, 5, 5 and 6 mm) and sigmoid x 1 (6 mm)). These were all removed via cold snare polypectomy. There were scattered diverticuli throughout the colon but more predominantly in the descending and sigmoid colon (LEFT colon). The rectum itself was normal. Upon retroflexion within the rectum there were grade 2-3 internal hemorrhoids. The preparation was excellent throughout with [place] Preparation Score of 9. The cecal time was 16 minutes. Impression: 1. Colonic polyps x 11 2. Pandiverticulosis 3. Grade 2-3 internal hemorrhoids Plan: I will follow-up the polyp histology and recommend repeat screening/surveillance colonoscopy again in 3 years. Persons with more than 20 adenomatous polyps cumulatively over the lifetime (over several colonoscopies) are considered to be higher risk for potential colon cancer or a genetic colon cancer polyposis syndrome. It is recommended that persons with more than a cumulative of 20 adenomatous polyps over there lifetime should be evaluated with surveillance colonoscopy no less than every 3 years. He has had nearly 20 adenomatous polyps removed over the course of his last 2 colonoscopies.
--- NOTE | 2025-09-04 09:26 | EXP.ANES.CKL ---
[facility] Disclaimer: The information contained in this section may have been updated after the patient was seen, as this information can be updated by other users. Medical History Chronic Kidney Disease Pre-operative cardiovascular examination History of left heart catheterization Sleep apnea COPD (chronic obstructive pulmonary disease) JON (acute kidney injury) Dyspnea Hypotension Hx of fracture of left hip Hyperlipidemia Hypertension Dyslipidemia Coronary artery disease Hx of stent to LAD artery Status post stent to circumflex artery Multiple risk factors for coronary artery disease Patient continues to use tobacco I am concerned about new coronary lesion or in-stent restenosis. CAD (coronary artery disease) Neuropathy Arthritis Gout Diabetes mellitus Surgical History History of laparoscopic cholecystectomy H/O right heart catheterization Hx of right knee surgery Hx of hernia repair Stented coronary artery Status post total right knee replacement Family History Other Leukemia Stroke Social History (Updated 09/04/25 @ 09:23 by Antony Wang) Smoking Status: Current every day smoker tobacco type: cigars second hand exposure: No alcohol intake: former substance use type: denies use current occupational status: retired and disabled Travel in the last 8 weeks?: None household members: family housing: house current occupational exposures/hazards: No caffeine: No Have you lived/traveled outside [place] in past 30 days?: No Contact w/someone who lives/traveled outside [place] past 30 days?: No Exposure to someone with infectious disease in past 14 days?: No Do you have a fever (greater than 100.4 F or 38 C)?: No Have you tested positive for COVID-19?: No Exposed to someone with COVID-19 in past 14 days?: No Do you have a sore throat?: No Do you have a cough?: No Do you have any weakness?: No Are you experiencing any nausea/vomitting?: No Do you have any diarrhea?: No Are you experiencing any unusual bleeding?: No Do you have any muscle aches/pain?: No Do you have any abdominal pain?: No Are you experiencing loss of taste or smell?: No [facility] Anesthesia Checklist Patient Identification Patient Identification: Verbal (Name & ) Structural Data Admitted From: Home Planned Operative Procedure/s: colonoscopy Consent for Planned Operative Procedure(s) Verified: Yes NPO Status Verified Time NPO: 00:00 Additional verifications Anesthesia Reactions: No Hx Blood Transfusions: No Blood Transfusion Reaction: No Airway Assessment Mallampati Score:: Class II C-Spine Mobility Assessed: Yes TMJ Mobility Assessed: Yes Dentition: Edentulous Neurological Assessment Level of Consciousness: Awake, Alert and Appropriate Anesthesia Plan Anesthesia Risk discussed: Yes Anesthesia Plan: Verified ASA Class: III Anesthesia Type: MAC
[2025-09-04 09:34] VITALS: BP 173/101; PULSE 78; RESP 16; TEMP 36.2; O2SAT 96; BMI 32.6
[2025-09-04 09:35] LABS: POC Glucose,Bedside 59 gm/dL (70-110)
[2025-09-04] MEDS: DEXTROSE 5%-LACTATED RINGERS 1,000 ML 25 ML IV (09:44)
[2025-09-04 10:44] VITALS: BP 127/81; PULSE 65; RESP 16; TEMP 36.3; O2SAT 95
[2025-09-04 10:54] VITALS: BP 127/68; PULSE 64; RESP 16; O2SAT 94
[2025-09-04 11:04] VITALS: BP 133/81; PULSE 63; RESP 16; O2SAT 95
[2025-09-04 11:14] VITALS: BP 141/84; PULSE 65; RESP 16; O2SAT 96
== END 2025-09-04 11:14 | disposition home or self-care (01) ==
PROVIDERS: PCP Family Medicine; Visit Provider Internal Medicine Gastroenterology
PROC: 0DJD8ZZ Inspection of Lower Intestinal Tract, Via Natural or Artificial Opening Endoscopic (ICD-10-PCS; CPT 45378; principal; 2025-09-04 10:30)
DX: Z12.11 Encounter for screening for malignant neoplasm of colon (principal); D12.2 Benign neoplasm of ascending colon; D12.0 Benign neoplasm of cecum; D12.4 Benign neoplasm of descending colon; D12.5 Benign neoplasm of sigmoid colon; Z86.0101 Personal history of adenomatous and serrated colon polyps; K57.30 Diverticulosis of large intestine without perforation or abscess without bleeding; K64.2 Third degree hemorrhoids; E11.22 Type 2 diabetes mellitus with diabetic chronic kidney disease; I12.9 Hypertensive chronic kidney disease with stage 1 through stage 4 chronic kidney disease, or unspecified chronic kidney disease; N18.9 Chronic kidney disease, unspecified; J44.9 Chronic obstructive pulmonary disease, unspecified; E78.5 Hyperlipidemia, unspecified; I25.10 Atherosclerotic heart disease of native coronary artery without angina pectoris; Z95.5 Presence of coronary angioplasty implant and graft; F17.290 Nicotine dependence, other tobacco product, uncomplicated; Z79.899 Other long term (current) drug therapy; Z79.4 Long term (current) use of insulin; Z79.85 Long-term (current) use of injectable non-insulin antidiabetic drugs
CPT/HCPCS: 45385; 82962; J2003; J2704; J7121